=== PATIENT | male | born 1950 | race Caucasian/White ===

== ENCOUNTER 2025-02-17 15:24 | Emergency (ER) | payer OTHER, SELFPAY ==
--- NOTE | ~2025-02-17 | XR_ITS ---
EXAMINATION: XR chest 2V Exam Date/Time: 02/17/2025 16:00 CDT HISTORY: covid Comparison: None. RESULT: Lines, tubes, and devices: Cholecystectomy clips. Lungs and pleura: Streaky subsegmental bibasilar opacities. Ill-defined groundglass opacities in the right lower lung. Right lower lung granuloma Cardiomediastinal silhouette: Stable. Chronic left hemidiaphragm elevation. Other: No acute osseous or upper abdominal finding. IMPRESSION: Ill-defined right lower lung groundglass opacities may represent atelectasis, edema or infection. Min imal bibasilar subsegmental atelectasis/consolidation. Chronic left hemidiaphragm elevation, recommend nonemergent fluoroscopic sniff test for further evalu ation if not performed elsewhere. Reviewed, dictated and finalized at [facility]. IMPRESSION: Ill-defined right lower lung groundglass opacities may represent atelectasis, e sumaya or infection. Minimal bibasilar subsegmental atelectasis/consolidation. Chronic left hemidiaphragm elevation, recommend nonemergent fluoroscopic sniff test for further evaluation if not performed elsewhere.
[2025-02-17 15:27] VITALS: BP 168/84; PULSE 97; RESP 16; TEMP 36.6; O2SAT 97
--- OUTSIDE RECORDS SUMMARY | 2025-02-17 15:27 | XMS_ITS ---
Author Name [facility] [place] Address [address] [place] [address] Care Team Providers Care Funeral Attendant Name Role Phone MORELIA ALLEN Primary Care Provider Abel schmidt Insurance Providers: All historical and current Section Date Range: From patient's date of to the date document was created. This section includes the names of all active insurance providers for the patient. Insurance Provider Type of Coverage Plan Name Start of Policy Coverage End of Policy Coverage Group Number Member ID Insurance Provider's Telephone Number Policy Norman's Name Patient's Relationship to Policy Norman MEDICARE (WNR) MEDICARE (M) PART A Mar 19, 2014 PART A [id number] [place] MEDICARE (WNR) MEDICARE (M) PART A Mar 19, 2014 PART A [id number] [place] Selected Encounter This section includes the information on record at [place] for the Encounter. Date/Time Encounter Type Encounter Description Reason Provider Source Sep 01, 2024 01:08 PM [facility] OL DIG ASSMT&MGMT 5-10 CLINICAL PHARMACY ICD-10-CM E11.8 Type 2 diabetes mellitus with unspecified complications AIDAN SANTIAGO Encounter Template Text not used by [place] Assessments - Encounter Diagnoses This section includes the primary and secondary diagnoses documented for the Encounter. Date/Time Primary/Secondary Diagnosis Diagnosis Name Provider Source Sep 01, 2024 01:19 PM PRIMARY Type 2 diabetes mellitus with unspecified complications AIDAN SANTIAGO [facility] Plan of Treatment: Future Appointments (+ 6 months) and Future Tests (+/- 45 days) The Plan of Treatment section includes future care activities for the patient from all [place] [facility]. This section includes future appointments and future orders which are active, pending or scheduled. Future Appointments This section includes appointments that were scheduled to occur 6 months from the date of the Encounter, up to a maximum of 20 appointments. The data comes from all [place] treatment facilities. Appointment Date/Time Appointment Type Appointme nt Facility Name Sep 12, 2024 01:00 PM AMBULATORY - MEDICINE [facility] Oct 11, 2024 10:30 AM AMBULATORY - NONE [facility] Nov 07, 2024 09:15 AM AMBULATORY - MEDICINE [facility] November 23, 2024 09:00 AM AMBULATORY - NONE [facility] November 23, 2024 11:00 AM AMBULATORY - SURGERY . [facility] December 15, 2024 03:30 PM AMBULATORY - MEDICINE [facility] Dec 18, 2024 08:00 AM AMBULATORY - SURGERY [facility] Dec 20, 2024 03:30 PM AMBULATORY - MEDICINE [facility] Dec 21, 2024 11:00 AM AMBULATORY - NONE [facility] Dec 29, 2024 08:00 AM AMBULATORY - REHAB MEDICIN E [facility] 2025 02:30 PM AMBULATORY - REHAB MEDICIN E [facility] Jan 12, 2025 11:30 AM AMBULATORY - NONE . [facility] Jan 12, 2025 04:00 PM AMBULATORY - SURGERY . [facility] Jan 18, 2025 11:00 AM AMBULATORY - SURGERY [facility] Feb 07, 2025 11:00 AM AMBULATORY - SURGERY [facility] Feb 14, 2025 06:30 AM AMBULATORY - NONE [facility] Feb 15, 2025 08:30 AM AMBULATORY - SURGERY [facility] Feb 22, 2025 08:00 AM AMBULATORY - SURGERY [facility] Feb 28, 2025 09:00 AM AMBULATORY - SURGERY [facility] Lab Results: +/- 30 days of the encounter This section includes the Chemistry and Hematology Lab Results [facility] with [facility] for the patient. Radiology Reports and Pathology Reports are provided separately, in subsequent sections. Lab Results This section contains the Chemistry/Hematology Results that were resulted 30 days before or 30 daysafter the date of the Encounter. Date/Time Source Result Type Result - Unit Interpretation Reference Range Specimen Type Comment Aug 31, 2024 08:25 AM [facility] HGA1C BLOOD Specimen Type: BLOOD No comment entered. Ordering Provider: TAPAN BLAS Report Released Date/Time: Jul 20, 2024 09:26 AM Reporting Lab: [facility] #1 [facility] [id number] Performing Lab: [facility] #1 [facility] [id number] HGA1C 6.9 H 4.0-6.0 Aug 31, 2024 08:25 AM [facility] BASIC METABOLIC PANEL PLASMA Specimen Type: PL ASMA Comment: No hemolysis noted. Ordering Provider: TAPAN BLAS Report Released Date/Time: Jul 20, 2024 09:26 AM Reporting Lab: [facility]1 [facility] [phone] Performing Lab: [facility]1 [facility] [phone] CREATININE 0.97 mg/dL 0.70-1.30 UREA NITROGEN 15.8 mg/dL 9.0-25.0 GLUCOSE 168 mg/dL H 72-99 SODIUM 140 meq/L 136-145 POTASSIUM 4.4 meq/L 3.5-5.0 CHLORIDE 104 meq/L 98-107 CARBON DIOXIDE 27 meq/L 22-31 CALCIUM 9.4 mg/dL 8.4-10.4 EGFR (CKD-EPI 2020) 81.41 >60 Social History: Smoking Status (Most current) and Tobacco Use (All prior to encounter date) This section includes the most current, and the historical, smoking and tobacco- related health factors from the [place] facility where the Encounter took place. Current Smoking Status This section includes the most current smoking, or tobacco-related health factor, from the [place] facility where the Encounter took place. Date/Time Current Smoking Status Comment Ronda ity Jun 19, 2023 02:53 AM ORYX ADMIT TOBACCO SCREEN NO [facility] Tobacco Use History This section includes a history of the smoking, or tobacco-related health factors, that were collected on or before the date of the Encounter. The data comes from the [place] facility where the Encounter took place. Date/Time Smoking Status/Tobacco Use Comment Kirstin acility Apr 02, 2016 12:55 PM QUIT TOBACCO >7 YEARS AGO [facility] May 21, 2015 01:30 PM LIFETIME NON-USER OF TOBACCO [facility] Jan 03, 2014 10:46 AM LIFETIME NON-USER OF TOBACCO [facility] Feb 21, 2013 11:08 AM QUIT TOBACCO >12 M O & <7 YRS AGO [facility] Aug 19, 2009 12:46 PM LIFETIME NON-USER OF TOBACCO [facility] Oct 05, 2008 10:28 AM QUIT TOBACCO >12 M O & <7 YRS AGO [facility] November 18, 2007 09:08 AM QUIT TOBACCO IN TH E LAST 12 MONTHS [facility] Aug 05, 2006 12:57 PM CURRENT TOBACCO USER [facility] Aug 05, 2006 12:57 PM TOB-DECLINES SMOKI NG CESSATION REFERRAL [facility] Jan 13, 2006 08:42 AM CURRENT TOBACCO USER [facility] Jan 13, 2006 08:42 AM SMOKER 1-2 PACKS [facility] Advance Directives: All historical and current Section Date Range: From patient's date of to the date document was created. This section includes ALL of a patient's completed or amended [place] Advance and Rescinded Directives. The entries below indicate that a directive exists for the patient, but an actual copy is not included with this document. The data comes from all [place] facilities. Date Advance Directives Provider Source Jan 22, 2016 ADVANCE DIRECTIVE DISCUSSION AMBERLY HOFFMAN [facility] Mar 31, 2007 ADVANCE DIRECTIVE JOSE C ALLEN [facility] Encounter Notes: All associated encounter notes This section contains the clinical notes associated to the Encounter. Date/Time Encounter Note(s) Provider Source Sep 01, 2024 01:08 PM PHARMACY CONSULT: LOCAL TITLE: PHARMACY PRIOR APPROVAL CONSULT ST STANDARD TITLE: PHARMACY CONSULT DATE OF NOTE: SEP 01, 2024@13:08 ENTRY DATE: SEP 01, 2024@13:08:59 AUTHOR: AIDAN SANTIAGO COSIGNER: URGENCY: STATUS: COMPLETED The medical record has been reviewed with regard to this prior authorization drug request. Medication requested: LIRAGLUTIDE (EQV-VICTOZA) 6MG/ML PEN 3ML Medication indication: Type 2 Diabetes Mellitus Medical history relevant to this request: ALLAN LOVETT is a 74 yo MALE with pertinent PMH significant for T2DM, HTN, obesity, and HLD. Provider requesting initiation of liraglutide. Current DM Regimen: - Metformin 1000mg PO BID - Dulaglutide 0.75mg subQ weekly (discontinued due to ADRs) A1c Target: <7.5% HGA1C 6.9 H % 08/31/2024 08:25 SODIUM 140 mEq/L 08/31/2024 08:25 POTASSIUM 4.4 mEq/L 08/31/2024 08:25 CHLORIDE 104 mEq/L 08/31/2024 08:25 UREA NITROGEN 15.8 mg/dL 08/31/2024 08:25 CREATININE 0.97 mg/dL 08/31/2024 08:25 CALCIUM 9.4 mg/dL 08/31/2024 08:25 CARBON DIOXIDE 27 mEq/L 08/31/2024 08:25 GLUCOSE 168 H mg/dL 08/31/2024 08:25 EGFR (CKD-EPI 2020) 81.41 08/31/2024 08:25 Exclusion Criteria: (-) Type 1 Diabetes (-) Personal/family history of medullary thyroid carcinoma or with Multiple Endocrine Neoplasia syndrome type 2 (-) Severe GI disease (-) History of pancreatitis History of diabetic retinopathy: 03/09/24 Type 2 Diabetes without retinopathy - No DME/CSME OU- confirmed w/ OCT Mac - Last HGA1C: 6.7% - Pt ed on the importance of maintaining tight BG control to reduce the risk for diabetic ocular complications - Monitor annually w/ DFE Inclusion Criteria: Pts with ASCVD and/or CKD: (+) T2DM + receiving metformin unless unable to use metformin (+) Not a good candidate for empagliflozin (volume depletion, UTI, ketoacidosis) (+) uACR >300mcg/mg - A1c reflects metformin + dualglutide. Experiencing nausea/diarrhea w/ dulaglutide; hx of diarrhea w/ semaglutide. Would like to try alternative glp1 d/t BMI 40 kg/m2, uACR > 300 mcg/mg. Avoiding SGLT2i d/t UTI and kidney stone hx (kidney stones contribute to vet's UTIs) Will approve request for liraglutide initiation as above. No contrainidications to use. The request is approved - A documented adverse reaction occurred with the preferred formulary alternative(s) TIME REVIEWING CHART:10. (minutes) /shadi/ Aidan Santiago PharmD, BCPS, BCIDP Clinical Pharmacy Practitioner Signed: 09/01/2024 13:33 AIDAN SANTIAGO [facility]
--- OUTSIDE RECORDS SUMMARY | 2025-02-17 15:28 | XMS_ITS | Encounter Summary ---
Author Name [facility] [place] [facility] [place] Address [address] [place] [address] Care Team Providers Care Machine Grainer Name Role Phone MORELIA ALLEN Primary Care Provider Unavailab le Insurance Providers: All historical and current Section [...] PART A Mar 19, 2014 PART A [id number] [phone] [place] PATIENT MEDICARE (WNR) MEDICARE (M) PART A Mar 19, 2014 PART A [id number] [place] PATIENT Selected Encounter This section includes the information on record at [place] for the Encounter. Date/Time Encounter Type Encounter Description Reason Pro vider Source Feb 17, 2025 03:04 PM Outpatient Encounter TELEPHONE TRIAGE IHE Encounter Template Text not used by [facility] Plan of Treatment: Future Appointments (+ 6 months) and Future Tests (+/- 45 days) The Plan of Treatment section includes future care activities for the patient [facility] [place] [facility] This section includes future appointments and future orders which are active, pending or scheduled. Future Appointments This section includes appointments that were scheduled to occur 6 months from the date of the Encounter, up to a maximum of 20 appointments. The data comes from all [place] treatment facilities. Appointment Date/Time Appointment Type Appointme nt Facility Name Feb 22, 2025 08:00 AM AMBULATORY - SURGERY [facility] Feb 28, 2025 09:00 AM AMBULATORY - SURGERY [facility] Mar 06, 2025 08:30 AM AMBULATORY - NONE [facility] Mar 12, 2025 01:30 PM AMBULATORY - SURGERY [facility] Mar 16, 2025 08:30 AM AMBULATORY - SURGERY [facility] May 31, 2025 11:00 AM AMBULATORY - MEDICINE [facility] Lab Results: +/- 30 days of the encounter This section includes the Chemistry and Hematology Lab Results on record with [place] for the patient. Radiology Reports and Pathology Reports are provided separately, in subsequent sections. Lab Results This section contains the Chemistry/Hematology Results that were resulted 30 days before or 30 daysafter the date of the Encounter. Date/Time Source Result Type Result - Unit Interpretation Reference Range Specimen Type Comment Feb 14, 2025 06:47 AM [facility] GLUCOSE,BLOOD-poct (STL) BLOOD Specimen Type: BLOOD Comment: Test Performed by: [id number] Meter #: [id number] Ordering Provider: ENEDELIA EMERSON Report Released Date/Time: Feb 14, 2025 08:34 AM Reporting Lab: [facility] [address] [facility] [id number] Performing Lab: [address] [id number] GLUCOSE,BLOOD-poct (STL) 146 mg/dL H 72-99 Social History: Smoking Status (Most current) and Tobacco Use (All prior to encounter date) This section includes the most current, and the historical, smoking and tobacco- related health factors from the [place] facility where the Encounter took place. Current Smoking Status This section includes the most current smoking, or tobacco-related health factor, from the [place] facility where the Encounter took place. Date/Time Current Smoking Status Comment Ronda ity Jun 19, 2023 02:53 AM ORYX ADMIT TOBACCO SCREEN NO [facility] Tobacco Use History This section includes a history of the smoking, or tobacco-related health factors, that were collected on or before the date of the Encounter. The data comes from the [place] facility where the Encounter took place. Date/Time Smoking Status/Tobacco Use Comment F acility Apr 02, 2016 12:55 PM QUIT TOBACCO >7 YEARS AGO [facility] May 21, 2015 01:30 PM LIFETIME NON-USER OF TOBACCO [facility] Jan 03, 2014 10:46 AM LIFETIME NON-USER OF TOBACCO [facility] Feb 21, 2013 11:08 AM QUIT TOBACCO >12 M O & <7 YRS AGO [facility] Aug 19, 2009 12:46 PM LIFETIME NON-USER OF TOBACCO [facility] Oct 05, 2008 10:28 AM QUIT TOBACCO >12 M O & <7 YRS AGO [facility] November 18, 2007 09:08 AM QUIT TOBACCO IN TH E LAST 12 MONTHS [facility] Aug 05, 2006 12:57 PM CURRENT TOBACCO USER [facility] Aug 05, 2006 12:57 PM TOB-DECLINES SMOKI NG CESSATION REFERRAL [facility] Jan 13, 2006 08:42 AM CURRENT TOBACCO USER [facility] Jan 13, 2006 08:42 AM SMOKER 1-2 PACKS [facility] Advance Directives: All historical and current Section Date Range: From patient's date of to the date document was created. This section includes ALL of a patient's completed or amended [place] Advance and Rescinded Directives. The entries below indicate that a directive exists for the patient, but an actual copy is not included with this document. The data comes from all [facility]. Date Advance Directives Provider Source Jan 22, 2016 ADVANCE DIRECTIVE DISCUSSION AMBERLY HOFFMAN [facility] Mar 31, 2007 ADVANCE DIRECTIVE JOSE C ALLEN [facility] Encounter Notes: All associated encounter notes This section contains the clinical notes associated to the Encounter. Date/Time Encounter Note(s) Provider Source Feb 17, 2025 03:04 PM RN PROGRESS NOTE: LOCAL TITLE: CCC: CLINICAL TRIAGE STANDARD TITLE: RN PROGRESS NOTE DATE OF NOTE: FEB 17, 2025@15:04:57 ENTRY DATE: FEB 17, 2025@15:04:58 AUTHOR: DEMETRIA DICKINSON COSIGNER: URGENCY: STATUS: COMPLETED Caller Verification Caller/Recipient Relation to Patient: Self Caller Name: ALLAN LOVETT Emergency Contact: MARCOS LOVETT Triage Summary Conducted triage/discussed symptoms Utilized the Triage Tool: Yes Chief Complaint: COVID-19 - Diagnosed or Suspected Nurse's Recommendation / WHEN: Now Nurse's Recommendation / WHERE: ED [facility] Patient confirms the following symptoms Cough Headache Runny Nose Confirms exposure in the last 14 days: Yes Someone with known or suspected COVID Results of Screening: Covid Vaccine x 8 POSITIVE symptom/s or exposure COVID Test to Treat Patient has a COVID home test kit Has patient had a test?: Yes Home Test COVID test result was positive Test was performed in the last 5 days: Yes Checked for FDA Authorized Test Kit: FDA authorized test kit used Date of Test was: 2025-02-17 00:00:00 Test Kit expiration date: 2025-04-13 00:00:00 Name of Test: Flow Flex Results self-reported via phone Test done with freight handler instructions: Yes Test to Treat Summary of Actions Test to Treat Outcome: No Appointment Required at This Time Patient Disposition Patient/Caregiver agrees to plan of care: No Patient WHERE: ED Other Patient WHEN: Now Nursing Plan and Disposition Referred patient to higher level of care Instructed to go to Emergency Room (ER) Advised of Financial Disclaimer: Patient advised that recommendation for care provided during the call does not constitute an approval or authorization for payment by the [place] or its staff. Patient advised to report a community ED visit to the national Office of Community Care at within 72 hours. Other course(s) of action Generated msg to PACT/Provider Provided guidance for worsening symptoms: *Caller/Patient* advised to call facilities [place] Clinical Contact Center or seek immediate medical attention for new or worsening symptoms Nurse Summary Nurse Summary: W[place] calls stating he thought he may have Covid so he took a home Covid test which was positive. Reports onset of runny nose, dry cough and headache which started on . Denies fever or chest pain. Reports slight SOA with exertion. Reports started with symptoms first. Advised he should be evaluated in the ER due to he is still in time frame for antivirals at Provider's discretion. Reports [facility] is [place] [address] away. would prefer to go to local ER and was provided with Non [place] Hospital notification number to report ER visit. Clinical Contact Center Codes Clinic/Location: 5 [facility] PHONE [facility] RN Decision Support System Output: Triage Complete Triage Date: 02/17/2025, 02:59 PM Triage Note: Decision Support Tool Used: ClearTriage Protocol Used: COVID-19 - Diagnosed or Suspected Protocol-Based Disposition: See Provider within 4 Hours Positive Triage Question: * MILD difficulty breathing (e.g., minimal/no SOB at rest, SOB with walking, pulse < 100) Care Advice Discussed: * Reasons To Call Back - You become worse Negative Triage Questions: * SEVERE difficulty breathing (e.g., struggling for each breath, speaks in single words) * Difficult to awaken or acting confused (e.g., disoriented, slurred speech) * Bluish (or nunez) lips or face now * Shock suspected (e.g., cold/pale/clammy skin, too weak to stand, low BP, rapid pulse) * Sounds like a life-threatening emergency to the triager * SEVERE or constant chest pain or pressure (Exception: Mild central chest pain, present only when coughing.) * MODERATE difficulty breathing (e.g., speaks in phrases, SOB even at rest, pulse 100-120) * [1] Headache AND [2] stiff neck (can't touch chin to chest) * Oxygen level (e.g., pulse oximetry) 90% or lower * Chest pain or pressure (Exception: MILD central chest pain, present only when coughing.) * [1] Drinking very little AND [2] dehydration suspected (e.g., no urine > 12 hours, very dry mouth, very lightheaded) * Patient sounds very sick or weak to the triager IMPORTANT: This note was created by [facility] Clinical Contact Center staff. Please do not alert the staff member by adding them as a signer for future communications. Alerts are not monitored by this user. /shadi/ Demetria Dickinson RN [facility] 15 Clinical Contact Center Signed: 02/17/2025 15:04 Receipt Acknowledged By: * AWAITING SIGNATURE * ELISSA ELLINGTON * AWAITING SIGNATURE * MORELIA ALLEN [facility]
--- OUTSIDE RECORDS SUMMARY | 2025-02-17 15:28 | XMS_ITS | Encounter Summary ---
Author Name [facility] Address [address] [place] [address] Care Team Providers Care Copy Lathe Tender Name Role Phone MORELIA ALLEN Primary Care [...] PART A Mar 19, 2014 PART A [id number] [place] PATIENT MEDICARE (WNR) MEDICARE (M) PART A Mar 19, 2014 PART A [id number] [phone] [place] PATIENT Selected Encounter This section includes the information on record at [place] for the Encounter. Date/Time Encounter Type Encounter Description Reason Provider Source Apr 13, 2024 11:05 AM Outpatient Encounter COMMUNITY CARE CONSULT KAMALJIT KOEHLER Encounter Template Text not used by [facility] Plan of Treatment: Future Appointments (+ 6 months) and Future Tests (+/- 45 days) The Plan of Treatment section includes future care activities for the patient [facility] This section includes future appointments and future orders which are active, pending or scheduled. Future Appointments This section includes appointments that were scheduled to occur 6 months from the date of the Encounter, up to a maximum of 20 appointments. The data comes from all [place] treatment facilities. Appointment Date/Time Appointment Type Appointme nt Facility Name May 11, 2024 11:00 AM AMBULATORY - NONE [facility] May 12, 2024 09:00 AM AMBULATORY - REHAB MEDICIN E [facility] Jun 01, 2024 11:30 AM AMBULATORY - MEDICINE [facility] Jun 08, 2024 11:00 AM AMBULATORY - NONE [facility] Jul 03, 2024 10:00 AM AMBULATORY - SURGERY [facility] Jul 20, 2024 09:00 AM AMBULATORY - NONE [facility] Aug 31, 2024 09:00 AM AMBULATORY - NONE [facility] Sep 12, 2024 01:00 PM AMBULATORY - MEDICINE [facility] Oct 11, 2024 10:30 AM AMBULATORY - NONE [facility] Lab Results: +/- 30 days of the encounter This section includes the Chemistry and Hematology Lab Results on record with [place] for the patient. Radiology Reports and Pathology Reports are provided separately, in subsequent sections. Lab Results This section contains the Chemistry/Hematology Results that were resulted 30 days before or 30 daysafter the date of the Encounter. Date/Time Source Result Type Result - Unit Interpretation Reference Range Specimen Type Comment May 11, 2024 11:44 AM [facility] MICRAL/CREAT PROFILE (STL) URINE Specimen Typ e: URINE No comment entered. Ordering Provider: TAPAN BLAS Report Released Date/Time: May 11, 2024 11:35 AM Reporting Lab: [facility] [address] [facility] [id number] Performing Lab: [facility] [address] [facility] [id number] URINE ALBUMIN (PB-STL) 405 mg/L No range refer to micral/creat ratio uACR (STL) 473 mg/g H 0-29 CREATININE URINE/OTHERS 85.6 mg/dL 63.0- 166.0 Apr 13, 2024 11:44 AM [facility] HGA1C BLOOD Specimen Type: BLOOD No comment entered. Ordering Provider: TAPAN BLAS Report Released Date/Time: Apr 13, 2024 11:22 AM Reporting Lab: [facility] [address] [facility] [id number] Performing Lab: [facility] [address] [facility] [address] HGA1C 6.5 H 4.0-6.0 Apr 13, 2024 11:44 AM [facility] BASIC METABOLIC PANEL PLASMA Specimen Type: PL ASMA Comment: No hemolysis noted. Ordering Provider: TAPAN BLAS Report Released Date/Time: Apr 13, 2024 11:22 AM Reporting Lab: [facility] [facility] [phone] Performing Lab: [facility] [address] [facility] [phone] CREATININE 0.83 mg/dL 0.70-1.30 UREA NITROGEN 20.3 mg/dL 9.0-25.0 GLUCOSE 82 mg/dL 72-99 SODIUM 139 meq/L 136-145 POTASSIUM 4.5 meq/L 3.5-5.0 CHLORIDE 105 meq/L 98-107 CARBON DIOXIDE 26 meq/L 22-31 CALCIUM 9.7 mg/dL 8.4-10.4 EGFR (CKD-EPI 2020) 91.27 >60 Social History: Smoking Status (Most current) and Tobacco Use (All prior to encounter date) This section includes the most current, and the historical, smoking and tobacco- related health factors from the [place] facility where the Encounter took place. Current Smoking Status This section includes the most current smoking, or tobacco-related health factor, from the [place] facility where the Encounter took place. Date/Time Current Smoking Status Comment Ronda vallejo Jun 19, 2023 02:53 AM ORYX ADMIT TOBACCO SCREEN NO [facility] Tobacco Use History This section includes a history of the smoking, or tobacco-related health factors, that were collected on or before the date of the Encounter. The data comes from the [place] facility where the Encounter took place. Date/Time Smoking Status/Tobacco Use Comment Kirstin prado Apr 02, 2016 12:55 PM QUIT TOBACCO >7 YEARS AGO [facility] May 21, 2015 01:30 PM LIFETIME NON-USER OF TOBACCO [facility] Jan 03, 2014 10:46 AM LIFETIME NON-USER OF TOBACCO [facility] Feb 21, 2013 11:08 AM QUIT TOBACCO >12 M O & <7 YRS AGO [facility] Aug 19, 2009 12:46 PM LIFETIME NON-USER OF TOBACCO [facility] Oct 05, 2008 10:28 AM QUIT TOBACCO >12 M O & <7 YRS AGO [facility] November 18, 2007 09:08 AM QUIT TOBACCO IN TH E LAST 12 MONTHS [facility] Aug 05, 2006 12:57 PM CURRENT TOBACCO USER [facility] Aug 05, 2006 12:57 PM TOB-DECLINES SMOKI NG CESSATION REFERRAL [facility] Jan 13, 2006 08:42 AM CURRENT TOBACCO USER [facility] Jan 13, 2006 08:42 AM SMOKER 1-[address] [facility] Advance Directives: All historical and current Section Date Range: From patient's date of to the date document was created. This section includes ALL of a patient's completed or amended [place] Advance and Rescinded Directives. The entries below indicate that a directive exists for the patient, but an actual copy is not included with this document. The data comes from all [place] facilities. Date Advance Directives Provider Source Jan 22, 2016 ADVANCE DIRECTIVE AMBERLY CORRIGAN [facility] Mar 31, 2007 ADVANCE DIRECTIVE JOSE C ALLEN [facility] Radiology Reports: +/- 30 days of the encounter Radiology Reports For cases when an order for radiology services may have been completed prior to the date of the Encounter, the report list includes the Radiology Reports that were completed up to 30 days before dateof the Encounter. For cases when an order for radiology services may have been completed after the date of the Encounter, the report list also includes the Radiology Reports that were completed up to30 days after date of the Encounter. The data comes from all [place] treatment facilities. Date/Time Radiology Report Provider Source Mar 15, 2024 11:[address] ABDOMEN PELVIS W/O CONTRAST-P: ALLAN LOVETT [id number] -[id number] M Exm Date: MAR 15, 2024@11:41 Req Phys: MERRITT CURRY Loc: R[facility]ANN-UROLOGY 1 (Req'g Loc) Img Loc: RYANN-CT IMAGING R[facility]ANN Service: Unknown [facility] [address] [place] [address] (Case [id number] COMPLETE) CT ABDOMEN AND PELVIS W/O CONTRAS(CT Detailed) CPT:86982 Reason for Study: Bialteral Renal Stones Clinical History: Responsible Attending: Cony Curry Attending Contact Number: [phone] Resident Contact Number: BP 73 y/o WM w/h/o bilateral nephrolithiasis s/p Left PCNL in June, needs repeat NON-CON CT prior to his 03/15/24 followup appt. Can we do first thing in the AM on the ? thanks Allergies listed in CPRS chart: IODINATED CONTRAST MEDIA, LISINOPRIL Creatinine:CREATININE 1.08 mg/dL 08/10/2023 08:29 /eGFR: STL EGFR (within one year). CREATININE 1.08 mg/dL (08/10/23 08:29) Wt: 274.5 lb [124.51 kg] (07/06/2023 19:20) History of: Renal failure, chronic or acute renal disease: NO Report Status: Verified Date Reported: MAR 15, 2024 Date Verified: MAR 15, 2024 Ultrasound Technologist E-Sig:/ES/MOODY FRAZIER MD Report: Spiral axial imaging through the abdomen and pelvis was performed without contrast Comparison: 07/07/2023 Liver: normal The spleen: normal Pancreas: normal Adrenal glands: No significant abnormality Kidneys: Left renal cyst with thin wall calcification similar to prior examination again noted. Left ureteral stent has been removed. No evidence of hydronephrosis, obstructive uropathy, or ureteral stones. Multiple small left calyceal stones, none more than 4 mm in diameter. Stable anterior left bladder wall diverticulum Aorta and retroperitoneum: Calcified plaque, caliber does not exceed 3 cm. No retroperitoneal adenopathy. Peritoneal cavity: No ascites. . Fluid collection in the anterior abdominal wall with incomplete wall calcification, likely old hematoma, similar to prior exam Skeleton: Unremarkable. The term unremarkable may include mild to moderate arthritic changes that would not be considered unusual for the patient's age Pelvis: The pelvic organs are unremarkable. Impression: Small left calyceal stones Primary Interpreting Staff: MOODY FRAZIER MD, Radiologist (Ultrasound Technologist) /CPG MOODY FRAZIER [facility] Encounter Notes: All associated encounter notes This section contains the clinical notes associated to the Encounter. Date/Time Encounter Note(s) Provider Source Apr 13, 2024 11:05 AM LETTERS: LOCAL TITLE: [facility] CARE-REQUEST FOR SERVICES (RFS) LETTER ST STANDARD TITLE: LETTERS DATE OF NOTE: APR 13, 2024@11:05 ENTRY DATE: APR 13, 2024@11:05:57 AUTHOR: KAMALJIT KOEHLER EXP COSIGNER: URGENCY: STATUS: COMPLETED [facility] [address] [place] [address] Ezekiel Fadi [address] [facility] [address] [facility] [address] Dear Provider, Information: Patient Name: ALLAN LOVETT Date of : Dec The [facility] has received the request requesting new referral from you for services that were not originally authorized in the [facility] Administration for this [place]. Upon review, the following determination has been made: Service has been denied: Care has been deemed clinically inappropriate. Reason: The device is not approved by medicare. Please place PT consult. We have access at to get this in for post op care. the ERMI Flexionator and other patient-actuated serial stretch (PASS)devices because they are considered experimental and investigational. In-house PT consult to be placed. Should you have questions, please contact us at [phone] to speak with a patient vp customer service. As a reminder, if applicable, return medical records within 30 days for routine services. Sincerely, Sincerely, KAMALJIT KOEHLER,RN MSN REGISTERED NURSE KAMALJIT KOEHLER [facility]
--- OUTSIDE RECORDS SUMMARY | 2025-02-17 15:28 | XMS_ITS | Encounter Summary ---
Author Name [facility] Address [address] [place] [address] Care Team Providers Care Seam Sewer Name Role Phone MORELIA ALLEN Primary Care [...] PART A Mar 19, 2014 PART A [id number] [phone] [place] PATIENT MEDICARE (WNR) MEDICARE (M) PART A Mar 19, 2014 PART A [id number] [place] PATIENT Selected Encounter This section includes the information on record at [place] for the Encounter. Date/Time Encounter Type Encounter Description Reason Pro vider Source Apr 12, 2024 07:52 PM Outpatient Encounter COMMUNITY CARE CONSULT IHE Encounter Template Text not used by [facility] Plan of Treatment: Future Appointments (+ 6 months) and Future Tests (+/- 45 days) The Plan of Treatment section includes future care activities for the patient [facility] This section includes future appointments and future orders which are active, pending or scheduled. Future Appointments This section includes appointments that were scheduled to occur 6 months from the date of the Encounter, up to a maximum of 20 appointments. The data comes from all [place] treatment facilities. Appointment Date/Time Appointment Type Appointme nt Facility Name Apr 13, 2024 11:00 AM AMBULATORY - NONE [facility] May 11, 2024 11:00 AM AMBULATORY - NONE [facility] May 12, 2024 09:00 AM AMBULATORY - REHAB MEDICIN E [facility] Jun 01, 2024 11:30 AM AMBULATORY - MEDICINE [facility] Jun 08, 2024 11:00 AM AMBULATORY - NONE [facility] Jul 03, 2024 10:00 AM AMBULATORY - SURGERY [facility] Jul 20, 2024 09:00 AM AMBULATORY - NONE [facility] Aug 31, 2024 09:00 AM AMBULATORY - NONE [facility] Sep 12, 2024 01:00 PM AMBULATORY - MEDICINE [facility] Lab Results: +/- 30 days of the [...] Type Comment May 11, 2024 11:44 AM [facility] MICRAL/CREAT PROFILE (STL) URINE Specimen Typ e: URINE No comment entered. Ordering Provider: TAPAN BLAS Report Released Date/Time: May 11, 2024 11:35 AM Reporting Lab: [facility] [id number] Performing Lab: [facility] [id number] URINE ALBUMIN (PB-STL) 405 mg/L No range refer to micral/creat ratio uACR (STL) 473 mg/g H 0-29 CREATININE URINE/OTHERS 85.6 mg/dL 63.0- 166.0 Apr 13, 2024 11:44 AM [facility] HGA1C BLOOD Specimen Type: BLOOD No comment entered. Ordering Provider: TAPAN BLAS Report Released Date/Time: Apr 13, 2024 11:22 AM Reporting Lab: [facility] [id number] Performing Lab: [facility] [id number] HGA1C 6.5 H 4.0-6.0 Apr 13, 2024 11:44 AM [facility] BASIC METABOLIC PANEL PLASMA Specimen Type: PL ASMA Comment: No hemolysis noted. Ordering Provider: TAPAN BLAS Report Released Date/Time: Apr 13, 2024 11:22 AM Reporting Lab: [facility] [id number] Performing Lab: [facility] [id number] CREATININE 0.83 mg/dL 0.70-1.30 UREA NITROGEN 20.3 [...] and tobacco- related health factors from the [place] facility where the Encounter took place. Current Smoking Status This section includes the most current smoking, or tobacco-related health factor, from the [place] facility where the Encounter took place. Date/Time Current Smoking Status Comment Ronda vallejo Jun 19, 2023 02:53 AM ORYX ADMIT TOBACCO SCREEN NO [facility] Tobacco Use History This section includes a history of the smoking, or tobacco-related health factors, that were collected on or before the date of the Encounter. The data comes from the AR facility where the Encounter took place. Date/Time Smoking Status/Tobacco Use Comment F acility Apr 02, 2016 12:55 PM QUIT TOBACCO >7 YEARS AGO [facility] May 21, 2015 01:30 PM LIFETIME NON-USER OF TOBACCO [facility] Jan 03, 2014 10:46 AM LIFETIME NON-USER OF TOBACCO [facility] Feb 21, 2013 11:08 AM QUIT TOBACCO >12 M O & <7 YRS AGO [facility] Aug 19, 2009 12:46 PM LIFETIME NON-USER OF TOBACCO [facility] Oct 05, 2008 10:28 AM QUIT TOBACCO >12 M O & <7 YRS AGO [facility] November 18, 2007 09:08 AM QUIT TOBACCO IN TH E LAST 12 MONTHS [facility] Aug 05, 2006 12:57 PM CURRENT TOBACCO USER [facility] Aug 05, 2006 12:57 PM TOB-DECLINES SMOKI NG CESSATION REFERRAL [facility] Jan 13, 2006 08:42 AM CURRENT TOBACCO USER [facility] Jan 13, 2006 08:42 AM SMOKER 1-2 PACKS [facility] Advance Directives: All historical and current Section Date Range: From patient's date of to the date document was created. This section includes ALL of a patient's completed or amended [place] Advance and Rescinded Directives. The entries below indicate that a directive exists for the patient, but an actual copy is not included with this document. The data comes from all [place] facilities. Date Advance Directives Provider Source Jan 22, 2016 ADVANCE DIRECTIVE DISCUSSION AMBERLY HOFFMAN [facility] Mar 31, 2007 ADVANCE DIRECTIVE JOSE C ALLEN [facility] Radiology Reports: +/- 30 days of the [...] the Encounter. The data comes from all [place] treatment facilities. Date/Time Radiology Report Provider Source Mar 15, 2024 11:[address] ABDOMEN PELVIS W/O CONTRAST-P: ALLAN LOVETT [id number] -[id number] M Exm Date: MAR 15, 2024@11:41 Req Phys: MERRITT CURRY Loc: [facility]-UROLOGY 1 (Req'g Loc) Img Loc: [facility]-CT IMAGING [facility] Service: Unknown [facility], [address] [place] [address] (Case [id number] COMPLETE) CT ABDOMEN AND PELVIS W/O CONTRAS(CT Detailed) CPT:59837 Reason for Study: Bialteral Renal Stones Clinical [...] 15, 2024 Date Verified: MAR 15, 2024 Preparer E-Sig:/ES/MOODY FRAZIER MD Report: Spiral axial imaging [...] Primary Interpreting Staff: MOODY FRAZIER MD, Radiologist (Preparer) /CPG MOODY FRAZIER [facility] Encounter Notes: All associated encounter notes This section contains the clinical notes associated to the Encounter. Date/Time Encounter Note(s) Provider Source Apr 27, 2024 09:53 AM ADDENDUM: LOCAL TITLE: Addendum STANDARD TITLE: ADDENDUM DATE OF NOTE: APR 27, 2024@09:53:34 ENTRY DATE: APR 27, 2024@09:53:35 AUTHOR: NATASHA HERNANDEZ EXP COSIGNER: URGENCY: STATUS: COMPLETED This senior writer received a call from natali at [facility], wishing to find out whats going on with device request. Informed her service had been denied as not deemed clinically appropriate, and inhouse pt consult being placed at [place]. There is currently an active PT Consult for community care. Natali requeste note be added to request for service note for clarification. /shadi/ NATASHA HERNANDEZ [employer] INTERN Signed: 04/27/2024 09:56 Receipt Acknowledged By: 05/01/2024 11:34 /shadi/ JOSE OTTO NURSE PRACTITIONER 05/20/2024 06:51 /shadi/ KAMALJIT KOEHLER,RN MSN REGISTERED NURSE --- Original Document --- 04/12/24 COMMUNITY CARE-REQUEST FOR SERVICE NOTE STL: Request for Services (RFS) documentation has been sent for scanning to [facility] Consult: [facility]-Ortho surgery/PT Consult No: [id number] Date sent to scanning: Mar A Request for Service (RFS) form [id number] has been received which includes the following: Care Requested:Received RFS/Notes from CC PT provider requesting patient receive DME (ERMI ? range of motion device) for s/p LTKA and also requesting continued PT visits.? Please review and advise. ICD-10 Dx code: M25.663 Date VA received request: Mar Date service required: Mar Requesting Community Provider Information: Name of Ordering Provider: Ezekiel Aponte Office:[facility] Address, [facility], State: [address] [place] [address] [place] [address] Phone Number: [phone] Fax: [phone] Requesting DME (ERMI Range of Motion Device) from [facility] - [phone] fax - [phone] /es/ KAMALJIT KOEHLER RN MSN REGISTERED NURSE Signed: 04/12/2024 19:55 Receipt Acknowledged By: 04/13/2024 08:03 /shadi/ REMINGTON LAWSON PT, DPT 04/13/2024 22:25 /es/ JOSE OTTO NURSE PRACTITIONER 04/13/2024 09:35 /es/ Amada Rosa DPT Physical Therapist 04/13/2024 07:48 /shadi/ [facility] Nurse, Orthopedics 04/13/2024 ADDENDUM STATUS: COMPLETED Defer to primary care that placed community care consult for follow up and orders. Courtney Lawson Mudd /shadi/ FANNY WORKMANMARLENA Advanced Practice Nurse, Orthopedics Signed: 04/13/2024 07:50 Receipt Acknowledged By: 04/13/2024 09:05 /ulises LAWSON PT, DPT 05/01/2024 11:33 /shadi/ JOSE OTTO NURSE PRACTITIONER * AWAITING SIGNATURE * AMADA ROSA 04/13/2024 ADDENDUM STATUS: COMPLETED per DOA review S Key - RFS DENIED. The device is not approved by medicare . Please place PT consult. We have access at [facility] to get this in for post op care. the ERMI Flexionator and other patient-actuated serial stretch (PASS) devices because they are considered experimental and investigational. Inhouse PT consult to be placed. /shadi/ KAMALJIT KOEHLERRN MSN REGISTERED NURSE Signed: 04/13/2024 11:05 05/02/2024 ADDENDUM STATUS: COMPLETED The [place] called [facility] to inquire why this device was not approved. Drywall Foreman informed him that it was noted that the device is not approved due to it being experimental and not approved by medicare. [place] stated he wants to speak to whomever made the decision.Drywall Foreman transfered him to inhouse PT. /shadi/ MILTON GERARDO [employer] DEVELOP[employer] INTERN Signed: 05/02/2024 09:39 NATASHA HERNANDEZ [facility] Apr 13, 2024 07:48 AM ADDENDUM: LOCAL TITLE: Addendum STANDARD TITLE: ADDENDUM DATE OF NOTE: APR 13, 2024@07:48:32 ENTRY DATE: APR 13, 2024@07:48:33 AUTHOR: FANNY GARCIA EXP COSIGNER: URGENCY: STATUS: COMPLETED Defer to primary care that placed community care consult for follow up and orders. CC Courtney Lawson Mudd /shadi/ FANNY GARCIA [facility]- Advanced Practice Nurse, Orthopedics Signed: 04/13/2024 07:50 Receipt Acknowledged By: 04/13/2024 09:05 /shadi/ REMINGTON LAWSON PT, DPT 05/01/2024 11:33 /shadi/ JOSE OTTO NURSE PRACTITIONER * AWAITING SIGNATURE * AMADA ROSA --- Original Document --- 04/12/24 COMMUNITY CARE-REQUEST FOR SERVICE NOTE STL: Request for Services (RFS) documentation has been sent for scanning to [facility] Consult: [facility]-Ortho surgery/PT Consult No: [id number] Date sent to scanning: Mar A Request for Service (RFS) form [id number] has been received which includes the following: Care Requested:Received RFS/Notes from PT provider requesting patient receive DME (ERMI ? range of motion device) for s/p LTKA and also requesting continued PT visits.? Please review and advise. ICD-10 Dx code: M25.663 Date VA received request: Mar Date service required: Mar Requesting [facility] Provider Information: Name of Ordering Provider: Ezekiel Aponte Office:[facility] Address, City, State: [address] [place] [address] [address] Phone Number: [phone] Fax: [phone] Requesting DME (ERMI Range of Motion Device) from [facility] - Natali [facility] - [phone] fax - [phone] /es/ KAMALJIT KOEHLER RN MSN REGISTERED NURSE Signed: 04/12/2024 19:55 Receipt Acknowledged By: 04/13/2024 08:03 /es/ REMINGTON LAWSON PT, DPT 04/13/2024 22:25 /es/ JOSE OTTO NURSE PRACTITIONER 04/13/2024 09:35 /es/ Amada Rosa,DPT Physical Therapist 04/13/2024 07:48 /es/ FANNY GARCIA ANP- Advanced Practice Nurse, Orthopedics 04/13/2024 ADDENDUM STATUS: COMPLETED per DOA review S Key - RFS DENIED. The device is not approved by medicare . Please place PT consult. We have access at to get this in for post op care. the ERMI Flexionator and other patient-actuated serial stretch (PASS) devices because they are considered experimental and investigational. Inhouse PT consult to be placed. /shadi/ KAMALJIT KOEHLER RN MSN REGISTERED NURSE Signed: 04/13/2024 11:05 04/27/2024 ADDENDUM STATUS: COMPLETED This senior writer received a call from natali at [facility], wishing to find out whats going on with device request. Informed her service had been denied as not deemed clinically appropriate, and inhouse pt consult being placed at [facility]. There is currently an active PT Consult for community care. Natali requeste note be added to request for service note for clarification. /shadi/ NATASHA HERNANDEZ [employer] TECHN[employer] DEVELOPMENT INTERN Signed: 04/27/2024 09:56 Receipt Acknowledged By: * AWAITING SIGNATURE * JOSE OTTO * AWAITING SIGNATURE * KAMALJIT KOEHLER PEGGY W [facility] Apr 12, 2024 07:52 PM NONVA NOTE: LOCAL TITLE: COMMUNITY CARE-REQUEST FOR SERVICE NOTE STL STANDARD TITLE: NONVA NOTE DATE OF NOTE: APR 12, 2024@19:52 ENTRY DATE: APR 12, 2024@19:52:18 AUTHOR: KAMALJIT KOEHLER EXP COSIGNER: URGENCY: STATUS: COMPLETED COMMUNITY CARE-REQUEST FOR SERVICE NOTE STL Has ADDENDA Request for Services (RFS) documentation has been sent for scanning to [facility] Consult: [facility]-Ortho surgery/PT Consult No: [id number] Date sent to scanning: Mar A Request for Service (RFS) form [id number] has been received which includes the following: Care Requested:Received RFS/Notes from CC PT provider requesting patient receive DME (ERMI ? range of motion device) for s/p LTKA and also requesting continued PT visits.? Please review and advise. ICD-10 Dx code: M25.663 Date VA received request: Mar Date service required: Mar Requesting Community Provider Information: Name of Ordering Provider: Ezekiel Fadi Office:[facility] Address, [facility]: [address] [place] [address] [address] Phone Number: [phone] Fax: [phone] Requesting DME (ERMI Range of Motion Device) from [facility] - [facility] - [phone] fax - [phone] /shadi/ KAMALJIT KOEHLERRN MSN REGISTERED NURSE Signed: 04/12/2024 19:55 Receipt Acknowledged By: 04/13/2024 08:03 /es/ REMINGTON LAWSON PT, DPT 04/13/2024 22:25 /es/ JOSE OTTO NURSE PRACTITIONER 04/13/2024 09:35 /es/ Amada Rosa DPT Physical Therapist 04/13/2024 07:48 /shadi/ [facility] Advanced Practice Nurse, Orthopedics 04/13/2024 ADDENDUM STATUS: COMPLETED Defer to primary care that placed community care consult for follow up and orders. Courtney John Mudd /shadi/ FANNY CARBALLO Advanced Practice Nurse, Orthopedics Signed: 04/13/2024 07:50 Receipt Acknowledged By: 04/13/2024 09:05 /shadi/ REMINGTON LAWSON PT, DPT 05/01/2024 11:33 /shadi/ JOSE OTTO NURSE PRACTITIONER * AWAITING SIGNATURE * AMADA ROSA 04/13/2024 ADDENDUM STATUS: COMPLETED per [place] varela S Yesi - RFS DENIED. The device is not approved by medicare . Please place PT consult. We have access at to get this in for post op care. the ERMI Flexionator and other patient-actuated serial stretch (PASS) devices because they are considered experimental and investigational. Inhouse PT consult to be placed. /shadi/ KAMALJIT KOEHLERRN MSN REGISTERED NURSE Signed: 04/13/2024 11:05 04/27/2024 ADDENDUM STATUS: COMPLETED This senior writer received a call from natali at [facility], wishing to find out whats going on with device request. Informed her service had been denied as not deemed clinically appropriate, and inhouse pt consult being placed at [facility]. There is currently an active PT Consult for community care. Natali requeste note be added to request for service note for clarification. /shadi/ NATASHA HERNANDEZ ADVANCED TECHNOLOGY DEVELOPMENT INTERN Signed: 04/27/2024 09:56 Receipt Acknowledged By: 05/01/2024 11:34 /es/ JOSE OTTO NURSE PRACTITIONER * AWAITING SIGNATURE * KAMALJIT KOEHLER 05/02/2024 ADDENDUM STATUS: COMPLETED The [place] called [facility] to inquire why this device was not approved. Drywall Foreman informed him that it was noted that the device is not approved due to it being experimental and not approved by medicare. stated he wants to speak to whomever made the decision.Drywall Foreman transfered him to inhouse PT. /shadi/ MILTON GERARDO ADVANCED TECHNOLOGY DEVELOPMENT INTERN Signed: 05/02/2024 09:39 KAMALJIT KOEHLER [facility]
--- OUTSIDE RECORDS SUMMARY | 2025-02-17 15:28 | XMS_ITS | Encounter Summary ---
Author Name [facility] [facility] [place] Address [address] [place] [address] Care Team Providers Care Team Coordinator Name Role Phone MORELIA ALLEN Primary Care [...] PART A Mar 19, 2014 PART A [id number] [place] PATIENT MEDICARE (WNR) MEDICARE (M) PART A Mar 19, 2014 PART A [id number] [place] PATIENT Selected Encounter This section includes the information on record at CT for the Encounter. Date/Time Encounter Type Encounter Description Reason Provider Source Jan 12, 2025 04:00 PM POSTOP FOLLOW-UP VISIT OPHTHALMOLOGY ICD-10-CM Z98.42 Cataract extraction status, left eye JEFFERSON DEE Encounter Template Text not used by [facility] Assessments - Encounter Diagnoses This section includes the primary and secondary diagnoses documented for the Encounter. Date/Time Primary/Secondary Diagnosis Diagnosis Name Provider Source Jan 12, 2025 04:14 PM PRIMARY Cataract extraction status, left eye DELORIS WILKINSON [facility] Plan of Treatment: Future Appointments (+ 6 months) and Future Tests (+/- 45 days) The Plan of Treatment section includes future care activities for the patient from all CT treatmentfacilities. This section includes future appointments and future orders which are active, pending or scheduled. Future Appointments This section includes appointments that were scheduled to occur 6 months from the date of the Encounter, up to a maximum of 20 appointments. The data comes from all CT treatment [facility]. Appointment Date/Time Appointment Type Appointme nt Facility Name Jan 18, 2025 11:00 AM AMBULATORY - SURGERY [facility] Feb 07, 2025 11:00 AM AMBULATORY - SURGERY [facility] Feb 14, 2025 06:30 AM AMBULATORY - NONE [facility] Feb 15, 2025 08:30 AM AMBULATORY - SURGERY [facility] Feb 22, 2025 08:00 AM AMBULATORY - SURGERY [facility] Feb 28, 2025 09:00 AM AMBULATORY - SURGERY [facility] Mar 06, 2025 08:30 AM AMBULATORY - NONE [facility] Mar 12, 2025 01:30 PM AMBULATORY - SURGERY [facility] Mar 16, 2025 08:30 AM AMBULATORY - SURGERY [facility] May 31, 2025 11:00 AM AMBULATORY - MEDICINE [facility] Active, Pending, and Scheduled Orders This section includes a listing of several types of active, pending, and scheduled orders, including clinic medications orders, diagnostic test orders, procedure orders and consult orders; where the start date of the order is 45 days before the date of the Encounter or 45 days after the date of theEncounter. The data comes from all CT treatment [facility]. Test Date/Time Test Type Test Details Facility Name Dec 29, 2024 12:00 AM Laboratory - Chemi stry Order BASIC METABOLIC PANEL GREEN LI/HEP BLD/PLAS PLASMA SP [facility] Lab Results: +/- 30 days of the [...] Unit Interpretation Reference Range Specimen Type Comment Jan 12, 2025 01:10 PM [facility] GLUCOSE,BLOOD-poct (STL) BLOOD Specimen Type: BLOOD Comment: Test Performed by: [id number] Meter #: [id number] Ordering Provider: MORELIA ALLEN Report Released Date/Time: Jan 12, 2025 01:12 PM Reporting Lab: [address] [id number] Performing Lab: [address] [address] GLUCOSE,BLOOD-poct (STL) 150 mg/dL H 72-99 Jan 12, 2025 11:38 AM [facility] GLUCOSE,BLOOD-poct (STL) BLOOD Specimen Type: BLOOD Comment: Test Performed by: [id number] Meter #: [id number] Ordering Provider: MORELIA ALLEN Report Released Date/Time: Jan 12, 2025 11:48 AM Reporting Lab: [address] [id number] Performing Lab: [address] [address] GLUCOSE,BLOOD-poct (STL) 147 mg/dL H 72-99 Vital Signs: All taken on the encounter date This section contains inpatient and outpatient Vital Signs collected on the date of the Encounter. Date/Time Temperature Pulse Blood Pressure Respiratory Rate SP02 Pain Height Weight Body Mass Index Source Jan 12, 2025 02:00 PM 97.3 F 77 /min 141/72 mm[Hg] 13 /min 93 % 0 [facility] Jan 12, 2025 01:05 PM 97.1 F 89 /min 145/93 mm[Hg] 14 /min 95 % 0 [facility] Jan 12, 2025 11:31 AM 98.4 F 77 /min 151/80 mm[Hg] 20 /min 93 % 1 71.5 in 280 lb 39 [facility] N Social History: Smoking Status (Most current) and Tobacco Use (All prior to encounter date) This section includes the most current, and the historical, smoking and tobacco- related health factors from the CT facility where the Encounter took place. Current Smoking Status This section includes the most current smoking, or tobacco-related health factor, from the [place] facility where the Encounter took place. Date/Time Current Smoking Status Comment Facil ity Jun 19, 2023 02:53 AM ORYX ADMIT TOBACCO SCREEN NO [facility] Tobacco Use History This section includes a history of the smoking, or tobacco-related health factors, that were collected on or before the date of the Encounter. The data comes from the CT facility where the Encounter took place. Date/Time Smoking Status/Tobacco Use Comment F acility Apr 02, 2016 12:55 PM QUIT TOBACCO >7 YEARS AGO [facility] May 21, 2015 01:30 PM LIFETIME NON-USER OF TOBACCO [facility] Jan 03, 2014 10:46 AM LIFETIME NON-USER OF TOBACCO [facility] Feb 21, 2013 11:08 AM QUIT TOBACCO >12 M O & <7 YRS AGO [facility] Aug 19, 2009 12:46 PM LIFETIME NON-USER OF TOBACCO [facility] Oct 05, 2008 10:28 AM QUIT TOBACCO >12 M O & <7 YRS AGO [facility] November 18, 2007 09:08 AM QUIT TOBACCO IN TH E LAST 12 MONTHS [facility] Aug 05, 2006 12:57 PM CURRENT TOBACCO USER [facility] Aug 05, 2006 12:57 PM TOB-DECLINES SMOKI NG CESSATION REFERRAL [facility] Jan 13, 2006 08:42 AM CURRENT TOBACCO USER [facility] Jan 13, 2006 08:42 AM SMOKER 1-2 PACKS [facility] Advance Directives: All historical and current Section Date Range: From patient's date of to the date document was created. This section includes ALL of a patient's completed or amended CT Advance and Rescinded Directives. The entries below indicate that a directive exists for the patient, but an actual copy is not included with this document. The data comes from all CT facilities. Date Advance Directives Provider Source Jan 22, 2016 ADVANCE DIRECTIVE DISCUSSION DALTONMARIOCarlo MOOKIE Kasey [facility] Mar 31, 2007 ADVANCE DIRECTIVE JOSE C ALLEN [facility] Radiology Reports: +/- 30 days of the [...] the Encounter. The data comes from all CT treatment facilities. Date/Time Radiology Report Provider Source Dec 18, 2024 11:32 AM SPINE LUMBOSACRAL 2 OR 3 VIEWS: BONYALLAN Philippe [id number] M Exm Date: DEC 18, 2024@11:32 Req Phys: JOSE FRANCISCO RAY Loc: [facility]-PACT PHONE NURSE E4 (Req'g Img Loc: [facility]IOLOGY Service: [facility], [address] [address] (Case [id number] COMPLETE) SPINE LUMBOSACRAL 2 OR 3 VIEWS (RAD Detailed) CPT:83901 Reason for Study: low back pain Clinical History: Report Status: Verified Date Reported: DEC 18, 2024 Date Verified: DEC 18, 2024 Box Car Washer E-Sig:/ES/CHRIS HAMMOND MD Report: Case #[id number]. Lumbar spine examination. Finding: AP and lateral views of the lumbar spine followed by cone-down lateral view of the lumbosacral junction shows straightening of lumbar lordosis. Marked disc space narrowing and sclerotic margin at L4-5 and L5-S1. No previous study is available for comparison. Findings are suggestive of congenital fusion. Disc space narrowing and marginal spur seen at other levels of lumbar spine. Meniscal calcification at L1-2. No evidence of lytic or blastic bony lesion. No evidence of loss of vertebral height. 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 Degenerative disc changes at other levels of lumbar spine. Primary Interpreting Staff: CHRIS HAMMOND MD, Staff Physician - Radiologist (Box Car Washer) /CHRIS BRIONES [facility] Encounter Notes: All associated encounter notes This section contains the clinical notes associated to the Encounter. Date/Time Encounter Note(s) Provider Source Jan 12, 2025 04:00 PM OPHTHALMOLOGY NOTE : LOCAL TITLE: OPHTHALMOLOGY NOTE STL STANDARD TITLE: OPHTHALMOLOGY NOTE DATE OF NOTE: JAN 12, 2025@16:00 ENTRY DATE: JAN 12, 2025@16:00:06 AUTHOR: GORDY WILKINSON EXP COSIGNER: UMA DEE URGENCY: STATUS: COMPLETED OPHTHALMOLOGY NOTE STL Has ADDENDA POD#0 s/p phaco/PCIOL OS. Mild FBD, otherwise doing fine. [facility] OS sc = 20/200phni Pupils: dilated OS, no APD by reverse Ta OS: 24 SLEx: OS c/s 1+ inj K tr to 1+ central DM Folds. All wounds Dilip neg. AC deep, 2-3+ cell I round L PCIOL centered Fundus (OS): CDR perfused, macula flat A/P: POD#0 s/p phaco/pciol OS, doing well. First eye. To use: Prednisolone acetate 1% eyedrops OS QID Vigamox eyedrops OS QID Discussed post-op instructions and given medication schedule sheet with post-op instructions and emergency phone numbers today. No bending/straining/lifting. Quiroz shield qhs, glasses during day. Reviewed s/s RD/endophthalmitis. RTC 1 week, immed for problems /shadi/ Godry Wilkinson M.D. Resident Physician, Ophthalmology Signed: 01/12/2025 16:14 /shadi/ UMA DEE MD Staff Physician, Ophthalmology Cosigned: 01/19/2025 06:18 01/12/2025 ADDENDUM STATUS: COMPLETED Would consider STB for fellow eye if early in the year /shadi/ Gordy Wilkinson M.D. Resident Physician, Ophthalmology Signed: 01/12/2025 17:32 /shadi/ UMA DEE MD Staff Physician, Ophthalmology Cosigned: 01/19/2025 06:[address] [facility] Jan 12, 2025 01:08 PM PHYSICIAN EDUCATIO N DISCHARGE NOTE: LOCAL TITLE: DISCHARGE INSTRUCTIONS ST STANDARD TITLE: PHYSICIAN EDUCATION DISCHARGE NOTE DATE OF NOTE: JAN 12, 2025@13:08 ENTRY DATE: JAN 12, 2025@13:08:36 AUTHOR: GORDY WILKINSON EXP COSIGNER: UMA DEE URGENCY: STATUS: COMPLETED 1. DIAGNOSES: Post Op Cataract Surgery, left eye 2. FUTURE APPOINTMENT(S): date/time clinic phone number 01/12/25 at 4:00 PM Eye 3. DISCHARGE MEDICATIONS: To start today at dinner time. Wait 3-5 minutes in between eye drops and replace the clear shield over your eye afterwards. 1) Vigamox (moxifloxacin), 1 drop left eye 4x/day. 2) Prednisolone, 1 drop left eye 4x/day. SHAKE this drop. Active Outpatient Medications (including Supplies): Active Outpatient Medications Status = 1) ACCU-CHEK GUIDE (GLUCOSE) TEST STRIP USE 1 STRIP FOR BLOOD ACTIVE TEST TWICE A DAY 2) ALCOHOL PREP PAD USE/APPLY PAD TO AFFECTED AREA(S) ONCE A ACTIVE DAY NEEDED Indication: FOR SKIN CLEANSING 3) AMLODIPINE BESYLATE 5MG TAB TAKE ONE TABLET BY MOUTH ONCE A ACTIVE DAY Indication: FOR HIGH BLOOD PRESSURE 4) ATORVASTATIN CALCIUM 20MG TAB TAKE ONE-HALF TABLET BY MOUTH ACTIVE EVERY EVENING TO LOWER CHOLESTEROL 5) CHOLECALCIF 10MCG (D3-400UNIT) TAB TAKE TWO TABLETS BY MOUTH ACTIVE ONCE A DAY Indication: FOR VITAMIN D DEFICIENCY 6) CYANOCOBALAMIN 500MCG TAB TAKE ONE TABLET BY MOUTH ONCE A ACTIVE DAY Indication: FOR VITAMIN B12 SUPPLEMENTATION 7) CYCLOBENZAPRINE HCL 5MG TAB TAKE ONE TABLET BY MOUTH THREE ACTIVE TIMES A DAY NEEDED MAY CAUSE DROWSINESS. DO NOT DRINK ALCOHOL WHILE TAKING THIS MEDICATION. Indication: FOR MUSCLE SPASM 8) CYCLOSPORINE 0.05% (PF) OPH EMUL 0.4ML INSTILL 1 DROP IN ACTIVE BOTH EYES TWICE A DAY (USE EVERY 12 HRS) Indication: FOR DRY EYES 9) FLUTICASONE PROP 50MCG 120D NASAL INHL INSTILL 2 SPRAYS IN ACTIVE NOSTRIL(S) ONCE A DAY (MUST BE USED DIRECTED FOR MINIMUM OF 21 DAYS TO PROVIDE ADEQUATE BENEFITS) Indication: FOR CHRONIC RHINOSINUSITIS 10) HCTZ 25MG/LOSARTAN 100MG TAB TAKE 1 TABLET BY MOUTH EVERY ACTIVE MORNING Indication: FOR HIGH BLOOD PRESSURE 11) LANCET,SOFTCLIX USE LANCET FOR BLOOD TEST TWICE A DAY USE ACTIVE DIRECTED. Indication: FOR BLOOD SUGAR MONITORING 12) LIDOCAINE 5% PATCH APPLY 1 PATCH TO SKIN SITE ONCE A DAY ACTIVE APPLY PATCH AND PRESS FIRMLY FOR 10-15 SECONDS. KEEP ON FOR 12 HOURS THEN REMOVE PATCH FOR 12 HOURS. Indication: FOR LOCAL ANESTHESIA 13) LIRAGLUTIDE (EQV-VICTOZA) 6MG/ML PEN 3ML INJECT 1.2MG UNDER ACTIVE THE SKIN ONCE A DAY Indication: FOR DIABETES 14) METFORMIN HCL 1000MG TAB TAKE ONE TABLET BY MOUTH TWICE A ACTIVE DAY WITH MEALS TO LOWER BLOOD SUGAR 15) METOPROLOL TARTRATE 25MG TAB TAKE ONE-HALF TABLET BY MOUTH ACTIVE (S) TWICE A DAY FOR HEART/BLOOD PRESSURE. TAKE WITH OR IMMEDIATELY FOLLOWING FOOD. 16) MOXIFLOXACIN (EQV-VIGAMOX) 0.5% OPH SOLN INSTILL 1 DROP IN ACTIVE LEFT EYE FOUR TIMES A DAY Indication: FOR BACTERIAL EYE INFECTION 17) NEEDLE,PEN 31G,5MM USE 1 NEEDLE UNDER THE SKIN ONCE A DAY ACTIVE Indication: FOR USE WITH VICTOZA 18) PREDNISOLONE ACETATE 1% OPH SUSP INSTILL 1 DROP IN LEFT EYE ACTIVE FOUR TIMES A DAY Indication: FOR EYE INFLAMMATION 4. DISCHARGE INTRUCTIONAL MATERIALS *To be printed by Nurse and provided to patient Post Op Eye Surgery: * Resume all usual medications. * Tylenol or a prescription painkiller may be taken every 4-6 hours as needed for pain. 5. WOUND MANAGEMENT: Post Eye Surgery: * No eye rubbing. * Leave eye patch overnight until you see the doctor. * Wear shield at bedtime for the first week after surgery. 6. DISCHARGE DIETARY INSTRUCTIONS: No Dietary Instructions If you have questions, contact the dietitians at or . 7. DISCHARGE PHYSICAL ACTIVITY INSTRUCTIONS: Post Eye Surgery: * Avoid strenuous activity, bending over, or heavy lifting for the first two weeks. * Avoid swimming for two weeks. * You may start showering the day after surgery (after your follow-up visit), but do not run water directly on the incisions. Wash with soap and water gently. 8. WORSENING and/or DANGEROUS SYMPTOMS TO REPORT (Phys. entry required): Post Eye Surgery/proc.: * worsening vision * worsening pain/redness * floaters, flashes, or dark/wavy shade advancing across the vision If you experience any of these symptoms, please call: daytime: eye clinic: after hours: call [facility] rolling machine operator , and ask for eye doctor supervisor bakery sanitation Copy Provided to Patient, Discussed with family/spouse /shadi/ Gordy Wilkinson M.D. Resident Physician, Ophthalmology Signed: 01/12/2025 13:10 /shadi/ UMA DEE MD Staff Physician, Ophthalmology Cosigned: 01/19/2025 06:[address] [facility]
--- OUTSIDE RECORDS SUMMARY | 2025-02-17 15:28 | XMS_ITS | Encounter Summary ---
Author Name [facility] [place] Organization [facility] [place] Address [address] [place] [address] Care Team Providers Care Store Promoter Name Role Phone MORELIA ALLEN Primary Care [...] PART A Mar 19, 2014 PART A [id number] [place] PATIENT MEDICARE (WNR) MEDICARE (M) PART A Mar 19, 2014 PART A [id number] [phone] [place] PATIENT Selected Encounter This section includes the information on record at [place] for the Encounter. Date/Time Encounter Type Encounter Description Reason Provider Source 2025 02:30 PM THERAPEUTIC EXERCISES PHYSICAL THERAPY ICD-10-CM M54.50 Low back pain, unspecified CLARK MONAE Kezia Encounter Template Text not used by [place] Assessments - Encounter Diagnoses This section includes the primary and secondary diagnoses documented for the Encounter. Date/Time Primary/Secondary Diagnosis Diagnosis Name Provider Source 2025 03:55 PM PRIMARY Low back pain, unspecified CARMELO MONAE [facility] Plan of Treatment: Future Appointments (+ 6 months) and Future Tests (+/- 45 days) The Plan of Treatment section includes future care activities for the patient from all [place] [facility] This section includes future appointments and future orders which are active, pending or scheduled. Future Appointments This section includes appointments that were scheduled to occur 6 months from the date of the Encounter, up to a maximum of 20 appointments. The data comes from all [place] treatment facilities. Appointment Date/Time Appointment Type Appointme nt Facility Name Jan 12, 2025 11:30 AM AMBULATORY - NONE [facility] Jan 12, 2025 04:00 PM AMBULATORY - SURGERY [facility] Jan 18, 2025 11:00 AM AMBULATORY - SUR[facility]ERY [facility] Feb 07, 2025 11:00 AM AMBULATORY - SUR[facility]ERY [facility] Feb 14, 2025 06:30 AM AMBULATORY - NONE [facility] Feb 15, 2025 08:30 AM AMBULATORY - SURGERY [facility] Feb 22, 2025 08:00 AM AMBULATORY - SUR[facility]ERY [facility] Feb 28, 2025 09:00 AM AMBULATORY - [facility]ERY [facility] Mar 06, 2025 08:30 AM AMBULATORY - NONE [facility] Mar 12, 2025 01:30 PM AMBULATORY - [facility]ERY [facility] Mar 16, 2025 08:30 AM AMBULATORY - SURGERY [facility] May 31, 2025 11:00 AM AMBULATORY - MEDICINE [facility] Active, Pending, and Scheduled Orders This section includes a listing of several types of active, pending, and scheduled orders, including clinic medications orders, diagnostic test orders, procedure orders and consult orders; where the start date of the order is 45 days before the date of the Encounter or 45 days after the date of theEncounter. The data comes from all [place] treatment facilities. Test Date/Time Test Type Test Details Facility Name Dec 29, 2024 12:00 AM Laboratory - Chemi stry Order BASIC METABOLIC PANEL GREEN LI/HEP BLD/PLAS PLASMA SP [facility] Lab Results: +/- 30 days of the encounter This section includes the Chemistry and Hematology Lab Results on record with [place] for the patient. Radiology Reports and Pathology Reports are provided separately, in subsequent sections. Lab Results This section contains the Chemistry/Hematology Results that were resulted 30 days before or 30 daysafter the date of the Encounter. Date/Time Source Result Type Result - Unit Interpretation Reference Range Specimen Type Comment Jan 12, 2025 01:10 PM [facility] GLUCOSE,BLOOD-poct (STL) BLOOD Specimen Type: BLOOD Comment: Test Performed by: [id number] Meter #: [id number] Ordering Provider: MORELIA ALLEN Report Released Date/Time: Jan 12, 2025 01:12 PM Reporting Lab: [place] [address] [facility] [address] Performing Lab: [place] [address] [facility] [address] GLUCOSE,BLOOD-poct (STL) 150 mg/dL H 72-99 Jan 12, 2025 11:38 AM [facility] GLUCOSE,BLOOD-poct (STL) BLOOD Specimen Type: BLOOD Comment: Test Performed by: [id number] Meter #: [id number] Ordering Provider: MORELIA ALLEN Report Released Date/Time: Jan 12, 2025 11:48 AM Reporting Lab: [place] [address] [facility] [address] Performing Lab: [place] [address] [facility] [address] GLUCOSE,BLOOD-poct (STL) 147 mg/dL H 72-99 Social History: Smoking Status (Most current) and Tobacco Use (All prior to encounter date) This section includes the most current, and the historical, smoking and tobacco- related health factors from the [place] facility where the Encounter took place. Current Smoking Status This section includes the most current smoking, or tobacco-related health factor, from the [place] facility where the Encounter took place. Date/Time Current Smoking Status Comment Facil ity November 30, 2023 03:00 PM VA-TOBACCO FORMER USER [facility] Tobacco Use History This section includes a history of the smoking, or tobacco-related health factors, that were collected on or before the date of the Encounter. The data comes from the [place] facility where the Encounter took place. Date/Time Smoking Status/Tobacco Use Comment F acility November 30, 2023 03:00 PM VA-TOBACCO QUIT 15 YRS OR MORE [facility] Jun 02, 2023 10:00 AM VA-TOBACCO FORMER USER [facility] Jun 02, 2023 10:00 AM [place]-TOBACCO QUIT 15 YRS OR MORE [facility] Advance Directives: All historical and current Section Date Range: From patient's date of to the date document was created. This section includes ALL of a patient's completed or amended [place] Advance and Rescinded Directives. The entries below indicate that a directive exists for the patient, but an actual copy is not included with this document. The data comes from all [facility]. Date Advance Directives Provider Source Jan 22, 2016 ADVANCE DIRECTIVE DISCUSSION AMBERLY HOFFMAN [facility] Mar 31, 2007 ADVANCE DIRECTIVE JOSE C ALLEN [facility] Radiology Reports: +/- 30 days [...] the Encounter. The data comes from all [place] treatment facilities. Date/Time Radiology Report Provider Source Dec 18, 2024 11:32 AM SPINE LUMBOSACRAL 2 OR 3 VIEWS: ALLAN LOVETT [id number] -[id number] M Exm Date: DEC 18, 2024@11:32 Req Phys: JOSE FRANCISCO RAY Loc: [facility]-PACT PHONE NURSE E4 (Req'g Img Loc: [facility] Service: Unknown [facility], [address] [place] [address] (Case [id number] COMPLETE) SPINE LUMBOSACRAL 2 OR 3 VIEWS (RAD Detailed) CPT:13519 Reason for Study: low back pain Clinical History: Report Status: Verified Date Reported: DEC 18, 2024 Date Verified: DEC 18, 2024 Fitness And Wellness Director E-Sig:/ES/CHRIS HAMMOND MD Report: Case #[id number]. Lumbar [...] CHRIS HAMMOND MD, Staff Physician - Radiologist (Fitness And Wellness Director) /CHRIS BRIONES [facility] Encounter Notes: All associated encounter notes This section contains the clinical notes associated to the Encounter. Date/Time Encounter Note(s) Provider Source 2025 02:40 PM PHYSICAL THERAPY DISCHARGE NOTE: LOCAL TITLE: PT DISCHARGE STL STANDARD TITLE: PHYSICAL THERAPY DISCHARGE NOTE DATE OF NOTE: 2025@14:40 ENTRY DATE: 2025@12:26:34 AUTHOR: CHAYO MONAE COSIGNER: URGENCY: STATUS: COMPLETED PHYSICAL THERAPY DISCHARGE --- Order Information To Service: PT OUTPT STL From Service: [facility]-PACT PHONE NURSE E4 Requesting Provider: JOSE FRANCISCO RAY Service is to be rendered on an OUTPATIENT basis Place: Art Manager's choice Urgency: Routine Clinically Ind. Date: Dec 20, 2024 DST ID: Orderable Item: PT OUTPT STL Consult: Consult Request Provisional Diagnosis: Low back pain, unspecified(ICD-10-CM M54.50) Reason For Request: Physical Therapy Outpatient Consult (Please include post-op protocol as appropriate) low back pain Responsible attending:GERTRUDIS Angel Lecture (REQUIRED) Enter any precautions: None Start of Care: 12/29/24 Reevaluation due: POC through: Visits to date: 2 No shows/cancellations: 0 Treatment time: [id number] Total 27 mins. Therapeutic exercise: 27 mins. SUBJECTIVE: Patient reports his pain is overall a lot better. States he no longer taking flexeril. --Pain Rating (0-10): Current: 1/10 Best: 1/10 Worst: 3/10 (in past week) -Location: low back --Pt. goal(s): To decrease pain OBJECTIVE: Assistive Device: uses no assistive device today Cognition: Pt. is alert and oriented. Pt. is appropriate in conversation and answers questions directly. Posture: PSIS and iliac crest symmetrical in standing no leg length discrepency noted in supine>long sitting BLE Palpation: moderate tenderness to palpation R PSIS Active Trunk Motions: -rotation right 50% with some pain -rotation left 50% with some pain -forward bend WFL -trunk extension -lateral bend right -lateral bend left Strength: grossly WNL BLE Treatment provided: Therapeutic exercises: -Reviewed current HEP -Supine bridges x10 reps, reports no pain or difficulty performing all consecutive reps -Supine lower trunk rotation stretches bilateral, x10 sec hold x5 reps -Supine lisa hip clamshell with green theraband 2x10 reps, performed with TA ab bracing, and posterior pelvic tilt -Lunging hip flexor stretch on stairs, bilateral LE, 2x0 sec hold -Seated lumbar flexion stretches using large wallisian ball, 5x10 sec hold in each direction, including 45 deg forward/lateral lean bilateral Current HEP: 1. Supine posterior pelvic tilts - work up tolerance to performing bridges 2. Supine modified piriformis stretch with towel/belt 3. Supine or seated R LE hamstring stretch 4. Sidelying clamshells with green theraband around knees 5. Seated lumbar flexion stretch forward and 45 deg angle using rolling desk chair x10 reps each direction ASSESSMENT: Patient reports significant improvement in overall pain levels and activity tolerance since start of PT. Patient demos improved trunk AROM that was initially limited by pain and tolerates therapeutic exercise progression for improved trunk mobility and core stabilization activities. Patient has met all goals for PT. Patient requests to discharge at this time due to improvement in symptoms and will continue to perform HEP activities for self management as needed. Patient independent with HEP at this time, no further skilled PT needs indicated. Goals: Short term: 4 weeks 1) Pt. will demonstrate independence with current HEP x 1 - GOAL MET 2) Pt. will report pain at worst 5/10 - GOAL MET 3) Pt. to demonstrate independence with proper sitting and sleeping postures - GOAL MET detention: 1) Pt to demonstrate independence with final HEP x 1 - GOAL MET 2) Pt. to report pain at worst 3/10 - GOAL MET 3) Patient to report 50% decreased overall pain with trunk ROM all planes - GOAL MET Equipment: TBD Plan: D/C PT. Continue with HEP for self management. /shadi/ CHAYO MONAE PHYSICAL THERAPIST Signed: 2025 15:57 CHAYO MONAE [facility]
--- OUTSIDE RECORDS SUMMARY | 2025-02-17 15:28 | XMS_ITS ---
Author Name [facility] [place] [facility] [place] Organization [facility] [place] Address [address] [place] [address] Care Team Providers Care Ladies Attendant Name Role Phone MORELIA ALLEN Primary [...] PART A Mar 19, 2014 PART A [id number] [place] PATIENT MEDICARE (WNR) MEDICARE (M) PART A Mar 19, 2014 PART A [id number] [place] PATIENT Selected Encounter This section includes the information on record at [place] for the Encounter. Date/Time Encounter Type Encounter Description Reason Provider Source Jan 18, 2025 11:00 AM POSTOP FOLLOW-UP VISIT OPHTHALMOLOGY ICD-10-CM Z98.42 Cataract extraction status, left eye JOSE FRANCISCO DAVIS Encounter Template Text not used by [place] Assessments - Encounter Diagnoses This section includes the primary and secondary diagnoses documented for the Encounter. Date/Time Primary/Secondary Diagnosis Diagnosis Name Provider Source Jan 18, 2025 12:16 PM PRIMARY Cataract extraction status, left eye DIANN MEEKS [facility] Plan of Treatment: Future Appointments (+ 6 months) and Future Tests (+/- 45 days) The Plan of Treatment section includes future care activities for the patient from all [place] [facility]. This section includes future appointments and future orders which are active, pending or scheduled. Future Appointments This section includes appointments that were scheduled to occur 6 months from the date of the Encounter, up to a maximum of 20 appointments. The data comes from all [place] treatment [facility]. Appointment Date/Time Appointment Type Appointme nt Facility Name Feb 07, 2025 11:00 AM AMBULATORY - SURGERY [facility] Feb 14, 2025 06:30 AM AMBULATORY - NONE [facility] Feb 15, 2025 08:30 AM AMBULATORY - SURGERY [facility] Feb 22, 2025 08:00 AM AMBULATORY - SURGERY [facility] Feb 28, 2025 09:00 AM AMBULATORY - SURGERY [facility] Mar 06, 2025 08:30 AM AMBULATORY - NONE . [facility] Mar 12, 2025 01:30 PM AMBULATORY - SURGERY [facility] Mar 16, 2025 08:30 AM AMBULATORY - SURGERY [facility] May 31, 2025 11:00 AM AMBULATORY - MEDICINE [facility] Active, Pending, and Scheduled Orders This section includes a listing of several types of active, pending, and scheduled orders, including clinic medications orders, diagnostic test orders, procedure orders and consult orders; where the start date of the order is 45 days before the date of the Encounter or 45 days after the date of theEncounter. The data comes from all [facility]. Test Date/Time Test Type Test Details Facility Name Dec 29, 2024 12:00 AM Laboratory - Chemi stry Order BASIC METABOLIC PANEL GREEN LI/HEP BLD/PLAS PLASMA SP [facility] Lab Results: +/- 30 days [...] Type Comment Feb 14, 2025 06:47 AM [facility] GLUCOSE,BLOOD-poct (STL) BLOOD Specimen Type: BLOOD Comment: Test Performed by: [id number] Meter #: [id number] Ordering Provider: ENEDELIA EMERSON Report Released Date/Time: Feb 14, 2025 08:34 AM Reporting Lab: [address] [address] Performing Lab: [address] [address] GLUCOSE,BLOOD-poct (STL) 146 mg/dL H 72-99 Jan 12, 2025 01:10 PM [facility] GLUCOSE,BLOOD-poct (STL) BLOOD Specimen Type: BLOOD Comment: Test Performed by: [id number] Meter #: [id number] Ordering Provider: MORELIA ALLEN Report Released Date/Time: Jan 12, 2025 01:12 PM Reporting Lab: [address] [address] Performing Lab: [address] [address] GLUCOSE,BLOOD-poct (STL) 150 mg/dL H 72-99 Jan 12, 2025 11:38 AM [facility] GLUCOSE,BLOOD-poct (STL) BLOOD Specimen Type: BLOOD Comment: Test Performed by: [id number] Meter #: [id number] Ordering Provider: MORELIA ALLEN Report Released Date/Time: Jan 12, 2025 11:48 AM Reporting Lab: [address] [address] Performing Lab: [address] [address] GLUCOSE,BLOOD-poct (STL) 147 mg/dL H 72-99 Social History: Smoking Status (Most current) and Tobacco Use (All prior to encounter date) This section includes the most current, and the historical, smoking and tobacco- related health factors from the [place] facility where the Encounter took place. Current Smoking Status This section includes the most current smoking, or tobacco-related health factor, from the [place] facility where the Encounter took place. Date/Time Current Smoking Status Comment Ronda vallejo Jun 19, 2023 02:53 AM ORYX ADMIT TOBACCO SCREEN NO [facility] Tobacco Use History This section includes a history of the smoking, or tobacco-related health factors, that were collected on or before the date of the Encounter. The data comes from the [place] facility where the Encounter took place. Date/Time Smoking Status/Tobacco Use Comment Kirstin prado Apr 02, 2016 12:55 PM QUIT TOBACCO >7 YEARS AGO [facility] May 21, 2015 01:30 PM LIFETIME NON-USER OF TOBACCO [facility] Jan 03, 2014 10:46 AM LIFETIME NON-USER OF TOBACCO [facility] Feb 21, 2013 11:08 AM QUIT TOBACCO >12 M O & <7 YRS AGO [facility] Aug 19, 2009 12:46 PM LIFETIME NON-USER OF TOBACCO [facility] Oct 05, 2008 10:28 AM QUIT TOBACCO >12 M O & <7 YRS AGO [facility] November 18, 2007 09:08 AM QUIT TOBACCO IN TH E LAST 12 MONTHS [facility] Aug 05, 2006 12:57 PM CURRENT TOBACCO USER [facility] Aug 05, 2006 12:57 PM TOB-DECLINES SMOKI NG CESSATION REFERRAL [facility] Jan 13, 2006 08:42 AM CURRENT TOBACCO USER [facility] Jan 13, 2006 08:42 AM SMOKER 1-2 PACKS [facility] Advance Directives: All historical and current Section Date Range: From patient's date of to the date document was created. This section includes ALL of a patient's completed or amended [place] Advance and Rescinded Directives. The entries below indicate that a directive exists for the patient, but an actual copy is not included with this document. The data comes from all [place] facilities. Date Advance Directives Provider Source Jan 22, 2016 ADVANCE DIRECTIVE DISCUSSION HOFFMAN,MARIOCarlo ALLEN [facility] Mar 31, 2007 ADVANCE DIRECTIVE JOSE C ALLEN [facility] Encounter Notes: All associated encounter notes This section contains the clinical notes associated to the Encounter. Date/Time Encounter Note(s) Provider Source Jan 18, 2025 11:27 AM OPHTHALMOLOGY NOTE : LOCAL TITLE: OPHTHALMOLOGY NOTE STL STANDARD TITLE: OPHTHALMOLOGY NOTE DATE OF NOTE: JAN 18, 2025@11:27 ENTRY DATE: JAN 18, 2025@11:28:03 AUTHOR: DIANN MEEKS EXP COSIGNER: URGENCY: STATUS: COMPLETED OPHTHALMOLOGY NOTE STL Has ADDENDA POW#1 s/p CEIOL OS (Wong/Hooks, 01/12/25, topical, ZCB00 +19.0D) Pleased with vision. No F/F/C or pain. 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 /shadi/ DIANN MEEKS MD, BIANK[place] RESIDENT PHYSICIAN Signed: 02/02/2025 11:06 DIANN MEEKS [facility]
--- OUTSIDE RECORDS SUMMARY | 2025-02-17 15:28 | XMS_ITS | Encounter Summary ---
Author Name [facility] [place] [facility] [place] Address [address] [place] [address] Care Team Providers Care Bank Messenger Name Role Phone MORELIA ALLEN Primary Care [...] PART A Mar 19, 2014 PART A [id number] [place] PATIENT MEDICARE (WNR) MEDICARE (M) PART A Mar 19, 2014 PART A [id number] [place] PATIENT Selected Encounter This section includes the information on record at CT for the Encounter. Date/Time Encounter Type Encounter Description Reason Provider Source November 23, 2024 09:00 AM MTMS BY PHARM EST 15 MIN CLINICAL PHARMACY ICD-10-CM E11.8 Type 2 diabetes mellitus with unspecified complications JULIANNA MCKINNEY Encounter Template Text not used by CT Assessments - Encounter Diagnoses This section includes the primary and secondary diagnoses documented for the Encounter. Date/Time Primary/Secondary Diagnosis Diagnosis Name Provider Source November 23, 2024 09:26 AM PRIMARY Type 2 diabetes mellitus with unspecified complications JULIANNA MCKINNEY [facility] November 23, 2024 09:26 AM SECONDARY Essential (primary) hypertension JULIANNA MCKINNEY [facility] November 23, 2024 09:26 AM SECONDARY Hyperlipidemia, unspecified JULIANNA MCKINNEY [facility] Plan of Treatment: Future Appointments (+ 6 months) and Future Tests (+/- 45 days) The Plan of Treatment section includes future care activities for the [facility] This section includes future appointments and future orders which are active, pending or scheduled. Future Appointments This section includes appointments that were scheduled to occur 6 months from the date of the Encounter, up to a maximum of 20 appointments. The data comes from all CT treatment facilities. Appointment Date/Time Appointment Type Appointme nt Facility Name December 15, 2024 03:30 PM AMBULATORY - MEDICINE [facility] Dec 18, 2024 08:00 AM AMBULATORY - SURGERY [facility] Dec 20, 2024 03:30 PM AMBULATORY - MEDICINE [facility] Dec 21, 2024 11:00 AM AMBULATORY - NONE [facility] Dec 29, 2024 08:00 AM AMBULATORY - REHAB MEDICIN E [facility] 2025 02:30 PM AMBULATORY - REHAB MEDICIN E [facility] Jan 12, 2025 11:30 AM AMBULATORY - NONE [facility] Jan 12, 2025 04:00 PM AMBULATORY - SUR[facility]ERY [facility] Jan 18, 2025 11:00 AM AMBULATORY - SUR[facility]ERY [facility] Feb 07, 2025 11:00 AM AMBULATORY - SUR[facility]ERY [facility] Feb 14, 2025 06:30 AM AMBULATORY - NONE [facility] Feb 15, 2025 08:30 AM AMBULATORY - SUR[facility]ERY [facility] Feb 22, 2025 08:00 AM AMBULATORY - SURGERY [facility] Feb 28, 2025 09:00 AM AMBULATORY - SURGERY [facility] Mar 06, 2025 08:30 AM AMBULATORY - NONE [facility] Mar 12, 2025 01:30 PM AMBULATORY - SURGERY [facility] Mar 16, 2025 08:30 AM AMBULATORY - SURGERY [facility] Active, Pending, and Scheduled Orders This section includes a listing of several types of active, pending, and scheduled orders, including clinic medications orders, diagnostic test orders, procedure orders and consult orders; where the start date of the order is 45 days before the date of the Encounter or 45 days after the date of theEncounter. The data comes from all CT treatment facilities. Test Date/Time Test Type Test Details Facility Name Dec 29, 2024 12:00 AM Laboratory - Chemi stry Order BASIC METABOLIC PANEL GREEN LI/HEP BLD/PLAS PLASMA SP [facility] Lab Results: +/- 30 days of the encounter This section includes the Chemistry and Hematology Lab Results on record with CT for the patient. Radiology Reports and Pathology Reports are provided separately, in subsequent sections. Lab Results This section contains the Chemistry/Hematology Results that were resulted 30 days before or 30 daysafter the date of the Encounter. Date/Time Source Result Type Result - Unit Interpretation Reference Range Specimen Type Comment November 23, 2024 09:41 AM [facility] HGA1C BLOOD Specimen Type: BLOOD No comment entered. Ordering Provider: JULIANNA MCKINNEY Report Released Date/Time: November 23, 2024 09:18 AM Reporting Lab: [facility] [phone] Performing Lab: [facility] [phone] HGA1C 6.8 H 4.0-6.0 November 23, 2024 09:41 AM [facility] BASIC METABOLIC PANEL PLASMA Specimen Type: PL ASMA Comment: No hemolysis noted. Ordering Provider: JULIANNA MCKINNEY Report Released Date/Time: November 23, 2024 09:18 AM Reporting Lab: [facility] [phone] Performing Lab: [facility] [phone] CREATININE 0.96 mg/dL 0.70-1.30 UREA NITROGEN 24.0 mg/dL 9.0-25.0 GLUCOSE 153 mg/dL H 72-99 SODIUM 141 meq/L 136-145 POTASSIUM 4.4 meq/L 3.5-5.0 CHLORIDE 106 meq/L 98-107 CARBON DIOXIDE 28 meq/L 22-31 CALCIUM 9.4 mg/dL 8.4-10.4 EGFR (CKD-EPI 2020) 82.43 >60 Vital Signs: All taken on the encounter date This section contains inpatient and outpatient Vital Signs collected on the date of the Encounter. Date/Time Temperature Pulse Blood Pressure Respiratory Rate SP02 Pain Height Weight Body Mass Index Source November 23, 2024 09:10 AM 87 144/75 [facility] Social History: Smoking Status (Most current) [...] Facil ity November 30, 2023 03:[address]-TOBACCO FORMER USER [facility] Tobacco Use History This section includes a history of the smoking, or tobacco-related health factors, that were collected on or before the date of the Encounter. The data comes from the CT facility where the Encounter took place. Date/Time Smoking Status/Tobacco Use Comment F acility November 30, 2023 03:00 PM VA-TOBACCO QUIT 15 YRS OR MORE [facility] Jun 02, 2023 10:[address]-TOBACCO FORMER USER [facility] Jun 02, 2023 10:[address]-TOBACCO QUIT 15 YRS OR MORE [facility] Advance Directives: All historical and current [...] 22, 2016 ADVANCE DIRECTIVE DISCUSSION AMBERLY HOFFMAN [facility] Mar 31, 2007 ADVANCE DIRECTIVE JOSE C ALLEN [facility] Radiology Reports: +/- 30 days of [...] LUMBOSACRAL 2 OR 3 VIEWS: ALLAN LOVETT [id number] -[id number] M Exm Date: DEC 18, 2024@11:32 Req Phys: JOSE FRANCISCO RAY Loc: [facility]-PACT PHONE NURSE E4 (Req'g Img Loc: [facility] Service: [facility], [facility] [address] [place] [address] (Case [id number] COMPLETE) SPINE LUMBOSACRAL 2 OR 3 VIEWS (RAD Detailed) CPT:65491 Reason for Study: low back pain Clinical History: Report Status: Verified Date Reported: DEC 18, 2024 Date Verified: DEC 18, 2024 [facility] E-Sig:/ES/CHRIS HAMMOND MD Report: Case #[id number]. Lumbar [...] CHRIS HAMMOND MD, Staff Physician - Radiologist ([facility] [employer]) /CHRIS BRIONES [facility] Encounter Notes: All associated encounter notes This section contains the clinical notes associated to the Encounter. Date/Time Encounter Note(s) Provider Source November 23, 2024 08:55 AM INTERNAL MEDICINE CLINICAL PHARMACIST MEDICATION MGT NOTE: LOCAL TITLE: CLINICAL PHARMACIST NOTE ST STANDARD TITLE: INTERNAL MEDICINE CLINICAL PHARMACIST MEDICATION DATE OF NOTE: NOVEMBER 23, 2024@08:55 ENTRY DATE: NOVEMBER 23, 2024@08:55:55 AUTHOR: JULIANNA MCKINNEY COSIGNER: URGENCY: STATUS: COMPLETED CLINICAL PHARMACY FOLLOW-UP ALLAN LOVETT is a 74 yo, WHITE, MALE seen F2F by clinical pharmacy for DM management. [place] was identified by name and . During the last contact with vet, the following changes were made: - continue liraglutide 1.2 mg daily - continue metformin 1000 mg PO BID - Continue HCTZ/losartan 12.5/100 mg PO daily - Continue metoprolol tartrate 12.5 mg PO BID - Continue amlodipine 5 mg PO daily Allergies/ADR's: IODINATED CONTRAST MEDIA, LISINOPRIL, SEMAGLUTIDE, DULAGLUTIDE Subjective: - Tolerating liraglutide much better than previous glp1 trials. - Notes home BPs have remains slightly above target. Did not have coffee this morning before coming to compare readings. [-] hypoglycemia symptoms or values <80 mg/dL [-] hyperglycemia symptoms [-] hypotension symptoms or values <90/60 mmHg [-] hypertension symptoms [+] Dietary modifications made - feeling fair faster some days. [-] Changes in lifestyle or social history [-] Adverse effects to antilipemic agents (muscle pain/weakness, GI upset, flushing) Objective: Medications: Active and Recently Outpatient Medications (excluding Supplies): Active Outpatient Medications Status 1) ACCU-CHEK GUIDE (GLUCOSE) TEST STRIP USE 1 STRIP FOR BLOOD ACTIVE TEST TWICE A DAY 2) AMLODIPINE BESYLATE 5MG TAB TAKE ONE TABLET BY MOUTH ONCE A ACTIVE DAY Indication: FOR HIGH BLOOD PRESSURE 3) ATORVASTATIN CALCIUM 20MG TAB TAKE ONE-HALF TABLET BY MOUTH ACTIVE EVERY EVENING TO LOWER CHOLESTEROL 4) CHOLECALCIF 10MCG (D3-400UNIT) TAB TAKE TWO TABLETS BY MOUTH ACTIVE ONCE A DAY Indication: FOR VITAMIN D DEFICIENCY 5) CYANOCOBALAMIN 500MCG TAB TAKE ONE TABLET BY MOUTH ONCE A ACTIVE DAY Indication: FOR VITAMIN B12 SUPPLEMENTATION 6) CYCLOBENZAPRINE HCL 5MG TAB TAKE ONE TABLET BY MOUTH THREE ACTIVE TIMES A DAY NEEDED MAY CAUSE DROWSINESS. DO NOT DRINK ALCOHOL WHILE TAKING THIS MEDICATION. Indication: FOR MUSCLE SPASM 7) CYCLOSPORINE 0.05% (PF) OPH EMUL 0.4ML INSTILL 1 DROP IN ACTIVE BOTH EYES TWICE A DAY (USE EVERY 12 HRS) Indication: FOR DRY EYES 8) DICLOFENAC NA 1% TOP GEL APPLY 4 GM TO AFFECTED AREA(S) FOUR ACTIVE TIMES A DAY NEEDED DO NOT EXCEED MORE THAN 16 GRAMS DAILY TO ANY LOWER EXTREMITY JOINT. NOT MORE THAN 8 GRAMS DAILY TO ANY UPPER EXTREMITY JOINT. MAX 32GM/DAY OVER ALL JOINTS. (MEASURE DOSE WITH RULER ATTACHED INSIDE BOX) Indication: FOR PAIN 9) FLUTICASONE PROP 50MCG 120D NASAL INHL INSTILL 2 SPRAYS IN ACTIVE NOSTRIL(S) ONCE A DAY (MUST BE USED DIRECTED FOR MINIMUM OF 21 DAYS TO PROVIDE ADEQUATE BENEFITS) Indication: FOR CHRONIC RHINOSINUSITIS 10) HCTZ 12.5MG/LOSARTAN 100MG TAB TAKE 1 TABLET BY MOUTH EVERY ACTIVE MORNING Indication: FOR HIGH BLOOD PRESSURE 11) LIDOCAINE 5% PATCH APPLY 1 PATCH TO SKIN SITE ONCE A DAY ACTIVE APPLY PATCH AND PRESS FIRMLY FOR 10-15 SECONDS. KEEP ON FOR 12 HOURS THEN REMOVE PATCH FOR 12 HOURS. Indication: FOR LOCAL ANESTHESIA 12) LIRAGLUTIDE (EQV-VICTOZA) 6MG/ML PEN 3ML INJECT 1.2MG UNDER ACTIVE THE SKIN ONCE A DAY Indication: FOR DIABETES 13) METFORMIN HCL 1000MG TAB TAKE ONE TABLET BY MOUTH TWICE A ACTIVE DAY WITH MEALS TO LOWER BLOOD SUGAR 14) METOPROLOL TARTRATE 25MG TAB TAKE ONE-HALF TABLET BY MOUTH ACTIVE TWICE A DAY FOR HEART/BLOOD PRESSURE. TAKE WITH OR IMMEDIATELY FOLLOWING FOOD. 15) TAMSULOSIN HCL 0.4MG CAP TAKE ONE CAPSULE BY MOUTH ONCE A ACTIVE DAY APPROXIMATELY 30 MINUTES AFTER THE SAME MEAL EACH DAY (FOR PROSTATE) meds: n/a OTC/Non-VA meds: denies Medication reconciliation completed: Yes - targeted review, denies discrepancies Adherence to above medications: denies missing doses Refills/renewals needed: none HGA1C 6.9 H % 08/31/2024 08:25 SODIUM 140 mEq/L 08/31/2024 08:25 POTASSIUM 4.4 mEq/L 08/31/2024 08:25 CHLORIDE 104 mEq/L 08/31/2024 08:25 UREA NITROGEN 15.8 mg/dL 08/31/2024 08:25 CREATININE 0.97 mg/dL 08/31/2024 08:25 CALCIUM 9.4 mg/dL 08/31/2024 08:25 CARBON DIOXIDE 27 mEq/L 08/31/2024 08:25 GLUCOSE 168 H mg/dL 08/31/2024 08:25 EGFR (CKD-EPI 2020) 81.41 08/31/2024 08:25 CREATuF: 85.6 (05/11/24 11:44) M/CREAT: 473 (05/11/24 11:44) MICRAL: 405 (05/11/24 11:44) TRIGLYCERIDE 187 H mg/dL 06/01/2024 11:11 CHOLESTEROL 113 mg/dL 06/01/2024 11:11 HDL(New) 36 L mg/dL 06/01/2024 11:11 CALCULATED LDL 40 mg/dL 06/01/2024 11:11 SGOT 13 U/L (06/01/24 11:11) SGPT 15 U/L (06/01/24 11:11) SMBG's: Date Morning Lunch Evening Before 2hr Before 2hr Before 2hr 11/23/24 172 11/22/24 127 11/21/24 128 127 11/20/24 131 117 11/19/24 134 11/18/24 139 11/17/24 138 114 11/16/24 134 11/15/24 147 11/14/24 146 139 11/13/24 128 11/12/24 155 100 11/11/24 161 138 11/10/24 131 128 11/09/24 144 137 11/08/24 141 11/07/24 143 108 11/06/24 120 122 11/05/24 131 116 Average Range # of Readings Before Breakfast 139.5 120 172 19 Before Dinner 122.4 100 139 11 Overall 133.2 100 172 30 BP last visit:136/74 (10/11/2024 10:56) Pulse last visit: 95 (10/11/2024 10:56) Home BP Readings: BP HR 139/80 64 142/65 144/56 Clinic BP: 144/75 mmHg, HR 87 bpm Repeat clinic BP: 147/78, HR 86 bpm Assessment/Plan: 1) DM - Goal A1c <7.5%, FPG 80-145, PPG <195 d/t age, CKD per VA/DoD and ADA guidelines A1c within target following visit (6.8%); most SMBGs within target. Tolerating liraglutide at 1.2 mg daily and pt expresses satisfaction with BG management on current regimen. Denies sx of hypoglycemia or hyperglycemia. Denies hx of pancreatitis, thyroid cancers, retinopathy. eGFR >45 mL/min/1.73m2. Avoiding SGLT2i d/t hx of UTI, kidney stones resulting in UTIs, and frequent urination at baseline. Prefers to continue w/ current management given established tolerance and meeting A1c goal. - continue liraglutide 1.2 mg daily - continue metformin 1000 mg PO BID - SMBG: BID per pt preference - educated vet on hypoglycemia symptoms and appropriate treatment and when to call clinic or go to emergency room - Labs: A1c, BMP today, uACR 04/2025 - SOC: (+) ACEi/ARB (+) statin (+) flu vaccine (04/13/2024) (+) pneumo vaccine (PCV13 2014, PPSV23 2015) (+) eye exam - 02/2024 (next appt 02/28/25) Type 2 Diabetes without retinopathy - No DME/CSME OU- confirmed w/ OCT Mac 2) Lipids - VADoD/ACC/AHA lipid treatment guidelines goal- at least moderate- intensity statin for primary prevention (DM) Meeting statin recommendations. Patient denies ADRs with current statin regimen. LFTs WNL. LDL at goal <100 mg/dL. TG mildly elevated, likely d/t non-fasting lab. - continue atorvastatin 10 mg PO daily - monitor for myalgias and report to CP or PCP if occurs - Labs: LFTs, lipid panel annually (~05/2025)/prn adherence 3) HTN - Goal <140/90 mmHg per [facility] guidelines. AHA/ACC goal<130/80 mmHg Clinic BP above target; home BPs also slightly elevated. Declines changing coffee/tea habits currently. Micral/creat >300 mcg/mg. Denies sx of hypotension or hypertension. Denies pedal edema w/ amlodipine at this dose (previously experienced w/ 10mg daily dose). SCr, K, Na WNL. Encouraged continued BP monitoring. Reviewed optimal timing for BP checks w/ concurrent caffeine. Agrees to trial HCTZ dose increase - will monitor urinary frequency closely; advised to contact CPP if intolerable increase urinary frequency. - increase HCTZ/losartan to 25/100 mg PO daily - continue metoprolol tartrate 12.5 mg PO BID - continue amlodipine 5 mg PO daily - Instructed vet to call CP if SBP >160 sustained or DBP >100 sustained; Instructed vet to present to ER if SBP >180 sustained or DBP >120 sustained and/or if symptoms present (chest pain, headache, vision changes, numbness, etc.) - Labs: BMP annually - Education provided on nonpharmacologic ways to improve DM/HLD/HTN (including lifestyle management/dietary/physical activity) specific for the vet's needs. - Vet advised of recent A1c/BMP - [place] verbalized understanding to all plans discussed today. Questions were answered to vet's satisfaction. Time with vet: 12 min RTC: 12/21/24 1100 f2f PBM PharmD Pharmacotherapy Rem V12: PHARMACIST INTERVENTIONS: HYPERTENSION Medication Intervention(s) Adjust dose or frequency of current medication LIPID MANAGEMENT Medication monitoring, no dosage change required, continue to monitor and assess TYPE 2 DIABETES MELLITUS Medication monitoring, no dosage change required, continue to monitor and assess /shadi/ Julianna Mckinney Pharm.D., [facility] Clinical Donor Support Technician Signed: 11/23/2024 12:42 JULIANNA MCKINNEY [facility]
--- OUTSIDE RECORDS SUMMARY | 2025-02-17 15:28 | XMS_ITS ---
Author Name [facility] Organization [facility] [place] Address [address] [place] [address] Care Team Providers Care V Belt Mold Assembler And Curer Name Role Phone MORELIA ALLEN Primary Care [...] PART A Mar 19, 2014 PART A [id number] [place] PATIENT MEDICARE (WNR) MEDICARE (M) PART A Mar 19, 2014 PART A [id number] [phone] [place] PATIENT Selected Encounter This section includes the information on record at ID for the Encounter. Date/Time Encounter Type Encounter Description Reason Provider Source Jan 12, 2025 01:06 PM Outpatient Encounter ADMIN PAT ACTIVTIES (MASNONCT) KAMRYN GOOD Kezia Encounter Template Text not used by ID Plan of Treatment: Future Appointments (+ 6 months) and Future Tests (+/- 45 days) The Plan of Treatment section includes future care activities for the patient from all [facility]. This section includes future appointments and future orders which are active, pending or scheduled. Future Appointments This section includes appointments that were scheduled to occur 6 months from the date of the Encounter, up to a maximum of 20 appointments. The data comes from all [facility]. Appointment Date/Time Appointment Type Appointme nt Facility Name Jan 18, 2025 11:00 AM AMBULATORY - SURGERY [facility] Feb 07, 2025 11:00 AM [facility]ORY [facility] Feb 14, 2025 06:30 AM AMBULATORY - NONE [facility] Feb 15, 2025 08:30 AM AMBULATORY - SURGERY [facility] Feb 22, 2025 08:00 AM AMBULATORY - SURGERY [facility] Feb 28, 2025 09:00 AM AMBULATORY - SURGERY [facility] Mar 06, 2025 08:30 AM AMBULATORY - NONE [facility] Mar 12, 2025 01:30 PM AMBULATORY - SURGERY [facility] Mar 16, 2025 08:30 AM AMBULATORY - SURGERY [facility] May 31, 2025 11:00 AM AMBULATORY - MEDICINE [facility] Active, Pending, and Scheduled Orders This section includes a listing of several types of active, pending, and scheduled orders, including clinic medications orders, diagnostic test orders, procedure orders and consult orders; where the start date of the order is 45 days before the date of the Encounter or 45 days after the date of theEncounter. The data comes from all [facility]. Test Date/Time Test Type Test Details Facility Name Dec 29, 2024 12:00 AM Laboratory - Chemi stry Order BASIC METABOLIC PANEL GREEN LI/HEP BLD/PLAS PLASMA SP [facility] Lab Results: +/- 30 days of the encounter This section includes the Chemistry and Hematology Lab Results on record with ID for the patient. Radiology Reports and Pathology Reports are provided separately, in subsequent sections. Lab Results This section contains the Chemistry/Hematology Results that were resulted 30 days before or 30 daysafter the date of the Encounter. Date/Time Source Result Type Result - Unit Interpretation Reference Range Specimen Type Comment Jan 12, 2025 01:10 PM [facility] GLUCOSE,BLOOD-poct (STL) BLOOD Specimen Type: BLOOD Comment: Test Performed by: [id number] Meter #: [id number] Ordering Provider: MORELIA ALLEN Report Released Date/Time: Jan 12, 2025 01:12 PM Reporting Lab: [place] [address] [facility] [address] Performing Lab: [address] [address] GLUCOSE,BLOOD-poct (STL) 150 mg/dL H 72-99 Jan 12, 2025 11:38 AM [facility] GLUCOSE,BLOOD-poct (STL) BLOOD Specimen Type: BLOOD Comment: Test Performed by: [id number] Meter #: [id number] Ordering Provider: MORELIA ALLEN Report Released Date/Time: Jan 12, 2025 11:48 AM Reporting Lab: [place] [address] [facility] [address] Performing Lab: [address] [address] GLUCOSE,BLOOD-poct (STL) 147 mg/dL H 72-99 Vital Signs: All taken on the encounter date This section contains inpatient and outpatient Vital Signs collected on the date of the Encounter. Date/Time Temperature Pulse Blood Pressure Respiratory Rate SP02 Pain Height Weight Body Mass Index Source Jan 12, 2025 02:00 PM 97.3 F 77 /min 141/72 mm[Hg] 13 /min 93 % 0 [facility] Jan 12, 2025 01:05 PM 97.1 F 89 /min 145/93 mm[Hg] 14 /min 95 % 0 [facility] Jan 12, 2025 11:31 AM 98.4 F 77 /min 151/80 mm[Hg] 20 /min 93 % 1 71.5 in 280 lb 39 [facility] Social History: Smoking Status (Most [...] 02:53 AM ORYX ADMIT TOBACCO SCREEN NO [facility] Tobacco Use History This section includes a history of the smoking, or tobacco-related health factors, that were collected on or before the date of the Encounter. The data comes from the ID facility where the Encounter took place. Date/Time Smoking Status/Tobacco Use Comment Kirstin eve Apr 02, 2016 12:55 PM QUIT TOBACCO >7 YEARS AGO [facility] May 21, 2015 01:30 PM LIFETIME NON-USER OF TOBACCO [facility] Jan 03, 2014 10:46 AM LIFETIME NON-USER OF TOBACCO [facility] Feb 21, 2013 11:08 AM QUIT TOBACCO >12 M O & <7 YRS AGO [facility] Aug 19, 2009 12:46 PM LIFETIME NON-USER OF TOBACCO [facility] Oct 05, 2008 10:28 AM QUIT TOBACCO >12 M O & <7 YRS AGO [facility] November 18, 2007 09:08 AM QUIT TOBACCO IN TH E LAST 12 MONTHS [facility] Aug 05, 2006 12:57 PM CURRENT TOBACCO USER [facility] Aug 05, 2006 12:57 PM TOB-DECLINES SMOKI NG CESSATION REFERRAL [facility] Jan 13, 2006 08:42 AM CURRENT TOBACCO USER [facility] Jan 13, 2006 08:42 AM SMOKER 1-2 PACKS [facility] Advance Directives: All historical and current Section Date Range: From patient's date of to the date document was created. This section includes ALL of a patient's completed or amended [place] Advance and Rescinded Directives. The entries below indicate that a directive exists for the patient, but an actual copy is not included with this document. The data comes from all [facility] facilities. Date Advance Directives Provider Source Jan 22, 2016 ADVANCE DIRECTIVE DISCUSSION AMBERLY HOFFMAN [facility] Mar 31, 2007 ADVANCE DIRECTIVE JOSE C ALLEN [facility] Radiology Reports: +/- 30 days of [...] the Encounter. The data comes from all ID treatment facilities. Date/Time Radiology Report Provider Source Dec 18, 2024 11:32 AM SPINE LUMBOSACRAL 2 OR 3 VIEWS: ALLAN LOVETT [id number] -[id number] M Exm Date: DEC 18, 2024@11:32 Req Phys: JOSE FRANCISCO RAY Loc: G[facility]INI-PACT PHONE NURSE E4 (Req'g Img Loc: [facility] RADIOLOGY Service: [facility], [facility] [address] [place] [address] (Case [id number] COMPLETE) SPINE LUMBOSACRAL 2 OR 3 VIEWS (RAD Detailed) CPT:18570 Reason for Study: low back pain Clinical History: Report Status: Verified Date Reported: DEC 18, 2024 Date Verified: DEC 18, 2024 [employer] E-Sig:/ES/CHRIS HAMMOND MD Report: Case #[id number]. Lumbar [...] CHRIS HAMMOND MD, Staff Physician - Radiologist ([employer]) /CHRIS BRIONES [facility] Encounter Notes: All associated encounter notes This section contains the clinical notes associated to the Encounter. Date/Time Encounter Note(s) Provider Source Jan 12, 2025 01:06 PM ANESTHESIOLOGY ANNELIESE WSHEET: LOCAL TITLE: ANES INTRA-OP FLOWSHEET ST STANDARD TITLE: ANESTHESIOLOGY FLOWSHEET DATE OF NOTE: JAN 12, 2025@13:06 ENTRY DATE: JAN 12, 2025@13:06:31 AUTHOR: KAMRYN GOOD EXP COSIGNER: URGENCY: STATUS: COMPLETED Patient: ALLAN LOVETT SSN: [id number] Date of Operation: 01/12/2025 Surgery Start Time: 01/12/2025 12:37 Surgery End Time: 01/12/2025 13:00 Anesthesia Care Start: 01/12/2025 12:28 Anesthesia Care End: 01/12/2025 13:06 Anesthesia Method: Monitored 01/12/2025 12:30 (Primary), Level Of Consciousness: Sedated, Monitors Applied, Oxygen Therapy: Nasal Cannula, EtCO2 Verified: Waveform Positioning: Head Neutral, Head And Neck In Alignment With Spine, Pressure Points Padded & Checked, Eyes, Ears And Nose Free Of Pressure ASA Number: 3 Procedure: phaco cataract with lens implant, left eye Diagnosis: cataract, left eye Holding, Anesthesia, PACU Drugs: ------- FentaNYL: 100 mcg DexmedeTOMidine: 16 mcg Ondansetron: 4 mg Holding, Anesthesia, PACU Fluids: -------- Normal Saline: 250 ml Resources: Arms Wrapped at Side - Bilateral Staff: --------- GORDY WILKINSON, SURGEON UMA DEE, ATT. SURGEON KAMRYN GOOD PRIN. ANES. LORENZA HERRERA ANES. SUPER. KAMRYN GOOD PRIN. ANES. Procedure Date: 01/12/2025 Procedure Start Time: Procedure End Time: /es/ KAMRYN GOOD CERTIFIED REGISTERED NURSE SOCIAL STAFF WORKER Signed: 01/12/2025 13:06 KAMRYN GOOD [facility]
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
--- OUTSIDE RECORDS SUMMARY | 2025-02-17 15:28 | XMS_ITS | Encounter Summary ---
Author Name [facility] [place] Address [address] [place] [address] Care Team Providers Care Crib Pad Maker Name Role Phone MORELIA ALLEN Primary Care [...] PART A Mar 19, 2014 PART A [id number] [place] PATIENT MEDICARE (WNR) MEDICARE (M) PART A Mar 19, 2014 PART A [id number] [place] PATIENT Selected Encounter This section includes the information on record at [place] for the Encounter. Date/Time Encounter Type Encounter Description Reason Provider Source Jun 01, 2024 11:30 AM OFFICE O/P EST MOD 30 MIN PRIMARY CARE/MEDICINE ICD-10-CM Z00.00 Encntr for general adult medical exam w/o abnormal findings JOSE OTTO [facility] Encounter Template Text not used by [place] Assessments - Encounter Diagnoses This section includes the primary and secondary diagnoses documented for the Encounter. Date/Time Primary/Secondary Diagnosis Diagnosis Name Provider Source Jun 01, 2024 10:53 AM PRIMARY Encntr for general adult medical exam w/o abnormal findings JOSE OTTO [facility] Jun 01, 2024 10:53 AM SECONDARY Bilateral primary oste[facility] Jun 01, 2024 10:53 AM SECONDARY Essential (primary) hypertension [facility] Jun 01, 2024 10:53 AM SECONDARY Hyperlipidemia, unspecified [facility] Jun 01, 2024 10:53 AM SECONDARY Lumbago with sciatica, unspecified side [facility] Jun 01, 2024 10:53 AM SECONDARY Nicotine dependence, cigarettes, in remission [facility] Jun 01, 2024 10:53 AM SECONDARY Other obesity due to excess calories [facility] Jun 01, 2024 10:53 AM SECONDARY Personal history of other malignant neoplasm of kidney [facility] Jun 01, 2024 10:53 AM SECONDARY Type 2 diabetes mellitus with diabetic polyneuropathy [facility] Jun 01, 2024 10:53 AM SECONDARY Unspecified hearing loss, bilateral [facility] Jun 01, 2024 10:53 AM SECONDARY Vitamin B12 deficiency anemia, unspecified [facility] Plan of Treatment: Future Appointments (+ 6 months) and Future Tests (+/- 45 days) The Plan of Treatment section includes future care activities for the patient from all [place] [facility] This section includes future appointments and future orders which are active, pending or scheduled. Future Appointments This section includes appointments that were scheduled to occur 6 months from the date of the Encounter, up to a maximum of 20 appointments. The data comes from all [facility] facilities. Appointment Date/Time Appointment Type Appointme nt Facility Name Jun 08, 2024 11:00 AM AMBULATORY - NONE [facility] Jul 03, 2024 10:00 AM AMBULATORY - SURGERY [facility] Jul 20, 2024 09:00 AM AMBULATORY - NONE [facility] Aug 31, 2024 09:00 AM AMBULATORY - NONE [facility] Sep 12, 2024 01:00 PM AMBULATORY - MEDICINE [facility] Oct 11, 2024 10:30 AM AMBULATORY - NONE [facility] Nov 07, 2024 09:15 AM AMBULATORY - MEDICINE [facility] November 23, 2024 09:00 AM AMBULATORY - NONE [facility] November 23, 2024 11:00 AM AMBULATORY - SURGERY [facility] Lab Results: +/- 30 days of the encounter This section includes the Chemistry and Hematology Lab Results on record with [place] for the patient. Radiology Reports and Pathology Reports are provided separately, in subsequent sections. Lab Results This section contains the Chemistry/Hematology Results that were resulted 30 days before or 30 daysafter the date of the Encounter. Date/Time Source Result Type Result - Unit Interpretation Reference Range Specimen Type Comment Jun 01, 2024 11:11 AM [facility] LIPID PANEL (STL) PLASMA Specimen Type: PLASMA Comment: No hemolysis noted. Ordering Provider: JSOE OTTO Report Released Date/Time: Jun 01, 2024 10:24 AM Reporting Lab: [facility] [id number] Performing Lab: [facility] [id number] CHOLESTEROL 113 mg/dL 0-200 TRIGLYCERIDE 187 mg/dL H 0-150 CALCULATED LDL 40 mg/dL See Interp HDL(New) 36 mg/dL L > 40 Jun 01, 2024 11:11 AM [facility] PROST. SPECIFIC AG.(PB-STL) SERUM Specimen Ty pe: SERUM Comment: The listed sex of this patient may not be a typical indication for this test. Therefore, reference ranges or interpretive criteria listed may not be valid. Clinical correlation suggested. Ordering Provider: JOSE OTTO Report Released Date/Time: Jun 01, 2024 10:24 AM Reporting Lab: [facility] [place] [address] Performing Lab: [facility] [place] [address] PROST. SPECIFIC AG.(PB-STL) 0.653 ng/mL 0.000-4.000 Jun 01, 2024 11:11 AM [facility] COMPREHENSIVE METABOLIC PANEL PLASMA Specimen Type: PLASMA Comment: No hemolysis noted. Ordering Provider: JOSE OTTO Report Released Date/Time: Jun 01, 2024 10:24 AM Reporting Lab: [facility] [place] [address] Performing Lab: [facility] [place] [address] CREATININE 0.87 mg/dL 0.70-1.30 UREA NITROGEN 17.4 mg/dL 9.0-25.0 GLUCOSE 142 mg/dL H 72-99 SODIUM 138 meq/L 136-145 POTASSIUM 3.7 meq/L 3.5-5.0 CHLORIDE 104 meq/L 98-107 CARBON DIOXIDE 25 meq/L 22-31 CALCIUM 9.6 mg/dL 8.4-10.4 PROTEIN 6.7 g/dL 6.0-8.6 ALBUMIN 3.8 g/dL 3.4-5.0 TOTAL BILIRUBIN 0.3 mg/dL 0.2-1.2 ALKALINE PHOSPHATASE 110 U/L 40-150 AST/SGOT 13 U/L 5-34 ALT/SGPT 15 U/L 8-40 EGFR (CKD-EPI 2020) 89.98 >60 Jun 01, 2024 11:[address] [facility] TSH W/ REFLEX FT4 (STL) PLASMA Specimen Type: PLASMA No comment entered. Ordering Provider: JOSE OTTO Report Released Date/Time: Jun 01, 2024 10:24 AM Reporting Lab: [facility] [place] [address] Performing Lab: [facility] [place] [phone] TSH 1.049 u[IU]/mL 0.470-5.000 Jun 01, 2024 11:11 AM [facility] VITAMIN D, 25-HYDROXY SERUM Specimen Type: SE RUM Comment: The listed sex of this patient may not be a typical indication for this test. Therefore, reference ranges or interpretive criteria listed may not be valid. Clinical correlation suggested. Ordering Provider: JOSE OTTO Report Released Date/Time: Jun 01, 2024 10:24 AM Reporting Lab: [facility] [place] [address] Performing Lab: [facility] [place] [address] VITAMIN D, 25-HYDROXY 31.3 ng/mL 30-96 Jun 01, 2024 11:11 AM [facility] THYROXINE SERUM Specimen Type: SERUM Comment: The listed sex of this patient may not be a typical indication for this test. Therefore, reference ranges or interpretive criteria listed may not be valid. Clinical correlation suggested. Ordering Provider: JOSE OTTO Report Released Date/Time: Jun 01, 2024 10:24 AM Reporting Lab: [facility] [place] [address] Performing Lab: [facility] [place] [address] THYROXINE 6.36 ug/dL 4.50-12.00 Jun 01, 2024 11:11 AM [facility] CBC BLOOD Specimen Type: BLOOD No comment entered. Ordering Provider: JOSE OTTO Report Released Date/Time: Jun 01, 2024 10:24 AM Reporting Lab: [facility] [place] [address] Performing Lab: [facility] [place] [address] WBC 7.1 10*3/uL 3.6-11.2 RBC 4.74 10*6/uL 4.10-5.70 HGB 13.9 g/dL 13.1-16.8 HCT 41.9 38.2-48.4 MCV 88.4 fL 80.0-100.0 MCH 29.3 pg 27.0-34.0 MCHC 33.2 g/dL 33.0-36.0 PLT 227 10*3/uL 150-400 MPV 9.2 fL 7.5-11.2 RDW 12.8 11.8-15.1 LYMPHOCYTES, AUTO % 24 MONOCYTES, AUTO % 4 NEUTROPHILS, AUTO % 70 EOSINOPHILS, AUTO % 1 BASOPHILS, AUTO % 0 LYMPHOCYTES, ABSOLUTE 1.74 10*3/uL 0.77- 4.50 MONOCYTES, ABSOLUTE 0.31 10*3/uL 0.19-0. 80 NEUTROPHILS, ABSOLUTE 4.96 10*3/uL 2.10- 8.00 EOSINOPHILS, ABSOLUTE 0.05 10*3/uL 0.00- 0.60 BASOPHILS, ABSOLUTE 0.03 10*3/uL 0.00-0. 20 Jun 01, 2024 11:10 AM [facility] BASIC METABOLIC PANEL PLASMA Specimen Type: PL ASMA Comment: No hemolysis noted. Ordering Provider: TAPAN BLAS Report Released Date/Time: Mar 01, 2024 04:29 PM Reporting Lab: [facility] [phone] Performing Lab: [facility] [place] [phone] CREATININE 0.87 mg/dL 0.70-1.30 UREA NITROGEN 17.3 mg/dL 9.0-25.0 GLUCOSE 142 mg/dL H 72-99 SODIUM 138 meq/L 136-145 POTASSIUM 3.8 meq/L 3.5-5.0 CHLORIDE 103 meq/L 98-107 CARBON DIOXIDE 25 meq/L 22-31 CALCIUM 9.6 mg/dL 8.4-10.4 EGFR (CKD-EPI 2020) 89.98 >60 May 11, 2024 11:44 AM [facility] MICRAL/CREAT PROFILE (STL) URINE Specimen Typ e: URINE No comment entered. Ordering Provider: TAPAN BLAS Report Released Date/Time: May 11, 2024 11:35 AM Reporting Lab: [facility] [phone] Performing Lab: [facility] [phone] URINE ALBUMIN (PB-STL) 405 mg/L No range refer to micral/creat ratio uACR (STL) 473 mg/g H 0-29 CREATININE URINE/OTHERS 85.6 mg/dL 63.0- 166.0 Vital Signs: All taken on the encounter date This section contains inpatient and outpatient Vital Signs collected on the date of the Encounter. Date/Time Temperature Pulse Blood Pressure Respiratory Rate SP02 Pain Height Weight Body Mass Index Source Jun 01, 2024 10:43 AM 128/68 [facility] Jun 01, 2024 10:16 AM 150/68 [facility] Jun 01, 2024 10:16 AM 97.7 88 157/76 [address] [facility] Social History: Smoking Status (Most current) and Tobacco Use (All prior to encounter date) This section includes the most current, and the historical, smoking and tobacco- related health factors from the [place] facility where the Encounter took place. Current Smoking Status This section includes the most current smoking, or tobacco-related health factor, from the [place] facility where the Encounter took place. Date/Time Current Smoking Status Comment Ronda ity November 30, 2023 03:00 PM [place]-TOBAC[place] QUIT 15 YRS OR MORE [facility] Tobacco Use History This section includes a history of the smoking, or tobacco-related health factors, that were collected on or before the date of the Encounter. The data comes from the [place] facility where the Encounter took place. Date/Time Smoking Status/Tobacco Use Comment F acility November 30, 2023 03:00 PM [place]-TOBAC[place] QUIT 15 YRS OR MORE [facility] Jun 02, 2023 10:00 AM [place]-TOBACCO FORMER USER [facility] Jun 02, 2023 10:00 AM [place] QU[place] 15 YRS OR MORE [facility] Advance Directives: All historical and current Section Date Range: From patient's date of to the date document was created. This section includes ALL of a patient's completed or amended [place] Advance and Rescinded Directives. The entries below indicate that a directive exists for the patient, but an actual copy is not included with this document. The data comes from all [place] facilities. Date Advance Directives Provider Source Jan 22, 2016 ADVANCE DIRECTIVE DISCUSSION AMBERLY HOFFMAN [facility] Mar 31, 2007 ADVANCE DIRECTIVE JOSE C ALLEN [facility] Encounter Notes: All associated encounter notes This section contains the clinical notes associated to the Encounter. Date/Time Encounter Note(s) Provider Source Jun 26, 2024 01:43 PM PHYSICIAN LETTERS: LOCAL TITLE: TEST RESULT GENERAL LETTER STL STANDARD TITLE: PHYSICIAN LETTERS DATE OF NOTE: JUN 26, 2024@13:43 ENTRY DATE: JUN 26, 2024@13:43:31 AUTHOR: JOSE OTTO COSIGNER: URGENCY: STATUS: COMPLETED [facility] [address] [place] [address] JUN 26, 2024 ALLAN GUSTAFSON [address] [place], [place] [address] Dear Allan Gustafson, I would like to update you on your recent test results. LIPID PROFILE - High cholesterol and triglycerides (lipids) are risk factors for heart disease. Your cholesterol should fall between 140 and 200, and your triglycerides levels should be less than or equal to 150. HDL is the good cholesterol and should ideally be greater than 40. LDL is the bad cholesterol and optimal levels should be less than 100 (near optimal is between 100 and 129). TRIGLYCERIDE 187 H mg/dL 06/01/2024 11:11 CHOLESTEROL 113 mg/dL 06/01/2024 11:11 HDL(New) 36 L mg/dL 06/01/2024 11:11 CALCULATED LDL 40 mg/dL 06/01/2024 11:11 No DIRECT LDL EO data found These results are abnormal. Elevated triglycerides This can also happen if you ate before your labs CBC - A complete blood count (CBC) gives important information about the kinds and numbers of cells in the blood, especially red blood cells, white blood cells, and platelets. HGB 13.9 g/dL 06/01/2024 11:11 HEMATOCRIT 41.9 % (06/01/24 11:11) PLT 227 10*3/uL 06/01/2024 11:11 WHITE BLOOD COUNT 7.1 10*3/uL (06/01/24 11:11) These readings are within normal limits. CHEM 7 - This is important information about the current status of your kidneys, liver, and electrolyte and acid/base balance as well as of your blood sugar and blood proteins. SODIUM 138 mEq/L 06/01/2024 11:11 POTASSIUM 3.7 mEq/L 06/01/2024 11:11 CHLORIDE 104 mEq/L 06/01/2024 11:11 UREA NITROGEN 17.4 mg/dL 06/01/2024 11:11 CREATININE 0.87 mg/dL 06/01/2024 11:11 CALCIUM 9.6 mg/dL 06/01/2024 11:11 CARBON DIOXIDE 25 mEq/L 06/01/2024 11:11 GLUCOSE 142 H mg/dL 06/01/2024 11:11 EGFR (CKD-EPI 2020) 89.98 06/01/2024 11:11 These readings are within normal limits. LIVER FUNCTION PANEL - These are tests for liver function: PROTEIN 6.7 g/dL 06/01/2024 11:11 ALBUMIN 3.8 g/dL 06/01/2024 11:11 TOTAL BILIRUBIN 0.3 mg/dL 06/01/2024 11:11 ALKALINE PHOSPHATASE 110 U/L 06/01/2024 11:11 AST/SGOT 13 U/L 06/01/2024 11:11 ALT/SGPT 15 U/L 06/01/2024 11:11 These readings are within normal limits. PSA - Prostate-specific antigen is a protein produced by cells of the prostate gland. The PSA test measures the level of PSA in the blood. PSA PROST. SPECIFIC AG.(PB-STL) 0.653 ng/mL 06/01/2024 11:11 These readings are within normal limits. TSH - Thyroid-stimulating hormone (also known as TSH or thyrotropin) is a peptide hormone synthesized and secreted by thyrotrope cells in the anterior pituitary gland, which regulates the endocrine function of the thyroid gland. TSH TSH 1.049 uIU/mL 06/01/2024 11:11 These readings are within normal limits. VITAMIN D - Helps promote the proper utilization of calcium and phosphorus, thereby producing proper bone maintenance. VITAMIN D, 25-HYDROXY 31.3 ng/mL 06/01/2024 11:11 These readings are within normal limits. It was a pleasure seeing you in the office. If you have a question, please do not hesitate to reach out via [employer] or telephone. We look forward to seeing you at your next office visit. FUTURE APPOINTMENTS: 07/03/2024 10:00 RYANN-UROLOGY 1 07/20/2024 09:00 GEMINI-PACT TM E PHARM IND 02 11/07/2024 09:15 [facility]ANN-[facility]M CLIN[facility] 02/28/2025 09:00 RYANN-OPTOMETRY 4 03/12/2025 13:30 MARCYUROLOGY 1 05/31/2025 11:00 GEMINI-PACT E4 PCP Sincerely, JOSE OTTO NURSE PRACTITIONER ALLAN GUSTAFSON MELISSA S [facility] Jun 01, 2024 10:19 AM PRIMARY CARE NOTE: LOCAL TITLE: PRIMARY CARE PROVIDER ESTABLISHED VISIT [facility] STANDARD TITLE: PRIMARY CARE NOTE DATE OF NOTE: JUN 01, 2024@10:19 ENTRY DATE: JUN 01, 2024@10:19:09 AUTHOR: JOSE OTTO EXP COSIGNER: URGENCY: STATUS: COMPLETED ESTABLISHED PATIENT [id number]-AEBR: REASON FOR VISIT/CHIEF COMPLAINT: routine HPI: Leighton is a 73 year old WHITE MALE who presents today for routine visit. PMHx: HTN; hearing loss; T2DM;Renal Cell CA; H/O drug use last 1979/alcoholism last use age 34 goes to AA meetings;ART; ED;angioedema s/p Lisinopril use; B12 def; HLD;DM Neuropathy; BPH;Morbid obesity;SCCA upper chest and top of head nonva providers: Denies DM2 with neuropathy denies open sores neuropathy L>R, c/o disability was lowered eye exam scheduled 02/2024 metformin 1000mg PO BID dulaglutide 0.75mg weekly changed from ozempic to trulicity due to side effects was having diarrhea 3-4 x daily so far doing better on this HTN on amlodipine, losartan, hctz bp at home 130-140/70-80 HLD - taking statin - denies myalgia atorvastatin allergic rhinitis using flonase seldom not bothering him much - better after sinus polyp removal almost not at all obesity has gained a couple pounds, he is unsure why not exercising much due to left knee lumbar pain happened when cutting toenails 4 days ago He feels it is a muscle strain using BenGay and using tylenol if he twists, he can feel it left knee OA - controlled TKR done by [facility] Mar 2024 PT 3 times per week tylenol prn H/O SCC - seeing derm annually, last month H/O Renal cell carcinoma - s/p right partial nephrectomy 2006 he avoids NSAIDs - stopped taking IBU drinks lot of water ex-tobacco use quit 03/29/2011 AAA neg hard of hearing was told hearing aids would not help him has difficulty with soft voices B12 deficiency - started taking B12 supplement nephrolithiasis s/p percutaneous nephrostomy tube, stent removed f/b SOURCE(S) OF HISTORY: Patient PAST MEDICAL HISTORY: 1) Essential hypertension (SNOMED CT 84566833) 2) Obesity (SNOMED CT 695210758) 3) Osteoarthritis of knee (SNOMED CT 955072490) 4) Carcinoma in situ of kidney (SNOMED CT 34427238) 5) Squamous cell carcinoma of skin (SNOMED CT 139812983) 6) Sclerosis 7) History of drug abuse 8) H/O: alcoholism 9) Rosacea 10) Kidney stone 11) Allergic rhinitis 12) Erectile Dysfunction (SCT 461910749) 13) Polyp Colon (SCT 49044321) 14) Hyperlipidemia 15) Hearing loss 16) Squamous cell carcinoma of scalp 17) Recurrent ventral incisional hernia 18) Nicotine dependence in remission 19) Vitamin B12 deficiency (non anemic) 20) Exposure to potentially hazardous substance 21) Peripheral Neuropathy with Type 2 Diabetes (SCT 1198019657121) ALLERGIES: Life Sustaining Treatment Orders ALLERGY REVIEW: Allergy list reviewed and remains current. RXAE - Active/Exp Opt Meds 1) AMLODIPINE BESYLATE 5MG TAB ACTIVE TAKE ONE TABLET BY MOUTH ONCE A DAY 2) ATORVASTATIN CALCIUM 20MG TAB ACTIVE TAKE ONE-HALF TABLET BY MOUTH EVERY EVENING TO LOWER CHOLESTEROL 3) CHOLECALCIF 10MCG (D3-400UNIT) TAB ACTIVE TAKE TWO TABLETS BY MOUTH ONCE A DAY FOR VITAMIN D DEFICIENCY 4) CYANOCOBALAMIN 500MCG TAB ACTIVE TAKE ONE TABLET BY MOUTH ONCE A DAY FOR VITAMIN B12 SUPPLEMENTATION 5) CYCLOSPORINE 0.05% (PF) OPH EMUL 0.4ML ACTIVE INSTILL 1 DROP IN BOTH EYES TWICE A DAY FOR DRY EYES (USE EVERY 12 HRS) 6) DICLOFENAC NA 1% TOP GEL ACTIVE APPLY 4 GM TO AFFECTED AREA(S) FOUR TIMES A DAY NEEDED FOR PAIN DO NOT EXCEED MORE THAN 16 GRAMS DAILY TO ANY LOWER EXTREMITY JOINT. NOT MORE THAN 8 GRAMS DAILY TO ANY UPPER EXTREMITY JOINT. MAX 32GM/DAY OVER ALL JOINTS. (MEASURE DOSE WITH RULER ATTACHED INSIDE BOX) 7) DULAGLUTIDE 1.5MG/0.5ML INJ PEN ACTIVE INJECT 1.5MG UNDER THE SKIN EVERY WEEK FOR DIABETES (ADMINISTER DOSE AT ANY TIME OF DAY, WITH OR WITHOUT MEALS) 8) HCTZ 12.5MG/LOSARTAN 100MG TAB ACTIVE TAKE 1 TABLET BY MOUTH EVERY MORNING FOR HIGH BLOOD PRESSURE 9) METFORMIN HCL 1000MG TAB ACTIVE TAKE ONE TABLET BY MOUTH TWICE A DAY WITH MEALS TO LOWER BLOOD SUGAR 10) METOPROLOL TARTRATE 25MG TAB ACTIVE TAKE ONE-HALF TABLET BY MOUTH TWICE A DAY FOR HEART/BLOOD PRESSURE. TAKE WITH OR IMMEDIATELY FOLLOWING FOOD. 11) TAMSULOSIN HCL 0.4MG CAP ACTIVE TAKE ONE CAPSULE BY MOUTH ONCE A DAY APPROXIMATELY 30 MINUTES AFTER THE SAME MEAL EACH DAY (FOR PROSTATE) 12) ACCU-CHEK GUIDE (GLUCOSE) TEST STRIP ACTIVE USE 1 STRIP FOR BLOOD TEST TWICE A DAY FOR BLOOD SUGAR MONITORING 13) ALCOHOL PREP PAD ACTIVE USE/APPLY PAD TO AFFECTED AREA(S) ONCE A DAY NEEDED FOR SKIN CLEANSING 14) LANCET,SOFTCLIX ACTIVE USE LANCET FOR BLOOD TEST TWICE A DAY USE DIRECTED. MEDICATION RECONCILIATION: I have reviewed the patient's medication list with the patient and/or his/her care-violent crimes detective. Handwritten corrections, additions and/or deletions were made to the list. Corrected Outpatient Medication List was provided to the patient/caregiver. DATA REVIEW: SODIUM 139 mEq/L 04/13/2024 11:44 POTASSIUM 4.5 mEq/L 04/13/2024 11:44 CHLORIDE 105 mEq/L 04/13/2024 11:44 UREA NITROGEN 20.3 mg/dL 04/13/2024 11:44 CREATININE 0.83 mg/dL 04/13/2024 11:44 CALCIUM 9.7 mg/dL 04/13/2024 11:44 PROTEIN 6.8 g/dL 06/18/2023 12:15 ALBUMIN 3.4 g/dL 06/22/2023 06:00 ALKALINE PHOSPHATASE 109 U/L 06/18/2023 12:15 ALT/SGPT 15 U/L 06/18/2023 12:15 AST/SGOT 13 U/L 06/18/2023 12:15 TOTAL BILIRUBIN 0.5 mg/dL 06/18/2023 12:15 CARBON DIOXIDE 26 mEq/L 04/13/2024 11:44 GLUCOSE 82 mg/dL 04/13/2024 11:44 EGFR (CKD-EPI 2020) 91.27 04/13/2024 11:44 WBC 11.7 H 10*3/uL 07/06/2023 20:00 RBC 4.58 10*6/uL 07/06/2023 20:00 HGB 12.7 L g/dL 07/06/2023 20:00 HCT 40.3 % 07/06/2023 20:00 MCV 88.0 fL 07/06/2023 20:00 MCH 27.7 pg 07/06/2023 20:00 MCHC 31.5 L g/dL 07/06/2023 20:00 RDW 13.7 % 07/06/2023 20:00 PLT 307 10*3/uL 07/06/2023 20:00 MPV 10.2 fL 07/06/2023 20:00 NEUTROPHILS, AUTO % 94 % 07/06/2023 20:00 LYMPHOCYTES, AUTO % 4 % 07/06/2023 20:00 MONOCYTES, AUTO % 1 % 07/06/2023 20:00 EOSINOPHILS, AUTO % 0 % 07/06/2023 20:00 BASOPHILS, AUTO % 0 % 07/06/2023 20:00 NEUTROPHILS, ABSOLUTE 11.03 H 10*3/uL 07/06/2023 20:00 LYMPHOCYTES, ABSOLUTE 0.47 L 10*3/uL 07/06/2023 20:00 MONOCYTES, ABSOLUTE 0.10 L 10*3/uL 07/06/2023 20:00 EOSINOPHILS, ABSOLUTE 0.00 10*3/uL 07/06/2023 20:00 BASOPHILS, ABSOLUTE 0.02 10*3/uL 07/06/2023 20:00 TRIGLYCERIDE 92 mg/dL 06/02/2023 10:41 CHOLESTEROL 108 mg/dL 06/02/2023 10:41 HDL(New) 42 mg/dL 06/02/2023 10:41 CALCULATED LDL 48 mg/dL 06/02/2023 10:41 No TSH (1YR) EO data found VITAMIN D, 25-HYDROXY 29.8 L ng/mL 06/02/2023 10:41 SLT - Lab Tests Selected Collection DT Specimen Test Name Result Units Ref Range 04/13/2024 11:44 BLOOD HGA1C 6.5 H % 4.0 - 6.0 12/28/2023 09:42 BLOOD HGA1C 6.7 H % 4.0 - 6.0 09/22/2023 08:56 BLOOD HGA1C 6.5 H % 4.0 - 6.0 PROST. SPECIFIC AG.(PB-STL) 0.802 ng/mL 06/02/2023 10:41 HbA1c No data available for: HGA1C Result: Acceptable Follow-up Action: Data results reviewed with patient and/or caregiver. Review of Systems: General: Denies fever, chills, weight loss, weight gain ENT: Denies sore throat, nasal discharge, tinnitus, loss of hearing Eye: Denies changes in vision, double vision Cardiovascular: Denies chest pain, palpitations, dizziness Respiratory: Denies SOB, cough, hemoptysis Abd/GI: Denies nausea, vomiting, diarrhea, constipation, pain MSK/Ext: + joint pain, + R back pain x 3 days, -trauma, stiffness, edema /PLANT SPRAYER: Denies frequency, urgency, burning, odor, discharge Hemo/lymph: Denies easy bruising, fatigue, swollen nodes Endo: Denies excess thirst, hunger, urination Psych: Denies depression, anxiety, nightmares, insomnia Neuro: Denies headaches, tremors, seizures, head injury, neuropathy Skin: Denies laceration/abrasion, rash, itching, insect bites VSD - Detailed Vitals Date Vital Measurement Qualifiers 06/01/2024 10:16 BP 150/68 L Arm, Sitting, Cuff- Manual, Lg Adult Cuff 06/01/2024 10:16 Temp F (C) 97.7 (36.5) Pulse 88 Respir 16 Wt lbs (kg)[BMI] 288.6 (130.91)[40*] Pain 5 POx (L/Min)(%) 94 03/15/2024 12:41 Ht in (cm) 71 (180.34) Physical Exam: ENT: Pharynx clear, TM's clear EYE: PERRLA Cardiovascular: RRR, no murmurs, no carotid bruits, no edema Respiratory: Lungs CTAB Abd/GI: Abdomen soft, non-tender, non-distended, no masses or guarding Extremities: adequate ROM, no edema /PLANT SPRAYER: No CVA or S/P tenderness Hemo/lymph: no adenopathy, excessive bruising Endo: Thyroid without palpable nodules, no excess hair growth Psych: mood and affect appropriate Neuro: Alert and oriented, CN2-12 grossly intact Skin: Clear and intact ASSESSMENT/PLAN: # Annual (Male)-The patient was counseled regarding guidelines for colon and prostate screenings, labs, a mediterranean diet, regular sustained exercise for at least 30 minutes 5 times per week or equivalent, and minimal ETOH intake. Recommend annual optometry and/or ophthalmology and dental appointments. # lumbar pain - happened when cutting toenails 4 days ago - He feels it is a muscle strain - using BenGay and using tylenol - if he twists, he can feel it - pain is improving - Rx for lidocaine patches and flexeril - f/u if no improvement in symptoms # DM2 with neuropathy - controlled - A1C 6.5 H % - RX: metformin 1000mg PO BID dulaglutide 1.5mg weekly - ADR to acei - on statin - encouraged daily foot care and supportive well-fitting shoes - encouraged annual eye exam - f/b pharmD # HTN - controlled - RX: losartan 75mg PO daily metoprolol tartrate 12.5mg PO BID HCTZ 12.5mg QAM - angioedema to lisinopril - encouraged low sodium diet and regular exercise regimen - check BP at home weekly, 1-2 hours after taking RX - report if consistently > 130/>80 - f/b pharmD # HLD - controlled - RX: atorvastatin - encouraged low saturated fat diet/DASH diet - encouraged regular exercise regimen - f/b pharmD # Allergic rhinitis - controlled - RX: flonase # obesity - uncontrolled - encouraged clinical printer floor covering assistant and/or weight loss MOVE program - Encouraged implementing exercise regimen - on GLP-1 # left knee OA - controlled - TKR done by MILAGRO lucero Mar 2024 - doing PT three days per week - tylenol prn # vitamin B12 deficiency - controlled - cont. B12 supplement - check B12 level HEALTH MAINTENANCE: CRC screen - 08/2022 with HP repeat 5 yrs PROST. SPECIFIC AG.(PB-STL) 0.802 ng/mL 06/02/2023 10:41 PROST. SPECIFIC AG.(PB-STL) 0.836 ng/mL 05/27/2022 07:36 PROST. SPECIFIC AG.(PB-STL) 1.001 ng/mL 09/04/2021 11:45 PROST. SPECIFIC AG.(PB-STL) 0.585 ng/mL 07/30/2020 15:36 COVID-19 (PFIZER), MRNA, LNP-S, * 6 11/25/2022 [facility]* COVID-19 (Key Cybersecurity), MRNA, LNP-S, * 1 No Site COVID-19 (PFIZER), MRNA, LNP-S, * 4 10/24/2021 [facility]* COVID-19 (PFIZER), MRNA, LNP-S, * 04/17/2021 No Site COVID-19 ([employer]), MRNA, LNP-S, * 2 09/03/2020 [facility]* COVID-19 (PFIZER), MRNA, LNP-S, * 1 08/13/2020 [facility]* COVID-19 (PFIZER), MRNA, LNP-S, * 1 04/23/2023 [facility], UNSPECIFIED FORMULATI* 04/23/2023 [facility] PNEUMOVAX (HISTORICAL) PVT PNEUMOCOCCAL CONJUGATE PCV 13 09/28/2014 [facility]* PNEUMOCOCCAL POLYSACCHARIDE PPV23 11/26/2015 [facility]* TDAP 11/26/2015 [facility]* ZOSTER LIVE 03/11/2011 [facility]* ZOSTER RECOMBINANT 2 09/04/2021 [facility]* ZOSTER RECOMBINANT 1 12/17/2020 [facility]* Return to clinic 12 mo SUMMARY STATEMENT: Plan of care has been discussed with including expected therapeutic benefits and potential side effects of prescribed medication and treatments. Leighton verbalizes understanding and is in agreement with the plan of care. Patient was instructed to keep all scheduled appointments and contact diaper folder for any additional problems. PAVE Foot Check - L,N,P,PH,PO,PT,U: A complete foot check was completed at this encounter. VISUAL INSPECTION: Includes inspection for skin breaks, deformity, erythema, trauma, pallor on elevation, dependent rubor, nail deformities, extensive callus and pitting edema. Visual exam results: Abnormal Observations: Thickened toenails PEDAL PULSES: Includes palpation of dorsalis and posterior tibial pulses and signs/symptoms of vascular compromise like pain, pallor, parasthesia or paralysis. Present (even if diminished) SENSORY CHECK: Includes 10 gram Monofilament (Mills-Duc) test of sensation. Intact (Greater than or equal to 80% of sites checked) Abnormal (Less than 80% of sites checked): Abnormal (decreased or absent sensation to monofilament): Comment: decreased sensation HIGH-RISK: HIGH RISK INFORMATION PROVIDED: 1. Advised patient that extra depth footwear with soft molded inserts and braces may be required. 2. Advised patient not to walk barefoot. 3. Explained the importance of daily foot checks. 4. Stressed the importance of daily foot hygiene, including bathing, complete drying and thorough inspection for changes. Patient referred to Podiatry. /shadi/ JOSE OTTO NURSE PRACTITIONER Signed: 06/01/2024 10:53 JOSE OTTO [facility] Jun 01, 2024 10:18 AM NURSING NOTE: LOCAL TITLE: V15 PACT FACE TO FACE NOTE ST STANDARD TITLE: NURSING NOTE DATE OF NOTE: JUN 01, 2024@10:18 ENTRY DATE: JUN 01, 2024@10:18:18 AUTHOR: YODIT LOPEZIGNJESSENIA: URGENCY: STATUS: COMPLETED Provider Visit: Patient Identifiers : Full Name Date of Reason for visit: Established Follow-Up , bent down -now complaining of lower right side back pain, knee pain Mode of Arrival: Assistive Device: cane Allergy Review: IODINATED CONTRAST MEDIA, LISINOPRIL, SEMAGLUTIDE Allergy list reviewed and remains current. Recent Vital Signs: Temperature: 97.7 F [36.5 C] (06/01/2024 10:16) Pulse: 88 (06/01/2024 10:16) Respiration: 16 (06/01/2024 10:16) B/P: 150/68 (06/01/2024 10:16) Pain: 5 (06/01/2024 10:16) Wt: 288.6 lb [130.91 kg] (06/01/2024 10:16) Ht: 71 in [180.3 cm] (03/15/2024 12:41) BMI: 40.3 POX: 94% (06/01/2024 10:16) Would you like to discuss any personal problem, family problem, alcohol use, drug use, or a mental or emotional illness? No Contact provided Primary Care phone number and encouraged to call if any questions or concerns. Review that after hours nurse line [phone] and emergency room are available 08/02 for patient use. Contact verbalized good understanding. Sexual Orientation - CP,L,N,P,PH,PS,S,U: The patient thinks of their sexual orientation as: Straight or Heterosexual Frail/Elderly Screen: ADL Screen - Mitchell Index of Traverse in Activities of Daily Living Bathing: (3 Points) Receives no assistance (gets in and out of tub by self, if tub is usual means of bathing) Dressing: (3 Points) Gets clothes and gets completely dressed without assistance. Toileting: (3 Points) Goes to toilet room, cleans self, and arranges clothes without assistance (may use object for support such as cane, walker, or wheelchair, and may manage own night bedpan or commode, emptying same next morning) Transferring: (3 Points) Moves in and out of bed and in and out of chair without assistance (may be using object for support, such as cane or walker) Continence: (3 Points) Controls urination and bowel movement completely by self Feeding: (3 Points) Feeds self without assistance Total Score: 18 Points 18 = High (patient independent) 6 = Low (patient very dependent) IADL Screen - Weir Instrumental Activities of Daily Living Scale Ability to use telephone: (1 point) Operates Telephone on own initiative; looks up and dials numbers. Shopping: (1 point) Takes care of all shopping needs independently. Food preparation: (1 point) Plans, prepares, and serves adequate meals independently. Housekeeping: (1 point) Performs light daily tasks such as dishwashing, bed making. Laundry: (1 point) Does personal laundry completely. Mode of transportation: (1 point) Travels independently on public transportation or drives own car. Responsibility for own medications: (1 point) Is responsible for taking medications in correct dosages at correct times. Ability to handle finances: (1 point) Manages financial matters independently (budgets, writes checks, pays rent and bills, goes to bank); collects and keeps track of income. Total score: 8 points 8 = High function, independent 0 = Low function, dependent Falls Screen: No falls within the past 12 months. Incontinence Screen: No incontinence. [facility] - PHP MAP: PERSONAL HEALTH PLAN INVENTORY & MAP 's Response: shooting SHARED GOALS Resolve knee and back issues so he can get back out and do things /shadi/ YODIT LOPEZ LPN LICENSED PRACTICAL NURSE Signed: 06/01/2024 10:22 YODIT LOPEZ [facility]
--- OUTSIDE RECORDS SUMMARY | 2025-02-17 15:29 | XMS_ITS | Encounter Summary ---
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 Date/Time Encounter Type Encounter Description Reason Provider Source Mar 01, 2024 09:00 AM MTMS BY PHARM EST 15 MIN CLINICAL PHARMACY ICD-10-CM E11.8 Type 2 diabetes mellitus with unspecified complications JULIANNA BLAS Encounter Template Text not used by [place] Assessments - Encounter Diagnoses This section includes the primary and secondary diagnoses documented for the Encounter. Date/Time Primary/Secondary Diagnosis Diagnosis Name Provider Source Mar 01, 2024 09:22 AM PRIMARY Type 2 diabetes mellitus with unspecified complications JULIANNA BLAS [facility] Mar 01, 2024 09:22 AM SECONDARY Essential (primary) hypertension WANJULIANNABRE CARRILLO [facility] Plan of Treatment: Future Appointments (+ 6 months) and Future Tests (+/- 45 days) The Plan of Treatment section includes future care activities for the patient from all [place] [facility]. This section includes future appointments and future orders which are active, pending or scheduled. Future Appointments This section includes appointments that were scheduled to occur 6 months from the date of the Encounter, up to a maximum of 20 appointments. The data comes from all [place] treatment facilities. Appointment Date/Time Appointment Type Appointme nt Facility Name Mar 09, 2024 08:00 AM AMBULATORY - SURGERY [facility] Mar 15, 2024 12:00 PM [facility] Mar 15, 2024 01:00 PM AMBULATORY - SURGERY [facility] Apr 13, 2024 11:00 AM AMBULATORY - NONE [facility] May 11, 2024 11:00 AM AMBULATORY - NONE [facility] May 12, 2024 09:00 AM AMBULATORY - REHAB MEDICIN [facility] Jun 01, 2024 11:30 AM AMBULATORY - MEDICINE [facility] Jun 08, 2024 11:00 AM AMBULATORY - NONE [facility] Jul 03, 2024 10:00 AM AMBULATORY - SURGERY [facility] Jul 20, 2024 09:00 AM AMBULATORY - NONE [facility] Aug 31, 2024 09:00 AM AMBULATORY - NONE [facility] Vital Signs: All taken on the encounter date This section contains inpatient and outpatient Vital Signs collected on the date of the Encounter. Date/Time Temperature Pulse Blood Pressure Respiratory Rate SP02 Pain Height Weight Body Mass Index Source Mar 01, 2024 09:19 AM 70 125/76 [facility] Social History: Smoking Status (Most [...] ity November 30, 2023 03:00 PM VA-TOBACCO QUIT 15 YRS OR MORE [facility] Tobacco Use History This section includes a history of the smoking, or tobacco-related health factors, that were collected on or before the date of the Encounter. The data comes from the [place] facility where the Encounter took place. Date/Time Smoking Status/Tobacco Use Comment F acility November 30, 2023 03:00 PM AR-TOBACCO QUIT 15 YRS OR MORE [facility] Jun 02, 2023 10:00 AM VA-TOBACCO FORMER USER [facility] Jun 02, 2023 10:00 AM AR-TOBACCO QUIT 15 YRS OR MORE [facility] Advance Directives: All historical and current Section Date Range: From patient's date of to the date document was created. This section includes ALL of a patient's completed or amended [place] Advance and Rescinded Directives. The entries below indicate that a directive exists for the patient, but an actual copy is not included with this document. The data comes from all [facility]. Date Advance Directives Provider Source Jan 22, 2016 ADVANCE DIRECTIVE DISCUSSION AMBERLY HOFFMAN [facility] Mar 31, 2007 ADVANCE DIRECTIVE JOSE C ALLEN [facility] Radiology Reports: +/- 30 [...] CT ABDOMEN PELVIS W/O CONTRAST-P: ALLAN LOVETT [id number] -[id number] M Exm Date: MAR 15, 2024@11:41 Req Phys: MERRITT CURRY Loc: [facility]-UROLOGY 1 (Req'g Loc) Img Loc: [facility]-CT IMAGING [facility] Service: Unknown [facility] [address] [place] [address] (Case [id number] COMPLETE) CT ABDOMEN AND PELVIS W/O CONTRAS(CT Detailed) CPT:92129 Reason for Study: Bialteral Renal Stones Clinical History: Responsible Attending: Cony Curry Attending Contact Number: [phone] Resident Contact Number: BP 73 y/o WM [...] 15, 2024 Date Verified: MAR 15, 2024 Plan Checker E-Sig:/ES/MOODY FRAZIER MD Report: Spiral axial imaging [...] Primary Interpreting Staff: MOODY FRAZIER MD, Radiologist (Plan Checker) /CPG MOODY FRAZIER [facility] Encounter Notes: All associated encounter notes This section contains the clinical notes associated to the Encounter. Date/Time Encounter Note(s) Provider Source Mar 01, 2024 09:00 AM INTERNAL MEDICINE CLINICAL PHARMACIST MEDICATION MGT NOTE: LOCAL TITLE: CLINICAL PHARMACIST NOTE STL STANDARD TITLE: INTERNAL MEDICINE CLINICAL PHARMACIST MEDICATION DATE OF NOTE: MAR 01, 2024@09:00 ENTRY DATE: MAR 01, 2024@09:00:53 AUTHOR: JULIANNA BLAS EXP COSIGNER: URGENCY: STATUS: COMPLETED CLINICAL PHARMACY FOLLOW-UP ALLAN LOVETT is a 74 yo, WHITE, MALE seen F2F by clinical pharmacy for HTN/DM/HLD management. was identified by name and . During the last contact with vet, the following changes were made: - continue metformin 1000mg PO BID - continue dulaglutide 0.75mg weekly - increase HCTZ/losartan to 12.5/100mg PO daily - continue metoprolol tartrate 12.5mg PO BID Doing well overall; has knee surgery scheduled at [facility] on 03/22/24. Provides BG/BP as below. Notes BPs have been elevated but he feels this is related to his technique - has been busy/stressed with preparing for surgery. Previous diarrhea has resolved completely per vet. Allergies/ADR's: IODINATED CONTRAST MEDIA, LISINOPRIL, SEMAGLUTIDE Subjective: [-] hypoglycemia symptoms or values <80 mg/dL [-] hyperglycemia symptoms [-] hypotension symptoms or values <90/60 mmHg [-] hypertension symptoms [+] Dietary modifications made eating less w/ dulaglutide use [-] Changes in lifestyle or social history [-] Adverse effects to antilipemic agents (muscle pain/weakness, GI upset, flushing) Objective: Medications: Active and Recently Outpatient Medications (excluding Supplies): Active Outpatient Medications Status 1) ACCU-CHEK GUIDE (GLUCOSE) TEST STRIP USE 1 STRIP FOR ACTIVE BLOOD TEST TWICE A DAY FOR BLOOD SUGAR MONITORING 2) ATORVASTATIN CALCIUM 20MG TAB TAKE ONE-HALF TABLET BY ACTIVE MOUTH EVERY EVENING TO LOWER CHOLESTEROL 3) CHOLECALCIF 10MCG (D3-400UNIT) TAB TAKE TWO TABLETS ACTIVE BY MOUTH ONCE A DAY FOR VITAMIN D DEFICIENCY 4) CYANOCOBALAMIN 500MCG TAB TAKE ONE TABLET BY MOUTH ACTIVE ONCE A DAY FOR VITAMIN B12 SUPPLEMENTATION 5) DICLOFENAC NA 1% TOP GEL APPLY 4 GM TO AFFECTED ACTIVE AREA(S) FOUR TIMES A DAY NEEDED FOR PAIN DO NOT EXCEED MORE THAN 16 GRAMS DAILY TO ANY LOWER EXTREMITY JOINT. NOT MORE THAN 8 GRAMS DAILY TO ANY UPPER EXTREMITY JOINT. MAX 32GM/DAY OVER ALL JOINTS. (MEASURE DOSE WITH RULER ATTACHED INSIDE BOX) 6) DULAGLUTIDE 0.75MG/0.5ML INJ PEN INJECT 0.75MG UNDER ACTIVE THE SKIN EVERY WEEK FOR DIABETES (ADMINISTER DOSE AT ANY TIME OF DAY, WITH OR WITHOUT MEALS) 7) HCTZ 12.5MG/LOSARTAN 100MG TAB TAKE 1 TABLET BY MOUTH ACTIVE EVERY MORNING FOR HIGH BLOOD PRESSURE 8) METFORMIN HCL 1000MG TAB TAKE ONE TABLET BY MOUTH ACTIVE TWICE A DAY WITH MEALS TO LOWER BLOOD SUGAR 9) METOPROLOL TARTRATE 25MG TAB TAKE ONE-HALF TABLET BY ACTIVE MOUTH TWICE A DAY FOR HEART/BLOOD PRESSURE. TAKE WITH OR IMMEDIATELY FOLLOWING FOOD. 10) TAMSULOSIN HCL 0.4MG CAP TAKE ONE CAPSULE BY MOUTH ACTIVE (S) ONCE A DAY APPROXIMATELY 30 MINUTES AFTER THE SAME MEAL EACH DAY (FOR PROSTATE) meds: n/a OTC/Non-VA meds: denies Medication reconciliation completed: Yes - targeted review, denies discrepancies Adherence to above medications: denies missed doses Refills/renewals needed: none today HGA1C 6.7 H % 12/28/2023 09:42 SODIUM 139 mEq/L 12/28/2023 09:42 POTASSIUM 4.2 mEq/L 12/28/2023 09:42 CHLORIDE 103 mEq/L 12/28/2023 09:42 UREA NITROGEN 22.2 mg/dL 12/28/2023 09:42 CREATININE 0.91 mg/dL 12/28/2023 09:42 CALCIUM 9.6 mg/dL 12/28/2023 09:42 CARBON DIOXIDE 26 mEq/L 12/28/2023 09:42 GLUCOSE 99 mg/dL 12/28/2023 09:42 EGFR (CKD-EPI 2020) 88.44 12/28/2023 09:42 CREATuF: 91.8 (06/02/23 10:49) M/CREAT: 1196 (06/02/23 10:49) MICRAL: 1098 (06/02/23 10:49) TRIGLYCERIDE 92 mg/dL 06/02/2023 10:41 CHOLESTEROL 108 mg/dL 06/02/2023 10:41 HDL(New) 42 mg/dL 06/02/2023 10:41 CALCULATED LDL 48 mg/dL 06/02/2023 10:41 SGOT 13 U/L (06/18/23 12:15) SGPT 15 U/L (06/18/23 12:15) SMBG's: Date Morning Lunch Evening Before 2hr Before 2hr Before 2hr 03/01/24 127 02/29/24 126 116 02/28/24 128 111 02/27/24 119 02/26/24 132 02/25/24 134 02/24/24 133 118 02/23/24 142 02/22/24 125 116 02/21/24 141 02/20/24 123 02/19/24 139 02/18/24 139 162 *ate cookie 02/17/24 134 02/16/24 129 02/15/24 145 132 02/14/24 129 Average Range # of [place] Before Breakfast 132.1 119 145 17 Before Dinner 125.8 111 162 6 Overall 130.4 111 162 23 BP last visit:127/73 (01/25/2024 09:20) Pulse last visit: 62 (01/25/2024 09:20) Home BP Readings: 02/27 141/72 8 140/66 02/17 136/73 02/16 149/70 02/13 152/80 Clinic BP: 125/76 mmHg, HR 70 bpm Assessment/Plan: 1) DM - Goal A1c <7.5%, FPG 80-145, PPG <195 d/t age, CKD per VA/DoD and ADA guidelines A1c within target range; BG averages within target range. Taking metformin + dulaglutide 0.75mg. Denies s/sx of hypoglycemia or hyperglycemia. Denies hx of pancreatitis, thyroid cancers, retinopathy. eGFR > 45 ml/min/1.73m2. Discussed further titration of dulaglutide to optimize CV/renal/weight loss benefits. Vet expresses interest because his diarrhea is resolved now. However, he would like to wait until next f/u as he has surgery scheduled on 03/22/24 that will limit mobility should he experience GI adrs with titration. - continue metformin 1000mg PO BID - continue dulaglutide 0.75mg weekly - SMBG: ~BID per pt preference - reviewed management of hypoglycemia (rule of 15) and when to contact clinic or go to emergency room - Labs: A1c, BMP -06/2024, micral/creat 05/2024 - SOC: (+) ACEi/ARB (+) statin (+) flu vaccine (04/2023) (+) pneumo vaccine (PCV13 2014, PPSV23 2015) (+) eye exam - 02/2023 Type 2 Diabetes without retinopathy; appt 03/09/2024 2) Lipids - VADoD/ACC/AHA lipid treatment guidelines goal - at least moderate-intensity statin for primary prevention (DM) Taking atorvastatin 10mg PO daily; denies ADRs. LFTs wnl. Lipid panel supports adherence with LDL <100 mg/dL. - continue atorvastatin 10mg PO daily - Monitor for myalgias and report to CP or PCP if occurs - Labs: LFTs, lipid panel annually/prn adherence 3) Hypertension - VADoD goal < 140/90 mmHg, ACC/AHA goal < 130/80 mmHg Clinic BP within target ranges today; home BPs elevated - likely related to technique per . Confirms increase in losartan dose since last visit. micral/creat > 300mcg/mg. Denies s/sx of hypotension or hypertension. SCr, K WNL. Will continue with current management for now and vet will maintain more detailed BP log and ensure appropriate bp monitoring technique prior to further adjustments in HTN regimen as clinic BP controlled. - continue HCTZ/losartan 12.5/100mg PO daily - continue metoprolol tartrate 12.5mg PO BID - Instructed vet to call CP if SBP >160 sustained or DBP >100 sustained; Instructed vet to present to ER if SBP >180 sustained or DBP >120 sustained and/or if symptoms present (chest pain, headache, vision changes, numbness, etc.) - Labs: [facility] 03/09/24 - Education provided on nonpharmacologic ways to improve DM/HLD/HTN (including lifestyle management/dietary/physical activity) specific for the vet's needs. - [place] verbalized understanding to all plans discussed today. Questions were answered to vet's satisfaction. Time spent on phone with vet: 21 min RTC: 04/12/24 0900 f2f PBM PharmD Pharmacotherapy Rem V12: PHARMACIST INTERVENTIONS: HYPERTENSION Medication monitoring, no dosage change required, continue to monitor and assess LIPID MANAGEMENT Medication monitoring, no dosage change required, continue to monitor and assess TYPE 2 DIABETES MELLITUS Medication monitoring, no dosage change required, continue to monitor and assess /shadi/ Julianna Blas, Pharm.DThanh, [facility] Clinical Carbon Lamp Cleaner Signed: 03/01/2024 16:[address] [facility]
--- OUTSIDE RECORDS SUMMARY | 2025-02-17 15:29 | XMS_ITS ---
Author Name [facility] [place] Organization [facility] [place] Address [address] [place] [address] Care Team Providers Care Women Designer Name Role Phone MORELIA ALLEN Primary Care [...] PART A Mar 19, 2014 PART A [id number] [place] PATIENT MEDICARE (WNR) MEDICARE (M) PART A Mar 19, 2014 PART A [id number] [phone] [place] PATIENT Selected Encounter This section includes the information on record at [place] for the Encounter. Date/Time Encounter Type Encounter Description Reason Provider Source Jan 12, 2025 01:10 PM Outpatient Encounter ADMIN PAT ACTIVTIES (MASNONCT) KAMRYN GOOD Kezia Encounter Template Text not used by [place] Plan of Treatment: Future Appointments (+ 6 months) and Future Tests (+/- 45 days) The Plan of Treatment section includes future care activities for the patient from [facility] [place] [facility] This section includes future appointments and future orders which are active, pending or scheduled. Future Appointments This section includes appointments that were scheduled to occur 6 months from the date of the Encounter, up to a maximum of 20 appointments. The data comes from all [place] treatment [facility]. Appointment Date/Time Appointment Type Appointme nt Facility Name Jan 18, 2025 11:00 AM AMBULATORY - SURGERY [facility] Feb 07, 2025 11:00 AM [facility]ULATORY - SURGERY [facility] Feb 14, 2025 06:30 AM AMBULATORY - NONE [facility] Feb 15, 2025 08:30 AM AMBULATORY - SURGERY [facility] Feb 22, 2025 08:00 AM AMBULATORY - SURGERY [facility] Feb 28, 2025 09:00 AM AMBULATORY - SURGERY [facility] Mar 06, 2025 08:30 AM AM[facility]ULATORY - NONE [facility] Mar 12, 2025 01:30 PM AMBULATORY - SURGERY [facility] Mar 16, 2025 08:30 AM AMBULATORY - SURGERY [facility] May 31, 2025 11:00 AM AMBULATORY - MEDICINE [facility] Active, Pending, and Scheduled Orders This section includes a listing of several types of active, pending, and scheduled orders, including clinic medications orders, diagnostic test orders, procedure orders and consult orders; where the start date of the order is 45 days before the date of the Encounter or 45 days after the date of theEncounter. The data comes from all [facility]. Test Date/Time Test Type Test Details Facility Name Dec 29, 2024 12:00 AM Laboratory - Chemi stry Order BASIC METABOLIC PANEL GREEN LI/HEP BLD/PLAS PLASMA SP [facility] Lab Results: +/- 30 days of the encounter This section includes the Chemistry and Hematology Lab Results on record with [place] for the patient. Radiology Reports and Pathology Reports are provided separately, in subsequent sections. Lab Results This section contains the Chemistry/Hematology Results that were resulted 30 days before or 30 daysafter the date of the Encounter. Date/Time Source Result Type Result - Unit Interpretation Reference Range Specimen Type Comment Jan 12, 2025 01:10 PM [facility] GLUCOSE,BLOOD-poct (STL) BLOOD Specimen Type: BLOOD Comment: Test Performed by: [id number] Meter #: [id number] Ordering Provider: MORELIA ALLEN Report Released Date/Time: Jan 12, 2025 01:12 PM Reporting Lab: [place] [address] [facility] [address] Performing Lab: [address] [address] GLUCOSE,BLOOD-poct (STL) 150 mg/dL H 72-99 Jan 12, 2025 11:38 AM [facility] GLUCOSE,BLOOD-poct (STL) BLOOD Specimen Type: BLOOD Comment: Test Performed by: [id number] Meter #: [id number] Ordering Provider: MORELIA ALLEN Report Released Date/Time: Jan 12, 2025 11:48 AM Reporting Lab: [place] [address] [facility] [address] Performing Lab: [address] [address] GLUCOSE,BLOOD-poct (STL) 147 mg/dL H 72-99 Vital Signs: All taken on the encounter date This section contains inpatient and outpatient Vital Signs collected on the date of the Encounter. Date/Time Temperature Pulse Blood Pressure Respiratory Rate SP02 Pain Height Weight Body Mass Index Source Jan 12, 2025 02:00 PM 97.3 F 77 /min 141/72 mm[Hg] 13 /min 93 % 0 [facility] Jan 12, 2025 01:05 PM 97.1 F 89 /min 145/93 mm[Hg] 14 /min 95 % 0 [facility] Jan 12, 2025 11:31 AM 98.4 F 77 /min 151/80 mm[Hg] 20 /min 93 % 1 71.5 in 280 lb 39 [facility] Social History: Smoking Status (Most current) and Tobacco Use (All prior to encounter date) This section includes the most current, and the historical, smoking and tobacco- related health factors from the [place] facility where the Encounter took place. Current Smoking Status This section includes the most current smoking, or tobacco-related health factor, from the [place] facility where the Encounter took place. Date/Time Current Smoking Status Comment Ronda vallejo Jun 19, 2023 02:53 AM ORYX ADMIT TOBACCO SCREEN NO [facility] Tobacco Use History This section includes a history of the smoking, or tobacco-related health factors, that were collected on or before the date of the Encounter. The data comes from the [place] facility where the Encounter took place. Date/Time Smoking Status/Tobacco Use Comment Kirstin eve Apr 02, 2016 12:55 PM QUIT TOBACCO >7 YEARS AGO [facility] May 21, 2015 01:30 PM LIFETIME NON-USER OF TOBACCO [facility] Jan 03, 2014 10:46 AM LIFETIME NON-USER OF TOBACCO [facility] Feb 21, 2013 11:08 AM QUIT TOBACCO >12 M O & <7 YRS AGO [facility] Aug 19, 2009 12:46 PM LIFETIME NON-USER OF TOBACCO [facility] Oct 05, 2008 10:28 AM QUIT TOBACCO >12 M O & <7 YRS AGO [facility] November 18, 2007 09:08 AM QUIT TOBACCO IN TH E LAST 12 MONTHS [facility] Aug 05, 2006 12:57 PM CURRENT TOBACCO USER [facility] Aug 05, 2006 12:57 PM TOB-DECLINES SMOKI NG CESSATION REFERRAL [facility] Jan 13, 2006 08:42 AM CURRENT TOBACCO USER [facility] Jan 13, 2006 08:42 AM SMOKER 1-2 PACKS [facility] Advance Directives: All historical and current Section Date Range: From patient's date of to the date document was created. This section includes ALL of a patient's completed or amended [place] Advance and Rescinded Directives. The entries below indicate that a directive exists for the patient, but an actual copy is not included with this document. The data comes from all [facility] facilities. Date Advance Directives Provider Source Jan 22, 2016 ADVANCE DIRECTIVE DISCUSSION AMBERLY HOFFMAN [facility] Mar 31, 2007 ADVANCE DIRECTIVE JOSE C ALLEN [facility] Radiology Reports: +/- 30 days [...] the Encounter. The data comes from all [place] treatment facilities. Date/Time Radiology Report Provider Source Dec 18, 2024 11:32 AM SPINE LUMBOSACRAL 2 OR 3 VIEWS: ALLNA LOVETT [id number] -1950 M Exm Date: DEC 18, 2024@11:32 Req Phys: JOSE FRANCISCO RAY Loc: G[facility]INI-PACT PHONE NURSE E4 (Req'g Img Loc: [facility] RADIOLOGY Service: [facility], [facility] [address] [place] [address] (Case [id number] COMPLETE) SPINE LUMBOSACRAL 2 OR 3 VIEWS (RAD Detailed) CPT:82030 Reason for Study: low back pain Clinical History: Report Status: Verified Date Reported: DEC 18, 2024 Date Verified: DEC 18, 2024 Yarder Operator E-Sig:/ES/CHRIS HAMMOND MD Report: Case #[id number]. Lumbar [...] CHRIS HAMMOND MD, Staff Physician - Radiologist (Yarder Operator) /CHRIS BRIONES [facility] Encounter Notes: All associated encounter notes This section contains the clinical notes associated to the Encounter. Date/Time Encounter Note(s) Provider Source Jan 12, 2025 01:10 PM ANESTHESIOLOGY ANNELIESE WSHEET: LOCAL TITLE: ANES INTRA-OP FLOWSHEET ST STANDARD TITLE: ANESTHESIOLOGY FLOWSHEET DATE OF NOTE: JAN 12, 2025@13:10 ENTRY DATE: JAN 12, 2025@13:10:24 AUTHOR: KAMRYN GOOD COSIGNER: URGENCY: STATUS: COMPLETED Patient: ALLAN LOVETT SSN: [id number] Date of Operation: 01/12/2025 Surgery Start Time: [...] UMA DEE, ATT. SURGEON KAMRYN GOOD PRIN. ÁNGELA. LORENZA HERRERA ANES. SUPER. KAMRYN GOOD PRIN. ANEStanley. LORENZA HERRERA ANES. SUPER. Procedure Date: 01/12/2025 Procedure Start Time: Procedure End Time: /shadi/ KAMRYN GOOD CERTIFIED REGISTERED NURSE COMMERCIAL LOAN PROCESSOR Signed: 01/12/2025 13:10 KAMRYN GOOD [facility]
--- OUTSIDE RECORDS SUMMARY | 2025-02-17 15:29 | XMS_ITS | Encounter Summary ---
Author Name [facility] [place] Organization [facility] [place] Address [address] [place] [address] Care Team Providers Care Setter Automatic Spinning Lathe Name Role Phone MORELIA ALLEN Primary Care [...] PART A Mar 19, 2014 PART A [id number] [place] PATIENT MEDICARE (WNR) MEDICARE (M) PART A Mar 19, 2014 PART A [id number] [phone] [place] PATIENT Selected Encounter This section includes the information on record at [place] for the Encounter. Date/Time Encounter Type Encounter Description Reason Provider Source Mar 09, 2024 08:00 AM COMPRE OPH EXAM EST PT 1/> OPTOMETRY ICD-10-CM E11.9 Type 2 diabetes mellitus without complications MARCOS CAT Encounter Template Text not used by [facility] Assessments - Encounter Diagnoses This section includes the primary and secondary diagnoses documented for the Encounter. Date/Time Primary/Secondary Diagnosis Diagnosis Name Provider Source Mar 09, 2024 08:38 AM PRIMARY Type 2 diabetes mellitus without complications MEGAN HAGAN [facility] Mar 09, 2024 08:38 AM SECONDARY Age-related nuclear cataract, bilateral BENTLEY,MEGAN [facility] Mar 09, 2024 08:38 AM SECONDARY Dermatochalasis of left upper eyelid BENTLEY,MEGAN [facility] Mar 09, 2024 08:38 AM SECONDARY Dermatochalasis of right upper eyelid BENTLEY,MEGAN [facility] Mar 09, 2024 08:38 AM SECONDARY Dry eye syndrome of bilateral lacrimal glands BENTLEY,MEGAN [facility] Mar 09, 2024 08:38 AM SECONDARY Glare sensitivity MEGAN HAGAN [facility] Mar 09, 2024 08:38 AM SECONDARY Presbyopia BENTLEY,MEGAN [facility] Plan of Treatment: Future Appointments (+ 6 months) and Future Tests (+/- 45 days) The Plan of Treatment section includes future care activities for the patient from all [place] [facility] This section includes future appointments and future orders which are active, pending or scheduled. Future Appointments This section includes appointments that were scheduled to occur 6 months from the date of the Encounter, up to a maximum of 20 appointments. The data comes from all [place] treatment [facility]. Appointment Date/Time Appointment Type Appointme nt Facility Name Mar 15, 2024 12:00 PM AMBULATORY - NONE . [facility] Mar 15, 2024 01:00 PM AMBULATORY - SURGERY . [facility] Apr 13, 2024 11:00 AM AMBULATORY - NONE [facility] May 11, 2024 11:00 AM AMBULATORY - NONE [facility] May 12, 2024 09:00 AM AMBULATORY - REHAB MEDICIN E [facility] Jun 01, 2024 11:30 AM AMBULATORY [facility] Jun 08, 2024 11:00 AM AMBULATORY - NONE [facility] TAMMY Angel [facility] Jul 03, 2024 10:00 AM AMBULATORY - SURGERY . Carlo BUCIO [facility] Jul 20, 2024 09:00 AM AMBULATORY - NONE [facility] TAMMY Stanley [facility] Aug 31, 2024 09:00 AM AMBULATORY - NONE [facility] TAMMY [facility] Social History: Smoking Status (Most current) and Tobacco Use (All prior to encounter date) This section includes the most current, and the historical, smoking and tobacco- related health factors from the [place] facility where the Encounter took place. Current Smoking Status This section includes the most current smoking, or tobacco-related health factor, from the [place] facility where the Encounter took place. Date/Time Current Smoking Status Comment Ronda vallejo Jun 19, 2023 02:53 AM ORYX ADMIT TOBACCO SCREEN NO [facility] Tobacco Use History This section includes a history of the smoking, or tobacco-related health factors, that were collected on or before the date of the Encounter. The data comes from the [place] facility where the Encounter took place. Date/Time Smoking Status/Tobacco Use Comment F acility Apr 02, 2016 12:55 PM QUIT TOBACCO >7 YEARS AGO [facility] May 21, 2015 01:30 PM LIFETIME NON-USER OF TOBACCO [facility] Jan 03, 2014 10:46 AM LIFETIME NON-USER OF TOBACCO [facility] Feb 21, 2013 11:08 AM QUIT TOBACCO >12 M O & <7 YRS AGO [facility] Aug 19, 2009 12:46 PM LIFETIME NON-USER OF TOBACCO [facility] Oct 05, 2008 10:28 AM QUIT TOBACCO >12 M O & <7 YRS AGO [facility] November 18, 2007 09:08 AM QUIT TOBACCO IN TH E LAST 12 MONTHS [facility] Aug 05, 2006 12:57 PM CURRENT TOBACCO USER [facility] Aug 05, 2006 12:57 PM TOB-DECLINES SMOKI NG CESSATION REFERRAL [facility] Jan 13, 2006 08:42 AM CURRENT TOBACCO USER [facility] Jan 13, 2006 08:42 AM SMOKER 1-2 PACKS [facility] Advance Directives: All historical and current Section Date Range: From patient's date of to the date document was created. This section includes ALL of a patient's completed or amended [place] Advance and Rescinded Directives. The entries below indicate that a directive exists for the patient, but an actual copy is not included with this document. The data comes from all [place] facilities. Date Advance Directives Provider Source Jan 22, 2016 ADVANCE DIRECTIVE DISCUSSION AMBERLY HOFFMAN [facility] Mar 31, 2007 ADVANCE DIRECTIVE STEFFENKeziaJOSE C [facility] Radiology Reports: +/- 30 [...] the Encounter. The data comes from all [place] treatment facilities. Date/Time Radiology Report Provider Source Mar 15, 2024 11:[address] ABDOMEN PELVIS W/O CONTRAST-P: ALLAN LOVETT [id number] -[id number] M Ex Date: MAR 15, 2024@11:41 Req Phys: MERRITT CURRY Pat Loc: RYANN-UROLOGY 1 (Req'g Loc) Img Loc: [facility]-CT IMAGING Service: [facility], [facility] [address] [place] [address] (Case [id number] COMPLETE) CT ABDOMEN AND PELVIS W/O CONTRAS(CT Detailed) CPT:15134 Reason for Study: Bialteral Renal Stones Clinical History: Responsible Attending: Cony Curry Attending Contact Number: [phone] Resident Contact Number: BP 73 y/o WM [...] 15, 2024 Date Verified: MAR 15, 2024 Mechanical Systems Control Engineer E-Sig:/ES/MOODY FRAZIER MD Report: Spiral axial imaging [...] Primary Interpreting Staff: MOODY FRAZIER MD, Radiologist (Mechanical Systems Control Engineer) /MOODY [facility] Encounter Notes: All associated encounter notes This section contains the clinical notes associated to the Encounter. Date/Time Encounter Note(s) Provider Source Mar 09, 2024 10:25 AM OPTOMETRY CONSULT: LOCAL TITLE: OPTOMETRY CONSULT [facility] STANDARD TITLE: OPTOMETRY CONSULT DATE OF NOTE: MAR 09, 2024@10:25 ENTRY DATE: MAR 09, 2024@10:26:04 AUTHOR: TAPAN HAGAN COSIGNER: CARLOS CAT URGENCY: STATUS: COMPLETED == Optical Coherence Tomography Report == Macula Fair Reliability d/t media opacities OU OD: normal foveal pit contour, RPE disruption with pigment migration subfoveal, (+) PVD, (-) SRF/IRF, (-) CNVM OS: mildly disrupted foveal contour possibly 2/2 previous VMA, (+) PVD, (+) few small drusen inf to fovea, (-) SRF/IRF, (-) CNVM == /shadi/ TAPAN HAGAN Optometry Resident Signed: 03/09/2024 10:26 /shadi/ CARLOS CAT OD ADDICTION SPECIALIST Cosigned: 03/10/2024 13:31 TAPAN HAGAN [facility] Mar 09, 2024 07:46 AM OPTOMETRY NOTE: LOCAL TITLE: OPTOMETRY NOTE STANDARD TITLE: OPTOMETRY NOTE DATE OF NOTE: MAR 09, 2024@07:46 ENTRY DATE: MAR 09, 2024@07:46:29 AUTHOR: TAPAN HAGAN COSIGNER: CARLOS CAT URGENCY: STATUS: COMPLETED OPTOMETRY NOTE Has ADDENDA Last seen 03/18/2023 - CEE Reason for visit: CEE CC: 1. Diabetic Eye Exam - Last HGA1C: 6.7% - not insulin dependent; compliant w/ meds - no fluctuations to vision 2. Vision - distance vision blurred w/ current glasses - reports glare/light sensitivity, especially driving at night - No visual complaints at near - Update glasses Rx; defer C/E d/t upcoming knee surgery 3. Dry Eye - hasn't used Restasis in 1 mo - asymptomatic to dryness - (+) ocular rosacea Ocular meds: Restasis BID OU Ocular ROS: (-) surgery/lasers (-) injuries (+) DMT2 w/o retinopathy (+) Dry Eye c Ocular Rosacea (+) Cataracts (+) Dermatochalasis Family OcHX: (-) blindness (-) glaucoma (-) AMD (-) RD Cardiovascular ROS: no change from problem & medication lists CPRS Problem list, medications and allergies reviewed: CPRS Serology for Diabetes GLUCOSE 99 mg/dL 12/28/2023 09:42 HGA1C 6.7 H % 12/28/2023 09:42 Cardiovascular BP: 125/76 (03/01/2024 09:19) Pulse: 70 (03/01/2024 09:19) Neuro: Orientation: Normal Psych: Mood/Affect: Normal Depression/suicide ideation: NO VISUAL ACUITY With correction Distance Visual Acuity OD: 20/30+2 OS: 20/40+2 Pupils PERRL OU (-)APD Confrontation: FTFC OU Extra-Ocular Muscles Full OU Externals/adnexa: Unremarkable OU Refraction: 03/09/2024 OD: -1.25 -1.25 x095 20/25-2 OS: -0.25 -1.25 x095 20/30 Add: + 2.75 BAT (w/ MRx and highest light setting): OD: 20/50 OS: 20/40 SLIT LAMP EXAMINATION Lids/Lashes/Lacrimal No blepharitis OU, (+) MGD OU Conjunctiva/Sclera White/quiet OU Cornea tr SPK OU, instant TBUT OU Ant Chamber Deep and quiet OU Iris Normal, flat nevus at 11:30 OS, (-)NVI OU Lens 2+ brunescent NS cataract OU Intraocular Pressures (Goldmann) 1 gtt fluress Date OD OS Time Meds 03/09/24 13 13 0812 None RETINAL EVALUATION 1 phenyleph 2.5%, 1 trop 1% OU *Discussed post-dilation side effects DFE Dilated retinal exam Optic Nerve OD: 0.35 CDR Flat, pink, distinct (-)NVD OS: 0.25 CDR Flat, pink, distinct (-)NVD Vessels: 2/3 OU, (-) NVE OU Macula: OD: Flat, pigment mottling, (-)CSME OS: Flat, small druse inf to fovea, (-)CSME Posterior Pole: OD: (-) hemes/exudates/CWS OS: (-) hemes/exudates/CWS Periphery: OD: Flat and attached, reticular degeneration 360, (-) H/B/T OS: Flat and attached, reticular degeneration 360, (-) H/B/T Vitreous: (+) PVD OU == Optical Coherence Tomography Report == Macula Fair Reliability d/t media opacities OU OD: normal foveal pit contour, RPE disruption with pigment migration subfoveal, (+) PVD, (-) SRF/IRF, (-) CNVM OS: mildly disrupted foveal contour possibly 2/2 previous VMA, (+) PVD, (+) few small drusen inf to fovea, (-) SRF/IRF, (-) CNVM == Assessment/Plan: 03/09/2024 1.Type 2 Diabetes without retinopathy - No DME/CSME OU- confirmed w/ OCT Mac - Last HGA1C: 6.7% - Pt ed on the importance of maintaining tight BG control to reduce the risk for diabetic ocular complications - Monitor annually w/ DFE 2. CLAUDIA/Ocular Rosacea OU - asymptomatic - (+) instant TBUT, MGD, tr SPK OU - Renewed Restasis gtts bid OU today 3. Cataracts, OU - visually significant - Defer CE-PCIOL referral at this time d/t upcoming knee surgery - Consider referral at next visit 4. Glare Sensitivity OU - symptomatic - Prescribed Night Alex to reduce nighttime glare - Discussed proper use in office - Prescribed ARC to reduce nighttime glare 5. Dermatochalasis OU - OS>OD - stable - not bothersome/impacting vision per pt - No superior field constriction OU w/ CVF - Monitor; consider referral in future for blepharoplasty if pt becomes symptomatic 6. RPE Changes OU - new finding - confirmed w/ OCT Mac - RPE disruption w/ pigment migration OD, few small drusen inf to fovea OS - mild visual significance OD (vs cataract) - Monitor annually for changes 7. Refractive error/Presbyopia - stable - Order new glasses; bifocal, photochromics, ARC Ed. pt on all findings & monitor for changes as directed. Pt given the opportunity to have all questions answered. Patient verbailized understanding of information given. RTC 1 year for CEE or sooner if problems arise. /shadi/ TAPAN HAGAN Optometry Resident Signed: 03/09/2024 10:25 /es/ CARLOS CAT OD ADDICTION SPECIALIST Cosigned: 03/10/2024 13:28 03/10/2024 ADDENDUM STATUS: COMPLETED I have reviewed the history, findings and agree with the assessment and plan as charted in CPRS on this established patient. *OCT review shows RPE disruption OD /shadi/ CARLOS CAT OD ADDICTION SPECIALIST Signed: 03/10/2024 13:31 TAPAN HAGAN [facility]
--- OUTSIDE RECORDS SUMMARY | 2025-02-17 15:29 | XMS_ITS | Encounter Summary ---
Author Name [facility] [facility] [place] [facility] [place] Address [address] [place] [address] Care Team Providers Care Substance Abuse Nurse Name Role Phone MORELIA ALLEN Primary Care [...] PART A Mar 19, 2014 PART A [id number] [phone] [place] PATIENT MEDICARE (WNR) MEDICARE (M) PART A Mar 19, 2014 PART A [id number] [phone] [place] PATIENT Selected Encounter This section includes the information on record at [place] for the Encounter. Date/Time Encounter Type Encounter Description Reason Provider Source Jan 12, 2025 12:16 PM Outpatient Encounter GENERAL SURGERY MARY DOBBS Encounter Template Text not used by [facility] Plan of Treatment: Future Appointments (+ 6 months) and Future Tests (+/- 45 days) The Plan of Treatment section includes future care activities for the patient from all [place] [facility] This section includes future appointments and future orders which are active, pending or scheduled. Future Appointments This section includes appointments that were scheduled to occur 6 months from the date of the Encounter, up to a maximum of 20 appointments. The data comes from all [facility]. Appointment Date/Time Appointment Type Appointme nt Facility Name Jan 18, 2025 11:00 AM AMBULATORY - SURGERY [facility] Feb 07, 2025 11:00 AM AMBULATORY - SUR[facility]ERY [facility] Feb 14, 2025 06:30 AM AMBULATORY - NONE [facility] Feb 15, 2025 08:30 AM AMBULATORY - SURGERY [facility] Feb 22, 2025 08:00 AM AMBULATORY - [facility]ERY [facility] Feb 28, 2025 09:00 AM AMBULATORY - [facility]ERY [facility] Mar 06, 2025 08:30 AM AMBULATORY - NONE [facility] Mar 12, 2025 01:30 PM AMBULATORY - SUR[facility]ERY [facility] Mar 16, 2025 08:30 AM AMBULATORY - SUR[facility]ERY [facility] May 31, 2025 11:00 AM AMBULATORY - MEDICINE [facility] Active, Pending, and Scheduled Orders This section includes a listing of several types of active, pending, and scheduled orders, including clinic medications orders, diagnostic test orders, procedure orders and consult orders; where the start date of the order is 45 days before the date of the Encounter or 45 days after the date of theEncounter. The data comes from all [facility]. Test Date/Time Test Type Test Details Facility Name Dec 29, 2024 12:00 AM Laboratory - Chemi stry Order BASIC METABOLIC PANEL GREEN LI/HEP BLD/PLAS PLASMA SP [facility] Lab Results: +/- 30 days of the encounter This section includes the Chemistry and Hematology Lab Results on record with [place] for the patient. Radiology Reports and Pathology Reports are provided separately, in subsequent sections. Lab Results This section contains the Chemistry/Hematology Results that were resulted 30 days before or 30 daysafter the date of the Encounter. Date/Time Source Result Type Result - Unit Interpretation Reference Range Specimen Type Comment Jan 12, 2025 01:10 PM [facility] GLUCOSE,BLOOD-poct (STL) BLOOD Specimen Type: BLOOD Comment: Test Performed by: [id number] Meter #: [id number] Ordering Provider: MORELIA ALLEN Report Released Date/Time: Jan 12, 2025 01:12 PM Reporting Lab: [address] [id number] Performing Lab: [address] [id number] GLUCOSE,BLOOD-poct (STL) 150 mg/dL H 72-99 Jan 12, 2025 11:38 AM [facility] GLUCOSE,BLOOD-poct (STL) BLOOD Specimen Type: BLOOD Comment: Test Performed by: [id number] Meter #: [id number] Ordering Provider: MORELIA ALLEN Report Released Date/Time: Jan 12, 2025 11:48 AM Reporting Lab: [address] [id number] Performing Lab: [address] [address] GLUCOSE,BLOOD-poct (STL) 147 mg/dL H 72-99 Vital Signs: All taken on the encounter date This section contains inpatient and outpatient Vital Signs collected on the date of the Encounter. Date/Time Temperature Pulse Blood Pressure Respiratory Rate SP02 Pain Height Weight Body Mass Index Source Jan 12, 2025 02:00 PM 97.3 F 77 /min 141/72 mm[Hg] 13 /min 93 % 0 [facility] Jan 12, 2025 01:05 PM 97.1 F 89 /min 145/93 mm[Hg] 14 /min 95 % 0 [facility] Jan 12, 2025 11:31 AM 98.4 F 77 /min 151/80 mm[Hg] 20 /min 93 % 1 71.5 in 280 lb 39 [facility] N Social History: Smoking Status (Most current) and Tobacco Use (All prior to encounter date) This section includes the most current, and the historical, smoking and tobacco- related health factors from the [place] facility where the Encounter took place. Current Smoking Status This section includes the most current smoking, or tobacco-related health factor, from the [place] facility where the Encounter took place. Date/Time Current Smoking Status Comment Ronda anuy Jun 19, 2023 02:53 AM ORYX ADMIT TOBACCO SCREEN NO [facility] Tobacco Use History This section includes a history of the smoking, or tobacco-related health factors, that were collected on or before the date of the Encounter. The data comes from the [place] facility where the Encounter took place. Date/Time Smoking Status/Tobacco Use Comment F acility Apr 02, 2016 12:55 PM QUIT TOBACCO >7 YEARS AGO [facility] May 21, 2015 01:30 PM LIFETIME NON-USER OF TOBACCO [facility] Jan 03, 2014 10:46 AM LIFETIME NON-USER OF TOBACCO [facility] Feb 21, 2013 11:08 AM QUIT TOBACCO >12 M O & <7 YRS AGO [facility] Aug 19, 2009 12:46 PM LIFETIME NON-USER OF TOBACCO [facility] Oct 05, 2008 10:28 AM QUIT TOBACCO >12 M O & <7 YRS AGO [facility] November 18, 2007 09:08 AM QUIT TOBACCO IN TH E LAST 12 MONTHS [facility] Aug 05, 2006 12:57 PM CURRENT TOBACCO USER [facility] Aug 05, 2006 12:57 PM TOB-DECLINES SMOKI NG CESSATION REFERRAL [facility] Jan 13, 2006 08:42 AM CURRENT TOBACCO USER [facility] Jan 13, 2006 08:42 AM SMOKER 1-2 PACKS [facility] Advance Directives: All historical and current Section Date Range: From patient's date of to the date document was created. This section includes ALL of a patient's completed or amended [place] Advance and Rescinded Directives. The entries below indicate that a directive exists for the patient, but an actual copy is not included with this document. The data comes from all [place] facilities. Date Advance Directives Provider Source Jan 22, 2016 ADVANCE DIRECTIVE DISCUSSION AMBERLY HOFFMAN [facility] Mar 31, 2007 ADVANCE DIRECTIVE JOSE C ALLEN [facility] Radiology Reports: +/- 30 days of [...] the Encounter. The data comes from all [place] treatment facilities. Date/Time Radiology Report Provider Source Dec 18, 2024 11:32 AM SPINE LUMBOSACRAL 2 OR 3 VIEWS: ALLAN LOVETT Philippe [id number] -[id number] M Exm Date: DEC 18, 2024@11:32 Req Phys: JOSE FRANCISCO RAY Loc: [facility]I-PACT PHONE NURSE E4 (Req'g Img Loc: [facility] RADIOLOGY Service: [facility], [facility] [address] [place] [address] (Case [id number] COMPLETE) SPINE LUMBOSACRAL 2 OR 3 VIEWS (RAD Detailed) CPT:00121 Reason for Study: low back pain Clinical History: Report Status: Verified Date Reported: DEC 18, 2024 Date Verified: DEC 18, 2024 Decorating Supervisor E-Sig:/ES/CHRIS HAMMOND MD Report: Case #[id number]. Lumbar [...] CHRIS HAMMOND MD, Staff Physician - Radiologist (Decorating Supervisor) /CHRIS BRIONES [facility] Encounter Notes: All associated encounter notes This section contains the clinical notes associated to the Encounter. Date/Time Encounter Note(s) Provider Source Jan 12, 2025 12:16 PM NURSING PROCEDURE NOTE: LOCAL TITLE: [facility] OPERATING ROOM/PROCEDURE FIRE RISK ASSESSMEN STANDARD TITLE: NURSING PROCEDURE NOTE DATE OF NOTE: JAN 12, 2025@12:16 ENTRY DATE: JAN 12, 2025@12:16:59 AUTHOR: MARY DOBBS COSIGNER: URGENCY: STATUS: COMPLETED [...] saws, burrs) No Additional comments: /shadi/ MARY DOBBS BSN RN REGISTERED NURSE Signed: 01/12/2025 12:17 MARY DOBBS [facility]
--- OUTSIDE RECORDS SUMMARY | 2025-02-17 15:29 | XMS_ITS | Encounter Summary ---
Author Name [facility] [place] [facility] [place] [facility] [place] Address [address] [place] [address] Care Team Providers Care Hot Stick Man Name Role Phone MORELIA ALLEN Primary Care [...] PART A Mar 19, 2014 PART A [id number] [phone] [place] PATIENT MEDICARE (WNR) MEDICARE (M) PART A Mar 19, 2014 PART A [id number] [place] PATIENT Selected Encounter This section includes the information on record at [place] for the Encounter. Date/Time Encounter Type Encounter Description Reason Provider Source Sep 12, 2024 01:00 PM DESTRUCT B9 LESION 1-14 DERMATOLOGY ICD-10-CM B07.9 Viral wart, unspecified LAURO KATZ IHKezia Encounter Template Text not used by [place] Assessments - Encounter Diagnoses This section includes the primary and secondary diagnoses documented for the Encounter. Date/Time Primary/Secondary Diagnosis Diagnosis Name Provider Source Sep 12, 2024 01:20 PM PRIMARY Viral wart, unspecified NEIL SIEGEL [facility] Sep 12, 2024 01:20 PM SECONDARY Inflamed seborrheic keratosis NEIL SIEGEL [facility] Plan of Treatment: Future Appointments (+ 6 months) and Future Tests (+/- 45 days) The Plan of Treatment section includes future care activities for the patient from all [place] [facility] This section includes future appointments and future orders which are active, pending or scheduled. Future Appointments This section includes appointments that were scheduled to occur 6 months from the date of the Encounter, up to a maximum of 20 appointments. The data comes from all [place] treatment facilities. Appointment Date/Time Appointment Type Appointme nt Facility Name Oct 11, 2024 10:30 AM AMBULATORY - NONE [facility] Nov 07, 2024 09:15 AM AMBULATORY - MEDICINE [facility] November 23, 2024 09:00 AM AMBULATORY - NONE [facility] November 23, 2024 11:00 AM AMBULATORY - SURGERY [facility] December 15, 2024 03:30 PM [facility] Dec 18, 2024 08:00 AM AMBULATORY - SURGERY [facility] Dec 20, 2024 03:30 PM [facility] Dec 21, 2024 11:00 AM AMBULATORY - NONE [facility] Dec 29, 2024 08:00 AM AMBULATORY - REHAB [facility] 2025 02:30 PM AMBULATORY - REHAB MEDICIN E [facility] Jan 12, 2025 11:30 AM AMBULATORY - NONE [facility] Jan 12, 2025 04:00 PM AMBULATORY - SURGERY [facility] Jan 18, 2025 11:00 AM AMBULATORY - SURGERY [facility] Feb 07, 2025 11:00 AM AMBULATORY - [facility] Feb 14, 2025 06:30 AM AMBULATORY - NONE [facility] Feb 15, 2025 08:30 AM AMBULATORY - SURGERY [facility] Feb 22, 2025 08:00 AM AMBULATORY - SURGERY [facility] Feb 28, 2025 09:00 AM AMBULATORY - SURGERY [facility] Mar 06, 2025 08:30 AM AMBULATORY - NONE [facility] Mar 12, 2025 01:30 PM AMBULATORY - SURGERY [facility] Lab Results: +/- 30 days of [...] Type Comment Aug 31, 2024 08:25 AM [facility] HGA1C BLOOD Specimen Type: BLOOD No comment entered. Ordering Provider: TAPAN BLAS Report Released Date/Time: Jul 20, 2024 09:26 AM Reporting Lab: [facility] [id number] Performing Lab: [facility] [id number] HGA1C 6.9 H 4.0-6.0 Aug 31, 2024 08:25 AM [facility] BASIC METABOLIC PANEL PLASMA Specimen Type: PL ASMA Comment: No hemolysis noted. Ordering Provider: TAPAN BLAS Report Released Date/Time: Jul 20, 2024 09:26 AM Reporting Lab: [facility] [id number] Performing Lab: [facility] [phone] CREATININE 0.97 mg/dL 0.70-1.30 UREA NITROGEN 15.8 mg/dL 9.0-25.0 GLUCOSE 168 mg/dL H 72-99 SODIUM 140 meq/L 136-145 POTASSIUM 4.4 meq/L 3.5-5.0 CHLORIDE 104 meq/L 98-107 CARBON DIOXIDE 27 meq/L 22-31 CALCIUM 9.4 mg/dL 8.4-10.4 EGFR (CKD-EPI 2020) 81.41 >60 Advance Directives: All historical and current Section Date Range: From patient's date of to the date document was created. This section includes ALL of a patient's completed or amended [place] Advance and Rescinded Directives. The entries below indicate that a directive exists for the patient, but an actual copy is not included with this document. The data comes from all [place] facilities. Date Advance Directives Provider Source Jan 22, 2016 ADVANCE DIRECTIVE DISCUSSION AMBERLY HOFFMAN [facility] Mar 31, 2007 ADVANCE DIRECTIVE JOSE C ALLEN [facility] Encounter Notes: All associated encounter notes This section contains the clinical notes associated to the Encounter. Date/Time Encounter Note(s) Provider Source Sep 12, 2024 01:13 PM DERMATOLOGY NOTE: LOCAL TITLE: DERMATOLOGY NOTE STANDARD TITLE: DERMATOLOGY NOTE DATE OF NOTE: SEP 12, 2024@13:13 ENTRY DATE: SEP 12, 2024@13:14:01 AUTHOR: NEIL SIEGEL COSIGNER: LAURO KATZ URGENCY: STATUS: COMPLETED DERMATOLOGY NOTE Has ADDENDA Dermatology Clinic Note CC: spot check HPI: ALLAN LOVETT is a 74-year old M with a history of NMSC who presents for spot check. Concerns today: - Patient reports spots that his noticed on the L neck and R cheek. Often itchy and flaky. Otherwise, no new, changing, bleeding, non healing lesions of concerns. 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 Skin: Negative for pruritus, rash, non-healing sores, and new/changing moles unless noted in HPI. Other ROS per HPI. PHYSICAL EXAM: GENERAL: Well-developed and well-nourished. No acute distress. NEURO: Alert and oriented x3. PSYCH: Appropriate affect. The patient's face, ears, scalp/hair, eyes/eyelids, lips, neck were examined and normal, unless specified below: Filiform verrucous papule on L neck Erythematous stuck on papules on L postauricular and R cheek ASSESSMENT AND PLAN: Verruca vulgaris - LN2 to 1 lesion x8-10s - Blister care reviewed ISK - LN2 to 2 lesions x5-7s - Blister care reviewed NOT ADDRESSED TODAY: Rosacea - Discussed etiology - Recommend sunprotection with hats, SPF 30+ - Discussed triggers such as alcohol, heat, spicy foods Seborrheic keratoses Cameron angioma - benign reassured Multiple melanocytic nevi Lentigines - Benign, reassurance provided - Reviewed sun protection strategies and skin cancer warning signs - Sun protection education: Educated on the use of solar protection, including sunscreen use, the importance of periodic self-evaluation, the ABCDEs of melanoma, and the warning signs of squamous cell carcinoma and basal cell carcinoma. Suggested the use of SPF 30 or greater broad spectrum sunscreen, applied 15 minutes prior to going out in the sun, and reapplied every 2 hours. History of non-melanoma skin cancer - as per HPI - No evidence of recurrence or new primaries today - Reviewed sun protection strategies and skin cancer warning signs - Continue regular self-skin exams and dermatology follow-up RTC as scheduled 10/2024 for FBSE /shadi/ Neil Siegel MD Dermatology Resident Signed: 09/12/2024 13:20 /shadi/ Lauro Katz M.D., Ph.D. [employer]anger - Dermatology Cosigned: 09/12/2024 14:07 09/12/2024 ADDENDUM STATUS: COMPLETED Discussed case with resident. Agree with history, physical examination, assessment, and plan. /ulises Katz M.D., Ph.D. [employer] - Dermatology Signed: 09/12/2024 14:07 NEIL SIEGEL [facility]
--- OUTSIDE RECORDS SUMMARY | 2025-02-17 15:29 | XMS_ITS | Encounter Summary ---
Author Name [facility] Organization [facility] [place] Address [address] [place] [address] Care Team Providers Care Staff Psychologist Name Role Phone MORELIA ALLEN Primary Care [...] PART A Mar 19, 2014 PART A [id number] [place] PATIENT MEDICARE (WNR) MEDICARE (M) PART A Mar 19, 2014 PART A [id number] [phone] [place] PATIENT Selected Encounter This section includes the information on record at [place] for the Encounter. Date/Time Encounter Type Encounter Description Reason Provider Source Aug 31, 2024 09:00 AM MTMS BY PHARM EST 15 MIN CLINICAL PHARMACY ICD-10-CM E11.8 Type 2 diabetes mellitus with unspecified complications SHOR,JULIANNA LORENA IHE Encounter Template Text not used by [facility] Assessments - Encounter Diagnoses This section includes the primary and secondary diagnoses documented for the Encounter. Date/Time Primary/Secondary Diagnosis Diagnosis Name Provider Source Aug 31, 2024 10:32 AM PRIMARY Type 2 diabetes mellitus with unspecified complications JULIANNA BLAS [facility] Aug 31, 2024 10:32 AM SECONDARY Essential (primary) hypertension JULIANNA BLAS [facility] Aug 31, 2024 10:32 AM SECONDARY Hyperlipidemia, unspecified JULIANNA BLAS [place] [facility] Plan of Treatment: Future Appointments (+ 6 months) and Future Tests (+/- 45 days) The Plan of Treatment section includes future care activities for the patient [facility] This section includes future appointments and future orders which are active, pending or scheduled. Future Appointments This section includes appointments that were scheduled to occur 6 months from the date of the Encounter, up to a maximum of 20 appointments. The data comes from all [place] treatment facilities. Appointment Date/Time Appointment Type Appointme nt Facility Name Sep 12, 2024 01:00 PM AMBULATORY - MEDICINE [facility] Oct 11, 2024 10:30 AM AMBULATORY - NONE [facility] Nov 07, 2024 09:15 AM AMBULATORY - MEDICINE [facility] November 23, 2024 09:00 AM AMBULATORY - NONE [facility] November 23, 2024 11:00 AM AMBULATORY - SURGERY . [facility] December 15, 2024 03:30 PM AMBULATORY - MEDICINE [facility] Dec 18, 2024 08:00 AM AMBULATORY - SURGERY [facility] Dec 20, 2024 03:30 PM AMBULATORY - MEDICINE [facility] Dec 21, 2024 11:00 AM AMBULATORY - NONE [facility] Dec 29, 2024 08:00 AM AMBULATORY - REHAB MEDICIN E [facility] 2025 02:30 PM AMBULATORY - REHAB MEDICIN E [facility] Jan 12, 2025 11:30 AM AMBULATORY - NONE [facility] Jan 12, 2025 04:00 PM AMBULATORY - SURGERY [facility] Jan 18, 2025 11:00 AM AMBULATORY - SURGERY [facility] Feb 07, 2025 11:00 AM AMBULATORY - SURGERY [facility] Feb 14, 2025 06:30 AM AMBULATORY - NONE [facility] Feb 15, 2025 08:30 AM AMBULATORY - SURGERY [facility] Feb 22, 2025 08:00 AM AMBULATORY - SURGERY [facility] Feb 28, 2025 09:00 AM AMBULATORY - SURGERY [facility] Lab Results: +/- 30 days [...] Type Comment Aug 31, 2024 08:25 AM [facility] HGA1C BLOOD Specimen Type: BLOOD No comment entered. Ordering Provider: JULIANNA BLAS Report Released Date/Time: Jul 20, 2024 09:26 AM Reporting Lab: [facility] [id number] Performing Lab: [facility] [id number] HGA1C 6.9 H 4.0-6.0 Aug 31, 2024 08:25 AM [facility] BASIC METABOLIC PANEL PLASMA Specimen Type: PL ASMA Comment: No hemolysis noted. Ordering Provider: JULIANNA BLAS Report Released Date/Time: Jul 20, 2024 09:26 AM Reporting Lab: [facility] [id number] Performing Lab: [facility] [phone] CREATININE 0.97 mg/dL 0.70-1.30 UREA NITROGEN 15.8 mg/dL 9.0-25.0 GLUCOSE 168 mg/dL H 72-99 SODIUM 140 meq/L 136-145 POTASSIUM 4.4 meq/L 3.5-5.0 CHLORIDE 104 meq/L 98-107 CARBON DIOXIDE 27 meq/L 22-31 CALCIUM 9.4 mg/dL 8.4-10.4 EGFR (CKD-EPI 2020) 81.41 >60 Vital Signs: All taken on the encounter date This section contains inpatient and outpatient Vital Signs collected on the date of the Encounter. Date/Time Temperature Pulse Blood Pressure Respiratory Rate SP02 Pain Height Weight Body Mass Index Source Aug 31, 2024 09:18 AM 64 136/80 [facility] Social History: Smoking Status (Most current) and Tobacco Use (All prior to encounter date) This section includes the most current, and the historical, smoking and tobacco- related health factors from the [place] facility where the Encounter took place. Current Smoking Status This section includes the most current smoking, or tobacco-related health factor, from the [place] facility where the Encounter took place. Date/Time Current Smoking Status Comment Facil ity November 30, 2023 03:00 PM [place]-TOBACCO QUIT 15 YRS OR MORE [facility] Tobacco Use History This section includes a history of the smoking, or tobacco-related health factors, that were collected on or before the date of the Encounter. The data comes from the [place] facility where the Encounter took place. Date/Time Smoking Status/Tobacco Use Comment F acility November 30, 2023 03:00 PM MS-TOBACCO QUIT 15 YRS OR MORE [facility] Jun 02, 2023 10:00 AM MS-TOBACCO FORMER USER [facility] Jun 02, 2023 10:00 AM MS-TOBACCO QUIT 15 YRS OR MORE [facility] Advance Directives: All historical and current Section Date Range: From patient's date of to the date document was created. This section includes ALL of a patient's completed or amended [place] Advance and Rescinded Directives. The entries below indicate that a directive exists for the patient, but an actual copy is not included with this document. The data comes from all [place] facilities. Date Advance Directives Provider Source Jan 22, 2016 ADVANCE DIRECTIVE DISCUSSION AMBERLY HOFFMAN [facility] Mar 31, 2007 ADVANCE DIRECTIVE JOSE C ALLEN [facility] Encounter Notes: All associated encounter notes This section contains the clinical notes associated to the Encounter. Date/Time Encounter Note(s) Provider Source Sep 05, 2024 09:21 AM PHYSICIAN LETTERS: LOCAL TITLE: TEST RESULT GENERAL LETTER STL STANDARD TITLE: PHYSICIAN LETTERS DATE OF NOTE: SEP 05, 2024@09:21 ENTRY DATE: SEP 05, 2024@09:21:06 AUTHOR: JULIANNA BLAS EXP COSIGNER: URGENCY: STATUS: COMPLETED [facility] [address] [place] [address] SEP 05, 2024 [place] GUST[place] [address] [place] [id number] Dear Newton Gustafson, I would like to update you on your recent test results. HEMOGLOBIN A1C - Gives us information about your diabetes (sugar or glucose) control over the past 3 months. Your target is to keep your A1C below 7.5 %. HGA1C 6.9 H % 08/31/2024 08:25 Your A1c is within the goal range but is reflecting Trulicity + metformin. Victoza has been approved and should be delivered soon. Please call the clinic if side effects develop before our next appointment. CHEM 7 - This is important information about the current status of your kidneys, liver, and electrolyte and acid/base balance as well as of your blood sugar and blood proteins. SODIUM 140 mEq/L 08/31/2024 08:25 POTASSIUM 4.4 mEq/L 08/31/2024 08:25 CHLORIDE 104 mEq/L 08/31/2024 08:25 UREA NITROGEN 15.8 mg/dL 08/31/2024 08:25 CREATININE 0.97 mg/dL 08/31/2024 08:25 CALCIUM 9.4 mg/dL 08/31/2024 08:25 CARBON DIOXIDE 27 mEq/L 08/31/2024 08:25 GLUCOSE 168 H mg/dL 08/31/2024 08:25 EGFR (CKD-EPI 2020) 81.41 08/31/2024 08:25 These readings are within normal limits. PLAN Please continue your treatment as we discussed during your visit. If you have any questions please call your rn case management. I look forward to seeing you at your next clinic appointment. Thank you for choosing the [facility] for your healthcare. FUTURE APPOINTMENTS: 10/11/2024 10:30 GEMINI-PACT TM E PHARM IND 02 11/07/2024 09:15 [facility]IN[facility] 02/28/2025 09:00 RYANN-OPTOMETRY 4 03/12/2025 13:30 RYANN-UROLOGY MD 1 05/31/2025 11:00 GEMINI-PACT E4 PCP Sincerely, Julianna Blas, Pharm.D., [facility] Clinical Cyber Legal Advisor [place] GUSTAFSON JULIANNA BLAS [facility] Aug 31, 2024 08:56 AM INTERNAL MEDICINE CLINICAL PHARMACIST MEDICATION MGT NOTE: LOCAL TITLE: CLINICAL PHARMACIST NOTE ST STANDARD TITLE: INTERNAL MEDICINE CLINICAL PHARMACIST MEDICATION DATE OF NOTE: AUG 31, 2024@08:56 ENTRY DATE: AUG 31, 2024@08:56:27 AUTHOR: JULIANNA BLAS EXP COSIGNER: URGENCY: STATUS: COMPLETED CLINICAL PHARMACIST NOTE ST Has ADDENDA CLINICAL PHARMACY FOLLOW-UP ELISENEWTON KAM is a 74 yo, WHITE, MALE seen F2F by clinical pharmacy for DM management. [place] was identified by name and . During the last contact with vet, the following changes were made: - continue dulaglutide 0.75 mg weekly - continue metformin 1000 mg PO BID - SMBG: BID per pt preference - Continue HCTZ/losartan 12.5/100 mg PO daily - Continue metoprolol tartrate 12.5 mg PO BID - Continue amlodipine 5 mg PO daily Allergies/ADR's: IODINATED CONTRAST MEDIA, LISINOPRIL, SEMAGLUTIDE Subjective: - Diarrhea worsened w/ continued Trulicity use recently. Experienced nausea/diarrhea for ~5 days after last dose. Skipped this week's dose. Would like to trial different GLP1RA. - Forgot to bring in BG log. [-] hypoglycemia symptoms or values <80 mg/dL [-] hyperglycemia symptoms [-] hypotension symptoms or values <90/60 mmHg [-] hypertension symptoms [-] Dietary modifications made [-] Changes in lifestyle or social history [-] Adverse effects to antilipemic agents (muscle pain/weakness, GI upset, flushing) Objective: Medications: Active and Recently Outpatient Medications (excluding Supplies): Active Outpatient Medications Status 1) ACCU-CHEK GUIDE (GLUCOSE) TEST STRIP USE 1 STRIP FOR BLOOD ACTIVE TEST TWICE A DAY Indication: FOR BLOOD SUGAR MONITORING 2) AMLODIPINE BESYLATE 5MG TAB TAKE ONE [...] DAY Indication: FOR VITAMIN B12 SUPPLEMENTATION 6) CYCLOSPORINE 0.05% (PF) OPH EMUL 0.4ML INSTILL 1 DROP IN ACTIVE BOTH EYES TWICE A DAY (USE EVERY 12 HRS) Indication: FOR DRY EYES 7) DICLOFENAC NA 1% TOP GEL APPLY 4 GM TO AFFECTED AREA(S) FOUR ACTIVE TIMES A DAY NEEDED DO NOT EXCEED MORE THAN 16 GRAMS DAILY TO ANY LOWER EXTREMITY JOINT. NOT MORE THAN 8 GRAMS DAILY TO ANY UPPER EXTREMITY JOINT. MAX 32GM/DAY OVER ALL JOINTS. (MEASURE DOSE WITH RULER ATTACHED INSIDE BOX) Indication: FOR PAIN 8) DULAGLUTIDE 0.75MG/0.5ML INJ PEN INJECT 0.75MG UNDER THE ACTIVE SKIN EVERY WEEK (ADMINISTER DOSE AT ANY TIME OF DAY, WITH OR WITHOUT MEALS) Indication: FOR DIABETES - skipped this week's dose 9) HCTZ 12.5MG/LOSARTAN 100MG TAB TAKE 1 TABLET BY MOUTH EVERY ACTIVE MORNING Indication: FOR HIGH BLOOD PRESSURE 10) LIDOCAINE 5% PATCH APPLY 1 PATCH TO SKIN SITE ONCE A DAY ACTIVE APPLY PATCH AND PRESS FIRMLY FOR 10-15 SECONDS. KEEP ON FOR 12 HOURS THEN REMOVE PATCH FOR 12 HOURS. Indication: FOR LOCAL ANESTHESIA 11) METFORMIN HCL 1000MG TAB TAKE ONE TABLET BY MOUTH TWICE A ACTIVE DAY WITH MEALS TO LOWER BLOOD SUGAR 12) METOPROLOL TARTRATE 25MG TAB TAKE ONE-HALF TABLET BY MOUTH ACTIVE (S) TWICE A DAY FOR HEART/BLOOD PRESSURE. TAKE WITH OR IMMEDIATELY FOLLOWING FOOD. Inactive Outpatient Medications Status 1) TAMSULOSIN HCL 0.4MG CAP TAKE ONE CAPSULE BY MOUTH ONCE A DAY APPROXIMATELY 30 MINUTES AFTER THE SAME MEAL EACH DAY (FOR PROSTATE) meds: tamsulosin OTC/Non-VA meds: Medication reconciliation completed: Yes- targeted review, discrepancies as noted Adherence to above medications: denies missing doses besides this week's dulaglutide dose d/t adr Refills/renewals needed: tamsulosin HGA1C 6.5 H % 04/13/2024 11:44 SODIUM 138 mEq/L 06/01/2024 11:11 POTASSIUM 3.7 mEq/L 06/01/2024 11:11 CHLORIDE 104 mEq/L 06/01/2024 11:11 UREA NITROGEN 17.4 mg/dL 06/01/2024 11:11 CREATININE 0.87 mg/dL 06/01/2024 11:11 CALCIUM 9.6 mg/dL 06/01/2024 11:11 CARBON DIOXIDE 25 mEq/L 06/01/2024 11:11 GLUCOSE 142 H mg/dL 06/01/2024 11:11 EGFR (CKD-EPI 2020) 89.98 06/01/2024 11:11 CREATuF: 85.6 (05/11/24 11:44) M/CREAT: 473 (05/11/24 11:44) MICRAL: 405 (05/11/24 11:44) TRIGLYCERIDE 187 H mg/dL 06/01/2024 11:11 CHOLESTEROL 113 mg/dL 06/01/2024 11:11 HDL(New) 36 L mg/dL 06/01/2024 11:11 CALCULATED LDL 40 mg/dL 06/01/2024 11:11 SGOT 13 U/L (06/01/24 11:11) SGPT 15 U/L (06/01/24 11:11) SMBG's: from recall FPGs 120-130 in evening nothing over 130 BP last visit:138/80 (07/20/2024 09:15) Pulse last visit: 91 (07/20/2024 09:15) Home BP Readings: 08/24 136/78 08/13 127/74 08/08 148/71 08/07 145/73 08/05 147/82 07/29 133/78 07/25 124/70 Assessment/Plan: 1) DM - Goal A1c <7.5%, FPG 80-145, PPG <195 d/t age, CKD per VA/DoD and ADA guidelines A1c within target; recalled SMBGs within target. Low dose dulaglutide now causing worsening diarrhea, nausea - would like to stop this agent and consider different GLP1RA. Denies sx of hypoglycemia or hyperglycemia. Denies hx of pancreatitis, thyroid cancers, retinopathy. eGFR >45 mL/min/1.73m2. Avoiding SGLT2i d/t hx of UTI, kidney stones resulting in UTIs, and frequent urination at baseline. Vet voices interest in trialing different glp1ra to aid with DM management + weight loss. Would also like to ultimately stop taking metformin. Last A1c reflected metformin + dulaglutide. Updated A1c pending. - continue dulaglutide 0.75 mg weekly - continue metformin 1000 mg PO BID - SMBG: BID per pt preference - educated vet on hypoglycemia symptoms and appropriate treatment and when to call clinic or go to emergency room - Labs: A1c 12-09/2024, BMP w/A1c, uACR 04/2025 - SOC: (+) ACEi/ARB (+) statin (+) flu vaccine (04/13/2024) (+) pneumo vaccine (PCV13 2014, PPSV23 2015) (+) eye exam - 02/2024 Type 2 Diabetes without retinopathy - No DME/CSME OU- confirmed w/ APR Mac 2) Lipids - VADoD/ACC/AHA lipid treatment [...] Labs: LFTs, lipid panel annually/prn adherence 3) HTN - Goal <140/90 mmHg per VA DoD guidelines. AHA/ACC goal<130/80 mmHg Clinic BP within looser target today. Home BP elevations correlate w/ consuming coffee or tea (caffeinated) prior to BP check. Vet did not consume coffee prior to today's appt. Micral/creat >300 mcg/mg. Denies sx of hypotension or hypertension. Denies pedal edema w/ amlodipine reinitiation (previously experienced w/ 10mg daily dose). SCr, K, Na WNL. Avoiding uptitration of HCTZ and initiation of spironolactone for now d/t patient's concern for frequent urination. Will defer increasing amlodipine dose d/t concern for pedal edema w/ previous higher dose use. Encouraged continued BP monitoring. Reviewed optimal timing for BP checks w/ concurrent caffeine. - Continue HCTZ/losartan 12.5/100 mg PO daily - Continue metoprolol tartrate 12.5 mg PO BID - Continue amlodipine 5 mg PO daily - Instructed [...] activity) specific for the vet's needs. - verbalized understanding to all plans discussed today. Questions were answered to vet's satisfaction. Time spent with vet: 20 min RTC: 10/11/24 1030 f2f PBM PharmD Pharmacotherapy Rem V12: PHARMACIST INTERVENTIONS: HYPERTENSION Medication monitoring, no dosage change required, continue to monitor and assess LIPID MANAGEMENT Medication monitoring, no dosage change required, continue to monitor and assess TYPE 2 DIABETES MELLITUS Medication Intervention(s) Discontinue and/or change to different medication Discontinue and/or change to different medication due to other reason Prevent or manage an adverse drug reaction or event /shadi/ Julianna Blas Pharm.D., [facility] Clinical Cyber Legal Advisor Signed: 08/31/2024 10:33 08/31/2024 ADDENDUM STATUS: COMPLETED Note signed prior to updating plan for DM: Per shared decision making, will trial liraglutide. Reviewed liraglutide MOA, administration, potential ADRs. Due to hx of adrs w/ glp1ra, will start liraglutide 0.6mg daily x1 week; if tolerating, can increase to 1.2 mg daily thereafter. If adrs develop, can continue on liraglutide 0.6mg daily dose or discontinue medication depending on severity of ADRs. - discontinue dulaglutide 0.75 mg weekly - initiate liraglutide 0.6mg daily x1 weeks, then increase to 1.2 mg daily - continue metformin 1000 mg PO BID /shadi/ Julianna Blas, Pharm.D., [facility] Clinical Cyber Legal Advisor Signed: 08/31/2024 10:47 JULIANNA BLAS [facility]
--- OUTSIDE RECORDS SUMMARY | 2025-02-17 15:29 | XMS_ITS | Encounter Summary ---
Author Name [facility] [place] Organization [facility] [place] Address [address] [place] [address] Care Team Providers Care Architect In Training Name Role Phone MORELIA ALLEN Primary Care [...] PART A Mar 19, 2014 PART A [id number] [phone] [place] PATIENT MEDICARE (WNR) MEDICARE (M) PART A Mar 19, 2014 PART A [id number] [place] PATIENT Selected Encounter This section includes the information on record at [place] for the Encounter. Date/Time Encounter Type Encounter Description Reason Provider Source Jul 03, 2024 10:00 AM OFFICE O/P EST LOW 20 [facility] ICD-10-CM N20.0 Calculus of kidney LOCKE,AND REW IHE Encounter Template Text not used by [place] Assessments - Encounter Diagnoses This section includes the primary and secondary diagnoses documented for the Encounter. Date/Time Primary/Secondary Diagnosis Diagnosis Name Provider Source Jul 03, 2024 10:32 AM PRIMARY Calculus of kidney CLAUDETTE LOCKE [facility] Jul 03, 2024 10:32 AM SECONDARY Nocturia CLAUDETTE LOCKE [facility] Plan of Treatment: Future Appointments (+ 6 months) and Future Tests (+/- 45 days) The Plan of Treatment section includes [facility] care activities for the [facility] [place] [facility] This section includes future appointments and future orders which are active, pending or scheduled. Future Appointments This section includes appointments that were scheduled to occur 6 months from the date of the Encounter, up to a maximum of 20 appointments. The data comes from all [place] treatment facilities. Appointment Date/Time Appointment Type Appointme nt Facility Name Jul 20, 2024 09:00 AM AMBULATORY - NONE [facility] Aug 31, 2024 09:00 AM AMBULATORY - NONE [facility] Sep 12, 2024 01:00 PM AMBULATORY - MEDICINE [facility] Oct 11, 2024 10:30 AM AMBULATORY - NONE [facility] Nov 07, 2024 09:15 AM AMBULATORY - MEDICINE [facility] November 23, 2024 09:00 AM AMBULATORY - NONE [facility] November 23, 2024 11:00 AM AMBULATORY - SURGERY . [facility] December 15, 2024 03:30 PM AMBULATORY - MEDICINE [facility] Dec 18, 2024 08:00 AM AMBULATORY - SURGERY . [facility] Dec 20, 2024 03:30 PM AMBULATORY - MEDICINE [facility] Dec 21, 2024 11:00 AM AMBULATORY - NONE [facility] Dec 29, 2024 08:00 AM AMBULATORY - [facility] Vital Signs: All taken on the encounter date This section contains inpatient and outpatient Vital Signs collected on the date of the Encounter. Date/Time Temperature Pulse Blood Pressure Respiratory Rate SP02 Pain Height Weight Body Mass Index Source Jul 03, 2024 10:39 AM 98.2 77 136/69 24 93 0 71 288.3 40 [facility] Social History: Smoking Status (Most current) and Tobacco Use (All prior to encounter date) This section includes the most current, and the historical, smoking and tobacco- related health factors from the [place] facility where the Encounter took place. Current Smoking Status This section includes the most current smoking, or tobacco-related health factor, from the [place] facility where the Encounter took place. Date/Time Current Smoking Status Comment Ronda ity Jun 19, 2023 02:53 AM ORYX ADMIT TOBACCO SCREEN NO [facility] Tobacco Use History This section includes a history of the smoking, or tobacco-related health factors, that were collected on or before the date of the Encounter. The data comes from the [place] facility where the Encounter took place. Date/Time Smoking Status/Tobacco Use Comment F acility Apr 02, 2016 12:55 PM QUIT TOBACCO >7 YEARS AGO [facility] May 21, 2015 01:30 PM LIFETIME NON-USER OF TOBACCO [facility] Jan 03, 2014 10:46 AM LIFETIME NON-USER OF TOBACCO [facility] Feb 21, 2013 11:08 AM QUIT TOBACCO >12 M O & <7 YRS AGO [facility] Aug 19, 2009 12:46 PM LIFETIME NON-USER OF TOBACCO [facility] Oct 05, 2008 10:28 AM QUIT TOBACCO >12 M O & <7 YRS AGO [facility] November 18, 2007 09:08 AM QUIT TOBACCO IN TH E LAST 12 MONTHS [facility] Aug 05, 2006 12:57 PM CURRENT TOBACCO USER [facility] Aug 05, 2006 12:57 PM TOB-DECLINES SMOKI NG CESSATION REFERRAL [facility] Jan 13, 2006 08:42 AM CURRENT TOBACCO USER [facility] Jan 13, 2006 08:42 AM SMOKER 1-2 PACKS [facility] Advance Directives: All historical and current Section Date Range: From patient's date of to the date document was created. This section includes ALL of a patient's completed or amended [place] Advance and Rescinded Directives. The entries below indicate that a directive exists for the patient, but an actual copy is not included with this document. The data comes from all [place] facilities. Date Advance Directives Provider Source Jan 22, 2016 ADVANCE DIRECTIVE DISCUSSION AMBERLY HOFFMAN [facility] Mar 31, 2007 ADVANCE DIRECTIVE JOSE C ALLEN [facility] Encounter Notes: All associated encounter notes This section contains the clinical notes associated to the Encounter. Date/Time Encounter Note(s) Provider Source Jul 03, 2024 10:11 AM UROLOGY NOTE: LOCAL TITLE: UROLOGY NOTE STANDARD TITLE: UROLOGY NOTE DATE OF NOTE: JUL 03, 2024@10:11 ENTRY DATE: JUL 03, 2024@10:11:22 AUTHOR: SHYLA LOCKE COSIGNER: URGENCY: STATUS: COMPLETED CHIEF COMPLAINT, HPI, EXAM & DATA CC: nephrolithiasis f/u HPI: 74 yo M with hx of nephrolithiasis presenting for f/u - 06/2023: presented to ED for flank pain, found to have L obstructing stone and 1.8cm stone L kidney s/p L PCNL 06/2023 - has been doing well post-op - 02/2024 CT KUB with small <4mm non-obstructing L renal stone - patient denies any episodes of flank pain, gross hematuria, or UTIs - notes chronic LUTS with frequency Q2H, nocturia x3-4 and weak stream despite tamsulosin - has discussed additional interventions for BPH in the past, overall bother is low and not interested in additional medication or surgery - also hx RCCa s/p 03/2007 R Partial Nephrectomy, MANAS on recent CTs ROS/PMH Denies F/C/N/V/CP/SOB Remainder of PMH listed below and reviewed? Yes TARGETED PHYSICAL EXAM: Gen: NAD HEENT: NC/AT Resp: NLB Abd: s/nt/nd, no rebound or guarding Back: No CVAT bilaterally Ext: WWP MSK: MAEW Neuro: non-focal Skin: warm and dry : deferred PVR: 150mL CREATININE:CREATININE 0.87 mg/dL 06/01/2024 11:11 PSA: PROST. SPECIFIC AG.(PB-STL) 0.653 ng/mL 06/01/2024 11:11 ASSESSM ENT AND PLAN --- 74 yo M with hx of nephrolithiasis, RCC s/p R partial in 2006 and BPH presents for evaluation. Of note, patient also mentioned concerns related to proteinuria and was reportedly told that this would be addressed during this visit. Patient currently without urologic etiology for his proteinuria, would recommend evaluation by nephrology if this is a concern for the patient. FOLLOW-UP: - RTC as scheduled in February for routine follow up (MORE INFORMATION) -- * LABS------ PSA Trend: PROST. SPECIFIC AG.(PB-STL) 0.653 ng/mL 06/01/2024 11:11 PROST. SPECIFIC AG.(PB-STL) 0.802 ng/mL 06/02/2023 10:41 PROST. SPECIFIC AG.(PB-STL) 0.836 ng/mL 05/27/2022 07:36 PROST. SPECIFIC AG.(PB-STL) 1.001 ng/mL 09/04/2021 11:45 PROST. SPECIFIC AG.(PB-STL) 0.585 ng/mL 07/30/2020 15:36 BMP: SODIUM 138 mEq/L 06/01/2024 11:11 POTASSIUM 3.7 mEq/L 06/01/2024 11:11 CHLORIDE 104 mEq/L 06/01/2024 11:11 UREA NITROGEN 17.4 mg/dL 06/01/2024 11:11 CREATININE 0.87 mg/dL 06/01/2024 11:11 CALCIUM 9.6 mg/dL 06/01/2024 11:11 CARBON DIOXIDE 25 mEq/L 06/01/2024 11:11 GLUCOSE 142 H mg/dL 06/01/2024 11:11 EGFR (CKD-EPI 2020) 89.98 06/01/2024 11:11 CBC: WBC 7.1 10*3/uL 06/01/2024 11:11 RBC 4.74 10*6/uL 06/01/2024 11:11 HGB 13.9 g/dL 06/01/2024 11:11 HCT 41.9 % 06/01/2024 11:11 MCV 88.4 fL 06/01/2024 11:11 MCH 29.3 pg 06/01/2024 11:11 MCHC 33.2 g/dL 06/01/2024 11:11 RDW 12.8 % 06/01/2024 11:11 PLT 227 10*3/uL 06/01/2024 11:11 MPV 9.2 fL 06/01/2024 11:11 NEUTROPHILS, AUTO % 70 % 06/01/2024 11:11 LYMPHOCYTES, AUTO % 24 % 06/01/2024 11:11 MONOCYTES, AUTO % 4 % 06/01/2024 11:11 EOSINOPHILS, AUTO % 1 % 06/01/2024 11:11 BASOPHILS, AUTO % 0 % 06/01/2024 11:11 NEUTROPHILS, ABSOLUTE 4.96 10*3/uL 06/01/2024 11:11 LYMPHOCYTES, ABSOLUTE 1.74 10*3/uL 06/01/2024 11:11 MONOCYTES, ABSOLUTE 0.31 10*3/uL 06/01/2024 11:11 EOSINOPHILS, ABSOLUTE 0.05 10*3/uL 06/01/2024 11:11 BASOPHILS, ABSOLUTE 0.03 10*3/uL 06/01/2024 11:11 UA: URINE COLOR Light-Yellow 09/22/2023 08:10 APPEARANCE Clear 09/22/2023 08:10 U.PH 6.0 09/22/2023 08:10 U.BILIRUBIN Negative mg/dL 09/22/2023 08:10 U.NITRITE Negative mg/dL 09/22/2023 08:10 URINE RBC/HPF <1 /HPF 09/22/2023 08:10 URINE WBC/HPF 52 H /HPF 09/22/2023 08:10 WBC Clumps RARE /HPF 09/22/2023 08:10 SQUAMOUS EPITH. <1 /HPF 09/22/2023 08:10 MUCUS RARE /LPF 08/10/2023 08:29 PAST MEDICAL, SOCIAL, FAMILY HX AND ROS 1) Essential hypertension (SNOMED CT 48986238) 2) Obesity (SNOMED CT 253758551) 3) Osteoarthritis of knee (SNOMED CT 823302864) 4) Carcinoma in situ of kidney (SNOMED CT 39191546) 5) Squamous cell carcinoma of skin (SNOMED CT 188908738) 6) Sclerosis 7) History of drug abuse 8) H/O: alcoholism 9) Rosacea 10) Kidney stone 11) Allergic rhinitis 12) Erectile Dysfunction (SCT 874876805) 13) Polyp Colon (SCT 29531287) 14) Hyperlipidemia 15) Hearing loss 16) Squamous cell carcinoma of scalp 17) Recurrent ventral incisional hernia 18) Nicotine dependence in remission 19) Vitamin B12 deficiency (non anemic) 20) Exposure to potentially hazardous substance 21) Peripheral Neuropathy with Type 2 Diabetes ([facility] 5392692008813) MEDICATIONS: Active Outpatient Medications (including Supplies): Active Outpatient Medications Status 1) ACCU-CHEK GUIDE (GLUCOSE) TEST STRIP USE 1 STRIP FOR ACTIVE BLOOD TEST TWICE A DAY FOR BLOOD SUGAR MONITORING 2) ALCOHOL PREP PAD USE/APPLY PAD TO AFFECTED AREA(S) ACTIVE ONCE A DAY NEEDED FOR SKIN CLEANSING 3) AMLODIPINE BESYLATE 5MG TAB TAKE ONE TABLET BY MOUTH ACTIVE ONCE A DAY 4) ATORVASTATIN CALCIUM 20MG TAB TAKE ONE-HALF TABLET BY ACTIVE (S) MOUTH EVERY EVENING TO LOWER CHOLESTEROL 5) CHOLECALCIF 10MCG (D3-400UNIT) TAB TAKE TWO TABLETS ACTIVE BY MOUTH ONCE A DAY FOR VITAMIN D DEFICIENCY 6) CYANOCOBALAMIN 500MCG TAB TAKE ONE TABLET BY MOUTH ACTIVE ONCE A DAY FOR VITAMIN B12 SUPPLEMENTATION 7) CYCLOSPORINE 0.05% (PF) OPH EMUL 0.4ML INSTILL 1 DROP ACTIVE IN BOTH EYES TWICE A DAY FOR DRY EYES (USE EVERY 12 HRS) 8) DICLOFENAC NA 1% TOP GEL APPLY 4 GM TO AFFECTED ACTIVE AREA(S) FOUR TIMES A DAY NEEDED FOR PAIN DO NOT EXCEED MORE THAN 16 GRAMS DAILY TO ANY LOWER EXTREMITY JOINT. NOT MORE THAN 8 GRAMS DAILY TO ANY UPPER EXTREMITY JOINT. MAX 32GM/DAY OVER ALL JOINTS. (MEASURE DOSE WITH RULER ATTACHED INSIDE BOX) 9) DULAGLUTIDE 0.75MG/0.5ML INJ PEN INJECT 0.75MG UNDER ACTIVE THE SKIN EVERY WEEK FOR DIABETES (ADMINISTER DOSE AT ANY TIME OF DAY, WITH OR WITHOUT MEALS) 10) HCTZ 12.5MG/LOSARTAN 100MG TAB TAKE 1 TABLET BY MOUTH ACTIVE EVERY MORNING FOR HIGH BLOOD PRESSURE 11) LANCET,SOFTCLIX USE LANCET FOR BLOOD TEST TWICE A DAY ACTIVE USE DIRECTED. 12) LIDOCAINE 5% PATCH APPLY 1 PATCH TO SKIN SITE ONCE A ACTIVE DAY FOR LOCAL ANESTHESIA APPLY PATCH AND PRESS FIRMLY FOR 10-15 SECONDS. KEEP ON FOR 12 HOURS THEN REMOVE PATCH FOR 12 HOURS. 13) METFORMIN HCL 1000MG TAB TAKE ONE [...] THE SAME MEAL EACH DAY (FOR PROSTATE) Allergies: IODINATED CONTRAST MEDIA, LISINOPRIL, SEMAGLUTIDE /es/ SHYLA LOCKE MD Staff Physician, Urology Signed: 07/03/2024 10:32 SHYLA LOCKE [facility]
--- OUTSIDE RECORDS SUMMARY | 2025-02-17 15:29 | XMS_ITS | Encounter Summary ---
Author Name [facility] [place] Address [address] [place] [address] Care Team Providers Care Director Of Vital Statistics Name Role Phone MORELIA ALLEN Primary Care [...] PART A Mar 19, 2014 PART A [id number] [phone] [place] PATIENT MEDICARE (WNR) MEDICARE (M) PART A Mar 19, 2014 PART A [id number] [phone] [place] PATIENT Selected Encounter This section includes the information on record at [place] for the Encounter. Date/Time Encounter Type Encounter Description Reason Provider Source Feb 14, 2025 06:30 AM REAGENT STRIP/BLOOD GLUCOSE PRE-SURG EVAL ICD-10-CM H25.12 Age-related nuclear cataract, left eye WILFREDO JUSTIN [facility] Encounter Template Text not used by [facility] Assessments - Encounter Diagnoses This section includes the primary and secondary diagnoses documented for the Encounter. Date/Time Primary/Secondary Diagnosis Diagnosis Name Provider Source Feb 14, 2025 06:44 AM PRIMARY Age-related nuclear cataract, left eye WILFREDO JUSTIN [facility] Plan of Treatment: Future Appointments (+ 6 months) and Future Tests (+/- 45 days) The Plan of Treatment section includes future care activities for the patient from all [place] treatmentfacilities. This section includes future appointments and future orders which are active, pending or scheduled. Future Appointments This section includes appointments that were scheduled to occur 6 months from the date of the Encounter, up to a maximum of 20 appointments. The data comes from all [place] treatment facilities. Appointment Date/Time Appointment Type Appointme nt Facility Name Feb 15, 2025 08:30 AM AMBULATORY - SURGERY [facility] Feb 22, 2025 08:00 AM AMBULATORY - SUR[facility]ERY [facility] Feb 28, 2025 09:00 AM AM[facility]ULAT[facility] Mar 06, 2025 08:30 AM AM[facility] - NONE [facility] Mar 12, 2025 01:30 PM AMBULATORY - SURGERY [facility] Mar 16, 2025 08:30 AM AMBULATORY - SURGERY [facility] May 31, 2025 11:00 AM AMBULATORY - MEDICINE [facility] Lab Results: +/- 30 days of the encounter This section includes the Chemistry and Hematology Lab Results on record with [place] for the patient. Radiology Reports and Pathology Reports are provided separately, in subsequent sections. Lab Results This section contains the Chemistry/Hematology Results that were resulted 30 days before or 30 daysafter the date of the Encounter. Date/Time Source Result Type Result - Unit Interpretation Reference Range Specimen Type Comment Feb 14, 2025 06:47 AM [facility] GLUCOSE,BLOOD-poct (STL) BLOOD Specimen Type: BLOOD Comment: Test Performed by: [id number] Meter #: [id number] Ordering Provider: ENEDELIA EMERSON Report Released Date/Time: Feb 14, 2025 08:34 AM Reporting Lab: [facility] [address] [address] Performing Lab: [facility] [address] [address] GLUCOSE,BLOOD-poct (STL) 146 mg/dL H 72-99 Vital Signs: All taken on the encounter date This section contains inpatient and outpatient Vital Signs collected on the date of the Encounter. Date/Time Temperature Pulse Blood Pressure Respiratory Rate SP02 Pain Height Weight Body Mass Index Source Feb 14, 2025 08:51 AM 98.3 F 66 /min 130/73 mm[Hg] 16 /min 97 % 0 [facility] Feb 14, 2025 06:50 AM 97.2 F 80 /min 152/86 mm[Hg] 18 /min 94 % 1 71 in 280 lb 39 [facility] N Social History: Smoking Status (Most current) [...] 02:53 AM ORYX ADMIT TOBACCO SCREEN NO [facility] Tobacco Use History This section includes a history of the smoking, or tobacco-related health factors, that were collected on or before the date of the Encounter. The data comes from the [place] facility where the Encounter took place. Date/Time Smoking Status/Tobacco Use Comment F acyordan Apr 02, 2016 12:55 PM QUIT TOBACCO >7 YEARS AGO [facility] May 21, 2015 01:30 PM LIFETIME NON-USER OF TOBACCO [facility] Jan 03, 2014 10:46 AM LIFETIME NON-USER OF TOBACCO [facility] Feb 21, 2013 11:08 AM QUIT TOBACCO >12 M O & <7 YRS AGO [facility] Aug 19, 2009 12:46 PM LIFETIME NON-USER OF TOBACCO [facility] Oct 05, 2008 10:28 AM QUIT TOBACCO >12 M O & <7 YRS AGO [facility] November 18, 2007 09:08 AM QUIT TOBACCO IN TH E LAST 12 MONTHS [facility] Aug 05, 2006 12:57 PM CURRENT TOBACCO USER [facility] Aug 05, 2006 12:57 PM TOB-DECLINES SMOKI NG CESSATION REFERRAL [facility] Jan 13, 2006 08:42 AM CURRENT TOBACCO USER [facility] Jan 13, 2006 08:42 AM SMOKER 1-2 PACKS [facility] Advance Directives: All historical and current [...] 22, 2016 ADVANCE DIRECTIVE DISCUSSION AMBERLY HOFFMAN [facility] Mar 31, 2007 ADVANCE DIRECTIVE JOSE C ALLEN [facility] Encounter Notes: All associated encounter notes This section contains the clinical notes associated to the Encounter. Date/Time Encounter Note(s) Provider Source Feb 14, 2025 09:07 AM ANESTHESIOLOGY NOT E: LOCAL TITLE: VAAES POST ANESTHESIA/SEDATION SCORE STANDARD TITLE: ANESTHESIOLOGY NOTE DATE OF NOTE: FEB 14, 2025@09:07 ENTRY DATE: FEB 14, 2025@09:07:14 AUTHOR: MAXIMO FREEMAN EXP COSIGNER: URGENCY: STATUS: COMPLETED Post Anesthesia Sedation Score - Phase 2 Phase 2 Discharge Criteria TOTAL SCORE=10 Pain 2 Points - Minimal or none - Pain Score 0-4 or at tolerable level or at baseline Nausea/Vomiting 2 Points - Minimal or none Circulatory Status 2 Points - BP/HR less than 20% or 20 mmHg of baseline Activity and Mental Status 2 Points - Oriented x3 AND has steady gait (at baseline for non-ambulating patients) Surgical Site/Dressing 2 Points - Dry and Clean or Not Applicable (for example, Endoscopy) [facility] Phase 2 time documented Time: 904shadi/ MAXIMO LANDRY RN REGISTERED NURSE Signed: 02/14/2025 09:20 MAXIMO FREEMAN [facility] Feb 14, 2025 06:57 AM OPERATIVE NOTE: LOCAL TITLE: BRIEF OP NOTE STL STANDARD TITLE: OPERATIVE NOTE DATE OF NOTE: FEB 14, 2025@06:57 ENTRY DATE: FEB 14, 2025@06:57:29 AUTHOR: AURA CHAVEZ EXP COSIGNER: URGENCY: STATUS: COMPLETED Date of Surgery: FEB 14, 2025 Surgery Case #:[id number] Pre-Operative Diagnosis: 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 No Fluid Replacement:NA Status En-Route to PACU? Stable /es/ AURA CHAVEZ MD, BIANKA RESIDENT PHYSICIAN Signed: 02/14/2025 08:45 AURA CHAVEZ [facility] Feb 14, 2025 06:56 AM PHYSICIAN EDUCATIO N DISCHARGE NOTE: LOCAL TITLE: DISCHARGE INSTRUCTIONS STL STANDARD TITLE: PHYSICIAN EDUCATION DISCHARGE NOTE DATE OF NOTE: FEB 14, 2025@06:56 ENTRY DATE: FEB 14, 2025@06:56:33 AUTHOR: AURA CHAVEZ EXP COSIGNER: URGENCY: STATUS: COMPLETED 1. DIAGNOSES: Post Op Eye Surgery, Right eye 2. YOUR NEXT APPOINTMENT IN THE [facility]: 02/15/25 8:30 am [facility]-OP [phone] 02/22/25 8:00 am [facility]-OP [phone] 02/28/25 9:00 am [facility]OPTOMETRY 03/06/25 8:30 am [facility]-PACT PHONE TM E PHARM [phone] 03/12/25 1:30 pm [facility]UROLOGY 03/16/25 8:30 am [facility] POST-OP [phone] 05/31/25 11:00 am [facility]PACT E4 PCP 11/07/25 9:00 am [facility] [phone] 3. DISCHARGE MEDICATIONS: Begin the following drops when you arrive home: Moxifloxacin (Strange cap): 1 drop right eye 4x/day. Prednisolone (White or Jenison cap): 1 drop right eye 4x/day. SHAKE this drop. If using other eye drops before surgery, continue these medications Always wait 2-3 minutes between medications. Active Outpatient Medications (including Supplies): Active Outpatient [...] 12 HRS) Indication: FOR DRY EYES 8) FLUTICASONE PROP 50MCG 120D NASAL INHL INSTILL 2 SPRAYS IN ACTIVE NOSTRIL(S) ONCE A DAY (MUST BE USED DIRECTED FOR MINIMUM OF 21 DAYS TO PROVIDE ADEQUATE BENEFITS) Indication: FOR CHRONIC RHINOSINUSITIS 9) HCTZ 25MG/LOSARTAN 100MG TAB TAKE 1 TABLET BY MOUTH EVERY ACTIVE MORNING Indication: FOR HIGH BLOOD PRESSURE 10) LANCET,SOFTCLIX USE LANCET FOR BLOOD TEST TWICE A DAY USE ACTIVE DIRECTED. Indication: FOR BLOOD SUGAR MONITORING 11) LIDOCAINE 5% PATCH APPLY 1 PATCH [...] TAKE WITH OR IMMEDIATELY FOLLOWING FOOD. 15) MOXIFLOXACIN (EQV-VIGAMOX) 0.5% OPH SOLN INSTILL 1 DROP IN HOLD RIGHT EYE FOUR TIMES A DAY Indication: FOR BACTERIAL EYE INFECTION 16) NEEDLE,PEN 31G,5MM USE 1 NEEDLE UNDER THE SKIN ONCE A DAY ACTIVE Indication: FOR USE WITH VICTOZA 17) PREDNISOLONE ACETATE 1% OPH SUSP INSTILL 1 DROP IN RIGHT EYE HOLD FOUR TIMES A DAY Indication: FOR EYE INFLAMMATION 4. DISCHARGE INTRUCTIONAL MATERIALS * To be printed by Nurse and provided to patient * Resume all usual medications. * Tylenol every 4-6 hours as needed for pain. 5. WOUND MANAGEMENT: * No eye rubbing * Leave the eye shield on until you see the doctor * Wear shield at bedtime for the first week after surgery. 6. DISCHARGE DIETARY INSTRUCTIONS: No Dietary Instructions If you have questions, contact the dietitians at [facility] or [facility]. 7. DISCHARGE PHYSICAL ACTIVITY INSTRUCTIONS: * Avoid strenuous activity, bending, or heavy lifting for two weeks. * Avoid swimming for two weeks. * You may start showering the day after surgery (after your follow-up visit), but do not run water directly on the eye. 8. WORSENING and/or DANGEROUS SYMPTOMS TO REPORT (Phys. entry required): * Worsening vision * Worsening pain/redness * Floaters, flashes, or dark/wavy shade advancing across the vision If you experience any of these symptoms, please call: [facility] HOURS: Eye Clinic AFTER HOURS: Call [facility] back strip machine operator , ask for eye doctor telephone triage nurse Copy Provided to Patient, Discussed with family/spouse /es/ AURA CHAVEZ MD, BIANKA RESIDENT PHYSICIAN Signed: 02/14/2025 08:[address] [facility] Feb 14, 2025 06:49 AM NURSING NOTE: LOCAL TITLE: VAAES NSG IV INSERTION AND MAINTENANCE STANDARD TITLE: NURSING NOTE DATE OF NOTE: FEB 14, 2025@06:49 ENTRY DATE: FEB 14, 2025@06:49:35 AUTHOR: WILFREDO JUSTIN EXP COSIGNER: URGENCY: STATUS: COMPLETED Version 2.2 Charting in accordance with [place] APPROVED [place] STANDARD (CAAES) ACUTE INPATIENT/REHABILITATION NURSING ADMISSION SCREENING, ASSESSMENT, AND STANDARDS OF CARE ======== IV Line Insertion and Maintenance ======== ======== Peripheral IV ======== Line #1: Insertion: Date/Time: Jan@06:35 Inserted by (name): Maximo Freeman RN Location: Left, Forearm Gauge: 22 /es/ WILFREDO JUSTIN RN REGISTERED NURSE Signed: 02/14/2025 06:50 [facility] Feb 14, 2025 06:38 AM SURGERY NURSING MS MAGGIE NOTE: LOCAL TITLE: S[facility] AETC PREOPERATIVE-PREPROCEDURAL STL STANDARD TITLE: SURGERY NURSING PROCEDURE NOTE DATE OF NOTE: FEB 14, 2025@06:38 ENTRY DATE: FEB 14, 2025@06:38:05 AUTHOR: WILFREDO JUSTIN EXP COSIGNER: URGENCY: STATUS: COMPLETED [facility] AETC PREOPERATIVE-PREPROCEDURAL STL Has ADDENDA AETC PRE-OPERATIVE/PRE-PROCEDURAL ASSESSMENT TEST Procedure:rt eye cataract Service:Ophth ARRIVAL TIME: Jan@06:32 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 No History of cancer diagnosis? Yes If yes, comment:skin/kidney History of radiation therapy to planned surgical field(s)?No History of sleep apnes?No Vision Aids Eyeglasses Dentures:Yes If yes: Upper partial Hearing Aides:No Ambulatory Aides:No Personal Belongings Belongings given to family member. 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 No Pain Yes If yes Acute Comment:07/28 left knee Do you have a history of tobacco use?Yes No tobacco use in the last 12 months Do you have an Advance Directive?No Nursing care plan STANDARD OF CARE / PRACTICE INITIAL NURSING DIAGNOSIS: AETC Alteration in Comfort and Knowledge Related to: Invasive procedure: rt eye cataract EXPECTED OUTCOMES: Patient Will: X Verbalize an understanding of procedure. Target Date:Jan X Verbalize effective use of pain medication. Target Date:Jan X Be free of complications post-procedure. Target Date:Jan X Verbalize knowledge of discharge instructions and follow-up care. Target Date:Jan NURSING INTERVENTIONS: PHYSIOLOGICAL 1. Assess and monitor vital signs and respiratory status pre and post-procedure. INITIATED 2. Assess need for PT/OT instruction prior to procedure (i.e.,crutch training). NOT APPLICABLE 3. Assess incision site/dressing for drainage, bleeding, hematoma, and site pain post-procedure. INITIATED 4. Initiate appropriate wound care post-procedure. INITIATED 5. Maintain IV access and parenteral infusions pre and post- procedure. INITIATED 6. Assess post-procedure for adequate oral intake, urinary elimination, and return of prior motor function. INITIATED COMFORT 7. Monitor for pain (location, intensity, frequency and precipitating factors). INITIATED 8. Administer, evaluate and document the effectiveness of pain medication. INITIATED SAFETY 9. Keep call light within reach and reinforce calling for assistance as needed. INITIATED 10. Explain and reinforce smoking policy. INITIATED 11. Other: NOT APPLICABLE INFECTION CONTROL 12. Maintain Standard Precautions and explain need to patient/significant others. INITIATED EQUIPMENT NEEDS 13. Assess and provide equipment/supplies required to provide safe patient care. INITIATED KNOWLEDGE (PATIENT EDUCATION) 14. Provide teaching specific to patient's needs: X NPO status X IV therapy X Pain management Early mobility Turning, coughing and deep breathing Incentive spirometer BASIA hose Other: INITIATED 15. Instruct patient/significant other on homecare requirements. INITIATED 16. Signs and symptoms to report to health care team. INITIATED PSYCHOSOCIAL / FUNCTIONAL 17. Encourage feedback related to patient's expectations/concerns related to procedure. INITIATED 18. Assess patient/significant other's ability to manage and comply with discharge instructions. INITIATED DISCHARGE PLANNING 19. Assure appropriate transportation available upon discharge. INITIATED 20. Encourage patient to keep all follow-up clinic appointments. INITIATED 21. Continue discharge planning/aftercare with patient/significant other using interdisciplinary approach: X Physician/Service: Opth PT OT Community Support Groups: Other: INITIATED 22. Other interventions specific to patient: NOT APPLICABLE THE ABOVE EXPECTED OUTCOMES (GOALS) HAVE BEEN MUTUALLY SET WITH: Patient Nursing Diagnosis: Anxiety Goals/Outcomes: Assess and monitor vital signs and respiratory status pre and post-procedure. INITIATED Interventions: Monitor vital signs Nursing Diagnosis: Pain, Acute/Chronic Goals/Expected Outcomes: Patient states and carries out out appropriate interventions for pain relief. Interventions Plan activites with patient to provide distraction. Physician/Service: Ophth PT OT Community Support Groups: Other: INITIATED Learning Assessment: - * This patient's learning ABILITIES, BARRIERS to learning, CULTURAL and [place] beliefs, and learning PREFERENCES were assessed. Following are findings of note: Patient reads well. LANGUAGE Patient reports that Polish is preferred language for healthcare. /shadi/ WILFREDO JUTSIN RN REGISTERED NURSE Signed: 02/14/2025 06:44 02/14/2025 ADDENDUM STATUS: COMPLETED 0643am Cyclopentolate 1%, phenylephrine 2.5% tropicamide 1% each gtt 1gtt given for 3times to right eye - 2mins apart after being scanned into the [facility]. /shadi/ WILFREDO JUSTIN RN REGISTERED NURSE Signed: 02/14/2025 06:52 02/14/2025 ADDENDUM STATUS: COMPLETED 0801am patient to OR per stretcher for rt eye cataract surgery. Belongings given to family. /shadi/ WILFREDO JUSTIN RN REGISTERED NURSE Signed: 02/14/2025 08:02 02/14/2025 ADDENDUM STATUS: COMPLETED Pt returns to room at 0845 via stretcher, Right eye shield taped in place, denies complaints of pain, pt given eye card and tape, vss, A&Ox4, verbalized understanding of discharge instructions, pal removed, bed locked in low position, will continue to monitor. /es/ MAXIMO LANDRY RN REGISTERED NURSE Signed: 02/14/2025 08:52 02/14/2025 ADDENDUM STATUS: COMPLETED 904 discharged by wheel chair with assistance of transport. AETC DISCHARGE NURSING DIAGNOSIS: AETC Alteration in Comfort and Knowledge Related to: Invasive procedure: right eye cataract/lens EXPECTED OUTCOMES MET BY PATIENT: Verbalizes an understanding of procedure. Verbalizes effective use of pain medication. Is free of complications post-procedure. Verbalizes knowledge of discharge instructions and follow-up care. Patient/significant other demonstrates procedures / skills for effective home care., Decreased level of anxiety related to discharge/home care achieved. Comment: ASSESSMENT: Patient is awake and oriented: Yes Vital signs stable: Yes Temperature < 101 F: Yes Wound site stable: Yes Tolerates fluids: Yes Minimal nausea: Yes Able to urinate: Yes Able to ambulate: Yes Patient is free of dyspnea: Yes Patient is free of pain: Yes Pain Score:0 Comment: DISCHARGE: Discharge Summary Date/Time:90402/14/25 Discharge instruction sheet given to patient: Yes Patient instructed on:For two weeks: no bending over, heavy lifting over 8 pounds, no rubbing eye, no laying on surgical side, no swimming, letting shower water hit the eye, prescription eye drops were explained to pt, appointment, call the eye Dr by phone numbers that were supplied if any floaters, flashes of light, wavy lines, redness, worsening sight, pain, Mode of discharge: wheelchair Accompanied by: Family member, Verbalized understanding of plan of care Follow-up appointment: Clinic: ophth Date/Time:02/15/2530 /shadi/ MAXIMO LANDRY RN REGISTERED NURSE Signed: 02/14/2025 09:07 WILFREDO JUSTIN [facility] Feb 06, 2025 09:17 AM H & P NOTE: LOCAL TITLE: HISTORY AND PHYSICAL EXAMINATION [facility] STANDARD TITLE: H & P NOTE DATE OF NOTE: FEB 06, 2025@09:17 ENTRY DATE: FEB 06, 2025@09:17:43 AUTHOR: AURA CHAVEZ EXP COSIGNER: URGENCY: STATUS: COMPLETED Chief Complaint: Visually significant cataract right eye Surgery Date: February 14, 2025 Outpatient medication list has been compared to the admission order medication list: [x] there are no discrepancies [ ] the following medication(s) were held for the following reason(s): History of Present Illness: Here for cataract surgery OD Significant past medical/social family history: n/a Pertinent Review of Systems: Blurry vision OD Pertinent Examination: Visually significant cataract right eye Diagnosis/Conclusion/Impress ion: Visually significant combined cataract right eye Plan: Cataract extraction and intraocular lens implantation, right eye /shadi/ AURA CHAVEZ MD, BIANKA RESIDENT PHYSICIAN Signed: 02/06/2025 09:18 AURA CHAVEZ [facility]
--- OUTSIDE RECORDS SUMMARY | 2025-02-17 15:30 | XMS_ITS ---
Author Name [facility] [place] [facility] [place] [facility] [facility] [place] Address [address] [place] [address] Care Team Providers Care Stock Associate Name Role Phone MORELIA ALLEN Primary Care [...] PART A Mar 19, 2014 PART A [id number] [place] PATIENT MEDICARE (WNR) MEDICARE (M) PART A Mar 19, 2014 PART A [id number] [phone] [place] PATIENT Selected Encounter This section includes the information on record at [place] for the Encounter. Date/Time Encounter Type Encounter Description Reason Provider Source Dec 27, 2024 01:01 PM [facility] OL DIG ASSMT&MGMT 5-10 CLINICAL PHARMACY ICD-10-CM E11.8 Type 2 diabetes mellitus with unspecified complications AIDAN SANTIAGO Encounter Template Text not used by [place] Assessments - Encounter Diagnoses This section includes the primary and secondary diagnoses documented for the Encounter. Date/Time Primary/Secondary Diagnosis Diagnosis Name Provider Source Dec 27, 2024 01:12 PM PRIMARY Type 2 diabetes mellitus with unspecified complications AIDAN SANTIAGO [facility] Plan of Treatment: Future Appointments (+ 6 months) and Future Tests (+/- 45 days) The Plan of Treatment section includes [facility] care activities [facility] the [facility] [place] [facility] This section includes future appointments and future orders which are active, pending or scheduled. Future Appointments This section includes appointments that were scheduled to occur 6 months from the date of the Encounter, up to a maximum of 20 appointments. The data comes from all [place] treatment facilities. Appointment Date/Time Appointment Type Appointme nt Facility Name Dec 29, 2024 08:00 AM AMBULATORY - REHAB MEDICIN E [facility] 2025 02:30 PM AMBULATORY - REHAB MEDICIN E [facility] Jan 12, 2025 11:30 AM AMBULATORY - NONE [facility] Jan 12, 2025 04:00 PM AMBULATORY - SURGERY [facility] Jan 18, 2025 11:00 AM AMBULATORY - [facility]ERY [facility] Feb 07, 2025 11:00 AM [facility]ULATORY [facility] Feb 14, 2025 06:30 AM AMBULATORY - NONE [facility] Feb 15, 2025 08:30 AM AMBULATORY - SURGERY [facility] Feb 22, 2025 08:00 AM AMBULATORY - SURGERY [facility] Feb 28, 2025 09:00 AM AMBULATORY - SURGERY [facility] Mar 06, 2025 08:30 AM AM[facility]ULATORY [facility] NONE [facility] Mar 12, 2025 01:30 PM AMBULATORY - SURGERY [facility] Mar 16, 2025 08:30 AM AMBULATORY - [facility]GERY [facility] May 31, 2025 11:00 AM AMBULATORY - MEDICINE [facility] Active, Pending, and Scheduled Orders This section includes a listing of several types of active, pending, and scheduled orders, including clinic medications orders, diagnostic test orders, procedure orders and consult orders; where the start date of the order is 45 days before the date of the Encounter or 45 days after the date of theEncounter. The data comes from all [place] treatment facilities. Test Date/Time Test Type Test Details Facility Name Dec 29, 2024 12:00 AM Laboratory - Chemi stry Order BASIC METABOLIC PANEL GREEN LI/HEP BLD/PLAS PLASMA SP [facility] Lab Results: +/- 30 days of the encounter This section includes the Chemistry and Hematology Lab Results on record with [place] for the patient. Radiology Reports and Pathology Reports are provided separately, in subsequent sections. Lab Results This section contains the Chemistry/Hematology Results that were resulted 30 days before or 30 daysafter the date of the Encounter. Date/Time Source Result Type Result - Unit Interpretation Reference Range Specimen Type Comment Jan 12, 2025 01:10 PM [facility] GLUCOSE,BLOOD-poct (STL) BLOOD Specimen Type: BLOOD Comment: Test Performed by: [id number] Meter #: [id number] Ordering Provider: MORELIA ALLEN Report Released Date/Time: Jan 12, 2025 01:12 PM Reporting Lab: [address] [address] Performing Lab: [address] [address] GLUCOSE,BLOOD-poct (STL) 150 mg/dL H 72-99 Jan 12, 2025 11:38 AM [facility] GLUCOSE,BLOOD-poct (STL) BLOOD Specimen Type: BLOOD Comment: Test Performed by: [id number] Meter #: [id number] Ordering Provider: MORELIA ALLEN Report Released Date/Time: Jan 12, 2025 11:48 AM Reporting Lab: [address] [address] Performing Lab: [address] [address] GLUCOSE,BLOOD-poct (STL) 147 mg/dL H 72-99 Social History: Smoking Status (Most current) and Tobacco Use (All prior to encounter date) This section includes the most current, and the historical, smoking and tobacco- related health factors from the [place] facility where the Encounter took place. Current Smoking Status This section includes the most current smoking, or tobacco-related health factor, from the [place] facility where the Encounter took place. Date/Time Current Smoking Status Comment Ronda vallejo Jun 19, 2023 02:53 AM ORYX ADMIT TOBACCO SCREEN NO [facility] Tobacco Use History This section includes a history of the smoking, or tobacco-related health factors, that were collected on or before the date of the Encounter. The data comes from the [place] facility where the Encounter took place. Date/Time Smoking Status/Tobacco Use Comment Kirstin eve Apr 02, 2016 12:55 PM QUIT TOBACCO >7 YEARS AGO [facility] May 21, 2015 01:30 PM LIFETIME NON-USER OF TOBACCO [facility] Jan 03, 2014 10:46 AM LIFETIME NON-USER OF TOBACCO [facility] Feb 21, 2013 11:08 AM QUIT TOBACCO >12 M O & <7 YRS AGO [facility] Aug 19, 2009 12:46 PM LIFETIME NON-USER OF TOBACCO [facility] Oct 05, 2008 10:28 AM QUIT TOBACCO >12 M O & <7 YRS AGO [facility] November 18, 2007 09:08 AM QUIT TOBACCO IN TH E LAST 12 MONTHS [facility] Aug 05, 2006 12:57 PM CURRENT TOBACCO USER [facility] Aug 05, 2006 12:57 PM TOB-DECLINES SMOKI NG CESSATION REFERRAL [facility] Jan 13, 2006 08:42 AM CURRENT TOBACCO USER [facility] Jan 13, 2006 08:42 AM SMOKER 1-2 PACKS [facility] Advance Directives: All historical and current Section Date Range: From patient's date of to the date document was created. This section includes ALL of a patient's completed or amended [place] Advance and Rescinded Directives. The entries below indicate that a directive exists for the patient, but an actual copy is not included with this document. The data comes from all [place] facilities. Date Advance Directives Provider Source Jan 22, 2016 ADVANCE DIRECTIVE DISCUSSION AMBERLY [facility] Mar 31, 2007 ADVANCE DIRECTIVE JOSE C ALLEN [facility] Radiology Reports: +/- 30 days of [...] the Encounter. The data comes from all [place] treatment facilities. Date/Time Radiology Report Provider Source Dec 18, 2024 11:32 AM SPINE LUMBOSACRAL 2 OR 3 VIEWS: ALLAN LOVETT [id number] -[id number] M Exm Date: DEC 18, 2024@11:32 Req Phys: JOSE FRANCISCO RAY Loc: [facility]-PACT PHONE NURSE E4 (Req'g Img Loc: [facility] Service: [address] [address] (Case [id number] COMPLETE) SPINE LUMBOSACRAL 2 OR 3 VIEWS (RAD Detailed) CPT:48975 Reason for Study: low back pain Clinical History: Report Status: Verified Date Reported: DEC 18, 2024 Date Verified: DEC 18, 2024 Video Control Engineer E-Sig:/ES/CHRIS HAMMOND MD Report: Case #[id number]. Lumbar [...] CHRIS HAMMOND MD, Staff Physician - Radiologist (Video Control Engineer) /CH[facility]IS [facility] Encounter Notes: All associated encounter notes This section contains the clinical notes associated to the Encounter. Date/Time Encounter Note(s) Provider Source Dec 27, 2024 01:01 PM PHARMACY CONSULT: LOCAL TITLE: PHARMACY PRIOR APPROVAL CONSULT STL STANDARD TITLE: PHARMACY CONSULT DATE OF NOTE: DEC 27, 2024@13:01 ENTRY DATE: DEC 27, 2024@13:02:04 AUTHOR: AIDAN SANTIAGO COSIGNER: URGENCY: STATUS: COMPLETED The medical record has been reviewed with regard to this prior authorization drug request. Medication requested: LIRAGLUTIDE (EQV-VICTOZA) 6MG/ML PEN 3ML Medication indication: Type 2 Diabetes Mellitus Medical history relevant to this request: ALLAN LOVETT is a 74 yo MALE with pertinent PMH significant for T2DM. Provider requesting renewal of liraglutide. Current DM Regimen: - Liraglutide 1.2 subQ daily - Metformin 1000mg PO BID A1c Target: <7.5% SODIUM 141 mEq/L 11/23/2024 09:41 POTASSIUM 4.4 mEq/L 11/23/2024 09:41 CHLORIDE 106 mEq/L 11/23/2024 09:41 UREA NITROGEN 24.0 mg/dL 11/23/2024 09:41 CREATININE 0.96 mg/dL 11/23/2024 09:41 CALCIUM 9.4 mg/dL 11/23/2024 09:41 CARBON DIOXIDE 28 mEq/L 11/23/2024 09:41 GLUCOSE 153 H mg/dL 11/23/2024 09:41 EGFR (CKD-EPI 2020) 82.43 11/23/2024 09:41 HGA1C 6.8 H % 11/23/2024 09:41 HGA1C 6.9 H % 08/31/2024 08:25 HGA1C 6.5 H % 04/13/2024 11:44 HGA1C 6.7 H % 12/28/2023 09:42 HGA1C 6.5 H % 09/22/2023 08:56 Last eye exam: 03/09/24 1.Type 2 Diabetes without retinopathy - No DME/CSME OU- confirmed w/ OCT Mac - Last HGA1C: 6.7% - Pt ed on the importance of maintaining tight BG control to reduce the risk for diabetic ocular complications - Monitor annually w/ DFE - A1c within goal range on liraglutide + metformin. Hx of ADRs to semaglutide and dulaglutide. Avoiding SGLT2i d/t UTI and kidney stone hx. uACR>30. - Will approve request as above. The request is approved - A documented adverse reaction occurred with the preferred formulary alternative(s) TIME REVIEWING CHART:7. (minutes) /shadi/ Aidan Santiago PharmD, BCPS, BCIDP Clinical Pharmacy Practitioner Signed: 12/27/2024 13:20 AIDAN SANTIAGO [facility]
--- OUTSIDE RECORDS SUMMARY | 2025-02-17 15:30 | XMS_ITS | Encounter Summary ---
Author Name [facility] [place] [facility] [place] Address [address] [place] [address] Care Team Providers Care Manager Of Environmental Services Name Role Phone MORELIA ALLEN Primary Care [...] PART A Mar 19, 2014 PART A [id number] [phone] [place] PATIENT MEDICARE (WNR) MEDICARE (M) PART A Mar 19, 2014 PART A [id number] [place] PATIENT Selected Encounter This section includes the information on record at [place] for the Encounter. Date/Time Encounter Type Encounter Description Reason Provider Source May 11, 2024 11:00 AM MTMS BY PHARM ADDL 15 MIN CLINICAL PHARMACY ICD-10-CM E11.8 Type 2 diabetes mellitus with unspecified complications JULIANNA BLAS Encounter Template Text not used by [facility] Assessments - Encounter Diagnoses This section includes the primary and secondary diagnoses documented for the Encounter. Date/Time Primary/Secondary Diagnosis Diagnosis Name Provider Source May 11, 2024 03:53 PM PRIMARY Type 2 diabetes mellitus with unspecified complications JULIANNA BLAS [facility] May 11, 2024 03:53 PM SECONDARY Essential (primary) hypertension JULIANNA BLAS [facility] May 11, 2024 03:53 PM SECONDARY Hyperlipidemia, unspecified JULIANNA BLAS [facility] Plan of Treatment: Future Appointments (+ 6 months) and Future Tests (+/- 45 days) The Plan of Treatment section includes future care activities for the patient [facility] This section includes future appointments and future orders which are active, pending or scheduled. Future Appointments This section includes appointments that were scheduled to occur 6 months from the date of the Encounter, up to a maximum of 20 appointments. The data comes from all [place] treatment facilities. Appointment Date/Time Appointment Type Appointme nt Facility Name May 12, 2024 09:00 AM AMBULATORY - REHAB MEDICIN E [facility] Jun 01, 2024 11:30 AM AMBULATORY - MEDICINE [facility] Jun 08, 2024 11:00 AM AMBULATORY - NONE [facility] Jul 03, 2024 10:00 AM AMBULATORY - SURGERY [facility] Jul 20, 2024 09:00 AM AMBULATORY - NONE [facility] Aug 31, 2024 09:00 AM AMBULATORY - NONE [facility] Sep 12, 2024 01:00 PM AMBULATORY - MEDICINE [facility] Oct 11, 2024 10:30 AM AMBULATORY - NONE [facility] Nov 07, 2024 09:15 AM AMBULATORY - MEDICINE [facility] Lab Results: +/- 30 days of [...] Type Comment Jun 01, 2024 11:11 AM [facility] LIPID PANEL (STL) PLASMA Specimen Type: PLASMA Comment: No hemolysis noted. Ordering Provider: JOSE OTTO Report Released Date/Time: Jun 01, 2024 10:24 AM Reporting Lab: [facility] [address] [place] [address] Performing Lab: [facility] [address] [place] [address] CHOLESTEROL 113 mg/dL 0-200 TRIGLYCERIDE 187 mg/dL H 0-150 CALCULATED LDL 40 mg/dL See Interp HDL(New) 36 mg/dL L > 40 Jun 01, 2024 11:11 AM [facility] PROST. SPECIFIC AG.(PB-STL) SERUM Specimen Ty pe: SERUM Comment: The listed sex of this patient may not be a typical indication for this test. Therefore, reference ranges or interpretive criteria listed may not be valid. Clinical correlation suggested. Ordering Provider: JOSE OTTO Report Released Date/Time: Jun 01, 2024 10:24 AM Reporting Lab: [facility] [place] [address] Performing Lab: [facility] [address] [place] [address] PROST. SPECIFIC AG.(PB-STL) 0.653 ng/mL 0.000-4.000 Jun 01, 2024 11:11 AM [facility] TSH W/ REFLEX FT4 (STL) PLASMA Specimen Type: PLASMA No comment entered. Ordering Provider: JOSE OTTO Report Released Date/Time: Jun 01, 2024 10:24 AM Reporting Lab: [facility] [address] [place] [address] Performing Lab: [facility] [address] [place] [address] TSH 1.049 u[IU]/mL 0.470-5.000 Jun 01, 2024 11:11 AM [facility] COMPREHENSIVE METABOLIC PANEL PLASMA Specimen Type: PLASMA Comment: No hemolysis noted. Ordering Provider: JOSE OTTO Report Released Date/Time: Jun 01, 2024 10:24 AM Reporting Lab: [facility] [place] [address] Performing Lab: [facility] [place] [address] CREATININE 0.87 mg/dL 0.70-1.30 UREA NITROGEN 17.4 [...] 89.98 >60 Jun 01, 2024 11:11 AM [facility] VITAMIN D, 25-HYDROXY SERUM Specimen Type: SE RUM Comment: The listed sex of this patient may not be a typical indication for this test. Therefore, reference ranges or interpretive criteria listed may not be valid. Clinical correlation suggested. Ordering Provider: JOSE OTTO Report Released Date/Time: Jun 01, 2024 10:24 AM Reporting Lab: [facility] [address] Performing Lab: [facility] [place] [address] VITAMIN D, 25-HYDROXY 31.3 ng/mL 30-96 Jun 01, 2024 11:11 AM [facility] THYROXINE SERUM Specimen Type: SERUM Comment: The listed sex of this patient may not be a typical indication for this test. Therefore, reference ranges or interpretive criteria listed may not be valid. Clinical correlation suggested. Ordering Provider: JOSE OTTO Report Released Date/Time: Jun 01, 2024 10:24 AM Reporting Lab: [facility] [address] Performing Lab: [facility] [address] THYROXINE 6.36 ug/dL 4.50-12.00 Jun 01, 2024 11:11 AM [facility] CBC BLOOD Specimen Type: BLOOD No comment entered. Ordering Provider: JOSE OTTO Report Released Date/Time: Jun 01, 2024 10:24 AM Reporting Lab: [facility] [address] Performing Lab: [facility] [address] WBC 7.1 10*3/uL 3.6-11.2 RBC 4.74 10*6/uL [...] 0.00-0. 20 Jun 01, 2024 11:10 AM [facility] BASIC METABOLIC PANEL PLASMA Specimen Type: PL ASMA Comment: No hemolysis noted. Ordering Provider: JULIANNA BLAS Report Released Date/Time: Mar 01, 2024 04:29 PM Reporting Lab: [facility] [place] [address] Performing Lab: [facility] [place] [address] CREATININE 0.87 mg/dL 0.70-1.30 UREA NITROGEN 17.3 mg/dL 9.0-25.0 GLUCOSE 142 mg/dL H 72-99 SODIUM 138 meq/L 136-145 POTASSIUM 3.8 meq/L 3.5-5.0 CHLORIDE 103 meq/L 98-107 CARBON DIOXIDE 25 meq/L 22-31 CALCIUM 9.6 mg/dL 8.4-10.4 EGFR (CKD-EPI 2020) 89.98 >60 May 11, 2024 11:44 AM [facility] MICRAL/CREAT PROFILE (STL) URINE Specimen Typ e: URINE No comment entered. Ordering Provider: JULIANNA BLAS Report Released Date/Time: May 11, 2024 11:35 AM Reporting Lab: [facility] [place] [address] Performing Lab: [facility] [place] [address] URINE ALBUMIN (PB-STL) 405 mg/L No range refer to micral/creat ratio uACR (STL) 473 mg/g H 0-29 CREATININE URINE/OTHERS 85.6 mg/dL 63.0- 166.0 Apr 13, 2024 11:44 AM [facility] HGA1C BLOOD Specimen Type: BLOOD No comment entered. Ordering Provider: JULIANNA BLAS Report Released Date/Time: Apr 13, 2024 11:22 AM Reporting Lab: [facility] [address] Performing Lab: [facility] [address] [place] [address] HGA1C 6.5 H 4.0-6.0 Apr 13, 2024 11:44 AM [facility] BASIC METABOLIC PANEL PLASMA Specimen Type: PL ASMA Comment: No hemolysis noted. Ordering Provider: SHOR,JULIANNA LORENA Report Released Date/Time: Apr 13, 2024 11:22 AM Reporting Lab: [facility] [place] [address] Performing Lab: [facility] [place] [address] CREATININE 0.83 mg/dL 0.70-1.30 UREA NITROGEN 20.3 mg/dL 9.0-25.0 GLUCOSE 82 mg/dL 72-99 SODIUM 139 meq/L 136-145 POTASSIUM 4.5 meq/L 3.5-5.0 CHLORIDE 105 meq/L 98-107 CARBON DIOXIDE 26 meq/L 22-31 CALCIUM 9.7 mg/dL 8.4-10.4 EGFR (CKD-EPI 2020) 91.27 >60 Vital Signs: All taken on the encounter date This section contains inpatient and outpatient Vital Signs collected on the date of the Encounter. Date/Time Temperature Pulse Blood Pressure Respiratory Rate SP02 Pain Height Weight Body Mass Index Source May 11, 2024 11:30 AM 66 159/75 [facility] May 11, 2024 11:25 AM 70 167/80 [facility] Social History: Smoking Status (Most current) and Tobacco Use (All prior to encounter date) This section includes the most current, and the historical, smoking and tobacco- related health factors from the [place] facility where the Encounter took place. Current Smoking Status This section includes the most current smoking, or tobacco-related health factor, from the [place] facility where the Encounter took place. Date/Time Current Smoking Status Comment Ronda vallejo November 30, 2023 03:00 PM VA-TOBACCO FORMER USER [facility] Tobacco Use History This section includes a history of the smoking, or tobacco-related health factors, that were collected on or before the date of the Encounter. The data comes from the [place] facility where the Encounter took place. Date/Time Smoking Status/Tobacco Use Comment F eve November 30, 2023 03:00 PM VA-TOBACCO QUIT 15 YRS OR MORE [facility] Jun 02, 2023 10:00 AM VA-TOBACCO FORMER USER [facility] Jun 02, 2023 10:00 AM VA-TOBACCO QUIT [address] [facility] Advance Directives: All historical and current Section Date Range: From patient's date of to the date document was created. This section includes ALL of a patient's completed or amended [place] Advance and Rescinded Directives. The entries below indicate that a directive exists for the patient, but an actual copy is not included with this document. The data comes from all [place] facilities. Date Advance Directives Provider Source Jan 22, 2016 ADVANCE DIRECTIVE DISCUSSION AMBERLY HOFFMAN [facility] Mar 31, 2007 ADVANCE DIRECTIVE JOSE C ALLEN [facility] Encounter Notes: All associated encounter notes This section contains the clinical notes associated to the Encounter. Date/Time Encounter Note(s) Provider Source Jun 04, 2024 07:07 AM PHYSICIAN LETTERS: LOCAL TITLE: TEST RESULT GENERAL LETTER STL STANDARD TITLE: PHYSICIAN LETTERS DATE OF NOTE: JUN 04, 2024@07:07 ENTRY DATE: JUN 04, 2024@07:07:24 AUTHOR: JULIANNA BLAS EXP COSIGNER: URGENCY: STATUS: COMPLETED [facility] [address] [place] [address] JUN 04, 2024 ALLAN GUSTAFSON [address] [place], [place] [address] Dear Allan Gustafson, I would like to update you on your recent test results. CHEM 7 - This is important information [...] 11:11 These readings are within normal limits. PLAN Please continue your treatment as we discussed during your visit. If you have any questions please call your transplant case manager. I look forward to seeing you at your next clinic appointment. Thank you for choosing the [facility] for your healthcare. FUTURE APPOINTMENTS: 06/08/2024 11:00 [facility]-PACT TM E PHARM IND 02 07/03/2024 10:00 [facility]-UROLOGY MD 1 11/07/2024 09:15 [facility] 02/28/2025 09:00 [facility]-OPTOMETRY 4 03/12/2025 13:30 [facility]-UROLOGY 1 05/31/2025 11:00 [facility]-PACT E4 PCP Sincerely, Julianna Blas, Pharm.D., [facility] Clinical Bookkeeper ALLAN GUSTAFSON EMILY MICHELLE [facility] May 12, 2024 07:56 AM ADDENDUM: LOCAL TITLE: Addendum STANDARD TITLE: ADDENDUM DATE OF NOTE: MAY 12, 2024@07:56:29 ENTRY DATE: MAY 12, 2024@07:56:31 AUTHOR: JULIANNA BLAS EXP COSIGNER: URGENCY: STATUS: COMPLETED Alerting PCP + urology: Vet endorsing that he has to urinate every 1.5-2 hours which he is finding bothersome. He requests f/u to determine whether he is a candidate for any additional work-up v. intervention. /shadi/ Julianna Blas, Pharm.DThanh, [facility] Clinical Bookkeeper Signed: 05/12/2024 07:58 Receipt Acknowledged By: 05/29/2024 11:43 /shadi/ JOSE OTTO NURSE PRACTITIONER 05/12/2024 13:45 /shadi/ RAYSA FINN RESIDENT PHYSICIAN, UROLOGY --- Original Document --- 05/11/24 CLINICAL PHARMACIST NOTE STL: CLINICAL PHARMACY FOLLOW-UP Subjective: ALLAN GUSTAFSON is a 74 MALE who presents to clinic for follow up on DM, HTN, HLD. PMH: 1) Essential hypertension (SNOMED CT 40859890) 2) Obesity (SNOMED CT 210643274) 3) Osteoarthritis of knee (SNOMED CT 662680803) 4) Carcinoma in situ of kidney (SNOMED CT 27280898) 5) Squamous cell carcinoma of skin (SNOMED CT 707431352) 6) Sclerosis 7) History of drug abuse 8) H/O: alcoholism 9) Rosacea 10) Kidney stone 11) Allergic rhinitis 12) Erectile Dysfunction (SCT 164625755) 13) Polyp Colon (SCT 06207611) 14) Hyperlipidemia 15) Hearing loss 16) Squamous cell carcinoma of scalp 17) Recurrent ventral incisional hernia 18) Nicotine dependence in remission 19) Vitamin B12 deficiency (non anemic) 20) Exposure to potentially hazardous substance 21) Peripheral Neuropathy with Type 2 Diabetes (SCT 5631397769832) During the last contact with vet, the following changes were made: - continue metformin 1000mg PO BID - increase dulaglutide to 1.5mg weekly - continue HCTZ/losartan 12.5/100mg PO daily - continue metoprolol tartrate 12.5mg PO BID - continue atorvastatin 10mg PO daily During current visit: - has taken one dose of dulaglutide 1.5mg weekly. No diarrhea thus far- first dose was yesterday. - Had intermittent but tolerable diarrhea with dulaglutide 0.75mg weekly. - overall eating less/smaller meals - has gained some weight since knee surgery (7w ago) d/t limited mobility, more sedentary - patient voices concern about frequent urination - will alert pcp/urology Dietary/Lifestyle/Social History modifications made: - less active d/t knee surgery - banana, yogurt every day for breakfast - eat breakfast out once/week: ham, cheese omelet - yesterday dinner : fried chicken, coleslaw, potato - drinks tea (truvia), water throughout the day - doesn't snack much: beef jerky, wheat crackers and cheese ROS: DM (+) hypoglycemia symptoms or values <80 mg/dL - every once in a while when he hasn't eaten in a while; carries candies with him (-) hyperglycemia symptoms (-) tingling/numbness HLD (-) muscle pain/cramps HTN (-) hypotension symptoms or value <90/60 mmHg (-) orthostasis (-) edema (-) cough (-) visual complaints (-) TIA symptoms (-) chest pain (-) [place] Objective: Allergies: IODINATED CONTRAST MEDIA, LISINOPRIL, SEMAGLUTIDE Medications: Active and Recently Outpatient Medications (excluding [...] 5) CYCLOSPORINE 0.05% (PF) OPH EMUL 0.4ML INSTILL 1 DROP ACTIVE IN BOTH EYES TWICE A DAY FOR DRY EYES (USE EVERY 12 HRS) 6) DICLOFENAC NA 1% TOP GEL APPLY 4 GM TO AFFECTED ACTIVE AREA(S) FOUR TIMES A DAY NEEDED FOR PAIN DO NOT EXCEED MORE THAN 16 GRAMS DAILY TO ANY LOWER EXTREMITY JOINT. NOT MORE THAN 8 GRAMS DAILY TO ANY UPPER EXTREMITY JOINT. MAX 32GM/DAY OVER ALL JOINTS. (MEASURE DOSE WITH RULER ATTACHED INSIDE BOX) 7) DULAGLUTIDE 1.5MG/0.5ML INJ PEN INJECT 1.5MG UNDER ACTIVE THE SKIN EVERY WEEK FOR DIABETES (ADMINISTER DOSE AT ANY TIME OF DAY, WITH OR WITHOUT MEALS) 8) HCTZ 12.5MG/LOSARTAN 100MG TAB TAKE 1 TABLET BY MOUTH ACTIVE EVERY MORNING FOR HIGH BLOOD PRESSURE 9) METFORMIN HCL 1000MG TAB TAKE ONE TABLET BY MOUTH ACTIVE TWICE A DAY WITH MEALS TO LOWER BLOOD SUGAR 10) METOPROLOL TARTRATE 25MG TAB TAKE ONE-HALF TABLET BY ACTIVE MOUTH TWICE A DAY FOR HEART/BLOOD PRESSURE. TAKE WITH OR IMMEDIATELY FOLLOWING FOOD. 11) TAMSULOSIN HCL 0.4MG CAP TAKE ONE CAPSULE BY MOUTH ACTIVE ONCE A DAY APPROXIMATELY 30 MINUTES AFTER THE SAME MEAL EACH DAY (FOR PROSTATE) meds: n/a OTC/Non-VA meds: denies Medication reconciliation completed: Yes - targeted review, denies discrepancies Adherence to above medications: adherent; not missing doses Refills/renewals needed: orders thru [facility]; none needed today Labs: CMP: SODIUM 139 mEq/L 04/13/2024 11:44 POTASSIUM 4.5 [...] 11:44 EGFR (CKD-EPI 2020) 91.27 04/13/2024 11:44 FLP: Lipid Panel: TRIGLYCERIDE 92 mg/dL 06/02/2023 10:41 CHOLESTEROL 108 mg/dL 06/02/2023 10:41 HDL(New) 42 mg/dL 06/02/2023 10:41 CALCULATED LDL 48 mg/dL 06/02/2023 10:41 MICRAL/CR PROFILE: CREATuF: 91.8 (06/02/23 10:49) M/CREAT: 1196 (06/02/23 10:49) MICRAL: 1098 (06/02/23 10:49) A1c: HGA1C 6.5 H % 04/13/2024 11:44 TSH: No TSH (1YR) EO data found Vitamin D: VITAMIN D, 25-HYDROXY 29.8 L ng/mL 06/02/2023 10:41 SMBGs: Date Breakfast Lunch Evening Bedtime 05/11 142 05/10 131 05/09 132 05/07 124 05/05 105 92 05/04 104 05/03 121 126 05/02 146 05/01 128 04/28 114 04/27 128 101 04/26 127 118 04/25 135 04/24 125 125 04/21 127 Home Readings: Date Blood Pressure 05/07 160/76 05/06 150/77 05/02 154/73 04/27 146/73, 149/74 04/26 170/80 04/20 149/75 BP last visit:147/84 (04/13/2024 11:25) Pulse last visit: 65 (04/13/2024 11:25) In clinic: Blood Pressure Pulse 167/80 70 159/75 66 Assessment/Plan: 1)DM - Goal A1c <7.5%, FPG 80-145, PPG <195 d/t age, CKD per VA/DoD and ADA guidelines A1C within target and home BG (fasting and post prandial) within target range. Limited data since initiating dulaglutide 1.5mg weekly. Denies s/sx of hypoglycemia or hyperglycemia since last visit. Denies hx of pancreatitis, thyroid cancers, retinopathy. eGFR > 45 ml/min/1.73m2. Still experiencing intermittent diarrhea with dulaglutide. Took 1.5mg inj yesterday for the first time- and will continue to monitor, no diarrhea noted thus far. Discussed adding empagliflozin for kidney protection. Will defer at this time due to baseline frequent urination. - continue metformin 1000mg PO BID - continue dulaglutide 1.5mg weekly - SMBG: ~BID per pt preference - reviewed management of hypoglycemia (rule of 15) and when to contact clinic or go to emergency room - Labs: A1c, BMP 06/2024, micral/creat today - SOC: (+) ACEi/ARB (+) statin (+) [...] ACC/AHA goal < 130/80 mmHg Clinic BP elevated x2 today; home BPs consistent with these readings. Micral/creat > 300mcg/mg. Denies s/sx of hypotension or hypertension. SCr, K WNL. Per shared decision making, will initiate amlodipine 5mg QPM. Pt previously experienced leg swelling with amlodipine 10mg and was not taking HCTZ at that time. Will start low dose and patient to monitor. Educated patient to stop taking medication and call if he notices swelling recurring. Avoiding HCTZ titration, adding spironolactone for now d/t frequent baseline urination. Patient agreeable with plan. - initiate amlodipine 5mg PO QPM - continue HCTZ/losartan 12.5/100mg PO daily - continue metoprolol tartrate 12.5mg PO BID - Instructed vet to call CP if SBP >160 sustained or DBP >100 sustained; Instructed vet to present to ER if SBP >180 sustained or DBP >120 sustained and/or if symptoms present (chest pain, headache, vision changes, numbness, etc.) - Labs: BMP 06/2024 - Educated vet on risks/benefits of new medication. - Education provided on nonpharmacologic ways to improve DM/HLD/HTN (including lifestyle management/dietary/physical activity) specific for the vet's needs. - Vet advised of recent A1c - verbalized understanding to all plans discussed today. Questions were answered to vet's satisfaction. Time spent with vet: 35 min RTC: 06/08/24 1100 f2f PBM PharmD Pharmacotherapy Rem V12: PHARMACIST INTERVENTIONS: HYPERTENSION Medication Intervention(s) Initiate new medication LIPID MANAGEMENT Medication monitoring, no dosage change required, continue to monitor and assess TYPE 2 DIABETES MELLITUS Medication monitoring, no dosage change required, continue to monitor and assess /shadi/ MIKHAIL CENTENO D CANDIDATE Signed: 05/11/2024 15:03 /shadi/ Julianna Blas Pharm.D., [facility] Clinical Bookkeeper Cosigned: 05/11/2024 15:53 05/11/2024 ADDENDUM STATUS: COMPLETED I have reviewed and agree with the above findings and plan as outlined. PACT CPP present throughout visit. /shadi/ Julianna Blas Pharm.D., [facility] Clinical Bookkeeper Signed: 05/11/2024 15:54 JULIANNA BLAS [facility] May 11, 2024 03:13 PM PHYSICIAN LETTERS: LOCAL TITLE: TEST RESULT GENERAL LETTER STL STANDARD TITLE: PHYSICIAN LETTERS DATE OF NOTE: MAY 11, 2024@15:13 ENTRY DATE: MAY 11, 2024@15:13:29 AUTHOR: JULIANNA BLAS EXP COSIGNER: URGENCY: STATUS: COMPLETED [facility] [address] [place] [id number] MAY 11, 2024 ALLAN GUSTAFSON [address] [place] [id number] Dear Allan Gustafson, I would like to update you on your recent test results. MICROALBUMIN - The microalbumin to creatinine ratio test is most commonly used to screen for kidney problems. uACR (STL) 473 H mg/g 0 - 29 CREATININE URINE/OTHERS 85.6 mg/dL 63.0 - 166.0 URINE ALBUMIN (PB-STL) 405 mg/L These results are abnormal. Protein remains present in your urine, as anticipated based on your history, but this value has improved! Keeping your blood sugars and blood pressures under control is helping protect your kidneys. PLAN Please continue your treatment as we discussed during your visit. If you have any questions please call your transplant case manager. I look forward to seeing you at your next clinic appointment. Thank you for choosing the [facility] for your healthcare. FUTURE APPOINTMENTS: 05/12/2024 09:00 [facility] 06/01/2024 11:30 [facility] E4 PCP 06/08/2024 11:00 [facility]-PACT TM E PHARM IND 02 11/07/2024 09:15 [facility] 02/28/2025 09:00 [facility]-OPTOMETRY 4 03/12/2025 13:30 [facility]-UROLOGY 1 Sincerely, Julianna Blas, Pharm.D., [facility] Clinical Bookkeeper ALLAN GUSTAFSON EMILY MICHELLE [facility] May 11, 2024 11:02 AM INTERNAL MEDICINE CLINICAL PHARMACIST MEDICATION MGT NOTE: LOCAL TITLE: CLINICAL PHARMACIST NOTE [facility] STANDARD TITLE: INTERNAL MEDICINE CLINICAL PHARMACIST MEDICATION DATE OF NOTE: MAY 11, 2024@11:02 ENTRY DATE: MAY 11, 2024@11:02:14 AUTHOR: MIKHAIL MILIAN EXP COSIGNER: JULIANNA BLAS URGENCY: STATUS: COMPLETED CLINICAL PHARMACIST NOTE ST Has ADDENDA CLINICAL PHARMACY FOLLOW-UP Subjective: ALLAN GUSTAFSON is a 74 MALE who presents to clinic for follow up on DM, HTN, HLD. PMH: 1) Essential hypertension (SNOMED CT 33401571) 2) Obesity (SNOMED CT 732285859) 3) Osteoarthritis of knee (SNOMED CT 001507205) 4) Carcinoma in situ of kidney (SNOMED CT 33524930) 5) Squamous cell carcinoma of skin (SNOMED CT 140614972) 6) Sclerosis 7) History of drug abuse 8) H/O: alcoholism 9) Rosacea 10) Kidney stone 11) Allergic rhinitis 12) Erectile Dysfunction ([facility] [id number]) 13) Polyp Colon ([facility] 24749364) 14) Hyperlipidemia 15) Hearing loss 16) Squamous cell carcinoma of scalp 17) Recurrent ventral incisional hernia 18) Nicotine dependence in remission 19) Vitamin B12 deficiency (non anemic) 20) Exposure to potentially hazardous substance 21) Peripheral Neuropathy with Type 2 Diabetes ([facility] [id number]) During the last contact with vet, the following changes were made: - continue metformin 1000mg PO BID - increase dulaglutide to 1.5mg weekly - continue HCTZ/losartan 12.5/100mg PO daily - continue metoprolol tartrate 12.5mg PO BID - continue atorvastatin 10mg PO daily During current visit: - has taken one dose of dulaglutide 1.5mg weekly. No diarrhea thus far- first dose was yesterday. - Had intermittent but tolerable diarrhea with dulaglutide 0.75mg weekly. - overall eating less/smaller meals - has gained some weight since knee surgery (7w ago) d/t limited mobility, more sedentary - patient voices concern about frequent urination - will alert pcp/urology Dietary/Lifestyle/Social History modifications made: - less active d/t knee surgery - banana, yogurt every day for breakfast - eat breakfast out once/week: ham, cheese omelet - yesterday dinner : fried chicken, coleslaw, potato - drinks tea (truvia), water throughout the day - doesn't snack much: beef jerky, wheat crackers and cheese ROS: DM (+) hypoglycemia symptoms or values <80 mg/dL - every once in a while when he hasn't eaten in a while; carries candies with him (-) hyperglycemia symptoms (-) tingling/numbness HLD (-) muscle pain/cramps HTN (-) hypotension symptoms or value <90/60 mmHg (-) orthostasis (-) edema (-) cough (-) visual complaints (-) TIA symptoms (-) chest pain (-) [place] Objective: Allergies: IODINATED CONTRAST MEDIA, LISINOPRIL, SEMAGLUTIDE Medications: Active and Recently Outpatient Medications (excluding [...] 5) CYCLOSPORINE 0.05% (PF) OPH EMUL 0.4ML INSTILL 1 DROP ACTIVE IN BOTH EYES TWICE A DAY FOR DRY EYES (USE EVERY 12 HRS) 6) DICLOFENAC NA 1% TOP GEL APPLY 4 GM TO AFFECTED ACTIVE AREA(S) FOUR TIMES A DAY NEEDED FOR PAIN DO NOT EXCEED MORE THAN 16 GRAMS DAILY TO ANY LOWER EXTREMITY JOINT. NOT MORE THAN 8 GRAMS DAILY TO ANY UPPER EXTREMITY JOINT. MAX 32GM/DAY OVER ALL JOINTS. (MEASURE DOSE WITH RULER ATTACHED INSIDE BOX) 7) DULAGLUTIDE 1.5MG/0.5ML INJ PEN INJECT 1.5MG UNDER ACTIVE THE SKIN EVERY WEEK FOR DIABETES (ADMINISTER DOSE AT ANY TIME OF DAY, WITH OR WITHOUT MEALS) 8) HCTZ 12.5MG/LOSARTAN 100MG TAB TAKE 1 TABLET BY MOUTH ACTIVE EVERY MORNING FOR HIGH BLOOD PRESSURE 9) METFORMIN HCL 1000MG TAB TAKE ONE TABLET BY MOUTH ACTIVE TWICE A DAY WITH MEALS TO LOWER BLOOD SUGAR 10) METOPROLOL TARTRATE 25MG TAB TAKE ONE-HALF TABLET BY ACTIVE MOUTH TWICE A DAY FOR HEART/BLOOD PRESSURE. TAKE WITH OR IMMEDIATELY FOLLOWING FOOD. 11) TAMSULOSIN HCL 0.4MG CAP TAKE ONE CAPSULE BY MOUTH ACTIVE ONCE A DAY APPROXIMATELY 30 MINUTES AFTER THE SAME MEAL EACH DAY (FOR PROSTATE) meds: n/a OTC/Non-VA meds: denies Medication reconciliation completed: Yes - targeted review, denies discrepancies Adherence to above medications: adherent; not missing doses Refills/renewals needed: orders thru [facility]; none needed today Labs: CMP: SODIUM 139 mEq/L 04/13/2024 11:44 POTASSIUM 4.5 [...] 11:44 EGFR (CKD-EPI 2020) 91.27 04/13/2024 11:44 FLP: Lipid Panel: TRIGLYCERIDE 92 mg/dL 06/02/2023 10:41 CHOLESTEROL 108 mg/dL 06/02/2023 10:41 HDL(New) 42 mg/dL 06/02/2023 10:41 CALCULATED LDL 48 mg/dL 06/02/2023 10:41 MICRAL/CR PROFILE: CREATuF: 91.8 (06/02/23 10:49) M/CREAT: 1196 (06/02/23 10:49) MICRAL: 1098 (06/02/23 10:49) A1c: HGA1C 6.5 H % 04/13/2024 11:44 TSH: No TSH (1YR) EO data found Vitamin D: VITAMIN D, 25-HYDROXY 29.8 L ng/mL 06/02/2023 10:41 SMBGs: Date Breakfast Lunch Evening Bedtime 05/11 142 05/10 131 05/09 132 05/07 124 05/05 105 92 05/04 104 05/03 121 126 05/02 146 05/01 128 10 114 10 128 101 109 127 118 108 135 107 125 125 10/ 127 Home Readings: Date Blood Pressure 05/07 160/76 05/06 150/77 05/02 154/73 04/27 146/73, 149/74 04/26 170/80 04/20 149/75 BP last visit:147/84 (04/13/2024 11:25) Pulse last visit: 65 (04/13/2024 11:25) In clinic: Blood Pressure Pulse 167/80 70 159/75 66 Assessment/Plan: 1)DM - Goal A1c <7.5%, FPG 80-145, PPG <195 d/t age, CKD per VA/DoD and ADA guidelines A1C within target and home BG (fasting and post prandial) within target range. Limited data since initiating dulaglutide 1.5mg weekly. Denies s/sx of hypoglycemia or hyperglycemia since last visit. Denies hx of pancreatitis, thyroid cancers, retinopathy. eGFR > 45 ml/min/1.73m2. Still experiencing intermittent diarrhea with dulaglutide. Took 1.5mg inj yesterday for the first time- and will continue to monitor, no diarrhea noted thus far. Discussed adding empagliflozin for kidney protection. Will defer at this time due to baseline frequent urination. - continue metformin 1000mg PO BID - continue dulaglutide 1.5mg weekly - SMBG: ~BID per pt preference - reviewed management of hypoglycemia (rule of 15) and when to contact clinic or go to emergency room - Labs: A1c, BMP 06/2024, micral/creat today - SOC: (+) ACEi/ARB (+) statin (+) [...] ACC/AHA goal < 130/80 mmHg Clinic BP elevated x2 today; home BPs consistent with these readings. Micral/creat > 300mcg/mg. Denies s/sx of hypotension or hypertension. SCr, K WNL. Per shared decision making, will initiate amlodipine 5mg QPM. Pt previously experienced leg swelling with amlodipine 10mg and was not taking HCTZ at that time. Will start low dose and patient to monitor. Educated patient to stop taking medication and call if he notices swelling recurring. Avoiding HCTZ titration, adding spironolactone for now d/t frequent baseline urination. Patient agreeable with plan. - initiate amlodipine 5mg PO QPM - continue HCTZ/losartan 12.5/100mg PO daily - continue metoprolol tartrate 12.5mg PO BID - Instructed vet to call CP if SBP >160 sustained or DBP >100 sustained; Instructed vet to present to ER if SBP >180 sustained or DBP >120 sustained and/or if symptoms present (chest pain, headache, vision changes, numbness, etc.) - Labs: [facility] 06/2024 - Educated vet on risks/benefits of new medication. - Education provided on nonpharmacologic ways to improve DM/HLD/HTN (including lifestyle management/dietary/physical activity) specific for the vet's needs. - Vet advised of recent A1c - [place] verbalized understanding to all plans discussed today. Questions were answered to vet's satisfaction. Time spent with vet: 35 min RTC: 06/08/24 1100 f2f PBM PharmD Pharmacotherapy Rem V12: PHARMACIST INTERVENTIONS: HYPERTENSION Medication Intervention(s) Initiate new medication LIPID MANAGEMENT Medication monitoring, no dosage change required, continue to monitor and assess TYPE 2 DIABETES MELLITUS Medication monitoring, no dosage change required, continue to monitor and assess /shadi/ MIKHAIL CENTENO D CANDIDATE Signed: 05/11/2024 15:03 /shadi/ Julianna Blas Pharm.D., [facility] Clinical Bookkeeper Cosigned: 05/11/2024 15:53 05/11/2024 ADDENDUM STATUS: COMPLETED I have reviewed and agree with the above findings and plan as outlined. PACT CPP present throughout visit. /shadi/ Julianna Blas, Pharm.Stefani., [facility] Clinical Bookkeeper Signed: 05/11/2024 15:54 05/12/2024 ADDENDUM STATUS: COMPLETED Alerting PCP + urology: Vet endorsing that he has to urinate every 1.5-2 hours which he is finding bothersome. He requests f/u to determine whether he is a candidate for any additional work-up v. intervention. /ulises Blas, Pharm.D., [facility] Clinical Bookkeeper Signed: 05/12/2024 07:58 Receipt Acknowledged By: 05/29/2024 11:43 /shadi/ JOSE OTTO NURSE PRACTITIONER 05/12/2024 13:45 /shadi/ RAYSA FINN RESIDENT PHYSICIAN, UROLOGY 05/31/2024 ADDENDUM STATUS: COMPLETED Spoke w/ vet today - having continued diarrhea w/ dulaglutide 1.5mg weekly. Prefers to decrease to 0.75mg weekly. New PADR placed. /ulises Blas, Pharm.D., [facility] Clinical Bookkeeper Signed: 05/31/2024 14:[address] [facility]
--- OUTSIDE RECORDS SUMMARY | 2025-02-17 15:30 | XMS_ITS | Clinical Summary ---
Author Organization [facility] Address [facility] [place] [address] Care Team Providers Care Data Processing Control Clerk Name Role Phone Non-Staff, Provider Primary Care Provider Ho geiger Allergies Active Allergy Reactions Criticality Noted Date Comments Iodine Unknown 11/28/2020 Social History Tobacco Use Types Packs/Day Years Used Date Smoking Tobacco: Never Assessed Sex and Gender Information Value Date Recorded Sex Assigned at Not on file Legal Sex Male 2:27 PM CDT Gender Identity Not on file Sexual Orientation Not on file Last Filed Vital Signs Vital Sign Reading Time Taken Comments Blood Pressure 165/64 11/28/2020 2:39 PM CDT Pulse 86 11/28/2020 2:39 PM CDT Temperature - - Respiratory Rate 16 11/28/2020 2:39 PM CDT Oxygen Saturation 94% 11/28/2020 2:39 PM CDT Inhaled Oxygen Concentration - - Weight - - Height - - Body Mass Index - - Plan of Treatment Health Maintenance Due Date Last Done Comments Hepatitis C 1968 DTaP, Tdap and Td Vaccines ( 1 - Tdap) 01[birth year]09/1969 Pneumococcal Vaccine: 50+ Ye ars (1 of 1 - PCV) 1999 Zoster Vaccines (1 of 2) 1999 RSV Immunization or 60+ Years (1 - 1-dose 75+ series) 01/09/2024 COVID-19 Vaccine ( - 2023-2 5 season) 2024 Meningococcal B Vaccine Aged Out No l onger eligible based on patient's age to complete this topic Meningococcal Vaccine Aged Out No alejo amaury eligible based on patient's age to complete this topic RSV Immunizations Under 20 Months Aged Out No longer eligible based on patient's age to complete this topic Insurance [facility] Care Teams Data Processing Control Clerk Relationship Specialty Start Date End Date Non-Staff, Provider PCP - General 11/28/20
--- OUTSIDE RECORDS SUMMARY | 2025-02-17 15:30 | XMS_ITS ---
Author Name [facility] [facility] [place] [facility] [place] Address [address] [place] [address] Care Team Providers Care Certified Meeting Professional Name Role Phone MORELIA ALLEN Primary Care [...] PART A Mar 19, 2014 PART A [id number] [place] PATIENT MEDICARE (WNR) MEDICARE ([place]) PART A Mar 19, 2014 PART A [id number] [phone] [place] PATIENT Selected Encounter This section includes the information on record at [place] for the Encounter. Date/Time Encounter Type Encounter Description Reason Provider Source Apr 13, 2024 11:00 AM IMMUNIZATION ADMIN CLINICAL PHARMACY ICD-10-CM I10 Essential (primary) hypertension JULIANNA BLAS Kezia Encounter Template Text not used by [place] Assessments - Encounter Diagnoses This section includes the primary and secondary diagnoses documented for the Encounter. Date/Time Primary/Secondary Diagnosis Diagnosis Name Provider Source Apr 13, 2024 11:31 AM PRIMARY Essential (primary) hypertension JULIANNA BLAS [facility] Apr 13, 2024 11:31 AM SECONDARY Encounter for immunization MIGUEL MORALES [facility] Apr 13, 2024 11:31 AM SECONDARY Type 2 diabetes mellitus with unspecified complications WANJULIANNA BELLEELLE [facility] Plan of Treatment: Future Appointments (+ 6 months) and Future Tests (+/- 45 days) The Plan of Treatment section includes future care activities for the patient from all [place] treatmentmulticare healthities. This section includes future appointments and future orders which are active, pending or scheduled. Future Appointments This section includes appointments that were scheduled to occur 6 months from the date of the Encounter, up to a maximum of 20 appointments. The data comes from all [place] treatment facilities. Appointment Date/Time Appointment Type Appointme nt Facility Name May 11, 2024 11:00 AM AMBULATORY - NONE [facility] May 12, 2024 09:00 AM AMBULATORY - REHAB [facility]ICIN [facility] Jun 01, 2024 11:30 AM AMBULATORY - MEDICINE [facility] Jun 08, 2024 11:00 AM AMBULATORY - NONE [facility] Jul 03, 2024 10:00 AM AMBULATORY - SURGERY [facility] Jul 20, 2024 09:00 AM AMBULATORY - NONE [facility] Aug 31, 2024 09:00 AM AMBULATORY - NONE [facility] Sep 12, 2024 01:00 PM AMBULATORY - MEDICINE [facility] Oct 11, 2024 10:30 AM AMBULATORY - NONE [facility] Lab Results: +/- 30 days of the encounter This section includes the Chemistry and Hematology Lab Results on record with [place] for the patient. Radiology Reports and Pathology Reports are provided separately, in subsequent sections. Lab Results This section contains the Chemistry/Hematology Results that were resulted 30 days before or 30 daysafter the date of the Encounter. Date/Time Source Result Type Result - Unit Interpretation Reference Range Specimen Type Comment May 11, 2024 11:44 AM [facility] MICRAL/CREAT PROFILE (STL) URINE Specimen Typ e: URINE No comment entered. Ordering Provider: JULIANNA BLAS Report Released Date/Time: May 11, 2024 11:35 AM Reporting Lab: [facility] [id number] Performing Lab: [facility] [address] [place] [address] URINE ALBUMIN (PB-STL) 405 mg/L No range refer to micral/creat ratio uACR (STL) 473 mg/g H 0-29 CREATININE URINE/OTHERS 85.6 mg/dL 63.0- 166.0 Apr 13, 2024 11:44 AM [facility] HGA1C BLOOD Specimen Type: BLOOD No comment entered. Ordering Provider: JULIANNA BLAS Report Released Date/Time: Apr 13, 2024 11:22 AM Reporting Lab: [facility] [place] [address] Performing Lab: [facility] [place] [address] HGA1C 6.5 H 4.0-6.0 Apr 13, 2024 11:44 AM [facility] BASIC METABOLIC PANEL PLASMA Specimen Type: PL ASMA Comment: No hemolysis noted. Ordering Provider: JULIANNA BLAS Report Released Date/Time: Apr 13, 2024 11:22 AM Reporting Lab: [facility] [address] Performing Lab: [facility] [id number] CREATININE 0.83 mg/dL 0.70-1.30 UREA NITROGEN 20.3 [...] Pain Height Weight Body Mass Index Source Apr 13, 2024 11:25 AM 65 147/84 [facility] Apr 13, 2024 11:24 AM 68 153/88 [facility] Immunizations: All administered on the encounter date This section contains immunizations associated to the Encounter. Immunization Series Date Issued Administered By Site Reaction Lot Number [id number] Drug Orchard Sprayer Comment(s) Source COVID-19 ([employer]), MRNA, LNP-S, PF, MAC-SUCROSE, 30 MCG/0.3 ML (AGES 12+ YEARS) 8 Apr 13, 2024 MIGUEL MORALES M LEFT DELTO ID [id number] [employer] ADMINISTERE D AT [facility] INFLUENZA, HIGH-DOSE, TRIVALENT, PF Apr 13, 2024 MIGUEL MORALES RIGHT DELTO ID [id number] 135 [employer] Completed Series, ADMINISTERE D AT [facility] Social History: Smoking Status (Most current) and Tobacco Use (All prior to encounter date) This section includes the most current, and the historical, smoking and tobacco- related health factors from the [place] facility where the Encounter took place. Current Smoking Status This section includes the most current smoking, or tobacco-related health factor, from the [place] facility where the Encounter took place. Date/Time Current Smoking Status Comment Ronda vallejo November 30, 2023 03:00 PM [place]-TOBAC[place] QUIT 15 YRS OR MORE [facility] Tobacco Use History This section includes a history of the smoking, or tobacco-related health factors, that were collected on or before the date of the Encounter. The data comes from the [place] facility where the Encounter took place. Date/Time Smoking Status/Tobacco Use Comment Kirstin prado November 30, 2023 03:00 PM [place]-TOBACCO QUIT 15 YRS OR MORE [facility] Jun 02, 2023 10:00 AM [place]-TOBAC[place] FORMER USER [facility] Jun 02, 2023 10:00 AM [place]-TO[place] QUIT 15 YRS OR MORE [facility] Advance Directives: All historical and current Section Date Range: From patient's date of to the date document was created. This section includes ALL of a patient's completed or amended [place] Advance and Rescinded Directives. The entries below indicate that a directive exists for the patient, but an actual copy is not included with this document. The data comes from all [place] facilities. Date Advance Directives Provider Source Jan 22, 2016 ADVANCE DIRECTIVE DISCUSSION AMBERLY HOFFMAN [facility] Mar 31, 2007 ADVANCE DIRECTIVE JOSE C ALLEN [facility] Radiology Reports: +/- 30 days [...] the Encounter. The data comes from all [place] treatment facilities. Date/Time Radiology Report Provider Source Mar 15, 2024 11:[address] ABDOMEN PELVIS W/O CONTRAST-P: ALLAN GUSTAFSON [id number] -[id number] M Ex Date: MAR 15, 2024@11:41 Req Phys: MERRITT CURRY Loc: [facility]-UROLOGY 1 (Req'g Loc) Img Loc: [facility]-CT IMAGING [facility] Service: Unknown [facility] [address] [place] [address] (Case [id number] COMPLETE) CT ABDOMEN AND PELVIS W/O CONTRAS(CT Detailed) CPT:00948 Reason for Study: Bialteral Renal Stones Clinical History: Responsible Attending: Cony Curry Attending Contact Number: [phone] Resident Contact Number: BP 73 y/o WM [...] 15, 2024 Date Verified: MAR 15, 2024 Platform Supervisor E-Sig:/ES/MOODY FRAZIER MD Report: Spiral axial imaging [...] Primary Interpreting Staff: MOODY FRAZIER MD, Radiologist (Platform Supervisor) /MOODY WILSON [facility] Encounter Notes: All associated encounter notes This section contains the clinical notes associated to the Encounter. Date/Time Encounter Note(s) Provider Source Apr 14, 2024 04:35 PM PHYSICIAN LETTERS: LOCAL TITLE: TEST RESULT GENERAL LETTER STL STANDARD TITLE: PHYSICIAN LETTERS DATE OF NOTE: APR 14, 2024@16:35 ENTRY DATE: APR 14, 2024@16:35:58 AUTHOR: JULIANNA BLASIGNER: URGENCY: STATUS: COMPLETED [facility] [address] [place] [address] APR 14, 2024 ALLAN GUSTAFSON [address] [place] [id number] Dear Allan Gustafson, I would like to update you on your recent test results. HEMOGLOBIN A1C - Gives us information about your diabetes (sugar or glucose) control over the past 3 months. Your target is to keep your A1C below 7.5 %. HGA1C 6.5 H % 04/13/2024 11:44 Your A1c remains within the goal range of less than 7.5%. Keep up the good work! If you begin feeling symptoms of low blood sugars, please let me know. CHEM 7 - This is important information about the current status of your kidneys, liver, and electrolyte and acid/base balance as well as of your blood sugar and blood proteins. SODIUM 139 mEq/L 04/13/2024 11:44 POTASSIUM 4.5 mEq/L 04/13/2024 11:44 CHLORIDE 105 mEq/L 04/13/2024 11:44 UREA NITROGEN 20.3 mg/dL 04/13/2024 11:44 CREATININE 0.83 mg/dL 04/13/2024 11:44 CALCIUM 9.7 mg/dL 04/13/2024 11:44 CARBON DIOXIDE 26 mEq/L 04/13/2024 11:44 GLUCOSE 82 mg/dL 04/13/2024 11:44 EGFR (CKD-EPI 2020) 91.27 04/13/2024 11:44 These readings are within normal limits. PLAN Please continue your treatment as we discussed during your visit. If you have any questions please call your case management specialist. I look forward to seeing you at your next clinic appointment. Thank you for choosing the [facility] for your healthcare. FUTURE APPOINTMENTS: 06/01/2024 11:30 [facility]-PACT E4 PCP 11/07/2024 09:15 [facility] 02/28/2025 09:00 [facility]-OPTOMETRY 4 03/12/2025 13:30 [facility]-UROLOGY 1 Sincerely, Julianna Blas, Pharm.D., [facility] Clinical Content Strategist ALLAN GUSTAFSON JULIANNA BLAS [facility] Apr 13, 2024 11:17 AM INTERNAL MEDICINE CLINICAL PHARMACIST MEDICATION MGT NOTE: LOCAL TITLE: CLINICAL PHARMACIST NOTE ST STANDARD TITLE: INTERNAL MEDICINE CLINICAL PHARMACIST MEDICATION DATE OF NOTE: APR 13, 2024@11:17 ENTRY DATE: APR 13, 2024@11:17:17 AUTHOR: JULIANNA BLAS EXP COSIGNER: URGENCY: STATUS: COMPLETED CLINICAL PHARMACIST NOTE STL Has ADDENDA CLINICAL PHARMACY FOLLOW-UP BONYALLAN Philippe is a 74 yo, WHITE, MALE seen F2F by clinical pharmacy for DM management. [place] was identified by name and . During the last contact with vet, the following changes were made: - continue metformin 1000mg PO BID - continue dulaglutide 0.75mg weekly - continue atorvastatin 10mg PO daily - continue HCTZ/losartan 12.5/100mg PO daily - continue metoprolol tartrate 12.5mg PO BID Recovering from knee surgery well. Engaging in PT. Allergies/ADR's: IODINATED CONTRAST MEDIA, LISINOPRIL, SEMAGLUTIDE Subjective: [...] WITH RULER ATTACHED INSIDE BOX) 7) DULAGLUTIDE 0.75MG/0.5ML INJ PEN INJECT 0.75MG UNDER [...] (FOR PROSTATE) meds: n/a OTC/Non-VA meds: denies changes Medication reconciliation completed: Yes - targeted review, denies discrepancies Adherence to above medications: denies missed doses Refills/renewals needed: none HGA1C 6.7 H % 12/28/2023 09:42 SODIUM [...] 12:15) SGPT 15 U/L (06/18/23 12:15) SMBG's: FPG PM 04/13 124 04/12 114 93 04/10 114 117 04/09 128 93 04/08 116 177* *candy 04/05 125 103 04/03 115 04/01 106 03/31 118 154 03/30 114 114 BP last visit:151/74 (03/15/2024 12:41) Pulse last visit: 72 (03/15/2024 12:41) Home BP Readings: not monitoring Clinic BP: 153/88 mmHg, HR 68 bpm Repeat clinic BP: 147/84 mmHg, HR 65 bpm Assessment/Plan: 1) DM - Goal A1c <7.5%, FPG 80-145, PPG <195 d/t age, CKD per VA/DoD and ADA guidelines A1c within target range; BG stable and within target. Denies s/sx of hypoglycemia or hyperglycemia. Denies hx of pancreatitis, thyroid cancers, retinopathy. eGFR > 45 ml/min/1.73m2. Previous GI sx have completely resolved. Per shared decision making, will proceed with titrating dulaglutide to optimize CV/renal/weight loss benefits. Can consider reducing/stopping metformin if hypoglycemia concern develops. Will update A1c following appt. - continue metformin 1000mg PO BID - increase dulaglutide to 1.5mg weekly - SMBG: ~BID per pt preference - reviewed management of hypoglycemia (rule of 15) and when to contact clinic or go to emergency room - Labs: A1c, BMP today, micral/creat 05/2024 - SOC: (+) ACEi/ARB (+) statin (+) flu vaccine (flu + COVID19 vaccines today) (+) pneumo vaccine (PCV13 2014, PPSV23 2015) [...] 130/80 mmHg Clinic BP elevated x2 today; not monitoring BPs at home since surgery. micral/creat > 300mcg/mg. Denies s/sx of hypotension or hypertension. SCr, K WNL. Per shared decision making, vet will resume BP monitoring at home + intends to be more active s/p knee surgery as tolerated. If BPs remain elevated f/u, will adjust meds accordingly. - continue HCTZ/losartan 12.5/100mg PO daily - continue metoprolol tartrate 12.5mg PO BID - Instructed vet to call CP if SBP >160 sustained or DBP >100 sustained; Instructed vet to present to ER if SBP >180 sustained or DBP >120 sustained and/or if symptoms present (chest pain, headache, vision changes, numbness, etc.) - Labs: BMP today - Education provided on nonpharmacologic ways to improve DM/HLD/HTN (including lifestyle management/dietary/physical activity) specific for the vet's needs. - verbalized understanding to all plans discussed today. Questions were answered to vet's satisfaction. Time spent with vet: 23 min RTC: ~05/11/24 (vet to schedule at front office agent) PBM PharmD Pharmacotherapy Rem V12: PHARMACIST INTERVENTIONS: HYPERTENSION Medication monitoring, no dosage change required, continue to monitor and assess TYPE 2 DIABETES MELLITUS Medication Intervention(s) Adjust dose or frequency of current medication due to other reason Order, recommend, and/or administer immunization(s) /shadi/ Julianna Blas Pharm.D., [facility] Clinical Content Strategist Signed: 04/13/2024 11:48 04/13/2024 ADDENDUM STATUS: COMPLETED COVID-19 Immunization: Pfizer Monovalent (Comirnaty) Administered: COVID-19 (PFIZER), MRNA, LNP-S, PF, MAC-SUCROSE, 30 MCG/0.3 ML (AGES 12+ YEARS) Date Administered: Apr 13, 2024 11:00 Series: Series 8 Orchard Sprayer: [employer] Lot: [id number] Exp Date: Oct 19, 2024 ND: [id number] Admin Route/Site: INTRAMUSCULAR/LEFT DELTOID Dosage: 0.3mL Vaccine Information Statement(s): COVID-19 MRNA VACCINE (12+ YRS) VACCINE VIS May 06, 2023 (SRI LANKAN) Order By: Policy Administered By: Cody Morales Vaccine administered without complications. Influenza Immunization: Influenza, High-Dose, Trivalent, Preservative Free (Fluzone-Syringe) Administered: INFLUENZA, HIGH-DOSE, TRIVALENT, PF Date Administered: Apr 13, 2024 11:00 Series: Complete Orchard Sprayer: [employer] PASTE[employer] Lot: [id number] Exp Date: Jan 15, 2025 [facility]: [id number] Admin Route/Site: INTRAMUSCULAR/RIGHT DELTOID Dosage: 0.5mL Vaccine Information Statement(s): INFLUENZA(FLU) VACC(INACTIVATED OR RECOMBINANT)VIS Feb 21, 2021 (SRI LANKAN) Order By: Policy Administered By: Cody Morales The Influenza Vaccine Information Statement (VIS) was reviewed with the patient/caregiver which lists the benefits and risks of the vaccine and the risks of not receiving the Influenza vaccine. The patient/caregiver denied any prior severe reaction to this vaccine or its components or a severe allergic reaction, such as anaphylaxis, to any vaccine or any injectable therapy. The patient/caregiver gave verbal consent to receive the vaccine. /es/ CODY MORALES REGISTERED NURSE Signed: 04/13/2024 11:54 JULIANNA BLAS [facility]
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
--- OUTSIDE RECORDS SUMMARY | 2025-02-17 15:30 | XMS_ITS | Encounter Summary ---
Author Name [facility] Organization [facility] Address [address] [place] [address] Care Team Providers Care Soldering Technician Name Role Phone MORELIA ALLEN Primary Care [...] PART A Mar 19, 2014 PART A [id number] [place] PATIENT MEDICARE (WNR) MEDICARE (M) PART A Mar 19, 2014 PART A [id number] [phone] [place] PATIENT Selected Encounter This section includes the information on record at MD for the Encounter. Date/Time Encounter Type Encounter Description Reason Provider Source Jul 20, 2024 09:00 AM MTMS BY PHARM EST 15 MIN CLINICAL PHARMACY ICD-10-CM E11.8 Type 2 diabetes mellitus with unspecified complications JULIANNA BLAS Encounter Template Text not used by MD Assessments - Encounter Diagnoses This section includes the primary and secondary diagnoses documented for the Encounter. Date/Time Primary/Secondary Diagnosis Diagnosis Name Provider Source Jul 20, 2024 09:32 AM PRIMARY Type 2 diabetes mellitus with unspecified complications JULIANNA BLAS [facility] Jul 20, 2024 09:32 AM SECONDARY Essential (primary) hypertension JULIANNA BLAS [facility] Jul 20, 2024 09:32 AM SECONDARY Hyperlipidemia, unspecified JULIANNA BLAS [facility] Plan of Treatment: Future Appointments (+ 6 months) and Future Tests (+/- 45 days) The Plan of Treatment section includes future care activities for the patient [facility] This section includes future appointments and future orders which are active, pending or scheduled. Future Appointments This section includes appointments that were scheduled to occur 6 months from the date of the Encounter, up to a maximum of 20 appointments. The data comes from all MD treatment facilities. Appointment Date/Time Appointment Type Appointme nt Facility Name Aug 31, 2024 09:00 AM AMBULATORY - NONE [facility] Sep 12, 2024 01:00 PM AMBULATORY - MEDICINE [facility] Oct 11, 2024 10:30 AM AMBULATORY - NONE [facility] Nov 07, 2024 09:15 AM AMBULATORY - MEDICINE [facility] November 23, 2024 09:00 AM AMBULATORY - NONE [facility] November 23, 2024 11:00 AM AMBULATORY - SURGERY . [facility] December 15, 2024 03:30 PM AMBULATORY - MEDICINE [facility] Dec 18, 2024 08:00 AM AMBULATORY - SURGERY [facility] Dec 20, 2024 03:30 PM AMBULATORY - MEDICINE [facility] Dec 21, 2024 11:00 AM AMBULATORY - NONE [facility] Dec 29, 2024 08:00 AM AMBULATORY - REHAB MEDICIN E [facility] 2025 02:30 PM AMBULATORY - REHAB MEDICIN [facility] Jan 12, 2025 11:30 AM AMBULATORY - NONE [facility] Jan 12, 2025 04:00 PM AMBULATORY - SURGERY [facility] Vital Signs: All taken on the encounter date This section contains inpatient and outpatient Vital Signs collected on the date of the Encounter. Date/Time Temperature Pulse Blood Pressure Respiratory Rate SP02 Pain Height Weight Body Mass Index Source Jul 20, 2024 09:15 AM 91 138/80 [facility] Social History: Smoking Status (Most current) and Tobacco Use (All prior to encounter date) This section includes the most current, and the historical, smoking and tobacco- related health factors from the MD facility where the Encounter took place. Current Smoking Status This section includes the most current smoking, or tobacco-related health factor, from the MD facility where the Encounter took place. Date/Time Current Smoking Status Comment Facil ity November 30, 2023 03:00 PM MD-TOBACCO QUIT 15 YRS OR MORE [facility] Tobacco Use History This section includes a history of the smoking, or tobacco-related health factors, that were collected on or before the date of the Encounter. The data comes from the MD facility where the Encounter took place. Date/Time Smoking Status/Tobacco Use Comment F acility November 30, 2023 03:00 PM VA-TOBACCO QUIT 15 YRS OR MORE [facility] Jun 02, 2023 10:00 AM VA-TOBACCO FORMER USER [facility] Jun 02, 2023 10:00 AM MD-TOBACCO QUIT 15 YRS OR MORE [facility] Advance Directives: All historical and current Section Date Range: From patient's date of to the date document was created. This section includes ALL of a patient's completed or amended MD Advance and Rescinded Directives. The entries below indicate that a directive exists for the patient, but an actual copy is not included with this document. The data comes from all MD facilities. Date Advance Directives Provider Source Jan 22, 2016 ADVANCE DIRECTIVE DISCUSSION AMBERLY HOFFMAN [facility] Mar 31, 2007 ADVANCE DIRECTIVE JOSE C ALLEN [facility] Encounter Notes: All associated encounter notes This section contains the clinical notes associated to the Encounter. Date/Time Encounter Note(s) Provider Source Jul 20, 2024 09:03 AM INTERNAL MEDICINE CLINICAL PHARMACIST MEDICATION MGT NOTE: LOCAL TITLE: CLINICAL PHARMACIST NOTE [facility] STANDARD TITLE: INTERNAL MEDICINE CLINICAL PHARMACIST MEDICATION DATE OF NOTE: JUL 20, 2024@09:03 ENTRY DATE: JUL 20, 2024@09:03:20 AUTHOR: JULIANNA BLAS EXP COSIGNER: URGENCY: STATUS: COMPLETED CLINICAL PHARMACY FOLLOW-UP ALLAN LOVETT is a 74 yo, WHITE, MALE seen F2F by clinical pharmacy for HTN/DM/ management. was identified by name and . During the last contact with vet, the following changes were made: - Continue dulaglutide 0.75 mg weekly - Continue metformin 1000 mg PO BID - Continue HCTZ/losartan 12.5/100 mg PO daily - Continue metoprolol tartrate 12.5 mg PO BID - Continue amlodipine 5 mg PO daily Seen by urology 07/03 - no changes in management recommended. Tolerating current meds well. Allergies/ADR's: IODINATED CONTRAST MEDIA, LISINOPRIL, SEMAGLUTIDE Subjective: [-] hypoglycemia symptoms or values <80 mg/dL [-] hyperglycemia symptoms [-] hypotension symptoms or values <90/60 mmHg [-] hypertension symptoms [-] Dietary modifications made - endorses greater dietary indiscretions d/t holidays; plans to resume usual diet this month. [+] Changes in lifestyle or social history trying to move around more but still experiencing knee soreness [-] Adverse effects to antilipemic agents (muscle [...] ACTIVE DAY Indication: FOR HIGH BLOOD PRESSURE - taking as prescribed 3) ATORVASTATIN CALCIUM 20MG TAB TAKE ONE-HALF TABLET BY MOUTH ACTIVE EVERY EVENING TO LOWER CHOLESTEROL - taking as prescribed 4) CHOLECALCIF 10MCG (D3-400UNIT) TAB TAKE TWO [...] OR WITHOUT MEALS) Indication: FOR DIABETES - taking as prescribed 9) HCTZ 12.5MG/LOSARTAN 100MG TAB TAKE 1 TABLET BY MOUTH EVERY ACTIVE MORNING Indication: FOR HIGH BLOOD PRESSURE - taking as prescribed 10) LIDOCAINE 5% PATCH APPLY 1 PATCH TO SKIN SITE ONCE A DAY ACTIVE APPLY PATCH AND PRESS FIRMLY FOR 10-15 SECONDS. KEEP ON FOR 12 HOURS THEN REMOVE PATCH FOR 12 HOURS. Indication: FOR LOCAL ANESTHESIA - using occasionally 11) METFORMIN HCL 1000MG TAB TAKE ONE TABLET BY MOUTH TWICE A ACTIVE DAY WITH MEALS TO LOWER BLOOD SUGAR - taking as prescribed 12) METOPROLOL TARTRATE 25MG TAB TAKE ONE-HALF TABLET BY MOUTH ACTIVE TWICE A DAY FOR HEART/BLOOD PRESSURE. TAKE WITH OR IMMEDIATELY FOLLOWING FOOD. - taking as prescribed 13) TAMSULOSIN HCL 0.4MG CAP TAKE ONE CAPSULE BY MOUTH ONCE A ACTIVE (S) DAY APPROXIMATELY 30 MINUTES AFTER THE SAME MEAL EACH DAY (FOR PROSTATE) Inactive Outpatient Medications Status 1) CYCLOBENZAPRINE HCL 5MG TAB TAKE ONE TABLET BY MOUTH THREE TIMES A DAY NEEDED MAY CAUSE DROWSINESS. DO NOT DRINK ALCOHOL WHILE TAKING THIS MEDICATION. Indication: FOR MUSCLE SPASM - no longer taking meds: n/a OTC/Non-VA meds: denies Medication reconciliation completed: Yes - targeted review, discrepancies as noted Adherence to above medications: denies missing doses Refills/renewals needed: dulaglutide HGA1C 6.5 H % 04/13/2024 11:44 SODIUM [...] Evening Before 2hr Before 2hr Before 2hr 07/20/24 07/19/24 148 160 07/18/24 141 201 cough drops 07/17/24 140 121 07/16/24 134 126 07/15/24 136 07/14/24 143 179 07/13/24 148 07/12/24 140 07/11/24 137 07/10/24 133 07/09/24 109 07/08/24 07/07/24 137 07/06/24 145 120 07/05/24 155 111 07/04/24 150 07/03/24 148 152 07/02/24 136 07/01/24 141 06/30/24 150 134 06/29/24 148 06/28/24 152 165 06/27/24 143 164 06/26/24 141 06/25/24 152 (oreos) Average Range # of Readings Before Breakfast 143.5 133 155 22 2 hrs after Breakfast 165.0 165 165 1 Before Dinner 136.3 109 201 9 2 hrs after Dinner 163.7 152 179 3 Overall 144.0 109 201 35 BP last visit:136/69 (07/03/2024 10:39) Pulse last visit: 77 (07/03/2024 10:39) Home BP Readings: 07/19 143/73 07/09 142/74 06/21 128/70 Assessment/Plan: 1) DM - Goal A1c <7.5%, FPG 80-145, PPG <195 d/t age, CKD per VA/DoD and ADA guidelines A1c within target range; SMBGs remain within target range though relatively higher since last visit - likely related to dietary indiscretions w/ holidays. Plans to resume usual diet. Currently taking low dose GLP1RA d/t diarrhea at higher doses. Denies sx of hypoglycemia or hyperglycemia since last visit. Denies hx of pancreatitis, thyroid cancers, retinopathy. eGFR >45 mL/min/1.73m2. Per shared decision making, will continue with current management. Will implement previous diet modifications. Will update A1c at f/u visit. - continue dulaglutide 0.75 mg weekly - continue metformin 1000 mg PO BID - SMBG: BID per pt preference - educated vet on hypoglycemia symptoms and appropriate treatment and when to call clinic or go to emergency room - Labs: A1c -09/2024, BMP w/A1c, uACR 04/2025 - SOC: (+) ACEi/ARB (+) statin (+) flu vaccine (04/13/2024) (+) pneumo vaccine (PCV13 2014, PPSV23 2015) (+) eye exam - 02/2024 Type 2 Diabetes without retinopathy - No DME/CSME OU- confirmed w/ OCT Mac 2) Lipids - VADoD/ACC/AHA lipid treatment guidelines goal- at least moderate- intensity statin for primary prevention (DM) Currently meeting statin recommendations. Patient denies ADRs with current statin regimen. LFTs WNL. LDL at goal <100 mg/dL. TG mildly elevated, likely d/t non-fasting lab. - continue atorvastatin 10 mg PO daily - monitor for myalgias and report to CP or PCP if occurs - Labs: LFTs, lipid panel annually/prn adherence 3) HTN - Goal <140/90 mmHg per [facility] guidelines. AHA/ACC goal<130/80 mmHg Clinic BP within looser target today; limited home BP readings. Vet did not consume coffee prior to [...] edema w/ previous higher dose use. Encouraged more routine BP monitoring for next visit. - Continue HCTZ/losartan 12.5/100 mg PO daily [...] to vet's satisfaction. Time spent with vet: 19 min RTC: 08/31/24 0900 f2f Alcohol Use Screen (AUDIT-C) - V: Alcohol Screen: SCREEN FOR ALCOHOL (AUDIT-C) An alcohol screening test (AUDIT-C) was negative (score=0). 1. How often did you have a drink containing alcohol in the past year? Consider a drink to be a 12 ounce can or bottle of regular beer, 8 ounces of malt liquor, a 5 ounce glass of table wine, or a 1.5 ounce shot of liquor (like scotch, gin, or vodka). Never 2. How many drinks containing alcohol did you have on a typical day when you were drinking in the past year? Response not required due to responses to other questions. 3. How often did you have six or more drinks on one occasion in the past year? Response not required due to responses to other questions. PBM PharmD Pharmacotherapy Rem V12: PHARMACIST INTERVENTIONS: HYPERTENSION Medication monitoring, no dosage change required, continue to monitor and assess LIPID MANAGEMENT Medication monitoring, no dosage change required, continue to monitor and assess TYPE 2 DIABETES MELLITUS Medication monitoring, no dosage change required, continue to monitor and assess ALCOHOL USE DISORDER Completed alcohol use screening (AUDIT-C) Medication reconciliation (changes to active VA and non-VA medication lists to reconcile differences) Changes to medication lists made Discontinue or remove medication /es/ Julianna Blas, Pharm.D., [facility] Clinical Corporate Traffic Manager Signed: 07/20/2024 09:33 JULIANNA BLAS [facility]
--- OUTSIDE RECORDS SUMMARY | 2025-02-17 15:30 | XMS_ITS | Continuity of Care Document ---
Author Name [facility] Organization [facility] Care Team Providers Care Bottle Filler Name Role Phone [facility] Unavailable Unavailable Problems Combined list of problems from Department of Defense and [facility] Affairs facilities. It does not include entries that were removed or entered in error. 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 Condition [facility] Erectile Dysfunction (SCT 152696465) Active Condition [facility] Essential hypertension (SNOMED CT 90841262) Active Condition [facility] Exposure to potentially hazardous substance Active Condition [facility] H/O: alcoholism Active Condition [facility] Hearing loss Active Condition [facility] History of drug abuse Active Condition [facility] Hyperlipidemia Active Condition [facility] Kidney stone [facility] 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 [facility] Obesity (SNOMED CT 641435624) Active Condition [facility] Osteoarthritis of knee (SNOMED CT 642046978) Active Condition [facility] Peripheral Neuropathy with Type 2 Diabetes (SCT 4738958663611) Active Condition [facility] Polyp Colon (SCT 25059282) Active Condition [facility] Recurrent ventral incisional hernia Active Condition [facility] Rosacea Active Condition [facility] Sclerosis Active Condition [facility] Squamous cell carcinoma of scalp Active Condition [facility] Squamous cell carcinoma of skin (SNOMED CT 067379885) Active Condition [facility] Vitamin B12 deficiency (non anemic) Active Condition [facility] Arthritis of knee Inactive Condition 11/10/2017 [facility] Health Examination of Defined Subpopulations Inactive Condition 11/10/2017 Jul 16, 2014 Entered By: JOSE RODRIGUEZ Comment: COMPLETED AGENT ORANGE REGISTRY EXAM [facility] Hearing Loss Inactive Condition 11/10/2017 [facility] BUCIO [facility] Personal History of other Malignant Neoplasm of Skin (ICD-9-CM V10.83) Inactive Condition 11/10/2017 [facility] Strain of knee Inactive Condition 11/10/2017 [facility] Upper Respiratory Infections (ICD-9-CM 465.9) Inactive Condition 11/10/2017 [facility] Stanley [facility] Diagnosis: ICD-10-CM Z98.41 Cataract extraction status, right eye Active Diagnosis [facility] Diagnosis: ICD-10-CM Z01.818 Encounter for other preprocedural examination Active Diagnosis [facility] Diagnosis: ICD-10-CM H25.12 Age-related nuclear cataract, left eye Active Diagnosis [facility] Diagnosis: ICD-10-CM Z98.42 Cataract extraction status, left eye Active Diagnosis [facility] Diagnosis: ICD-10-CM H25.13 Age-related nuclear cataract, bilateral Active Diagnosis [facility] Diagnosis: ICD-10-CM M54.50 Low back pain, unspecified Active Diagnosis [facility] Diagnosis: ICD-10-CM E11.8 Type 2 diabetes mellitus with unspecified complications Active Diagnosis [facility] Diagnosis: ICD-10-CM D18.01 Hemangioma of skin and subcutaneous tissue Active Diagnosis [facility] Diagnosis: ICD-10-CM B07.9 Viral wart, unspecified Active Diagnosis [facility] Diagnosis: ICD-10-CM Z55.9 Problems related to education and literacy, unspecified Active Diagnosis [facility] Diagnosis: ICD-10-CM N20.0 Calculus of kidney Active Diagnosis [facility] Diagnosis: ICD-10-CM I10 Essential (primary) hypertension Active Diagnosis [facility] Diagnosis: ICD-10-CM Z00.00 Encntr for general adult medical exam w/o abnormal findings Active Diagnosis [facility] Diagnosis: ICD-10-CM E66.09 Other obesity due to excess calories Active Diagnosis [facility] Diagnosis: ICD-10-CM E11.9 Type 2 diabetes mellitus without complications Active Diagnosis [facility] Diagnosis: ICD-10-CM L60.0 Ingrowing nail Active Diagnosis [facility] Diagnosis: ICD-10-CM E11.42 Type 2 diabetes mellitus with diabetic polyneuropathy Active Diagnosis [facility] Diagnosis: ICD-10-CM D22.9 Melanocytic nevi, unspecified Active Diagnosis [facility] Diagnosis: ICD-10-CM N39.0 Urinary tract infection, site not specified Active Diagnosis [facility] Medications Combined list of outpatient medications from Department of Defense and [facility] Affairs facilities.Medications provided include 1) outpatient medications from the last 15 months, and 2) patient-reported medications. Medication Details Route Status Patient Instructions Prescription Expires Prescription Number Last Dispense Date Ordering Provider Order Date Order Qty Source AMLODIPINE BESYLATE 10MG TAB TAKE ONE TABLET BY MOUTH ONCE A DAY FOR HEART/BL OOD PRESSURE ORAL DISCONT INUED BY PROVIDE R 08/26/2024 [id number] 4 [facility] 2023 90 [facility] AMLODIPINE BESYLATE 5MG TAB TAKE ONE TABLET BY MOUTH ONCE A DAY ORAL ACTIVE 12/20/2025 [id number] 5 SYL OTTOI SSA S 2024 90 [facility] AMLODIPINE BESYLATE 5MG TAB TAKE ONE TABLET BY MOUTH ONCE A DAY ORAL DISCONT INUED 07/04/2025 [id number] 5 SYL OTTOI SSA S 2024 90 [facility] AMLODIPINE BESYLATE 5MG TAB TAKE ONE TABLET BY MOUTH ONCE A DAY ORAL DISCONT INUED 06/02/2025 [id number] 4 COOPER OTTO S 2023 30 [facility] AMLODIPINE BESYLATE 5MG TAB TAKE ONE TABLET BY MOUTH ONCE A DAY ORAL DISCONT INUED 05/12/2025 [id number] ELIDA BLAS 2023 30 [facility] ATORVASTATI N CA 20MG TAB TAKE ONE-HALF TABLET BY MOUTH EVERY EVENING TO LOWER CHOLESTE ROL ORAL ACTIVE 12/22/2025 [id number] 5 ELIDA BLAS 2024 45 [facility] ATORVASTATI N CA 20MG TAB TAKE ONE-HALF TABLET BY MOUTH EVERY EVENING TO LOWER CHOLESTE ROL ORAL DISCONT INUED 11/30/2024 [id number] 5 NAT[facility]EE LENZ,[facility] I[facility] M 2023 45 [facility] CHOLECALCIF HA 10MCG (400UNIT) TAB TAKE TWO TABLETS BY MOUTH ONCE A DAY FOR VITAMIN D DEFICIEN CY ORAL ACTIVE 06/02/2025 [id number] 5 COOPER OTTO [facility] S 2023 200 [facility] CHOLECALCIF HA 10MCG (400UNIT) TAB TAKE TWO TABLETS BY MOUTH ONCE A DAY FOR VITAMIN D DEFICIEN CY ORAL DISCONT INUED 06/09/2024 [id number] 4 [facility] 2022 200 [facility] CYANOCOBALA MIN 500MCG TAB TAKE ONE TABLET BY MOUTH ONCE A DAY FOR VITAMIN B12 SUPPLEME NTATION ORAL ACTIVE 06/02/2025 [id number] 5 COOPER OTTO S 2023 100 [facility] CYANOCOBALA MIN 500MCG TAB TAKE ONE TABLET BY MOUTH ONCE A DAY FOR VITAMIN B12 SUPPLEME NTATION ORAL DISCONT INUED 06/09/2024 [id number] 4 NATALEE LENZ,ELOISA VERDIN M 2022 100 [facility] CYCLOBENZAP RINE HCL 5MG TAB TAKE ONE TABLET BY MOUTH THREE TIMES A DAY NEEDED FOR MUSCLE SPASM MAY CAUSE DROWSINE SS. DO NOT DRINK ALCOHOL WHILE TAKING THIS MEDICATI ON. ORAL ACTIVE 11/21/2025 [id number] 5 Kasey ALLEN 2024 90 [facility] CYCLOBENZAP RINE HCL 5MG TAB TAKE ONE TABLET BY MOUTH THREE TIMES A DAY NEEDED FOR MUSCLE SPASM MAY CAUSE DROWSINE SS. DO NOT DRINK ALCOHOL WHILE TAKING THIS MEDICATI ON. ORAL DISCONT INUED BY SANOT Donnelly 07/01/2024 [id number] COOPER OTTO 2023 48 [facility] CYCLOSPORIN E 0.05% (PF) EMULSION,OP H,0.4ML INSTILL 1 DROP IN BOTH EYES TWICE A DAY FOR DRY EYES (USE EVERY 12 HRS) OPHTHA LMIC ACTIVE 03/10/2025 [id number] 4 TAPAN BUTLER 2023 180 [facility] DICLOFENAC NA 1% GEL,TOP APPLY 4 GM TO AFFECTED AREA(S) FOUR TIMES A DAY NEEDED FOR PAIN DO NOT EXCEED MORE THAN 16 GRAMS DAILY TO ANY LOWER EXTREMIT Y JOINT. NOT MORE THAN 8 GRAMS DAILY TO ANY UPPER EXTREMIT Y JOINT. MAX 32GM/DAY OVER ALL JOINTS. (MEASURE DOSE WITH RULER ATTACHED INSIDE BOX) TOPICA L 11/30/2024 [id number] ELOISA CALLAWAY M 2023 300 [facility] DULAGLUTIDE 0.75MG/0.5M L INJ,SOLN,PE N INJECT 0.75MG UNDER THE SKIN EVERY WEEK FOR DIABETES (ADMINIS TER DOSE AT ANY TIME OF DAY, WITH OR WITHOUT MEALS) SUBCUT ANEOUS DISCONT INUED BY SANTO Donnelly 06/01/2025 [id number] 5 ELIDA BLAS 2023 4 [facility] DULAGLUTIDE 0.75MG/0.5M L INJ,SOLN,PE N INJECT 0.75MG UNDER THE SKIN EVERY WEEK FOR DIABETES (ADMINIS TER DOSE AT ANY TIME OF DAY, WITH OR WITHOUT MEALS) SUBCUT ANEOUS DISCONT INUED 01/27/2025 [id number] 4 ELIDA BLAS 2023 4 [facility] DULAGLUTIDE 0.75MG/0.5M L INJ,SOLN,PE N INJECT 0.75MG UNDER THE SKIN EVERY WEEK FOR DIABETES (ADMINIS TER DOSE AT ANY TIME OF DAY, WITH OR WITHOUT MEALS) SUBCUT ANEOUS DISCONT INUED 10/26/2024 [id number] 4 ELIDA BLAS 2023 4 [facility] DULAGLUTIDE 1.5MG/0.5ML INJ,SOLN,PE N INJECT 1.5MG UNDER THE SKIN EVERY WEEK FOR DIABETES (ADMINIS TER DOSE AT ANY TIME OF DAY, WITH OR WITHOUT MEALS) SUBCUT ANEOUS DISCONT INUED 04/14/2025 [id number] 4 ELIDA BLAS 2023 4 [facility] FLUTICASONE PROPIONATE 50MCG/SPRAY SOLN,NASAL, 16GM INSTILL 2 SPRAYS IN NOSTRIL( S) ONCE A DAY FOR CHRONIC RHINOSIN USITIS (MUST BE USED DIRECTED FOR MINIMUM OF 21 DAYS TO PROVIDE ADEQUATE BENEFITS ) NASAL ACTIVE 09/28/2025 [id number] 5 Kasey ALLEN 2024 4 [facility] HYDROCHLORO THIAZIDE 12.5MG/LOSA RTAN POTASSIUM 100MG TAB TAKE 1 TABLET BY MOUTH EVERY MORNING FOR HIGH BLOOD PRESSURE ORAL DISCONT INUED (EDIT) 06/02/2025 [id number] 5 COOPER OTTO 2023 90 [facility] HYDROCHLORO THIAZIDE 12.5MG/LOSA RTAN POTASSIUM 100MG TAB TAKE 1 TABLET BY MOUTH EVERY MORNING FOR HIGH BLOOD PRESSURE ORAL DISCONT INUED 04/18/2025 [id number] 4 WANELIDA Y LORENA 2023 90 [facility] HYDROCHLORO THIAZIDE 12.5MG/LOSA RTAN POTASSIUM 100MG TAB TAKE 1 TABLET BY MOUTH EVERY MORNING FOR HIGH BLOOD PRESSURE ORAL DISCONT INUED 01/25/2025 [id number] 4 WANELIDA Y LORENA 2023 30 [facility] HYDROCHLORO THIAZIDE 12.5MG/LOSA RTAN POTASSIUM 50MG TAB TAKE 1 TABLET BY MOUTH EVERY MORNING FOR HIGH BLOOD PRESSURE ORAL DISCONT INUED BY PROVIDE R 12/29/2024 [id number] 4 WANELIDA Y LORENA 2023 30 [facility] HYDROCHLORO THIAZIDE 25MG TAB TAKE ONE-HALF TABLET BY MOUTH ONCE A DAY FOR HIGH BLOOD PRESSURE ORAL DISCONT INUED BY PROVIDE R 11/24/2024 [id number] 4 WANELIDA Y LOREAN 2023 15 [facility] HYDROCHLORO THIAZIDE 25MG/LOSART AN POTASSIUM 100MG TAB TAKE 1 TABLET BY MOUTH EVERY MORNING FOR HIGH BLOOD PRESSURE ORAL ACTIVE 11/24/2025 [id number] 5 WANELIDA Y LORENA 2024 90 [facility] LIDOCAINE 5% PATCH APPLY 1 PATCH TO SKIN SITE ONCE A DAY FOR LOCAL ANESTHES IA APPLY PATCH AND PRESS FIRMLY FOR 10-15 SECONDS. KEEP ON FOR 12 HOURS THEN REMOVE PATCH FOR 12 HOURS. TRANSD ERMAL ACTIVE 12/16/2025 [id number] 5 IZA RAY 2024 30 [facility] LIDOCAINE 5% PATCH APPLY 1 PATCH TO SKIN SITE ONCE A DAY FOR LOCAL ANESTHES IA APPLY PATCH AND PRESS FIRMLY FOR 10-15 SECONDS. KEEP ON FOR 12 HOURS THEN REMOVE PATCH FOR 12 HOURS. TRANSD ERMAL DISCONT INUED 06/02/2025 [id number] 5 SYL OTTOI KOBY S 2023 30 [facility] LIRAGLUTIDE (EQV-VICTOZ A) 6MG/ML INJ,SOLN,PE N,3ML INJECT 1.2MG UNDER THE SKIN ONCE A DAY FOR DIABETES SUBCUT ANEOUS ACTIVE 12/28/2025 [id number] 5 ELIDA BLAS 2024 6 [facility] LIRAGLUTIDE (EQV-VICTOZ A) 6MG/ML INJ,SOLN,PE N,3ML INJECT 1.2MG UNDER THE SKIN ONCE A DAY FOR DIABETES SUBCUT ANEOUS DISCONT INUED 09/02/2025 [id number] 5 ELIDA BLAS 2024 3 [facility] LIRAGLUTIDE (EQV-VICTOZ A) 6MG/ML INJ,SOLN,PE N,3ML INJECT 0.6MG UNDER THE SKIN ONCE A DAY FOR 1 WEEK, THEN INJECT 1.2MG ONCE A DAY FOR DIABETES SUBCUT ANEOUS DISCONT INUED 09/02/2025 [id number] 5 ELIDA BLAS 2024 3 [facility] LOSARTAN 50MG TAB TAKE ONE AND ONE-HALF TABLETS BY MOUTH ONCE A DAY FOR HIGH BLOOD PRESSURE ORAL DISCONT INUED BY SANTO R 11/30/2024 [id number] 4 [facility] 2023 135 [facility] LOSARTAN 50MG TAB TAKE ONE AND ONE-HALF TABLETS BY MOUTH ONCE A DAY FOR HIGH BLOOD PRESSURE NOTE DOSE INCREASE D ORAL DISCONT INUED 08/26/2024 [id number] 4 [facility] 2023 45 [facility] METFORMIN HCL 1000MG TAB TAKE ONE TABLET BY MOUTH TWICE A DAY WITH MEALS TO LOWER BLOOD SUGAR ORAL ACTIVE 12/22/2025 [id number] 5 ELIDA BLAS 2024 180 [facility] METFORMIN HCL 1000MG TAB TAKE ONE TABLET BY MOUTH TWICE A DAY WITH MEALS TO LOWER BLOOD SUGAR ORAL DISCONT INUED 11/30/2024 [id number] 5 [facility] 2023 180 [facility] METOPROLOL TARTRATE 25MG TAB TAKE ONE-HALF TABLET BY MOUTH TWICE A DAY FOR HEART/BL OOD PRESSURE . TAKE WITH OR IMMEDIAT RADHA FOLLOWIN G FOOD. ORAL ACTIVE 12/22/2025 [id number] 5 ELIDA BLAS 2024 90 [facility] METOPROLOL TARTRATE 25MG TAB TAKE ONE-HALF TABLET BY MOUTH TWICE A DAY FOR HEART/BL OOD PRESSURE . TAKE WITH OR IMMEDIAT RADHA FOLLOWIN G FOOD. ORAL DISCONT INUED 11/30/2024 [id number] 5 [facility] [place] [facility]23 90 [facility] MOXIFLOXACI N HCL (EQV-VIGAMO X) 0.5% SOLN,OPH INSTILL 1 DROP IN RIGHT EYE FOUR TIMES A DAY FOR BACTERIA L EYE INFECTIO N OPHTHA LMIC ACTIVE 02/07/2026 [id number] 5 YENNAM,SO WMYA 2024 3 [facility] MOXIFLOXACI N HCL (EQV-VIGAMO X) 0.5% SOLN,OPH INSTILL 1 DROP IN LEFT EYE FOUR TIMES A DAY OPHTHA LMIC DISCONT INUED 02/09/2025 [id number] 5 WILKINSON,N ATALIA G 2024 3 [facility] PREDNISOLON E ACETATE 1% SUSP,OPH INSTILL 1 DROP IN RIGHT EYE FOUR TIMES A DAY FOR EYE INFLAMMA TION OPHTHA LMIC ACTIVE 02/07/2026 [id number] 5 YENNAM,SO WMYA 2024 5 [facility] PREDNISOLON E ACETATE 1% SUSP,OPH INSTILL 1 DROP IN LEFT EYE FOUR TIMES A DAY FOR EYE INFLAMMA TION OPHTHA LMIC DISCONT INUED 01/11/2026 [id number] 5 Nicole WILKINSON ATALIA G 2024 5 [facility] TAMSULOSIN HCL 0.4MG CAP TAKE ONE CAPSULE BY MOUTH ONCE A DAY APPROXIM ATELY 30 MINUTES AFTER THE SAME MEAL EACH DAY (FOR PROSTATE ) ORAL DISCONT INUED 08/30/2024 [id number] 5 COOPER OTTO S 2024 90 [facility] TAMSULOSIN HCL 0.4MG CAP TAKE ONE CAPSULE BY MOUTH ONCE A DAY APPROXIM ATELY 30 MINUTES AFTER THE SAME MEAL EACH DAY (FOR PROSTATE ) ORAL DISCONT INUED 08/27/2024 [id number] 4 COOPER OTTO SSA S 2023 90 [facility] TAMSULOSIN HCL 0.4MG CAP TAKE ONE CAPSULE BY MOUTH ONCE A DAY APPROXIM ATELY 30 MINUTES AFTER THE SAME MEAL EACH DAY (FOR PROSTATE ) ORAL DISCONT INUED 05/28/2024 [id number] 4 MIN DUENAS 2023 90 [facility] TAMSULOSIN HCL 0.4MG CAP TAKE ONE CAPSULE BY MOUTH ONCE A DAY APPROXIM ATELY 30 MINUTES AFTER THE SAME MEAL EACH DAY (FOR PROSTATE ) ORAL DISCONT INUED 03/02/2024 [id number] 4 ELOISA CALLAWAY M 2022 90 [facility] TAMSULOSIN HCL 0.4MG CAP TAKE ONE CAPSULE BY MOUTH ONCE A DAY APPROXIM ATELY 30 MINUTES AFTER THE SAME MEAL EACH DAY (FOR PROSTATE ) ORAL 11/29/2024 [id number] 5 Kasey ALLEN 2024 90 [facility] Allergies, Adverse Reactions, Alerts Combined list of allergies from Department of Defense and Veterans Affairs facilities. It does not include entries that were removed or entered in error. Substance Category Reaction Severity Reaction type Status Date Reported Comments Source DULAGLUTIDE Propensity to adverse reactions to drug (finding) Diarrhea, Nausea MILD active 5 [facility] IODINATED CONTRAST MEDIA Propensity to adverse reactions to drug (finding) Swelling active 6 [facility] LISINOPRIL Propensity to adverse reactions to drug (finding) Angioedema SEVERE active 2 [facility] SEMAGLUTIDE Propensity to adverse reactions to drug (finding) Diarrhea MILD active 4 [facility] Immunizations Combined list of available immunizations from the Department of Defense and Veterans Affairs facilities. Immunization Series Date Given Administered By Site Reaction Lot Number CVX Code Drug Parts And Service Manager Status Comments Source COVID-19 (Infor), MRNA, LNP-S, PF, MAC-SUCROSE, 30 MCG/0.3 ML (AGES 12+ YEARS) 8 2023 MIGUEL SALAZAR LEFT DELTO ID [id number] 309 complet ed [facility] INFLUENZA, HIGH-DOSE, TRIVALENT, PF 2023 MIGUEL SALAZAR RIGHT DELTO ID [id number] 135 complet ed Completed Series, [facility] COVID-19 ([facility]), MRNA, LNP-S, PF, MAC-SUCROSE, 30 MCG/0.3 ML (AGES 12+ YEARS) 1 2022 309 complet ed HISTORICA L INFORMATI ON - FROM PATIENT'S WRITTEN RECORD, [facility] INFLUENZA, UNSPECIFIED FORMULATION 2022 88 complet ed HISTORICA L INFORMATI ON - FROM PATIENT'S WRITTEN RECORD, [facility] COVID-19 (Infor), MRNA, LNP-S, BIVALENT BOOSTER, PF, 30 MCG/0.3 ML DOSE 6 2022 YODIT LOPEZ RIGHT DELTO ID [id number] 300 complet ed [facility] INFLUENZA, HIGH-DOSE, QUADRIVALENT 2021 197 complet ed HISTORICA L INFORMATI ON - FROM OTHER PROVIDER, Partner:Philippe WHITTINGTON2.Admin istered by:[facility] [id number].([id number]) .NDC:4928 [id number] ddress:12 [address] [facility] .[id number] 5 Dosage: ML 0.7 [facility] COVID-19 (PFIZER), MRNA, LNP-S, BIVALENT BOOSTER, PF, 30 MCG/0.3 ML DOSE 1 2021 300 complet ed HISTORICA L INFORMATI ON - FROM PATIENT'S WRITTEN RECORD, [facility] COVID-19 (PFIZER), MRNA, LNP-S, PF, 30 MCG/0.3 ML DOSE 4 2021 208 complet ed [facility] ZOSTER RECOMBINANT 2 2021 187 complet ed [facility] COVID-19 (PFIZER), MRNA, LNP-S, PF, 30 MCG/0.3 ML DOSE 2020 208 complet ed HISTORICA L INFORMATI ON - FROM OTHER PROVIDER, Partner:Philippe ALCALA.Admin istered by:[facility] [id number].([id number]) .NDC:5926 [id number] ddress:12 [address] [facility] .[id number] 5 Dosage: ML 0.3 [facility] INFLUENZA, HIGH-DOSE, QUADRIVALENT 2020 197 complet ed HISTORICA L INFORMATI ON - FROM OTHER PROVIDER, Partner:Philippe ALCALA.Admin istered by:[facility] [id number].([id number]) .NDC:4928 [id number] ddress:12 [address] [facility] .[id number] 5 Dosage: ML 0.7 [facility] ZOSTER RECOMBINANT 1 2020 187 complet ed [facility] COVID-19 (PFIZER), MRNA, LNP-S, PF, 30 MCG/0.3 ML DOSE 2 2020 208 complet ed PFR; [id number]; 1 [facility] COVID-19 (PFIZER), MRNA, LNP-S, PF, 30 MCG/0.3 ML DOSE 1 2020 208 complet ed PFR; [id number]; 1 [facility] INFLUENZA, HIGH-DOSE, QUADRIVALENT 2019 197 complet ed [facility] INFLUENZA, INJECTABLE, QUADRIVALENT 2018 158 complet ed 02, Partner: [facility]. Administe red by: [facility] Clinician (NPI=Not Provided) . Partner 0 Lot#: [id number] 5 [facility] INFLU[facility], INJECTABLE, QUADRIVALENT, PRESERVATIVE FREE 2017 150 complet ed [facility] INFLUENZA, INJECTABLE, QUADRIVALENT, PRESERVATIVE FREE 2016 150 complet ed [facility] PNEUMOCOCCAL POLYSACCHARID E [id number] 2015 33 complet ed [facility] N TDAP 2015 115 complet ed Left Deltoid [facility] N INFLUENZA, SEASONAL, INJECTABLE, PRESERVATIVE FREE [address] [facility] PNEUMOC[facility]JUGATE PCV 13 2014 133 complet ed [facility] INFLUENZA, UNSPECIFIED FORMULATION 2013 88 complet ed [facility] N INFLUENZA, UNSPECIFIED FORMULATION 2013 88 complet ed [facility] INFLUENZA, UNSPECIFIED FORMULATION [address] [facility] Z[facility] 2010 121 complet ed [facility] INFLUENZA, UNSPECIFIED FORMULATION 2009 88 complet ed [facility] N NOVEL INFLUENZA-H1N 1-09, ALL FORMULATIONS 2008 128 complet ed [employer] [facility] INFLUENZA, UNSPECIFIED FORMULATION 2008 88 complet ed [facility] TD(ADULT) UNSPECIFIED FORMULATION 2005 139 complet ed [facility] TDAP 2005 115 complet ed Left Deltoid [facility] OUTSIDE PNEUMOVAX (HISTORICAL) 2003 109 complet ed [facility] Results Combined list of recent chemistry, hematology and other laboratory results from Department of Defense and Veterans Affairs, ranging from 15 months to all on record, depending upon the facility. Order Name Results Value Reference Range Date Interpretation Specimen Comments Source GLUCOSE,B LOOD-poct (STL) GLUCOSE [MASS/VOLUM E] IN BLOOD BY AUTOMATED TEST STRIP 146 mg/dL 72 - 99 02/14 H Specimen Type: BLOOD Comment: Test Performed by: [id number] Meter #: [id number] Ordering Provider: ABHISHEK EMERSON Report Released Date/Time: Feb 14, 2025 08:34 AM Reporting Lab: [place] [id number] Performing Lab: [address] GLUCOSE,B LOOD-poct (STL) GLUCOSE [MASS/VOLUM E] IN BLOOD BY AUTOMATED TEST STRIP 150 mg/dL 72 - 99 01/12 H Specimen Type: BLOOD Comment: Test Performed by: [id number] Meter #: [id number] Ordering Provider: MARLY ALLEN Report Released Date/Time: Jan 12, 2025 01:12 PM Reporting Lab: [place] [id number] Performing Lab: [place] [id number] GLUCOSE,B LOOD-poct (STL) GLUCOSE [MASS/VOLUM E] IN BLOOD BY AUTOMATED TEST STRIP 147 mg/dL 72 - 99 01/12 H Specimen Type: BLOOD Comment: Test Performed by: [id number] Meter #: [id number] Ordering Provider: MARLY ALLEN Report Released Date/Time: Jan 12, 2025 11:48 AM Reporting Lab: [facility] [address] [place] [id number] Performing Lab: [facility] [address] [place] [id number] DIVISION HGA1C HEMOGLOBIN A1C/HEMOGLO BIN.TOTAL IN BLOOD 6.8 4.0 - 6.0 11/23 H Specimen Type: BLOOD No comment entered. Ordering Provider: TAPAN BLAS Report Released Date/Time: November 23, 2024 09:18 AM Reporting Lab: [facility] [place] [id number] Performing Lab: [facility] DIVISION BASIC METABOLIC PANEL CREATININE [MASS/VOLUM E] IN SERUM OR PLASMA 0.96 mg/dL 0.70 - 1.30 11/23 Specimen Type: PLASMA Comment: No hemolysis noted. Ordering Provider: TAPAN BLAS Report Released Date/Time: November 23, 2024 09:18 AM Reporting Lab: [facility] [place] [address] Performing Lab: [facility] DIVISION BASIC METABOLIC PANEL UREA NITROGEN [MASS/VOLUM E] IN SERUM OR PLASMA 24.0 mg/dL 9.0 - 25.0 11/23 Specimen Type: PLASMA Comment: No hemolysis noted. Ordering Provider: TAPAN BLAS Report Released Date/Time: November 23, 2024 09:18 AM Reporting Lab: [facility] [place] [id number] Performing Lab: [facility] BASIC METABOLIC PANEL GLUCOSE [MASS/VOLUM E] IN SERUM OR PLASMA 153 mg/dL 72 - 99 11/23 H Specimen Type: PLASMA Comment: No hemolysis noted. Ordering Provider: TAPAN BLAS Report Released Date/Time: November 23, 2024 09:18 AM Reporting Lab: [facility] DIVISION #1 [place] [address] Performing Lab: [facility] DIVISION BASIC METABOLIC PANEL SODIUM [MOLES/VOLU ME] IN SERUM OR PLASMA 141 meq/L 136 - 145 11/23 Specimen Type: PLASMA Comment: No hemolysis noted. Ordering Provider: TAPAN BLAS Report Released Date/Time: November 23, 2024 09:18 AM Reporting Lab: [facility] [place] [address] Performing Lab: [facility] BASIC METABOLIC PANEL POTASSIUM [MOLES/VOLU ME] IN SERUM OR PLASMA 4.4 meq/L 3.5 - 5.0 11/23 Specimen Type: PLASMA Comment: No hemolysis noted. Ordering Provider: TAPAN BLAS Report Released Date/Time: November 23, 2024 09:18 AM Reporting Lab: [facility] [place] [address] Performing Lab: [facility] DIVISION BASIC METABOLIC PANEL CHLORIDE [MOLES/VOLU ME] IN SERUM OR PLASMA 106 meq/L 98 - 107 11/23 Specimen Type: PLASMA Comment: No hemolysis noted. Ordering Provider: TAPAN BLAS Report Released Date/Time: November 23, 2024 09:18 AM Reporting Lab: [facility] [place] [address] Performing Lab: [facility] DIVISION BASIC METABOLIC PANEL CARBON DIOXIDE, TOTAL [MOLES/VOLU ME] IN SERUM OR PLASMA 28 meq/L 22 - 31 11/23 Specimen Type: PLASMA Comment: No hemolysis noted. Ordering Provider: TAPAN BLAS Report Released Date/Time: November 23, 2024 09:18 AM Reporting Lab: [facility] [place] [address] Performing Lab: [facility] BASIC METABOLIC PANEL CALCIUM [MASS/VOLUM E] IN SERUM OR PLASMA 9.4 mg/dL 8.4 - 10.4 11/23 Specimen Type: PLASMA Comment: No hemolysis noted. Ordering Provider: TAPAN BLAS Report Released Date/Time: November 23, 2024 09:18 AM Reporting Lab: [facility] [place] [address] Performing Lab: [facility] BASIC METABOLIC PANEL GLOMERULAR FILTRATION RATE/1.73 SQ M.PREDICTED [VOLUME RATE/AREA] IN SERUM, PLASMA OR BLOOD BY CREATININE- BASED FORMULA (CKD-EPI 2020) 82.43 60 11/23 Specimen Type: PLASMA Comment: No hemolysis noted. Ordering Provider: TAPAN BLAS Report Released Date/Time: November 23, 2024 09:18 AM Reporting Lab: [facility] [place] [address] Performing Lab: [facility] HGA1C HEMOGLOBIN A1C/HEMOGLO BIN.TOTAL IN BLOOD 6.9 4.0 - 6.0 08/31 H Specimen Type: BLOOD No comment entered. Ordering Provider: TAPAN BLAS Report Released Date/Time: Jul 20, 2024 09:26 AM Reporting Lab: [facility] [place] [address] Performing Lab: [facility] BASIC METABOLIC PANEL CREATININE [MASS/VOLUM E] IN SERUM OR PLASMA 0.97 mg/dL 0.70 - 1.30 08/31 Specimen Type: PLASMA Comment: No hemolysis noted. Ordering Provider: TAPAN BLAS Report Released Date/Time: Jul 20, 2024 09:26 AM Reporting Lab: [facility] [place] [address] Performing Lab: [facility] BASIC METABOLIC PANEL UREA NITROGEN [MASS/VOLUM E] IN SERUM OR PLASMA 15.8 mg/dL 9.0 - 25.0 08/31 Specimen Type: PLASMA Comment: No hemolysis noted. Ordering Provider: TAPAN BLAS Report Released Date/Time: Jul 20, 2024 09:26 AM Reporting Lab: [facility] [place] [address] Performing Lab: [facility] BASIC METABOLIC PANEL GLUCOSE [MASS/VOLUM E] IN SERUM OR PLASMA 168 mg/dL 72 - 99 08/31 H Specimen Type: PLASMA Comment: No hemolysis noted. Ordering Provider: TAPAN BLAS Report Released Date/Time: Jul 20, 2024 09:26 AM Reporting Lab: [facility] [place] [address] Performing Lab: [facility] BASIC METABOLIC PANEL SODIUM [MOLES/VOLU ME] IN SERUM OR PLASMA 140 meq/L 136 - 145 08/31 Specimen Type: PLASMA Comment: No hemolysis noted. Ordering Provider: TAPAN BLAS Report Released Date/Time: Jul 20, 2024 09:26 AM Reporting Lab: [facility] [place] [address] Performing Lab: [facility] [id number] DIVISION BASIC METABOLIC PANEL POTASSIUM [MOLES/VOLU ME] IN SERUM OR PLASMA 4.4 meq/L 3.5 - 5.0 08/31 Specimen Type: PLASMA Comment: No hemolysis noted. Ordering Provider: TAPAN BLAS Report Released Date/Time: Jul 20, 2024 09:26 AM Reporting Lab: [facility] [place] [address] Performing Lab: [facility] BASIC METABOLIC PANEL CHLORIDE [MOLES/VOLU ME] IN SERUM OR PLASMA 104 meq/L 98 - 107 08/31 Specimen Type: PLASMA Comment: No hemolysis noted. Ordering Provider: TAPAN BLAS Report Released Date/Time: Jul 20, 2024 09:26 AM Reporting Lab: [facility] [place] [address] Performing Lab: [facility] BASIC METABOLIC PANEL CARBON DIOXIDE, TOTAL [MOLES/VOLU ME] IN SERUM OR PLASMA 27 meq/L 22 - 31 08/31 Specimen Type: PLASMA Comment: No hemolysis noted. Ordering Provider: TAPAN BLAS Report Released Date/Time: Jul 20, 2024 09:26 AM Reporting Lab: [facility] [place] [address] Performing Lab: [facility] BASIC METABOLIC PANEL CALCIUM [MASS/VOLUM E] IN SERUM OR PLASMA 9.4 mg/dL 8.4 - 10.4 08/31 Specimen Type: PLASMA Comment: No hemolysis noted. Ordering Provider: TAPAN BLAS Report Released Date/Time: Jul 20, 2024 09:26 AM Reporting Lab: [facility] [id number] Performing Lab: [facility] BASIC METABOLIC PANEL GLOMERULAR FILTRATION RATE/1.73 SQ M.PREDICTED [VOLUME RATE/AREA] IN SERUM, PLASMA OR BLOOD BY CREATININE- BASED FORMULA (CKD-EPI 2020) 81.41 60 08/31 Specimen Type: PLASMA Comment: No hemolysis noted. Ordering Provider: TAPAN BLAS Report Released Date/Time: Jul 20, 2024 09:26 AM Reporting Lab: [facility] [place] [address] Performing Lab: [facility] LIPID PANEL (STL) CHOLESTEROL [MASS/VOLUM E] IN SERUM OR PLASMA 113 mg/dL 0 - 200 06/01 Specimen Type: PLASMA Comment: No hemolysis noted. Ordering Provider: KANDI OTTO Report Released Date/Time: Jun 01, 2024 10:24 AM Reporting Lab: [facility] [place] [address] Performing Lab: [facility] LIPID PANEL (STL) TRIGLYCERID E [MASS/VOLUM E] IN SERUM OR PLASMA 187 mg/dL 0 - 150 06/01 H Specimen Type: PLASMA Comment: No hemolysis noted. Ordering Provider: KANDI OTTO Report Released Date/Time: Jun 01, 2024 10:24 AM Reporting Lab: [facility] [place] [address] Performing Lab: [facility] LIPID PANEL (STL) CHOLESTEROL IN LDL [MASS/VOLUM E] IN SERUM OR PLASMA BY CALCULATION 40 mg/dL 06/01 Specimen Type: PLASMA Comment: No hemolysis noted. Ordering Provider: KANDI OTTO Report Released Date/Time: Jun 01, 2024 10:24 AM Reporting Lab: [facility] [place] [address] Performing Lab: [facility] DIVISION LIPID PANEL (STL) CHOLESTEROL IN HDL [MASS/VOLUM E] IN SERUM OR PLASMA 36 mg/dL 40 06/01 L Specimen Type: PLASMA Comment: No hemolysis noted. Ordering Provider: KANDI OTTO Report Released Date/Time: Jun 01, 2024 10:24 AM Reporting Lab: [facility] [place] [address] Performing Lab: [facility] DIVISION PROST. SPECIFIC AG.(PB-ST L) PROSTATE SPECIFIC AG [MASS/VOLUM E] IN SERUM OR PLASMA 0.653 ng/mL 0.000 - 4.000 06/01 Specimen Type: SERUM Comment: The listed sex of this patient may not be a typical indication for this test. Therefore, reference ranges or interpretiv e criteria listed may not be valid. Clinical correlation suggested. Ordering Provider: KANDI OTTO Report Released Date/Time: Jun 01, 2024 10:24 AM Reporting Lab: [facility] [place] [address] Performing Lab: [facility] DIVISION COMPREHEN SIVE METABOLIC PANEL CREATININE [MASS/VOLUM E] IN SERUM OR PLASMA 0.87 mg/dL 0.70 - 1.30 06/01 Specimen Type: PLASMA Comment: No hemolysis noted. Ordering Provider: KANDI OTTO Report Released Date/Time: Jun 01, 2024 10:24 AM Reporting Lab: [facility] [place] [address] Performing Lab: [facility] [id number] DIVISION COMPREHEN SIVE METABOLIC PANEL UREA NITROGEN [MASS/VOLUM E] IN SERUM OR PLASMA 17.4 mg/dL 9.0 - 25.0 06/01 Specimen Type: PLASMA Comment: No hemolysis noted. Ordering Provider: KANDI OTTO Report Released Date/Time: Jun 01, 2024 10:24 AM Reporting Lab: [facility] [place] [address] Performing Lab: [facility] COMPREHEN SIVE METABOLIC PANEL GLUCOSE [MASS/VOLUM E] IN SERUM OR PLASMA 142 mg/dL 72 - 99 06/01 H Specimen Type: PLASMA Comment: No hemolysis noted. Ordering Provider: KANDI OTTO Report Released Date/Time: Jun 01, 2024 10:24 AM Reporting Lab: [facility] [place] [address] Performing Lab: [facility] DIVISION COMPREHEN SIVE METABOLIC PANEL SODIUM [MOLES/VOLU ME] IN SERUM OR PLASMA 138 meq/L 136 - 145 06/01 Specimen Type: PLASMA Comment: No hemolysis noted. Ordering Provider: KANDI OTTO Report Released Date/Time: Jun 01, 2024 10:24 AM Reporting Lab: [facility] [place] [address] Performing Lab: [facility] DIVISION COMPREHEN SIVE METABOLIC PANEL POTASSIUM [MOLES/VOLU ME] IN SERUM OR PLASMA 3.7 meq/L 3.5 - 5.0 06/01 Specimen Type: PLASMA Comment: No hemolysis noted. Ordering Provider: KANDI OTTO Report Released Date/Time: Jun 01, 2024 10:24 AM Reporting Lab: [facility] [place] [address] Performing Lab: [facility] DIVISION COMPREHEN SIVE METABOLIC PANEL CHLORIDE [MOLES/VOLU ME] IN SERUM OR PLASMA 104 meq/L 98 - 107 06/01 Specimen Type: PLASMA Comment: No hemolysis noted. Ordering Provider: KANDI OTTO Report Released Date/Time: Jun 01, 2024 10:24 AM Reporting Lab: [facility] [place] [address] Performing Lab: [facility] DIVISION COMPREHEN SIVE METABOLIC PANEL CARBON DIOXIDE, TOTAL [MOLES/VOLU ME] IN SERUM OR PLASMA 25 meq/L 22 - 31 06/01 Specimen Type: PLASMA Comment: No hemolysis noted. Ordering Provider: KANDI OTTO Report Released Date/Time: Jun 01, 2024 10:24 AM Reporting Lab: [facility] [place] [address] Performing Lab: [facility] DIVISION COMPREHEN SIVE METABOLIC PANEL CALCIUM [MASS/VOLUM E] IN SERUM OR PLASMA 9.6 mg/dL 8.4 - 10.4 06/01 Specimen Type: PLASMA Comment: No hemolysis noted. Ordering Provider: KANDI OTTO Report Released Date/Time: Jun 01, 2024 10:24 AM Reporting Lab: [facility] [place] [address] Performing Lab: [facility] DIVISION COMPREHEN SIVE METABOLIC PANEL PROTEIN [MASS/VOLUM E] IN SERUM OR PLASMA 6.7 g/dL 6.0 - 8.6 06/01 Specimen Type: PLASMA Comment: No hemolysis noted. Ordering Provider: KANDI OTTO Report Released Date/Time: Jun 01, 2024 10:24 AM Reporting Lab: [facility] [place] [address] Performing Lab: [facility] DIVISION COMPREHEN SIVE METABOLIC PANEL ALBUMIN [MASS/VOLUM E] IN SERUM OR PLASMA 3.8 g/dL 3.4 - 5.0 06/01 Specimen Type: PLASMA Comment: No hemolysis noted. Ordering Provider: KANDI OTTO Report Released Date/Time: Jun 01, 2024 10:24 AM Reporting Lab: [facility] [place] [address] Performing Lab: [facility] DIVISION COMPREHEN SIVE METABOLIC PANEL BILIRUBIN.T OTAL [MASS/VOLUM E] IN SERUM OR PLASMA 0.3 mg/dL 0.2 - 1.2 06/01 Specimen Type: PLASMA Comment: No hemolysis noted. Ordering Provider: KANDI OTTO Report Released Date/Time: Jun 01, 2024 10:24 AM Reporting Lab: [facility] [place] [address] Performing Lab: [facility] DIVISION COMPREHEN SIVE METABOLIC PANEL ALKALINE PHOSPHATASE [ENZYMATIC ACTIVITY/VO LUME] IN SERUM OR PLASMA 110 U/L 40 - 150 06/01 Specimen Type: PLASMA Comment: No hemolysis noted. Ordering Provider: KANDI OTTO Report Released Date/Time: Jun 01, 2024 10:24 AM Reporting Lab: [facility] [place] [address] Performing Lab: [facility] [id number] [place] [address] DIVISION COMPREHEN SIVE METABOLIC PANEL ASPARTATE AMINOTRANSF ERASE [ENZYMATIC ACTIVITY/VO LUME] IN SERUM OR PLASMA 13 U/L 5 - 34 06/01 Specimen Type: PLASMA Comment: No hemolysis noted. Ordering Provider: KANDI OTTO Report Released Date/Time: Jun 01, 2024 10:24 AM Reporting Lab: [facility] [place] [address] Performing Lab: [facility] [id number] COMPREHEN SIVE METABOLIC PANEL ALANINE AMINOTRANSF ERASE [ENZYMATIC ACTIVITY/VO LUME] IN SERUM OR PLASMA 15 U/L 8 - 40 06/01 Specimen Type: PLASMA Comment: No hemolysis noted. Ordering Provider: KANDI OTTO Report Released Date/Time: Jun 01, 2024 10:24 AM Reporting Lab: [facility] [place] [address] Performing Lab: [facility] COMPREHEN SIVE METABOLIC PANEL GLOMERULAR FILTRATION RATE/1.73 SQ M.PREDICTED [VOLUME RATE/AREA] IN SERUM, PLASMA OR BLOOD BY CREATININE- BASED FORMULA (CKD-EPI 2020) 89.98 60 06/01 Specimen Type: PLASMA Comment: No hemolysis noted. Ordering Provider: KANDI OTTO Report Released Date/Time: Jun 01, 2024 10:24 AM Reporting Lab: [facility] [place] [address] Performing Lab: [facility] Vital Signs Combined list of inpatient and outpatient Vital Signs from Department of Defense and Veterans Affairs, ranging from 12 months to all on record, depending upon the facility. Vital Sign Value Date Comments Source SYSTOLIC BLOOD PRESSURE 152 02/14/2025 06:50:00 [facility] DIASTOLIC BLOOD PRESSURE 86 02/14/2025 06:50:00 [facility] PULSE OXIMETRY 94 % 02/14/2025 06:50:00 [facility] WEIGHT 280 02/14/2025 06:50:00 [facility] BMI 39 kg/m2 02/14/2025 06:50:00 [facility] PAIN 1 02/14/2025 06:50:00 [facility] HEIGHT 71 02/14/2025 06:50:00 [facility] TEMPERATURE 97.2 02/14/2025 06:50:00 [facility] PULSE 80 02/14/2025 06:50:00 [facility] RESPIRATION 18 02/14/2025 06:50:00 [facility] SYSTOLIC BLOOD PRESSURE 151 01/12/2025 11:31:15 [facility] DIASTOLIC BLOOD PRESSURE 80 01/12/2025 11:31:15 [facility] PULSE OXIMETRY 93 % 01/12/2025 11[facility]31:[facility] WEIGHT 280 01/12/2025 11:31:15 [facility] BMI 39 kg/m2 01/12/2025 11:31:15 [facility] PAIN 1 01/12/2025 11:31:15 [facility] HEIGHT 71.5 01/12/2025 11:31:15 [facility] TEMPERATURE 98.4 01/12/2025 11:31:15 [facility] PULSE 77 01/12/2025 11:31:15 [facility] RESPIRATION 20 01/12/2025 11:31:15 [facility] SYSTOLIC BLOOD PRESSURE 144 11/23/2024 09:10:42 [facility] DIASTOLIC BLOOD PRESSURE 75 11/23/2024 09:10:42 [facility] PULSE 87 11/23/2024 09:10:42 [facility] SYSTOLIC BLOOD PRESSURE 150 10/11/2024 10:56:57 [facility] DIASTOLIC BLOOD PRESSURE 78 10/11/2024 10:56:57 [facility] PULSE 95 10/11/2024 10:56:57 [facility] SYSTOLIC BLOOD PRESSURE 136 08/31/2024 09:18:04 [facility] DIASTOLIC BLOOD PRESSURE 80 08/31/2024 09:18:04 [facility] PULSE 64 08/31/2024 09:18:04 [facility] Encounters Combined list of: 1) Encounters from Department of [facility] Affairs facilities going backup to the last 18 months, not all [place] inpatient encounters are included; 2) Encounters from the Department of [facility] facilities going backup to 280 months. Location Location Details Encounter Type Encounter Number Reason For Visit Attending Provider ADM Date DC Date Status Disposition Source [facility] Outpatient Encounter [id number] [place] Y E 08/23 [facility] Outpatient Encounter [id number] [place] Y E 09/02 [facility] POSTOP FOLLOW-UP VISIT [id number] Diagnos is: ICD-10- CM N20.0 Calculu s of kidney ANTOINETTE,R ALPH J 09/13 [facility] MTMS BY PHARM EST 15 MIN [id number] Diagnos is: ICD-10- CM E11.9 Type 2 diabete s mellitu s without complic ations TAPAN BLAS 09/21 [facility] MTMS BY PHARM ADDL 15 MIN [id number] Diagnos is: ICD-10- CM E11.9 Type 2 diabete s mellitu s without complic ations WANTAPANELLE 10/19 [facility] Outpatient Encounter [id number] 10/20 [facility] QNHP OL DIG ASSMT&MGMT 5- [id number] Diagnos is: ICD-10- CM E11.9 Type 2 diabete s mellitu s without complic ations LB MIRANDA 10/25 [facility] OFFICE O/P EST MOD 30 MIN [id number] Diagnos is: ICD-10- CM N39.0 Urinary tract infecti on, site not specifi ed Cony CURRY 10/26 [facility] OFFICE O/P EST LOW 20 MIN [id number] Diagnos is: ICD-10- CM D22.9 Melanoc ytic nevi, unspeci fiTHERESE Hahn R 11/07 [facility] Outpatient Encounter [id number] 11/14 [facility] MTMS BY PHARM ADDL 15 MIN [id number] Diagnos is: ICD-10- CM E11.9 Type 2 diabete s mellitu s without complic ations WANTAPAN BELLEELLE 11/23 [facility] OFFICE O/P EST MOD 30 MIN [id number] Diagnos is: ICD-10- CM E11.42 Type 2 diabete s mellitu s with diabeti c polyneu ropathy SHIRA RACHELTERESA LETY Parks 11/29 [facility] Outpatient Encounter [id number] 12/13 [facility] Outpatient Encounter [id number] THIAGO LOPEZ 12/14 [facility] Outpatient Encounter [id number] THIAGO LOPEZ 12/16 [facility] OFFICE O/P EST LOW 20 MIN [id number] Diagnos is: ICD-10- CM L60.0 Ingrowi ng nail [place],ST UART L 12/19 [facility] MTMS BY PHARM EST 15 MIN [id number] Diagnos is: ICD-10- CM E11.8 Type 2 diabete s mellitu s with unspeci fied complic ations TAPAN BLAS 12/27 [facility] Outpatient Encounter [id number] IZA YOUNG 01/12 [facility] MTMS BY PHARM ADDL 15 MIN [id number] Diagnos is: ICD-10- CM E11.8 Type 2 diabete s mellitu s with unspeci fied complic ations TAPAN BLAS 01/24 [facility] QNHP OL DIG ASSMT&MGMT 5-10 [id number] Diagnos is: ICD-10- CM E11.8 Type 2 diabete s mellitu s with unspeci fied complic ations RUBENLB Rita Proctor 01/26 [facility] Outpatient Encounter [id number] GEMMELL,AM Y E 02/06 [facility] Outpatient Encounter [id number] GEMMELL,AM Y E 02/27 [facility] MTMS BY PHARM EST 15 MIN [id number] Diagnos is: ICD-10- CM E11.8 Type 2 diabete s mellitu s with unspeci fied complic ations TAPAN BLAS 03/01 [facility] COMPRE [place]PH EXAM [place] 1/ [id number] Diagnos is: ICD-10- CM E11.9 Type 2 diabete s mellitu s without complic ations STEPHANIAMARCOSYA 03/09 [facility] OFFICE O/P EST LOW 20 MIN [id number] Diagnos is: ICD-10- CM N20.0 Calculu s of kidney ANTOINETTE,R ALPH J 03/15 [facility] Outpatient Encounter [id number] Vikki SALAZAR 03/17 [facility] Outpatient Encounter [id number] 04/12 [facility] IMMUNIZATI ON ADMIN [id number] Diagnos is: ICD-10- CM I10 Essenti al (primar y) hyperte nsTAPAN Hinojosa 04/13 [facility] Outpatient Encounter [id number] NOA KOEHLER RLA F 04/13 [facility] QNHP OL DIG ASSMT&MGMT 5-10 [id number] Diagnos is: ICD-10- CM E66.09 Other obesity due to excess calorie s DONTRELL COY CORDELL 04/17 [facility] Outpatient Encounter [id number] 04/27 [facility] Outpatient Encounter [id number] 04/28 [facility] Outpatient Encounter [id number] 05/09 [facility] MTMS BY PHARM ADDL 15 MIN [id number] Diagnos is: ICD-10- CM E11.8 Type 2 diabete s mellitu s with unspeci fied complic atTAPAN Vasquez 05/11 [facility] Outpatient Encounter [id number] GEMVIOLETA,AM Y E 05/17 [facility] Outpatient Encounter [id number] 05/19 [facility] Outpatient Encounter [id number] TIEN LOPEZ RRY 05/24 [facility] Outpatient Encounter [id number] GEMMELL,AM Y E 05/24 [facility] Outpatient Encounter [id number] GEMMELL,AM Y E 05/31 [facility] Outpatient Encounter [id number] 05/31 [facility] OFFICE O/P EST MOD 30 MIN [id number] Diagnos is: ICD-10- CM Z00.00 Encntr for general adult medical exam w/o abnorma l finding s CLARITA,KARY SA S 06/01 [facility] Outpatient Encounter [id number] 06/05 [facility] QNHP OL DIG ASSMT&MGMT 5-10 [id number] Diagnos is: ICD-10- CM E11.8 Type 2 diabete s mellitu s with unspeci fied complic ations SCHJONAS,NA NCY CORDELL 06/05 [facility] Outpatient Encounter [id number] 06/06 [facility] MTMS BY PHARM ADDL 15 MIN [id number] Diagnos is: ICD-10- CM I10 Essenti al (primar y) hyperte nsion TAPAN BLAS 06/08 [facility] Outpatient Encounter [id number] ENID PIERSON FRANCISC OJJOHANA Kasey 06/28 [facility] OFFICE O/P EST LOW 20 MIN [id number] Diagnos is: ICD-10- CM N20.0 Calculu s of kidney SHYLA LOCKE 07/03 [facility] MTMS BY PHARM EST 15 MIN [id number] Diagnos is: ICD-10- CM E11.8 Type 2 diabete s mellitu s with unspeci fied complic TAPAN BlueELLE 07/20 [facility] Outpatient Encounter [id number] Diagnos is: ICD-10- CM Z55.9 Problem s related to educati on and literac y, unspeci fied VERONIKA CABALLERODY 07/20 [facility] Outpatient Encounter [id number] 07/21 [facility] MTMS BY PHARM EST 15 MIN [id number] Diagnos is: ICD-10- CM E11.8 Type 2 diabete s mellitu s with unspeci fied complic atTAPAN Vasquez 08/31 [facility] NQHP OL DIG ASSMT&MGMT 5-10 [id number] Diagnos is: ICD-10- CM E11.8 Type 2 diabete s mellitu s with unspeci fied complic ations JOSE ACRLOS [place] 09/01 [facility] Outpatient Encounter [id number] 09/11 [facility] DESTRUCT B9 LESION 1-14 [id number] [id number] Diagnos is: ICD-10- CM B07.9 Viral wart, unspeci fied GIANNARita JOHANA K 09/12 [facility] Outpatient Encounter [id number] 09/27 [facility] MTMS BY PHARM ADDL 15 MIN [id number] Diagnos is: ICD-10- CM E11.8 Type 2 diabete s mellitu s with unspeci fied complic ations TAPAN BLAS 10/11 [facility] Outpatient Encounter [id number] Kezia JACOBSON 10/19 [facility] OFFICE O/P EST LOW 20 MIN [id number] [id number] Diagnos is: ICD-10- CM D18.01 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 TAPAN CHAUDHRY 11/07 [facility] Outpatient Encounter [id number] 11/20 [facility] MTMS BY PHARM EST 15 MIN [id number] [id number] Diagnos is: ICD-10- CM E11.8 Type 2 diabete s mellitu s with unspeci fied complic ations TAPAN BLAS 11/23 [facility] INTRM OPH EXAM EST PATIENT [id number] [id number] Diagnos is: ICD-10- CM H25.13 Age-rel ated nuclear catarac t, bilemma ArriazaJOHN PAUL GRETTA Florez 11/23 [facility] Outpatient Encounter [id number] [id number] TAPAN BLAS 11/23 [facility] Outpatient Encounter [id number] 12/14 [facility] OFF/OP EST MAY X REQ PHY/QHP [id number] [id number] Diagnos is: ICD-10- CM M54.50 Low back pain, unspeci fied GEMMELL,AM Y E 12/15 [facility] Outpatient Encounter [id number] [id number] 12/18 [facility] INTRM OPH EXAM EST PATIENT [id number] [id number] Diagnos is: ICD-10- CM H25.13 Age-rel ated nuclear catarac t, bilJAQUELIN Villasenor 12/18 [facility] Outpatient Encounter [id number] [id number] 12/18 [facility] Outpatient Encounter [id number] [id number] 12/18 [facility] Outpatient Encounter [id number] [id number] 12/19 [facility] OFF/OP EST MAY X REQ PHY/QHP [id number] [id number] Diagnos is: ICD-10- CM M54.50 Low back pain, unspeci fied RAKELAM Y E 12/20 [facility] MTMS BY PHARM EST 15 MIN [id number] [id number] Diagnos is: ICD-10- CM E11.8 Type 2 diabete s mellitu s with unspeci fied complic ations TAPAN BLASELLE 12/21 [facility] Outpatient Encounter [id number] [id number] MEGAN BLASILY LORENA 12/26 [facility] NQHP OL DIG ASSMT&MGMT 5-10 [id number] [id number] Diagnos is: ICD-10- CM E11.8 Type 2 diabete s mellitu s with unspeci fied complic ations JOSE CARLOS SANTIAGO RI 12/27 [facility] THERAPEUTI C EXERCISES [id number] [id number] Diagnos is: ICD-10- CM M54.50 Low back pain, unspeci fied FLORIN MONAE A 12/29 [facility] THERAPEUTI C EXERCISES [id number] [id number] Diagnos is: ICD-10- CM M54.50 Low back pain, unspeci fied FLORIN MONAE A 01/08 [facility] MEASURE BLOOD OXYGEN LEVEL [id number] [id number] Diagnos is: ICD-10- CM H25.13 Age-rel ated nuclear catarac t, bilater SYL Benavides M 01/12 [facility] OFFICE O/P EST MOD 30 MIN [id number] [id number] Diagnos is: ICD-10- CM Z01.818 Encount er for other preproc edural examina tion MEGAN-AD ONBEATRIZ TAYO B 01/12 [facility] Outpatient Encounter [id number] [id number] IZA DOBBS A 01/12 [facility] Outpatient Encounter [id number] [id number] JAQUELIN DEE 01/12 [facility] XCAPSL CTRC RMVL W/O ECP [id number] [id number] WILKINSON,NA NIKOLAY G 01/12 [facility] Outpatient Encounter [id number] [id number] KAMRYN GOOD K 01/12 [facility] Outpatient Encounter [id number] [id number] KAMRYN GOOD K 01/12 [facility] POSTOP FOLLOW-UP VISIT [id number] [id number] Diagnos is: ICD-10- CM Z98.42 Catarac t extract ion status, left eye JAQUELIN DEE ALEJANDRA 01/12 [facility] Outpatient Encounter [id number] [id number] 01/15 [facility] [id number] [id number] Diagnos is: ICD-10- CM Z98.42 Catarac t extract ion status, left eye NEDA DAVIS ICA Y 01/18 [facility] Outpatient Encounter [id number] [id number] 01/24 [facility] POSTOP FOLLOW-UP VISIT 23941-3.65 [id number] 9 Diagnos is: ICD-10- CM Z98.42 Catarac t extract ion status, left eye JAQUELIN DEE 02/07 [facility] REAGENT STRIP/BLOO D GLUCOSE [id number] [id number] Diagnos is: ICD-10- CM H25.12 Age-rel ated nuclear catarac t, left eye WILFREDO JUSTIN 02/14 [facility] OFFICE O/P EST LOW 20 MIN [id number] [id number] Diagnos is: ICD-10- CM Z01.818 Encount er for other preproc edural examina tion IDANIA,ER IN A 02/14 [facility] Outpatient Encounter [id number] [id number] IZA DOBBS NNIFER A 02/14 [facility] XCAPSL CTRC RMVL W/O ECP 02285-2.65 [id number] IZA DOBBS NNIFER A 02/14 [facility] Outpatient Encounter [id number] [id number] NOREEN HILLIARD E 02[facility] POSTOP FOLLOW-UP VISIT [id number] [id number] Diagnos is: ICD-10- CM Z98.41 Catarac t extract ion status, right eye NEDA DAVIS ICA Y 02/15 [facility] Outpatient Encounter [id number] [id number] 02/15 [facility] Outpatient Encounter [id number] [id number] 02/15 [facility] Outpatient Encounter [id number] [id number] 02/17 [facility] Procedures Combined list of: 1) Procedures from Department of Veterans Affairs facilities going back up to thelast 18 months, not all [place] non-surgical procedures are included; 2) All procedures from the Department of Defense facilities. Procedure Procedure Type Code Date Perfomer Comments Sourc e RIGHT EYE PHACO CATARACT EXTRACTION WITH LENS IMPLANT [facility] [id number] 02/14/2025 DIANN MEEKS [facility] LEFT EYE PHACO CATARACT EXTRACTION WITH LENS IMPLANT XCAPSL CTR[facility] RMVL W/O ECP [id number] 01/12/2025 DELORIS WILKINSON [facility] Social History Combined list of available smoking, tobacco, and other social history from Department of Defense and Veterans Affairs facilities. Social History Type Response Date Comment Sourc e Tobacco smoking status NHIS VA-TOBACCO FORMER USER 11/30/2023 [facility] History of tobacco use HI-TOBACCO QUIT 15 YRS OR MORE 11/30/2023 [facility] History of tobacco use ORYX ADMIT TOBACCO SCREEN NO 06/19/2023 [facility] History of tobacco use VA-TOBACCO FORMER USER 06/02/2023 [facility] History of tobacco use VA-TOBACCO NEVER USED 01/12/2022 [facility] History of tobacco use VA-TOBACCO FORMER USER 12/17/2020 [facility] History of tobacco use VA-TOBACCO FORMER USER 08/04/2018 [facility] History of tobacco use QUIT TOBACCO >7 YEARS AGO 11/10/2017 [facility] History of tobacco use QUIT TOBACCO >7 YEARS AGO 05/12/2017 [facility] History of tobacco use QUIT TOBACCO >7 YEARS AGO 04/02/2016 [facility] History of tobacco use LIFETIME NON-USER OF TOBACCO 05/21/2015 [facility] History of tobacco use LIFETIME NON-USER OF TOBACCO 01/03/2014 [facility] History of tobacco use QUIT TOBACCO >12 MO and <7 YRS AGO 02/21/2013 [facility] History of tobacco use LIFETIME NON-USER OF TOBACCO 08/19/2009 [facility] History of tobacco use QUIT TOBACCO >12 MO and <7 YRS AGO 10/05/2008 [facility] History of tobacco use QUIT TOBACCO IN THE LAST 12 MONTHS 11/18/2007 [facility] History of tobacco use CURRENT TOBACCO USER 08/05/2006 [facility] History of tobacco use CURRENT TOBACCO USER 01/13/2006 [facility] Plan of Care List of future care activities from [facility] facilities. Additional future care activities may be listed in the Assessment and Plan section. Date/Time Care Activity Care Activity Detail Facili ty 02/22/2025 AMBULATORY - SURGERY AMBULATORY - SURGERY [facility] Advance Directives List of completed, amended, or rescinded Advance Directives on record at [facility] facilities. An actual copy of the Directive is not included. Date Advance Directive Provider Source 01/22/2016 ADVANCE DIRECTIVE DISCUSSION AMBERLY HOFFMAN [facility] 03/31/2007 ADVANCE DIRECTIVE JOSE C ALLEN [facility]
--- OUTSIDE RECORDS SUMMARY | 2025-02-17 15:30 | XMS_ITS | Clinical Summary ---
Author Organization [facility] Address [address] [place] [id number] Care Team Providers Care Varying Exceptionalities Teacher Name Role Phone [facility] [place], Victor Manuel Proctor MD Primary Care P rovider Allergies Active Allergy Reactions Criticality Noted Date Comments Iodinated Contrast Media Swelling Medium 01/13/2006 Iodine Swelling Medium 09/08/2017 Lisinopril Angioedema High 05/28/2022 Semaglutide Diarrhea Low 10/21/2023 Medications atorvastatin (LIPITOR) 20 mg tabletIndication s:hyperlipidemia Take 0.5 tablets (10 mg total) by mouth every evening 4 Active cholecalciferol (VITAMIN D-3) 400 unit capsuleIndicatio ns:Vitamin D Deficiency Take 2 tablet/capsule (800 Units total) by mouth every evening 3 Active cyanocobalamin (Vitamin B-12) 500 mcg tabletIndication s:Prevention of Vitamin B12 Deficiency Take 1 tablet (500 mcg total) by mouth every evening 3 Active dulaglutide (TRULICITY) 0.75 mg/0.5 mL pen injectorIndicati ons:type 2 diabetes mellitus Inject 0.5 mL (0.75 mg total) under the skin once a week Wednesday 4 Active metFORMIN (GLUCOPHAGE) 1,000 mg tabletIndication s:type 2 diabetes mellitus Take 1 tablet (1,000 mg total) by mouth 2 (two) times a day 4 Active metoprolol tartrate (LOPRESSOR) 25 mg immediate release tabletIndication s:hypertension Take 0.5 tablets (12.5 mg total) by mouth 2 (two) times a day 4 Active tamsulosin (FLOMAX) 0.4 mg extended release capsuleIndicatio ns:benign prostatic hyperplasia with lower urinary tract sx Take 1 capsule (0.4 mg total) by mouth every evening 3 Active diclofenac sodium (VOLTAREN) 1 % gelIndications:P ain Apply 4 g topically 4 (four) times a day as needed (pain) Active losartan-hydroCH LOROthiazide (HYZAAR) 100-12.5 mg per tabletIndication s:hypertension Take 1 tablet by mouth every morning Active ergocalciferol (VITAMIN D) 50,000 unit capsuleIndicatio ns:Vitamin D deficiency Take 1 capsule (50,000 Units total) by mouth once a week TAKE 1 CAPSULE ONCE A WEEK FOR 12 WEEKS, THEN FOLLOW UP WITH YOUR PCP. 12 capsule 4 Active cycloSPORINE (RESTASIS) 0.05 % ophthalmic emulsionIndicati ons:dry eye Administer 1 drop into both eyes 2 (two) times a day Active acetaminophen (TYLENOL) 500 mg tablet Take 2 tablets (1,000 mg total) by mouth every 8 (eight) hours 90 tablet 1 4 Active amLODIPine (NORVASC) 5 mg tablet Take 1 tablet (5 mg total) by mouth daily 4 Active cyclobenzaprine (FLEXERIL) 5 mg tablet Take 1 tablet (5 mg total) by mouth 4 Active Active Problems Problem Noted Date Diagnosed Date S/P total knee arthroplasty, left 03/22/2024 Hypertension 03/09/2024 Hyperlipidemia 03/09/2024 Class 2 obesity in adult 03/09/2024 CKD (chronic kidney disease) 03/09/2024 History of partial nephrectomy 03/09/2024 Type 2 diabetes mellitus 03/09/2024 At risk for obstructive sleep apnea 03/09/2024 Age-related nuclear cataract, bilateral 12/29/19 Calculus of kidney 12/29/2023 Carcinoma in situ of kidney 12/29/2023 Diabetic peripheral neuropat hy associated with type 2 diabetes mellitus 12/29/2023 Exposure to potentially hazardous substance 12/17 Primary osteoarthritis of left knee 12/29/2023 Immunizations Immunization Administration Dates Next Due H1N1 All Forms 07/09/2009 Influenza, Quad, Adjuvantate d, Intramuscular 04/23/2023 Influenza, Quadrivalent, Hig h Dose, Preservative Free, Intrr 03/26/2022,04/17/2021 Influenza, Quadrivalent, Spl it, Intramuscular 05/19/2019 Influenza, Quadrivalent, Spl it, Preservative Free, Intramuscular 05/23/2018,05/12/2017 Influenza, Trivalent, Preser vative Free, Intramuscular 05/21/2015 Influenza, Unspecified 05/22/2014,2013,05/13/2012,05/12,03/22/2009 Pfizer SARS-CoV-2 Monovalent Vaccination (12+ Yrs) PURPLE 10/24/2021,09/03/2020,08/13/2020 Pneumococcal Conjugate PCV 13 09/28/2014 Pneumococcal Polysaccharide PPV23 11/26/2015 Pneumococcal, Unspecified 07/19/2003 Td, Unspecified 01/13/2006 Tdap 11/26/2015,01/13/2006 ZOSTER LIVE 03/11/2011 ZOSTER Recombinant 09/04/2021,12/17/2020 Surgical History Surgery Date Site/Laterality Comments HYDROCELE EXCISION / REPAIR x3 CHOLECYSTECTOMY FISTULA REPAIR x5 KNEE ARTHROSCOPY BACK SURGERY HERNIA REPAIR KIDNEY SURGERY LITHOTRIPSY Medical History Medical History Date Comments Hypertension Diabetes mellitus (HCC) Type 2 diabetes mellitus Family History Medical History Relation Name Comments Deep vein thrombosis Maternal Grandfather Relation Name Status Comments Maternal Grandfather Social History Tobacco Use Types Packs/Day Years Used Date Smoking Tobacco: Former Cigarettes 1 35 Q uit: 03/28/2007 Smokeless Tobacco: Never Tobacco Cessation:Counseling Given: Not Answered AUDIT-C Answer Date Recorded Q1: How often do you have a drink containing alcohol? Never 03/22/2024 Q2: How many drinks containi ng alcohol do you have on a typical day when you are drinking? Patient does not drink Q3: How often do you have si x or more drinks on one occasion? Never 03/22/2024 Personal Safety Answer Date Recorded Have you ever been in or are you currently in a harmful physical or emotional relationship or is someone making you feel afraid or unsafe? Denies 03/22/2024 Sex and Gender Information Value Date Recorded Sex Assigned at Not on file Legal Sex Male 1:45 AM [employer] Gender Identity Not on file Sexual Orientation Not on file Obstetrics History Last Filed Vital Signs Vital Sign Reading Time Taken Comments Blood Pressure 128/70 03/23/2024 10:01 AM CDT Pulse 64 03/23/2024 10:01 AM CDT Temperature 36.4 C (97.6 F) 03/23/2024 3:31 AM CDT Respiratory Rate 18 03/23/2024 8:03 AM CDT Oxygen Saturation 95% 03/23/2024 8:03 AM CDT Inhaled Oxygen Concentration - - Weight 125.7 kg (277 lb 3.2 oz) 024 10:04 AM CDT Height 180.3 cm (5' 11) 03/22/2024 10: 04 AM CDT Body Mass Index 38.66 03/22/2024 10:04 AM CDT Plan of Treatment Health Maintenance Due Date Last Done Comments Albumin Creatinine Ratio, Urine 1950 Depression Screening 1950 Hepatitis C Screening 1950 Dilated Eye Exam 1949 Foot Exam 1949 Lipid Panel 1949 Hepatitis B Screening 1967 Well Visit 65+ 2014 Covid-19 Vaccine (2023-2 5 season) 2024 04/23/2023, 11/25/2022, 03/26/2022, Additional history exists Hemoglobin A1C 09/02/2024 03/02/2024 Influenza Vaccine (#1) 2025 , 04/23/2023, 03/26/2022, Additional history exists Fall Risk Assessment 03/23/2025 03/23/2024 eGFR 03/23/2025 03/23/2024, 03/02/2024 DTaP/Tdap/Td Vaccine (4 - Td or Tdap) 11/25/2025 11/26/2015, 01/13/2006, 01/13/2006 Pneumococcal vaccine 65+ Completed 016, 09/28/2014, 07/19/2003 Abdominal Aortic Aneurysm (A AA) Screen Completed 11/10/2017 Zoster Vaccine Completed 09/04/2021, 06/07/2020, 03/11/2011 Medical Devices Implanted Type [employer] Device Identifier Shelf Expiration Date Model / Serial / Lot [employer] Simplex P Full Dose Radiopaque Preblend Cement Bone Tobramycin 6197-9-010 - [id number] Implanted:Qty: 1 on 03/22/2024 at [facility] Left: Knee [employer] 06/17/2025 6197-9-010 / / [id number] [employer] Simplex P Full Dose Radiopaque Preblend Cement Bone Tobramycin 6197-9-010 - [id number] Implanted:Qty: 1 on 03/22/2024 at [facility] Left: Knee [employer] 06/17/2025 6197-9-010 / / [id number] [employer] Simplex P Full Dose Radiopaque Preblend Cement Bone Tobramycin 6197-9-010 - [id number] Implanted:Qty: 1 on 03/22/2024 at [facility] Left: Knee [employer] 06/17/2025 6197-9-010 / / [id number] [employer] Insert Attune Left Medial Stabilized Size 8 5mm [id number] - [id number] Implanted:Qty: 1 on 03/22/2024 at [facility] Left: Knee [employer] 01/16/2032 [id number] / / [id number] [employer] Attune S+ Cement Fix Bearing Knee 8 Baseplate Tibial [id number] - [id number] Implanted:Qty: 1 on 03/22/2024 at [facility] Left: Knee [employer] 01/15/2034 [id number] / / [id number] [employer] Attune Cemented Cruciate Retaining Knee Left 8 Component Femoral [id number] - [id number] Implanted:Qty: 1 on 03/22/2024 at [facility] Left: Knee [employer] 08/18/2033 [id number] / / [id number] Procedures Procedure Name Priority Date/Time Associated Diagnosis Comments EGFR Routine 03/23/2024 3:37 AM CDT HEMOGLOBIN A1C Routine 03/02/2024 3:30 PM CDT Preoperative testing CT ABDOMEN PELVIS WO CONTRAST Routine 11/10/2017 8:06 PM CDT from Last 3 Months or Most Recently Relevant to Health Maintenance Results * eGFR (03/23/2024 3:37 AM CDT) eGFR 75 >=60 mL/min/1. 73 m2 Comment: Interpretive Data Reference Interval Normal >/= 90 mL/min/1.73m2 Mildly decreased* 60 - 89 mL/min/1.73m2 Mildly to moderately decreased 45 - 59 mL/min/1.73m2 Moderately to severely decreased 30 - 44 mL/min/1.73m2 Severely decreased 15 - 29 mL/min/1.73m2 Kidney Failure < 15 mL/min/1.73m2 *Relative to young adult level Estimated glomerular filtration rate is determined by the 2020 CKD-EPI equation recommended by the National Kidney Foundation (A Unifying Approach to GFR Estimation: Recommendations of the NKF-ASK Task Force on Reassessing the Inclusion of Race in Diagnosing Kidney Disease, JASN 2020). The CKD-EPI equation should not be used for patients with unstable renal function and has not been validated in children and those over 70. Current interpretive data was last reviewed 2021. Blood 03/23/2024 3:37 AM CDT 03/23/2024 3:44 AM CDT Libby Ferris MD LAB BLOOD ORDERABLES Ivanna zelaya Result [facility] [address] [facility]. Department [place] [address] * (ABNORMAL) Hemoglobin A1c (03/02/2024 3:30 PM CDT) Hgb A1C 6.7(H) 4.0 - 5.6 % Estimated Average Glucose 146 mg/dL [facility] Comment: The ADA recommends reporting an estimated Average Glucose (eAG) with all Hemoglobin A1c results using the equation derived from a study of 507 normal and diabetic adults. Minority populations were underrepresented and children were not included. (Diabetes Care 31:0154-4492, 2008). The eAG is not equivalent to a fasting glucose. Blood 03/02/2024 3:30 PM CDT 03/02/2024 4:04 PM CDT us Nadeem Saldana MD LAB BLOOD ORDERABLES Final Resul t [facility] [address] [facility]. [place] [place] [address] * CT Abdomen Pelvis WO Contrast (11/10/2017 8:06 PM CDT) Anatomical Region Laterality Modality Body N/A Computed Tomogra phy 11/10/2017 8:06 PM CDT Narrative 11/11/2017 12:54 AM CDT JIGAR SANCHES M.D. ILIANA SAMS M.D. FINAL REPORT The radiology attending physician has personally reviewed this study, and has reviewed and/or edited this written report and agrees with it. ACC# Date Time Exam [id number] Nov 10, 2017 15:06:[id number] Abd & Pelvis wo cont EXAMINATION: Computed tomography of the abdomen and pelvis without intravenous contrast HISTORY: 67-year-old male with history of nephrolithiasis status post lithotripsy x2, right renal cancer status post partial nephrectomy presenting with 2 days left pelvic pain. TECHNIQUE: Transaxial computed tomographic images of the abdomen and pelvis were obtained without intravenous contrast according to the renal stone protocol. COMPARISON: None available. FINDINGS: There is an 8 mm solid pulmonary nodule in the right middle lobe with central punctate calcification at slice location -924.5. Central calcification suggests a benign etiology and is likely sequelae of old granulomatous disease given a second calcified nodule seen adjacent in the right middle lobe. Heart is normal in size without pericardial effusion. There is elevation left hemidiaphragm. Surgical clips are seen posterior to the right hemiliver. No focal liver lesion is identified on this noncontrast examination. No intra or extrahepatic biliary ductal dilatation. The gallbladder is surgically absent. The pancreas, spleen, and adrenal glands are normal. There is a large exophytic hypoattenuating lesion in the upper pole of the left kidney density consistent with a cyst measuring 6 cm. Small subcentimeter exophytic high density focus in the lower pole left kidney measuring 5 mm is too small to characterize slice position -720 and may represent a proteinaceous or hemorrhagic cyst. Isoattenuating exophytic focus measuring 4 mm interpolar left kidney slice position -760 is too small to characterize. 2 cm homogenous low-density exophytic lesion lower pole left kidney slice position -748 likely represents a cyst. Partially exophytic 6 mm hyperattenuating lesion in interpolar right kidney may represent a proteinaceous or hemorrhagic cyst, but is too small to characterize. Adjacent to and abutting the lower pole of the right kidney, there is a calcified lesion which measures 2.2 cm likely secondary to prior partial nephrectomy and may represent a calcified old hematoma or sequelae of prior fat necrosis. No hydronephrosis. There are multiple bilateral nonobstructing renal stones the largest of which measures 1.5 cm in the upper pole the left kidney. There are multiple tiny fat-containing ventral abdominal hernias. There is also a right epigastric ventral abdominal wall hernia containing nondilated transverse colon with no surrounding stranding to suggest incarceration. There is a large fluid collection in the anterior abdominal wall with peripheral calcification. This may represent an old hematoma or old seroma from prior surgery. The lesion with central fat attenuation and peripheral thin rim of soft tissue adjacent to the sigmoid colon slice position -660.5 may represent sequelae of prior epiploic appendicitis. Metallic density is seen anterior to the right psoas muscle slice position -610 and may be from a prior surgery. Small fluid density in the subcutaneous fat of the anterior abdomen slice position -64.5 may represent an old seroma but is nonspecific. There is extensive colonic diverticulosis without diverticulitis. The appendix is not well visualized and may be surgically absent. Mild stranding adjacent to the cecum in the right lower quadrant appears chronic and may represent some scarring especially given atrophy of the adjacent abdominal wall musculature. There is also generalized anterior abdominal wall diastases. There is a small outpouching of the left dome of the urinary bladder representing a small urachal remnant or more likely small bladder diverticulum. The prostate is enlarged. There is a small fat-containing right inguinal hernia. No pelvic, abdominal, or retroperitoneal lymphadenopathy. The abdominal aorta is normal in course and caliber and contains atherosclerotic calcification. Bone windows reveal no suspicious lytic or blastic lesions. There is right greater than left sacroiliac joint osteoarthritis. Multilevel degenerative disc disease of the spine is noted. IMPRESSION: 1. Bilateral nonobstructing renal calculi without hydronephrosis. Small outpouching along the left anterior bladder dome may represent a small bladder diverticulum. 2. Postoperative changes of partial right nephrectomy. Bilateral subcentimeter hyperattenuating foci are seen in both kidneys and may represent proteinaceous or hemorrhagic cysts but are too small to characterize. Can follow up with ultrasound. 3. Small ventral hernia which contains fat and nondilated colon. 4. Fluid collection with peripheral calcification within the anterior abdominal wall may represent an old seroma or old organized hematoma. Electronically signed by: Jigar Sanches M.D. Requested By: BRONSON GREENE M.D. Dictated By: ILIANA SAMS M.D. on Nov 10 2017 5:00P This document has been electronically signed by: JIGAR SANCHES M.D. on Nov 10 2017 7:52P [id number] THRASHER M.D. FINAL REPORT The radiology attending physician has personally reviewed this study, and has reviewed and/or edited this written report and agrees with it. Attending: GARRETT TREVIZO Requesting: BRONSON GREENE Requesting Fax: Attending Fax: Attending ID: [id number] Requesting ID: [id number] Report To 1 ID: [id number] Report To 1 Name: , Report To 1 FAX: NextGen Order #: Procedure Note Miscellaneous, Not In File - 11/10/2017 Melissa THRASHER M.D. FINAL REPORT The radiology attending physician has personally reviewed this study, and has reviewed and/or edited this written report and agrees with it. ACC# Date Time Exam [id number] Nov 10, 2017 15:06:[id number] Abd & Pelvis wo cont EXAMINATION: Computed tomography of the abdomen and pelvis without intravenous contrast HISTORY: 67-year-old male with history of nephrolithiasis status post lithotripsy x2, right renal cancer status post partial nephrectomy presenting with 2 days left pelvic pain. TECHNIQUE: Transaxial computed tomographic images of the abdomen and pelvis were obtained without intravenous contrast according to the renal stone protocol. COMPARISON: None available. FINDINGS: There is an 8 mm solid pulmonary nodule in the right middle lobe with central punctate calcification at slice location -924.5. Central calcification suggests a benign etiology and is likely sequelae of old granulomatous disease given a second calcified nodule seen adjacent in the right middle lobe. Heart is normal in size without pericardial effusion. There is elevation left hemidiaphragm. Surgical clips are seen posterior to the right hemiliver. No focal liver lesion is identified on this noncontrast examination. No intra or extrahepatic biliary ductal dilatation. The gallbladder is surgically absent. The pancreas, spleen, and adrenal glands are normal. There is a large exophytic hypoattenuating lesion in the upper pole of the left kidney density consistent with a cyst measuring 6 cm. Small subcentimeter exophytic high density focus in the lower pole left kidney measuring 5 mm is too small to characterize slice position -720 and may represent a proteinaceous or hemorrhagic cyst. Isoattenuating exophytic focus measuring 4 mm interpolar left kidney slice position -760 is too small to characterize. 2 cm homogenous low-density exophytic lesion lower pole left kidney slice position -748 likely represents a cyst. Partially exophytic 6 mm hyperattenuating lesion in interpolar right kidney may represent a proteinaceous or hemorrhagic cyst, but is too small to characterize. Adjacent to and abutting the lower pole of the right kidney, there is a calcified lesion which measures 2.2 cm likely secondary to prior partial nephrectomy and may represent a calcified old hematoma or sequelae of prior fat necrosis. No hydronephrosis. There are multiple bilateral nonobstructing renal stones the largest of which measures 1.5 cm in the upper pole the left kidney. There are multiple tiny fat-containing ventral abdominal hernias. There is also a right epigastric ventral abdominal wall hernia containing nondilated transverse colon with no surrounding stranding to suggest incarceration. There is a large fluid collection in the anterior abdominal wall with peripheral calcification. This may represent an old hematoma or old seroma from prior surgery. The lesion with central fat attenuation and peripheral thin rim of soft tissue adjacent to the sigmoid colon slice position -660.5 may represent sequelae of prior epiploic appendicitis. Metallic density is seen anterior to the right psoas muscle slice position -610 and may be from a prior surgery. Small fluid density in the subcutaneous fat of the anterior abdomen slice position -64.5 may represent an old seroma but is nonspecific. There is extensive colonic diverticulosis without diverticulitis. The appendix is not well visualized and may be surgically absent. Mild stranding adjacent to the cecum in the right lower quadrant appears chronic and may represent some scarring especially given atrophy of the adjacent abdominal wall musculature. There is also generalized anterior abdominal wall diastases. There is a small outpouching of the left dome of the urinary bladder representing a small urachal remnant or more likely small bladder diverticulum. The prostate is enlarged. There is a small fat-containing right inguinal hernia. No pelvic, abdominal, or retroperitoneal lymphadenopathy. The abdominal aorta is normal in course and caliber and contains atherosclerotic calcification. Bone windows reveal no suspicious lytic or blastic lesions. There is right greater than left sacroiliac joint osteoarthritis. Multilevel degenerative disc disease of the spine is noted. IMPRESSION: 1. Bilateral nonobstructing renal calculi without hydronephrosis. Small outpouching along the left anterior bladder dome may represent a small bladder diverticulum. 2. Postoperative changes of partial right nephrectomy. Bilateral subcentimeter hyperattenuating foci are seen in both kidneys and may represent proteinaceous or hemorrhagic cysts but are too small to characterize. Can follow up with ultrasound. 3. Small ventral hernia which contains fat and nondilated colon. 4. Fluid collection with peripheral calcification within the anterior abdominal wall may represent an old seroma or old organized hematoma. Electronically signed by: Jigar Sanches M.D. Requested By: BRONSON GREENE M.D. Dictated By: ILIANA SAMS M.D. on Nov 10 2017 5:00P This document has been electronically signed by: JIGAR SANCHES M.D. on Nov 10 2017 7:52P [id number] CRAWFORD M.D. FINAL REPORT The radiology attending physician has personally reviewed this study, and has reviewed and/or edited this written report and agrees with it. Attending: GARRETT TREVIZO Requesting: BRONSON GREENE Requesting Fax: Attending Fax: Attending ID: [id number] Requesting ID: [id number] Report To 1 ID: [id number] Report To 1 Name: , Report To 1 FAX: NextGen Order #: Bronson Greene MD IMG CT PROCEDURES Final Result from Last 3 Months or Most Recently Relevant to Health Maintenance Insurance [id number] [place] [address] Advance Directives For more information, please contact: [phone] * Full Code (Latest Code Status on File) Date Activated Date Inactivated Comments 03/22/2024 3:36 PM 03/23/2024 2:59 PM Care Teams Varying Exceptionalities Teacher Relationship Specialty Start Date End Date [facility], Victor Manuel Proctor MD [address] [place] [address] PCP - General 12/29/23
--- OUTSIDE RECORDS SUMMARY | 2025-02-17 15:30 | XMS_ITS | Encounter Summary ---
Author Name [facility] [place] [facility] [place] [facility] [facility] [place] Address [address] [place] [address] Care Team Providers Care Screen Door Maker Name Role Phone MORELIA ALLEN Primary [...] PART A Mar 19, 2014 PART A [id number] [place] PATIENT MEDICARE (WNR) MEDICARE (M) PART A Mar 19, 2014 PART A [id number] [phone] [place] PATIENT Selected Encounter This section includes the information on record at [place] for the Encounter. Date/Time Encounter Type Encounter Description Reason Provider Source Dec 18, 2024 08:00 AM INTRM OPH EXAM EST PATIENT OPHTHALMOLOGY ICD-10-CM H25.13 Age-related nuclear cataract, bilateral MING DEE IHKezia Encounter Template Text not used by [facility] Assessments - Encounter Diagnoses This section includes the primary and secondary diagnoses documented for the Encounter. Date/Time Primary/Secondary Diagnosis Diagnosis Name Provider Source Dec 18, 2024 10:37 AM PRIMARY Age-related nuclear cataract, bilateral MINH,GORDY Mcbride [facility] Plan of Treatment: Future Appointments (+ 6 months) and Future Tests (+/- 45 days) The Plan of Treatment section includes future care activities for the patient from all [place] treatmentfacilities. This section includes future appointments and future orders which are active, pending or scheduled. Future Appointments This section includes appointments that were scheduled to occur 6 months from the date of the Encounter, up to a maximum of 20 appointments. The data comes from all [place] treatment facilities. Appointment Date/Time Appointment Type Appointme nt Facility Name Dec 20, 2024 03:30 PM AMBULATORY - MEDICINE [facility] Dec 21, 2024 11:00 AM AMBULATORY - NONE [facility] Dec 29, 2024 08:00 AM AMBULATORY - REHAB MEDICIN E [facility] 2025 02:30 PM AMBULATORY - REHAB MEDICIN E [facility] Jan 12, 2025 11:30 AM AMBULATORY - NONE [facility] Jan 12, 2025 04:00 PM AMBULATORY - SURGERY [facility] Jan 18, 2025 11:00 AM AMBULATORY [facility] Feb 07, 2025 11:00 AM AMBULATORY [facility] Feb 14, 2025 06:30 AM AMBULATORY - NONE [facility] Feb 15, 2025 08:30 AM AMBULATORY - SUR[facility]ERY [facility] Feb 22, 2025 08:00 AM AMBULATORY - SUR[facility]ERY [facility] Feb 28, 2025 09:00 AM AMBULATORY - SUR[facility]ERY [facility] Mar 06, 2025 08:30 AM AM[facility]ULATORY [facility] NONE [facility] Mar 12, 2025 01:30 PM AMBULATORY - SURGERY [facility] Mar 16, 2025 08:30 AM [facility] May 31, 2025 11:00 AM AMBULATORY - MEDICINE [facility] Active, Pending, and Scheduled Orders This section includes a listing of several types of active, pending, and scheduled orders, including clinic medications orders, diagnostic test orders, procedure orders and consult orders; where the start date of the order is 45 days before the date of the Encounter or 45 days after the date of theEncounter. The data comes from all [place] treatment facilities. Test Date/Time Test Type Test Details Facility Name Dec 29, 2024 12:00 AM Laboratory - Chemi stry Order BASIC METABOLIC PANEL GREEN LI/HEP BLD/PLAS PLASMA SP [facility] Lab Results: +/- 30 [...] Type Comment Jan 12, 2025 01:10 PM [facility] GLUCOSE,BLOOD-poct (STL) BLOOD Specimen Type: BLOOD Comment: Test Performed by: [id number] Meter #: [id number] Ordering Provider: MORELIA ALLEN Report Released Date/Time: Jan 12, 2025 01:12 PM Reporting Lab: [address] [address] Performing Lab: [address] [address] GLUCOSE,BLOOD-poct (STL) 150 mg/dL H 72-99 Jan 12, 2025 11:38 AM [facility] GLUCOSE,BLOOD-poct (STL) BLOOD Specimen Type: BLOOD Comment: Test Performed by: [id number] Meter #: [id number] Ordering Provider: MORELIA ALLEN Report Released Date/Time: Jan 12, 2025 11:48 AM Reporting Lab: [address] [address] Performing Lab: [address] [facility] [address] GLUCOSE,BLOOD-poct (STL) 147 mg/dL H 72-99 November 23, 2024 09:41 AM [facility] HGA1C BLOOD Specimen Type: BLOOD No comment entered. Ordering Provider: TAPAN BLAS Report Released Date/Time: November 23, 2024 09:18 AM Reporting Lab: [facility] [address] [facility] [id number] Performing Lab: [facility] [address] [facility] [address] HGA1C 6.8 H 4.0-6.0 November 23, 2024 09:41 AM [facility] BASIC METABOLIC PANEL PLASMA Specimen Type: PL ASMA Comment: No hemolysis noted. Ordering Provider: TAPAN BLAS Report Released Date/Time: November 23, 2024 09:18 AM Reporting Lab: [facility] [address] Performing Lab: [facility] [facility] [address] CREATININE 0.96 mg/dL 0.70-1.30 UREA NITROGEN 24.0 mg/dL 9.0-25.0 GLUCOSE 153 mg/dL H 72-99 SODIUM 141 meq/L 136-145 POTASSIUM 4.4 meq/L 3.5-5.0 CHLORIDE 106 meq/L 98-107 CARBON DIOXIDE 28 meq/L 22-31 CALCIUM 9.4 mg/dL 8.4-10.4 EGFR (CKD-EPI 2020) 82.43 >60 Social History: Smoking Status (Most current) and Tobacco Use (All prior to encounter date) This section includes the most current, and the historical, smoking and tobacco- related health factors from the [place] facility where the Encounter took place. Current Smoking Status This section includes the most current smoking, or tobacco-related health factor, from the [place] facility where the Encounter took place. Date/Time Current Smoking Status Comment Facil genevieve Jun 19, 2023 02:53 AM ORYX ADMIT TOBACCO SCREEN NO [facility] Tobacco Use History This section includes a history of the smoking, or tobacco-related health factors, that were collected on or before the date of the Encounter. The data comes from the [place] facility where the Encounter took place. Date/Time Smoking Status/Tobacco Use Comment [facility]irstin [facility] Apr 02, 2016 12:55 PM QUIT TOBACCO >7 YEARS AGO [facility] May 21, 2015 01:30 PM LIFETIME NON-USER OF TOBACCO [facility] Jan 03, 2014 10:46 AM LIFETIME NON-USER OF TOBACCO [facility] Feb 21, 2013 11:08 AM QUIT TOBACCO >12 M O & <7 YRS AGO [facility] Aug 19, 2009 12:46 PM LIFETIME NON-USER OF TOBACCO [facility] Oct 05, 2008 10:28 AM QUIT TOBACCO >12 M O & <7 YRS AGO [facility] November 18, 2007 09:08 AM QUIT TOBACCO IN TH E LAST 12 MONTHS [facility] Aug 05, 2006 12:57 PM CURRENT TOBACCO USER [facility] Aug 05, 2006 12:57 PM TOB-DECLINES SMOKI NG CESSATION REFERRAL [facility] Jan 13, 2006 08:42 AM CURRENT TOBACCO USER [facility] Jan 13, 2006 08:42 AM SMOKER 1-2 PACKS [facility] Advance Directives: All historical and current Section Date Range: From patient's date of to the date document was created. This section includes ALL of a patient's completed or amended [place] Advance and Rescinded Directives. The entries below indicate that a directive exists for the patient, but an actual copy is not included with this document. The data comes from all [facility]. Date Advance Directives Provider Source Jan 22, 2016 ADVANCE DIRECTIVE DISCUSSION AMBERLY HOFFMAN [facility] Mar 31, 2007 ADVANCE DIRECTIVE JOSE C ALLEN [facility] Radiology Reports: +/- 30 days of the [...] the Encounter. The data comes from all [place] treatment facilities. Date/Time Radiology Report Provider Source Dec 18, 2024 11:32 AM SPINE LUMBOSACRAL 2 OR 3 VIEWS: ALLAN LOVETT [id number] -[id number] M Exm Date: DEC 18, 2024@11:32 Req Phys: JOSE FRANCISCO RAY Loc: [facility]-PACT PHONE NURSE E4 (Req'g Img Loc: [facility] RADIOLOGY Service: Unknown [facility], [address] [place] [address] (Case [id number] COMPLETE) SPINE LUMBOSACRAL 2 OR 3 VIEWS (RAD Detailed) CPT:78537 Reason for Study: low back pain Clinical History: Report Status: Verified Date Reported: DEC 18, 2024 Date Verified: DEC 18, 2024 [employer] E-Sig:/ES/CHRIS HAMMOND MD Report: Case #[id number]. Lumbar [...] CHRIS HAMMOND MD, Staff Physician - Radiologist ([employer]) /CHRIS [facility] Encounter Notes: All associated encounter notes This section contains the clinical notes associated to the Encounter. Date/Time Encounter Note(s) Provider Source Jan 11, 2025 03:43 PM OPERATIVE NOTE: LOCAL TITLE: BRIEF OP NOTE STL STANDARD TITLE: OPERATIVE NOTE DATE OF NOTE: JAN 11, 2025@15:43 ENTRY DATE: JAN 11, 2025@15:43:17 AUTHOR: GORDY WILKINSON EXP COSIGNER: MING DEE URGENCY: STATUS: COMPLETED Date of Surgery:Dec Surgery Case #: [id number] Pre-Operative Diagnosis:cataract, left eye Post-Operative Diagnosis:cataract, left eye Surgery Performed:cataract surgery, left eye Attending:Dr. Ming Dee Surgeon:Dr. Gordy Wilkinson [employer] Helper:Dr. Ming Dee Type of Anesthesia:MAC Specimens:No If yes, Type and number of specimens: Findings: cataract, left eye Complications: none Estimated Blood Loss:<1cc Blood Given? No If yes, how much? Fluid Replacement:per anesthesia Status En-Route to PACU? Critical: No Satisfactory: Yes Operative Note Dictation Job#: /shadi/ Gordy Wilkinson M.D. Resident Physician, Ophthalmology Signed: 01/12/2025 13:07 /shadi/ MING DEE MD Staff Physician, Ophthalmology Cosigned: 01/19/2025 06:19 GORDY WILKINSON [facility] Dec 18, 2024 08:12 AM OPHTHALMOLOGY CONS ULT: LOCAL TITLE: OPHTHALMOLOGY CONSULT ST STANDARD TITLE: OPHTHALMOLOGY CONSULT DATE OF NOTE: DEC 18, 2024@08:12 ENTRY DATE: DEC 18, 2024@08:12:24 AUTHOR: GORDY WILKINSON EXP COSIGNER: MING DEE URGENCY: STATUS: COMPLETED OPHTHALMOLOGY CONSULT STL Has ADDENDA ALLAN Palacios is a 74 y/o MALE who presents for cataract evaluation. Patient reports distance vision has been worsening over the past 5 years, slowly. Now unable to see at night and extremely difficult if raining. Also having issues with haloes. [facility] helps but does not resolve it. Went to [facility] to renew DL and unable to pass nighttime driving. Retook it December 06, then passed. He feels that surgery would help enhance his vision & quality of life. Drops: Restasis BID OU Eye dominance - OD POH: 1. 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 Dry Eye c Ocular Rosacea OU 3. Cataract OU 4. DMC OU 5. Macular RPE Changse OU 6. RE/P no glasses wear as a child, started wearing readers in early 40s. Wears glasses all the time. no contact lens wear no past eye surgery or laser surgery no h/o trauma/boxing Hx of subconj heme ROS: no known CAD no h/o COPD/bronchitis/pneumonia no h/o CVA or PR + HTN + DM --Last HbA1c = HGA1C 6.8 H % 11/23/2024 09:41 no h/o GABE + h/o Flomax no ASA/plavix/coumadin 1) Denies angina 2) Denies cough or orthopnea 3) Denies dyspnea on exertion 4) Patient is able to lie flat for at least one hour PMH: 1) Essential hypertension (SNOMED CT 68995042) 2) Obesity (SNOMED CT 925105070) 3) Osteoarthritis of knee (SNOMED CT 541091848) 4) Carcinoma in situ of kidney (SNOMED CT 50818613) 5) Squamous cell carcinoma of skin (SNOMED CT 814357034) 6) Sclerosis 7) History of drug abuse 8) H/O: alcoholism 9) Rosacea 10) Kidney stone 11) Allergic rhinitis 12) Erectile Dysfunction (SCT 881310987) 13) Polyp Colon (SCT 59569192) 14) Hyperlipidemia 15) Hearing loss 16) Squamous cell carcinoma of scalp 17) Recurrent ventral incisional hernia 18) Nicotine dependence in remission 19) Vitamin B12 deficiency (non anemic) 20) Exposure to potentially hazardous substance 21) Peripheral Neuropathy with Type 2 Diabetes (SCT 5158646339687) Meds: Active Outpatient Medications (including Supplies): Active [...] DAY Indication: FOR HIGH BLOOD PRESSURE 4) CHOLECALCIF 10MCG (D3-400UNIT) TAB TAKE TWO [...] ONCE A DAY Indication: FOR DIABETES 13) NEEDLE,PEN 31G,5MM USE 1 NEEDLE UNDER THE SKIN ONCE A DAY ACTIVE Indication: FOR USE WITH VICTOZA Allergies: IODINATED CONTRAST MEDIA, LISINOPRIL, SEMAGLUTIDE, DULAGLUTIDE SH: 1) Tobacco - none 2) Alcohol - none ======Ophthalmic Examination====== VA(cc): OD: 20/30-2 phni OS: 20/60+2 ph 20/40 MRx: Refraction: 03/09/2024, see acuity above for today's vision OD: -1.25 -1.25 x095 20/25-2 OS: -0.25 -1.25 x095 20/30 Add: + 2.75 BAT: OD 20/70+2 OS 20/150 PAP: OD: 20/20-2 OS: 20/20 VF: Full to confrontation OU Motility: Full OU Alignment: Ortho by ACT Pupils: 4 to 2 OU without APD OU T(ap) : OD: 15 OS: 15 Gonioscopy: OD: grade 2 OS: grade 2-3 SLEx: OD: SLIT LAMP EXAMINATION Lids/Lashes/Lacrimal (-)blepharitis OU, MGD OU lid telangiectasia OU Conjunctiva/Sclera White/quiet OU Cornea/Tear Film Clear OU, instant TBUT OU Ant Chamber Deep and quiet OU Iris Normal, Flat nevus @11:30 OS (-)NVI OU Lens 3+ NSC OU with burnescence Dilated Fundus Examination: Dilates to: OD: 7 mm OS: 7 mm OD: vit syn CDR: 0.5 mild temporal sloping, Nerve Healthy, no pallor, PPA Macula flat, BFR Vessels WNL Periphery WNL, no lattice degeneration, mild pigmentary changes OS: vit syn CDR: 0.3 Nerve Healthy, no pallor, PPA Macula flat, BFR Vessels WNL Periphery WNL, no lattice degeneration, mild pigmentary changes A/P: 1. Visually Significant Cataracts OS - Patient interested in having CE/IOL OS. - R/B/A of surgery discussed in detail with patient including infection, bleeding, persistent inflammation, diplopia, ptosis, need for further surgeries, need for spectacle correction after surgery, possible loss of vision, possible loss of the eye. Additional risks including CME/PCO were also discussed. We discussed that dryness and ptosis can worsen after surgery. We also disucssed that he has mild pigmentary changes of the macula OS> OD and those may evolve over time, regardless of surgery. The patient understands these risks and wishes to proceed. *Loss of vision and eye -rare but could develop a blind painful eye -in severe cases, may need to remove eye *Severe bleeding -rare but possible expulsive hemorrhage -risk increased with obesity, coughing or movement during surgery, HTN, anticoagulation, elevated IOP *Severe infection -rare ~07/999 to ~07/1499 endophthalmitis rate *Further surgery or treatment -including possible lensectomy/vitrectomy for retained lens fragment, corneal transplantation for corneal decompensation, retinal surgery for retinal tear/hole/detachment, laser capsulotomy for posterior capsular opacification, increased or decreased in eye pressure requiring medicine and/or surgery *Persistent intraocular swelling -possible macular edema limiting central vision and/or uveitis -pt aware chronic treatment with steroids may lead to irreversible glaucoma and vision loss, problems with other eye *Refractive error with residual presbyopia -counseled may still need distance glasses and will still need reading glasses -anisometropia *Diplopia, ptosis - Target refraction was discussed with the patient including near, distance, and monovision. We also discussed multifocal and toric lenses. The patient elected to target plano. Planned Operation: CE/IOL OS Target Refraction: [place] AETC: consult to be entered Stay: none Gonioscopy: done today, tolerates well Pre-OP NSAID: not needed Coumadin/ASA/Plavix: No Flomax/Hytrin: No Biometry: done Consent: done Labs/EKG: per PCP Med Clearance: will forward chart to primary care team Surgery date: 01/12 at 1:30p Other +phenyl-lido, maybe procedure 2 RTC 1 day, 1 week, 1 month after day of surgery. Other eye likely to follow 2. Cup to disc asymmetry - Plan for OCT RNFL post op 3. 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 CLAUDIA/Ocular Rosacea OU - Good relief with current therapy - Continue Restasis BID OU - Discussed possible worsening of sx after cataract sx 5. Dermatochalasis OU - OS>OD, stable - Discussed possible worsening after surgery, may be interested in oculoplastics referral after 6. Macular RPE Changes OU - OCT Macula (02/2024): RPE disruption with pigment migration OD, few small drusen inferior to fovea OS, (-)SRF/CNVM OU - possible mild visual significance OD (vs cataract) - Monitor yearly, sooner with vision changes /es/ Gordy Wilkinson M.D. Resident Physician, Ophthalmology Signed: 12/18/2024 10:37 /es/ MING DEE MD Staff Physician, Ophthalmology Cosigned: 12/20/2024 13:34 12/18/2024 ADDENDUM STATUS: COMPLETED Dear PCP, This patient (ALLAN LOVETT) is scheduled for cataract surgery under local anesthesia with mild sedation. This is elective surgery to improve the patient's vision. I appreciate your assessment of this 's medical stability for this procedure. We do not routinely order preoperative labs or EKG before cataract surgery, unless there is a specific medical indication to do so (see Abby et al, NEJM 2000;3:429-30, and Jaja review 2012; [3]:[id number]). If you feel that labs or further testing will aid in the patient's pre-operative or taty-operative management, I kindly request that you order them. Please let me know if you have any special concerns regarding this procedure. Thank you. Respectfully, Gordy Wilkinson MD PGY-4 Ophthalmology Resident /shadi/ Gordy Wilkinson M.D. Resident Physician, Ophthalmology Signed: 12/18/2024 10:38 /shadi/ JOSE FRANCISCO RAY MSN,CATALOGUE LIBRARIAN-BC NURSE PRACTITIONER Cosigned: 12/18/2024 11:03 for MORELIA ALLEN MSN AGPNP-C NURSE PRACTITIONER 2025 ADDENDUM STATUS: COMPLETED Called pt to review pre op instructions for left eye cataract surgery on 01/12/25. 1. NPO after midnight the night before surgery 2. Take normal meds c a sip of water the morning of surgery. 3. Arrive at by 1130a day of surgery & take main elevator to 4th floor. 4. Must have a lease purchase truck driver to take home after surgery that evening. Also discussed date and time of first post op visit. Pt agrees with plan. /shadi/ Gordy Wilkinson M.D. Resident Physician, Ophthalmology Signed: 2025 17:31 /shadi/ MING DEE MD Staff Physician, Ophthalmology Cosigned: 01/12/2025 10:42 GORDY WILKINSON [facility]
--- OUTSIDE RECORDS SUMMARY | 2025-02-17 15:30 | XMS_ITS | Encounter Summary ---
Author Name [facility] ([place] Organization [facility] [place] Address [address] [place] [address] Care Team Providers Care Commercial Sales Director Name Role Phone MORELIA ALLEN Primary Care [...] PART A Mar 19, 2014 PART A [id number] [place] PATIENT MEDICARE (WNR) MEDICARE (M) PART A Mar 19, 2014 PART A [id number] [place] PATIENT Selected Encounter This section includes the information on record at OR for the Encounter. Date/Time Encounter Type Encounter Description Reason Provider Source Feb 07, 2025 11:00 AM POSTOP FOLLOW-UP VISIT OPHTHALMOLOGY ICD-10-CM Z98.42 Cataract extraction status, left eye JEFFERSON DEE Encounter Template Text not used by VA Assessments - Encounter Diagnoses This section includes the primary and secondary diagnoses documented for the Encounter. Date/Time Primary/Secondary Diagnosis Diagnosis Name Provider Source Feb 07, 2025 11:00 AM PRIMARY Cataract extraction status, left eye RUSSEL BENJAMIN [facility] Plan of Treatment: Future Appointments (+ 6 months) and Future Tests (+/- 45 days) The Plan of Treatment section includes future care activities for the patient from all OR treatmentfacilities. This section includes future appointments and future orders which are active, pending or scheduled. Future Appointments This section includes appointments that were scheduled to occur 6 months from the date of the Encounter, up to a maximum of 20 appointments. The data comes from all OR treatment facilities. Appointment Date/Time Appointment Type Appointme nt Facility Name Feb 14, 2025 06:30 AM AMBULATORY - NONE [facility] Feb 15, 2025 08:30 AM AMBULATORY - SURGERY [facility] Feb 22, 2025 08:00 AM AMBULATORY - SUR[facility]ERY [facility] Feb 28, 2025 09:00 AM AMBULATORY - SUR[facility]ERY [facility] Mar 06, 2025 08:30 AM AMBULATORY - NONE [facility] Mar 12, 2025 01:30 PM AMBULATORY - SURGERY [facility] Mar 16, 2025 08:30 AM AMBULATORY - SURGERY [facility] May 31, 2025 11:00 AM AMBULATORY - MEDICINE [facility] Active, Pending, and Scheduled Orders This section includes a listing of several types of active, pending, and scheduled orders, including clinic medications orders, diagnostic test orders, procedure orders and consult orders; where the start date of the order is 45 days before the date of the Encounter or 45 days after the date of theEncounter. The data comes from all OR treatment facilities. Test Date/Time Test Type Test Details Facility Name Dec 29, 2024 12:00 AM Laboratory - Chemi stry Order BASIC METABOLIC PANEL GREEN LI/HEP BLD/PLAS PLASMA SP [facility] Lab Results: +/- 30 days of the encounter This section includes the Chemistry and Hematology Lab Results on record with OR for the patient. Radiology Reports and Pathology Reports are provided separately, in subsequent sections. Lab Results This section contains the Chemistry/Hematology Results that were resulted 30 days before or 30 daysafter the date of the Encounter. Date/Time Source Result Type Result - Unit Interpretation Reference Range Specimen Type Comment Feb 14, 2025 06:47 AM [facility] GLUCOSE,BLOOD-poct (STL) BLOOD Specimen Type: BLOOD Comment: Test Performed by: [id number] Meter #: [id number] Ordering Provider: ENEDELIA EMERSON Report Released Date/Time: Feb 14, 2025 08:34 AM Reporting Lab: [address] [address] Performing Lab: [address] [address] GLUCOSE,BLOOD-poct (STL) 146 mg/dL H 72-99 Jan 12, 2025 01:10 PM [facility] GLUCOSE,BLOOD-poct (STL) BLOOD Specimen Type: BLOOD Comment: Test Performed by: [id number] Meter #: [id number] Ordering Provider: MORELIA ALLEN Report Released Date/Time: Jan 12, 2025 01:12 PM Reporting Lab: [address] [address] Performing Lab: [address] [address] GLUCOSE,BLOOD-poct (STL) 150 mg/dL H 72-99 Jan 12, 2025 11:38 AM [facility] GLUCOSE,BLOOD-poct (STL) BLOOD Specimen Type: BLOOD Comment: Test Performed by: [id number] Meter #: [id number] Ordering Provider: MORELIA ALLEN Report Released Date/Time: Jan 12, 2025 11:48 AM Reporting Lab: [address] [address] Performing Lab: [address] [address] GLUCOSE,BLOOD-poct (STL) 147 mg/dL H 72-99 Social History: Smoking Status (Most current) and Tobacco Use (All prior to encounter date) This section includes the most current, and the historical, smoking and tobacco- related health factors from the OR facility where the Encounter took place. Current Smoking Status This section includes the most current smoking, or tobacco-related health factor, from the OR facility where the Encounter took place. Date/Time Current Smoking Status Comment Ronda [email or web address] Jun 19, 2023 02:53 AM ORYX ADMIT TOBACCO SCREEN NO [facility] Tobacco Use History This section includes a history of the smoking, or tobacco-related health factors, that were collected on or before the date of the Encounter. The data comes from the OR facility where the Encounter took place. Date/Time Smoking Status/Tobacco Use Comment Kirstin acyordan Apr 02, 2016 12:55 PM QUIT TOBACCO >7 YEARS AGO [facility] May 21, 2015 01:30 PM LIFETIME NON-USER OF TOBACCO [facility] Jan 03, 2014 10:46 AM LIFETIME NON-USER OF TOBACCO [facility] Feb 21, 2013 11:08 AM QUIT TOBACCO >12 M O & <7 YRS AGO [facility] Aug 19, 2009 12:46 PM LIFETIME NON-USER OF TOBACCO [facility] Oct 05, 2008 10:28 AM QUIT TOBACCO >12 M O & <7 YRS AGO [facility] November 18, 2007 09:08 AM QUIT TOBACCO IN TH E LAST 12 MONTHS [facility] Aug 05, 2006 12:57 PM CURRENT TOBACCO USER [facility] Aug 05, 2006 12:57 PM TOB-DECLINES SMOKI NG CESSATION REFERRAL [facility] Jan 13, 2006 08:42 AM CURRENT TOBACCO USER [facility] Jan 13, 2006 08:42 AM SMOKER 1-2 PACKS [facility] Advance Directives: All historical and current Section Date Range: From patient's date of to the date document was created. This section includes ALL of a patient's completed or amended VA Advance and Rescinded Directives. The entries below indicate that a directive exists for the patient, but an actual copy is not included with this document. The data comes from all VA facilities. Date Advance Directives Provider Source Jan 22, 2016 ADVANCE DIRECTIVE DISCUSSION AMBERLY HOFFMAN [facility] Mar 31, 2007 ADVANCE DIRECTIVE JOSE C ALLEN [facility] Encounter Notes: All associated encounter notes This section contains the clinical notes associated to the Encounter. Date/Time Encounter Note(s) Provider Source Feb 14, 2025 07:50 AM SURGERY ATTENDING NOTE: LOCAL TITLE: ATTENDING SURGEON PREOPERATIVE STL STANDARD TITLE: SURGERY ATTENDING NOTE DATE OF NOTE: FEB 14, 2025@07:50 ENTRY DATE: FEB 12, 2025@11:46:55 AUTHOR: JOSE FRANCISCO DAVIS EXP COSIGNER: URGENCY: STATUS: COMPLETED Surgical H&P Date of Planned Procedure: Jan Surgical H&P Dated Jan reviewed on Jan Surgical H&P completed within 30 days of planned procedure:Yes Attending Surgeon Preoperative STL completed within 24 hours of procedure? Yes Changes noted to the H&P:NO I have seen and examined the patient and agree with the H&P, assessment and plan. YES Preoperative Findings/Diagnosis: Visually significant cataract, right eye Plan/Procedure: Cataract extraction and IOL implantation, right eye /es/ JOSE FRANCISCO DAVIS MD Staff Physician-Ophthalmology Signed: 02/14/2025 07:50 JOSE FRANCISCO DAVIS [facility] Feb 07, 2025 10:47 AM OPHTHALMOLOGY NOTE : LOCAL TITLE: OPHTHALMOLOGY NOTE STL STANDARD TITLE: OPHTHALMOLOGY NOTE DATE OF NOTE: FEB 07, 2025@10:47 ENTRY DATE: FEB 07, 2025@10:47:56 AUTHOR: RUSSEL BENJAMIN EXP COSIGNER: UMA DEE URGENCY: STATUS: COMPLETED OPHTHALMOLOGY NOTE STL Has ADDENDA 1 month s/p Phaco/PCIOL OS (Marvin/Jessee, 01/12/25, topical, ZCB00 +19.0D). No pain. Vision improved. Gtts: tapered off as instructed VAsc: OS: 20/15-1 MRx: OS: +0.25 sph (20/15) Ta OS: 12 Pupils: no APD SLEx (OS): L/L WNL C/S Clear/White/Quiet K Clear, no Stain AC D&Q I Round, no NVI L PCIOL well-positioned A/P: # S/p phaco/PCIOL OS. -- Doing well. Patient very happy. -- D/C gtts -- MRx today -- Discussed possibility of PCO and need for YAG cap if this develops. 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 Arrival at 6:30am (2h prior to surgery) on 02/14/25. 1. NPO after midnight the night before surgery 2. Can take normal meds with a sip of water the morning of surgery (not insulin) 3. Arrive at & take main elevator to 4th floor 4. Must have a fire truck driver to take home after surgery that evening Patient verbalized understanding, no concerns at this time. /shadi/ DIANN MEEKS MD, BIANKA RESIDENT PHYSICIAN Signed: 02/09/2025 16:43 RUSSEL BENJAMIN [facility]
--- OUTSIDE RECORDS SUMMARY | 2025-02-17 15:30 | XMS_ITS | Encounter Summary ---
Author Name [facility] of [facility] ([place]) Organization [facility] [place] Address [address] [place] [address] Care Team Providers Care Mill Attendant Name Role Phone MORELIA ALLEN Primary [...] PART A Mar 19, 2014 PART A [id number] [phone] [place] PATIENT MEDICARE (WNR) MEDICARE (M) PART A Mar 19, 2014 PART A [id number] [place] PATIENT Selected Encounter This section includes the information on record at [place] for the Encounter. Date/Time Encounter Type Encounter Description Reason Provider Source Oct 11, 2024 10:30 AM MTMS BY PHARM ADDL 15 MIN CLINICAL PHARMACY ICD-10-CM E11.8 Type 2 diabetes mellitus with unspecified complications TAPAN BLAS Encounter Template Text not used by VA Assessments - Encounter Diagnoses This section includes the primary and secondary diagnoses documented for the Encounter. Date/Time Primary/Secondary Diagnosis Diagnosis Name Provider Source Oct 11, 2024 04:22 PM PRIMARY Type 2 diabetes mellitus with unspecified complications PEGGY PRICESAY [facility] Oct 11, 2024 04:22 PM SECONDARY Essential (primary) hypertension [facility] Oct 11, 2024 04:22 PM SECONDARY Hyperlipidemia, unspecified [facility] Plan of Treatment: Future Appointments (+ 6 months) and Future Tests (+/- 45 days) The Plan of Treatment section includes future care activities for the [facility] This section includes future appointments and future orders which are active, pending or scheduled. Future Appointments This section includes appointments that were scheduled to occur 6 months from the date of the Encounter, up to a maximum of 20 appointments. The data comes from all [place] treatment facilities. Appointment Date/Time Appointment Type Appointme nt Facility Name Nov 07, 2024 09:15 AM AMBULATORY - MEDICINE [facility] November 23, 2024 09:00 AM AMBULATORY - NONE [facility] November 23, 2024 11:00 AM AMBULATORY - SURGERY [facility] December 15, 2024 03:30 PM AMBULATORY - MEDICINE [facility] Dec 18, 2024 08:00 AM AMBULATORY - SURGERY [facility] Dec 20, 2024 03:30 PM AMBULATORY - MEDICINE [facility] Dec 21, 2024 11:00 AM AMBULATORY - NONE [facility] Dec 29, 2024 08:00 AM AMBULATORY - REHAB MEDICIN E [facility] 2025 02:30 PM AMBULATORY - REHAB MEDICIN E [facility] Jan 12, 2025 11:30 AM AMBULATORY - NONE [facility] Jan 12, 2025 04:00 PM AMBULATORY - SURGERY [facility] Jan 18, 2025 11:00 AM [facility] Feb 07, 2025 11:00 AM AMBULATORY - SURGERY [facility] Feb 14, 2025 06:30 AM AMBULATORY - NONE [facility] Feb 15, 2025 08:30 AM AMBULATORY - SURGERY [facility] Feb 22, 2025 08:00 AM AMBULATORY - SURGERY [facility] Feb 28, 2025 09:00 AM AMBULATORY - SURGERY [facility] Mar 06, 2025 08:30 AM AMBULATORY - NONE [facility] Mar 12, 2025 01:30 PM AMBULATORY - SURGERY [facility] Mar 16, 2025 08:30 AM AMBULATORY - SURGERY [facility] Vital Signs: All taken on the encounter date This section contains inpatient and outpatient Vital Signs collected on the date of the Encounter. Date/Time Temperature Pulse Blood Pressure Respiratory Rate SP02 Pain Height Weight Body Mass Index Source Oct 11, 2024 10:56 AM 95 136/74 [facility] Oct 11, 2024 10:56 AM 95 150/78 [facility] N Social History: Smoking Status (Most [...] place. Date/Time Current Smoking Status Comment Ronda [email or web address] November 30, 2023 03:00 PM VA-TOBACCO FORMER USER [facility] Tobacco Use [...] [facility] Jun 02, 2023 10:00 AM VA-TOBACCO FORMER USER [facility] Jun 02, 2023 10:00 AM VA-TOBACCO QUIT 15 YRS OR MORE [facility] Advance Directives: All historical and current [...] 22, 2016 ADVANCE DIRECTIVE DISCUSSION AMBERLY HOFFMAN [facility] Mar 31, 2007 ADVANCE DIRECTIVE JOSE C ALLEN [facility] Encounter Notes: All associated encounter notes This section contains the clinical notes associated to the Encounter. Date/Time Encounter Note(s) Provider Source Oct 11, 2024 08:24 AM INTERNAL MEDICINE CLINICAL PHARMACIST MEDICATION MGT NOTE: LOCAL TITLE: CLINICAL PHARMACIST NOTE [facility] STANDARD TITLE: INTERNAL MEDICINE CLINICAL PHARMACIST MEDICATION DATE OF NOTE: OCT 11, 2024@08:24 ENTRY DATE: OCT 11, 2024@08:24:22 AUTHOR: DESIRE PRICE EXP COSIGNER: TAPAN BLAS URGENCY: STATUS: COMPLETED CLINICAL PHARMACIST NOTE ST Has ADDENDA CLINICAL PHARMACY FOLLOW-UP ALLAN LOVETT is a 74 yo, WHITE, MALE seen F2F by clinical pharmacy for DM management. was identified by name and . During the last contact with vet (08/31/24), the following changes were made: - discontinue dulaglutide 0.75 mg weekly - initiate liraglutide 0.6mg daily x1 weeks, then increase to 1.2 mg daily - continue metformin 1000 mg PO BID - SMBG: BID per pt preference - Continue HCTZ/losartan 12.5/100 mg PO daily - Continue metoprolol tartrate 12.5 mg PO BID - Continue amlodipine 5 mg PO daily - Continue atorvastatin 10 mg PO daily Allergies/ADR's: IODINATED CONTRAST MEDIA, LISINOPRIL, SEMAGLUTIDE Subjective: - Doing better with Victoza - able to titrate to 1.2 of Victoza after 7 days of 0.6 mg dose and is tolerating well [-] hypoglycemia symptoms or values <80 mg/dL [-] hyperglycemia symptoms [-] hypotension symptoms or values <90/60 mmHg [-] hypertension symptoms [+] neuropathy, no changes; prefers no meds to treat [-] edema [-] N/V/D - significantly improved since [facility] [-] Dietary modifications made - cooks meals, never uses salt shaker [-] Changes in lifestyle or social history [-] Adverse effects to antilipemic agents (muscle pain/weakness, GI upset, flushing) Objective: 1) Essential hypertension (SNOMED CT 25693811) 2) Obesity (SNOMED CT 115604167) 3) Osteoarthritis of knee (SNOMED CT 371200935) 4) Carcinoma in situ of kidney (SNOMED CT 49427570) 5) Squamous cell carcinoma of skin (SNOMED CT 948683865) 6) Sclerosis 7) History of drug abuse 8) H/O: alcoholism 9) Rosacea 10) Kidney stone 11) Allergic rhinitis 12) Erectile Dysfunction ([facility] [id number]) 13) Polyp Colon ([facility] 08341309) 14) Hyperlipidemia 15) Hearing loss 16) Squamous cell carcinoma of scalp 17) Recurrent ventral incisional hernia 18) Nicotine dependence in remission 19) Vitamin B12 deficiency (non anemic) 20) Exposure to potentially hazardous substance 21) Peripheral Neuropathy with Type 2 Diabetes ([facility] [id number]) Active and Recently Outpatient Medications (excluding Supplies): Active Outpatient Medications Status 1) AMLODIPINE BESYLATE 5MG TAB TAKE ONE TABLET BY MOUTH ONCE A ACTIVE DAY Indication: FOR HIGH BLOOD PRESSURE - taking 2) ATORVASTATIN CALCIUM 20MG TAB TAKE ONE-HALF TABLET BY MOUTH ACTIVE EVERY EVENING TO LOWER CHOLESTEROL - taking 3) CHOLECALCIF 10MCG (D3-400UNIT) TAB TAKE TWO TABLETS BY MOUTH ACTIVE ONCE A DAY Indication: FOR VITAMIN D DEFICIENCY - taking 4) CYANOCOBALAMIN 500MCG TAB TAKE ONE TABLET BY MOUTH ONCE A ACTIVE DAY Indication: FOR VITAMIN B12 SUPPLEMENTATION - taking 5) CYCLOSPORINE 0.05% (PF) OPH EMUL 0.4ML INSTILL 1 DROP IN ACTIVE BOTH EYES TWICE A DAY (USE EVERY 12 HRS) Indication: FOR DRY EYES 6) DICLOFENAC NA 1% TOP GEL APPLY 4 GM TO AFFECTED AREA(S) FOUR ACTIVE TIMES A DAY NEEDED DO NOT EXCEED MORE THAN 16 GRAMS DAILY TO ANY LOWER EXTREMITY JOINT. NOT MORE THAN 8 GRAMS DAILY TO ANY UPPER EXTREMITY JOINT. MAX 32GM/DAY OVER ALL JOINTS. (MEASURE DOSE WITH RULER ATTACHED INSIDE BOX) Indication: FOR PAIN 7) FLUTICASONE PROP 50MCG 120D NASAL INHL INSTILL 2 SPRAYS IN ACTIVE NOSTRIL(S) ONCE A DAY (MUST BE USED DIRECTED FOR MINIMUM OF 21 DAYS TO PROVIDE ADEQUATE BENEFITS) Indication: FOR CHRONIC RHINOSINUSITIS - taking 8) HCTZ 12.5MG/LOSARTAN 100MG TAB TAKE 1 TABLET BY MOUTH EVERY ACTIVE MORNING Indication: FOR HIGH BLOOD PRESSURE - taking 9) LIDOCAINE 5% PATCH APPLY 1 PATCH TO SKIN SITE ONCE A DAY ACTIVE APPLY PATCH AND PRESS FIRMLY FOR 10-15 SECONDS. KEEP ON FOR 12 HOURS THEN REMOVE PATCH FOR 12 HOURS. Indication: FOR LOCAL ANESTHESIA 10) LIRAGLUTIDE (EQV-VICTOZA) 6MG/ML PEN 3ML INJECT 0.6MG UNDER ACTIVE THE SKIN ONCE A DAY FOR 1 WEEK, THEN INJECT 1.2MG ONCE A DAY Indication: FOR DIABETES - taking in AM 11) METFORMIN HCL 1000MG TAB TAKE ONE TABLET BY MOUTH TWICE A ACTIVE DAY WITH MEALS TO LOWER BLOOD SUGAR - taking 12) METOPROLOL TARTRATE 25MG TAB TAKE ONE-HALF TABLET BY MOUTH ACTIVE TWICE A DAY FOR HEART/BLOOD PRESSURE. TAKE WITH OR IMMEDIATELY FOLLOWING FOOD. - taking 13) TAMSULOSIN HCL 0.4MG CAP TAKE ONE CAPSULE BY MOUTH ONCE A ACTIVE (S) DAY APPROXIMATELY 30 MINUTES AFTER THE SAME MEAL EACH DAY (FOR PROSTATE) - taking Medication adherence: denies missed doses HGA1C 6.9 H % 08/31/2024 08:25 SODIUM 140 mEq/L 08/31/2024 08:25 POTASSIUM 4.4 mEq/L 08/31/2024 08:25 CHLORIDE 104 mEq/L 08/31/2024 08:25 UREA NITROGEN 15.8 mg/dL 08/31/2024 08:25 CREATININE 0.97 mg/dL 08/31/2024 08:25 CALCIUM 9.4 mg/dL 08/31/2024 08:25 CARBON DIOXIDE 27 mEq/L 08/31/2024 08:25 GLUCOSE 168 H mg/dL 08/31/2024 08:25 EGFR (CKD-EPI 2020) 81.41 08/31/2024 08:25 est CrCl: 85.6mL/min CREATuF: 85.6 (05/11/24 11:44) M/CREAT: 473 (05/11/24 11:44) MICRAL: 405 (05/11/24 11:44) TRIGLYCERIDE 187 H mg/dL 06/01/2024 11:11 CHOLESTEROL 113 mg/dL 06/01/2024 11:11 HDL(New) 36 L mg/dL 06/01/2024 11:11 CALCULATED LDL 40 mg/dL 06/01/2024 11:11 SGOT: 13 U/L (06/01/24 11:11) SGPT: 15 U/L (06/01/24 11:11) SMBG's: FBG HS 10/10 131 1715 115 10/09 123 1800 121 10/08 129 10/07 139 1900 106 10/06 124 10/05 127 1715 128 10/04 138 2030 113 10/03 126 BP last visit:138/80 (07/20/2024 09:15) Pulse last visit: 91 (07/20/2024 09:15) BP seated, rested: 150/78 mmHg Pulse: 95 bpm Rechecked BP seated, rested: 136/74 mmHg Home BP Readings: 09/15 148/77 3/ 143/66 09/10 136/71 10/05 152/73 128/72 (rechecked) 10/08 134/85 10/10 148/83 - sometimes takes mid-afternoon, sometimes evening - drinks coffee in the AM, tea all day, so readings reflect this Assessment/Plan: 1) DM - Goal A1c <7.5%, FPG 80-145, PPG <195 d/t age, CKD per VA/DoD and ADA guidelines A1c within target (reflecting metformin + dulaglutide with 1 dose of dulaglutide missed); most SMBGs within target. Tolerating liraglutide at 1.2 mg daily and pt expresses satisfaction with BG management on current regimen. Denies sx of hypoglycemia or hyperglycemia. Denies hx of pancreatitis, thyroid cancers, retinopathy. eGFR >45 mL/min/1.73m2. Avoiding SGLT2i d/t hx of UTI, kidney stones resulting in UTIs, and frequent urination at baseline. Will continue w/ current management pending future A1c + continued liraglutide tolerance. - continue liraglutide 1.2 mg daily - continue metformin 1000 mg PO BID - SMBG: BID per pt preference - educated vet on hypoglycemia symptoms and appropriate treatment and when to call clinic or go to emergency room - Labs: A1c 11/2024, BMP with A1c, uACR 04/2025 - SOC: (+) ACEi/ARB (+) [...] mmHg Clinic BP within looser target today. Vet continues to consume coffee and tea prior to checking BP, likely attributing to higher readings. States he may cut back on tea this week and see if that impacts BP. Micral/creat >300 mcg/mg. Denies sx of hypotension [...] to vet's satisfaction. Time spent with vet: 15 min RTC: Pt requested 6 week f/u - F2F 11/23/24 9AM PBM PharmD Pharmacotherapy Rem V12: PHARMACIST INTERVENTIONS: HYPERTENSION Medication monitoring, no dosage change required, continue to monitor and assess LIPID MANAGEMENT Medication monitoring, no dosage change required, continue to monitor and assess TYPE 2 DIABETES MELLITUS Medication monitoring, no dosage change required, continue to monitor and assess /ulises Price PharmD, RD PGY1 Report Writer Signed: 10/12/2024 08:09 /ulises Blas Pharm.D., [facility] Clinical Director Motion Picture Cosigned: 10/12/2024 09:47 10/12/2024 ADDENDUM STATUS: COMPLETED I have reviewed and agree with the above findings and plan as outlined. /ulises Blas Pharm.D., [facility] Clinical Director Motion Picture Signed: 10/12/2024 09:48 DESIRE PRICE [facility]
--- OUTSIDE RECORDS SUMMARY | 2025-02-17 15:30 | XMS_ITS | Encounter Summary ---
Author Name [facility] [place] Organization [facility] [place] [facility] [place] Address [address] [place] [address] Care Team Providers Care Alumnae Secretary Name Role Phone MORELIA ALLEN Primary Care [...] PART A Mar 19, 2014 PART A [id number] [place] PATIENT MEDICARE (WNR) MEDICARE (M) PART A Mar 19, 2014 PART A [id number] [phone] [place] PATIENT Selected Encounter This section includes the information on record at [place] for the Encounter. Date/Time Encounter Type Encounter Description Reason Provider Source Jun 08, 2024 11:00 AM MTMS BY PHARM ADDL 15 MIN CLINICAL PHARMACY ICD-10-CM I10 Essential (primary) hypertension TAPAN BLAS Encounter Template Text not used by [place] Assessments - Encounter Diagnoses This section includes the primary and secondary diagnoses documented for the Encounter. Date/Time Primary/Secondary Diagnosis Diagnosis Name Provider Source Jun 08, 2024 12:32 PM PRIMARY Essential (primary) [facility] Jun 08, 2024 12:32 PM SECONDARY Hyperlipidemia, unspecified [facility] Jun 08, 2024 12:32 PM SECONDARY Type 2 diabetes mellitus with unspecified complications [facility] Plan of Treatment: Future Appointments (+ 6 months) and Future Tests (+/- 45 days) The Plan of Treatment section includes future care activities for the [facility] This section includes future appointments and future orders which are active, pending or scheduled. Future Appointments This section includes appointments that were scheduled to occur 6 months from the date of the Encounter, up to a maximum of 20 appointments. The data comes from all [place] treatment facilities. Appointment Date/Time Appointment Type Appointme nt Facility Name Jul 03, 2024 10:00 AM AMBULATORY - SURGERY [facility] Jul 20, 2024 09:00 AM AMBULATORY - NONE [facility] Aug 31, 2024 09:00 AM AMBULATORY - NONE [facility] Sep 12, 2024 01:00 PM AMBULATORY - MEDICINE [facility] Oct 11, 2024 10:30 AM AMBULATORY - NONE [facility] Nov 07, 2024 09:15 AM AMBULATORY - MEDICINE [facility] November 23, 2024 09:00 AM AMBULATORY - NONE [facility] November 23, 2024 11:00 AM AMBULATORY - SURGERY [facility] Lab Results: +/- 30 days of the encounter This section includes the Chemistry and Hematology Lab Results on record with [place] for the patient. Radiology Reports and Pathology Reports are provided separately, in subsequent sections. Lab Results This section contains the Chemistry/Hematology Results that were resulted 30 days before or 30 daysafter the date of the Encounter. Date/Time Source Result Type Result - Unit Interpretation Reference Range Specimen Type Comment Jun 01, 2024 11:11 AM [facility] LIPID PANEL (STL) PLASMA Specimen Type: PLASMA Comment: No hemolysis noted. Ordering Provider: JOSE OTTO Report Released Date/Time: Jun 01, 2024 10:24 AM Reporting Lab: [facility] [address] [place] [address] Performing Lab: [facility] [address] [place] [address] CHOLESTEROL 113 mg/dL 0-200 TRIGLYCERIDE 187 mg/dL H 0-150 CALCULATED LDL 40 mg/dL See Interp HDL(New) 36 mg/dL L > 40 Jun 01, 2024 11:11 AM [facility] PROST. SPECIFIC AG.(PB-STL) SERUM Specimen Ty pe: SERUM Comment: The listed sex of this patient may not be a typical indication for this test. Therefore, reference ranges or interpretive criteria listed may not be valid. Clinical correlation suggested. Ordering Provider: JOSE OTTO Report Released Date/Time: Jun 01, 2024 10:24 AM Reporting Lab: [facility] [address] [place] [address] Performing Lab: [facility] [address] [place] [address] PROST. SPECIFIC AG.(PB-STL) 0.653 ng/mL 0.000-4.000 Jun 01, 2024 11:11 AM [facility] TSH W/ REFLEX FT4 (STL) PLASMA Specimen Type: PLASMA No comment entered. Ordering Provider: JOSE OTTO Report Released Date/Time: Jun 01, 2024 10:24 AM Reporting Lab: [facility] [address] [place] [address] Performing Lab: [facility] [address] [place] [address] TSH 1.049 u[IU]/mL 0.470-5.000 Jun 01, 2024 11:11 AM [facility] COMPREHENSIVE METABOLIC PANEL PLASMA Specimen Type: PLASMA Comment: No hemolysis noted. Ordering Provider: JOSE OTTO Report Released Date/Time: Jun 01, 2024 10:24 AM Reporting Lab: [facility] [address] Performing Lab: [facility] [facility] [address] CREATININE 0.87 mg/dL 0.70-1.30 UREA NITROGEN 17.4 [...] 89.98 >60 Jun 01, 2024 11:11 AM [facility] VITAMIN D, 25-HYDROXY SERUM Specimen Type: SE RUM Comment: The listed sex of this patient may not be a typical indication for this test. Therefore, reference ranges or interpretive criteria listed may not be valid. Clinical correlation suggested. Ordering Provider: JOSE OTTO Report Released Date/Time: Jun 01, 2024 10:24 AM Reporting Lab: [facility] [address] Performing Lab: [facility] [facility] [address] VITAMIN D, 25-HYDROXY 31.3 ng/mL 30-96 Jun 01, 2024 11:11 AM [facility] THYROXINE SERUM Specimen Type: SERUM Comment: The listed sex of this patient may not be a typical indication for this test. Therefore, reference ranges or interpretive criteria listed may not be valid. Clinical correlation suggested. Ordering Provider: JOSE OTTO Report Released Date/Time: Jun 01, 2024 10:24 AM Reporting Lab: [facility] [address] Performing Lab: [facility] [address] THYROXINE 6.36 ug/dL 4.50-12.00 Jun 01, 2024 11:11 AM [facility] CBC BLOOD Specimen Type: BLOOD No comment entered. Ordering Provider: JOSE OTTO Report Released Date/Time: Jun 01, 2024 10:24 AM Reporting Lab: [facility] [address] Performing Lab: [facility] [facility] [address] WBC 7.1 10*3/uL 3.6-11.2 RBC 4.74 10*6/uL [...] 0.00-0. 20 Jun 01, 2024 11:10 AM [facility] BASIC METABOLIC PANEL PLASMA Specimen Type: PL ASMA Comment: No hemolysis noted. Ordering Provider: TAPAN BLAS Report Released Date/Time: Mar 01, 2024 04:29 PM Reporting Lab: [facility] [address] Performing Lab: [facility] [facility] [address] CREATININE 0.87 mg/dL 0.70-1.30 UREA NITROGEN 17.3 mg/dL 9.0-25.0 GLUCOSE 142 mg/dL H 72-99 SODIUM 138 meq/L 136-145 POTASSIUM 3.8 meq/L 3.5-5.0 CHLORIDE 103 meq/L 98-107 CARBON DIOXIDE 25 meq/L 22-31 CALCIUM 9.6 mg/dL 8.4-10.4 EGFR (CKD-EPI 2020) 89.98 >60 May 11, 2024 11:44 AM [facility] MICRAL/CREAT PROFILE (STL) URINE Specimen Typ e: URINE No comment entered. Ordering Provider: TAPAN BLAS Report Released Date/Time: May 11, 2024 11:35 AM Reporting Lab: [facility] [facility] [address] Performing Lab: [facility] [address] URINE ALBUMIN (PB-STL) 405 mg/L No range refer to micral/creat ratio uACR (STL) 473 mg/g H 0-29 CREATININE URINE/OTHERS 85.6 mg/dL 63.0- 166.0 Vital Signs: All taken on the encounter date This section contains inpatient and outpatient Vital Signs collected on the date of the Encounter. Date/Time Temperature Pulse Blood Pressure Respiratory Rate SP02 Pain Height Weight Body Mass Index Source Jun 08, 2024 11:26 AM 81 146/83 [facility] Jun 08, 2024 11:25 AM 80 144/82 [facility] Jun 08, 2024 11:18 AM 83 159/82 [facility] Social History: Smoking Status (Most current) and Tobacco Use (All prior to encounter date) This section includes the most current, and the historical, smoking and tobacco- related health factors from the [place] facility where the Encounter took place. Current Smoking Status This section includes the most current smoking, or tobacco-related health factor, from the [place] facility where the Encounter took place. Date/Time Current Smoking Status Comment Facil ity November 30, 2023 03:00 PM VA-TOBACCO FORMER USER [facility] Tobacco Use History This section includes a history of the smoking, or tobacco-related health factors, that were collected on or before the date of the Encounter. The data comes from the [place] facility where the Encounter took place. Date/Time Smoking Status/Tobacco Use Comment F acyordan November 30, 2023 03:00 PM VA-TOBACCO QUIT 15 YRS OR MORE [facility] Jun 02, 2023 10:00 AM VA-TOBACCO FORMER USER [facility] Jun 02, 2023 10:00 AM MI-TOBACCO QUIT 15 YRS OR MORE [facility] Advance Directives: All historical and current Section Date Range: From patient's date of to the date document was created. This section includes ALL of a patient's completed or amended [place] Advance and Rescinded Directives. The entries below indicate that a directive exists for the patient, but an actual copy is not included with this document. The data comes from all [facility]. Date Advance Directives Provider Source Jan 22, 2016 ADVANCE DIRECTIVE DISCUSSION AMBERLY HOFFMAN [facility] Mar 31, 2007 ADVANCE DIRECTIVE JOSE C ALLEN [facility] Encounter Notes: All associated encounter notes This section contains the clinical notes associated to the Encounter. Date/Time Encounter Note(s) Provider Source Jun 08, 2024 10:46 AM INTERNAL MEDICINE CLINICAL PHARMACIST MEDICATION MGT NOTE: LOCAL TITLE: CLINICAL PHARMACIST NOTE ST STANDARD TITLE: INTERNAL MEDICINE CLINICAL PHARMACIST MEDICATION DATE OF NOTE: JUN 08, 2024@10:46 ENTRY DATE: JUN 08, 2024@10:46:47 AUTHOR: SHIELA VELAZCO EXP COSIGNER: TAPAN BLAS URGENCY: STATUS: COMPLETED CLINICAL PHARMACIST NOTE ST Has ADDENDA CLINICAL PHARMACY FOLLOW-UP Subjective: ALLAN LOVETT is a 74 MALE who presents to clinic for follow up on DM, HTN, HLD. PMH: 1) Essential hypertension (SNOMED CT 74917272) 2) Obesity (SNOMED CT 280711920) 3) Osteoarthritis of knee (SNOMED CT 886040070) 4) Carcinoma in situ of kidney (SNOMED CT 68290297) 5) Squamous cell carcinoma of skin (SNOMED CT 721119847) 6) Sclerosis 7) History of drug abuse 8) H/O: alcoholism 9) Rosacea 10) Kidney stone 11) Allergic rhinitis 12) Erectile Dysfunction ([facility] [id number]) 13) Polyp Colon ([facility] [id number]) 14) Hyperlipidemia 15) Hearing loss 16) Squamous cell carcinoma of scalp 17) Recurrent ventral incisional hernia 18) Nicotine dependence in remission 19) Vitamin B12 deficiency (non anemic) 20) Exposure to potentially hazardous substance 21) Peripheral Neuropathy with Type 2 Diabetes ([facility] [id number]) During the last contact with vet, the following changes were made: - initiate amlodipine 5mg PO QPM - continue HCTZ/losartan 12.5/100mg PO daily - continue metoprolol tartrate 12.5mg PO BID - decrease dulaglutide to 0.75 mg weekly at 05/31/24 phone contact - Continue metformin 1000 mg PO BID During current visit: -Patient took one dose of the dulaglutide 0.75 mg weekly on 06/07. -Patient reported no changes in diet, occasional sweets -Patient underwent surgery for his back, and reports that his blood pressure was higher shortly after surgery ROS: DM (-) hypoglycemia symptoms or values <80 mg/dL (-) hyperglycemia symptoms (+) tingling/numbness--neuropathy , left is worse than the right. HLD (-) muscle pain/cramps HTN (-) hypotension [...] A DAY FOR BLOOD SUGAR MONITORING 2) AMLODIPINE BESYLATE 5MG TAB TAKE ONE TABLET BY MOUTH ACTIVE (S) ONCE A DAY 3) ATORVASTATIN CALCIUM 20MG TAB TAKE ONE-HALF TABLET BY ACTIVE MOUTH EVERY EVENING TO LOWER CHOLESTEROL 4) CHOLECALCIF 10MCG (D3-400UNIT) TAB TAKE TWO TABLETS ACTIVE BY MOUTH ONCE A DAY FOR VITAMIN D DEFICIENCY 5) CYANOCOBALAMIN 500MCG TAB TAKE ONE TABLET BY MOUTH ACTIVE ONCE A DAY FOR VITAMIN B12 SUPPLEMENTATION 6) CYCLOBENZAPRINE HCL 5MG TAB TAKE ONE TABLET BY MOUTH ACTIVE THREE TIMES A DAY NEEDED FOR MUSCLE SPASM MAY CAUSE DROWSINESS. DO NOT DRINK ALCOHOL WHILE TAKING THIS MEDICATION. 7) CYCLOSPORINE 0.05% (PF) OPH EMUL 0.4ML [...] TAB TAKE 1 TABLET BY MOUTH ACTIVE (S) EVERY MORNING FOR HIGH BLOOD PRESSURE 11) LIDOCAINE 5% PATCH APPLY 1 PATCH TO SKIN SITE ONCE A ACTIVE DAY FOR LOCAL ANESTHESIA APPLY PATCH AND PRESS FIRMLY FOR 10-15 SECONDS. KEEP ON FOR 12 HOURS THEN REMOVE PATCH FOR 12 HOURS. 12) METFORMIN HCL 1000MG TAB TAKE ONE TABLET BY MOUTH ACTIVE TWICE A DAY WITH MEALS TO LOWER BLOOD SUGAR 13) METOPROLOL TARTRATE 25MG TAB TAKE ONE-HALF TABLET BY ACTIVE MOUTH TWICE A DAY FOR HEART/BLOOD PRESSURE. TAKE WITH OR IMMEDIATELY FOLLOWING FOOD. 14) TAMSULOSIN HCL 0.4MG CAP TAKE ONE CAPSULE BY MOUTH ACTIVE (S) ONCE A DAY APPROXIMATELY 30 MINUTES AFTER THE SAME MEAL EACH DAY (FOR PROSTATE) meds: n/a OTC/Non-VA meds: denies Medication reconciliation completed: Yes - targeted review, denies discrepancies Adherence to above medications: Patient reports adherence. Patient's fill history indicates likely adherence. Refills/renewals needed: None Labs: CMP: SODIUM 138 mEq/L 06/01/2024 11:11 POTASSIUM 3.7 mEq/L 06/01/2024 11:11 CHLORIDE 104 mEq/L 06/01/2024 11:11 UREA NITROGEN 17.4 mg/dL 06/01/2024 11:11 CREATININE 0.87 mg/dL 06/01/2024 11:11 CALCIUM 9.6 mg/dL 06/01/2024 11:11 PROTEIN 6.7 g/dL 06/01/2024 11:11 ALBUMIN 3.8 g/dL 06/01/2024 11:11 ALKALINE PHOSPHATASE 110 U/L 06/01/2024 11:11 ALT/SGPT 15 U/L 06/01/2024 11:11 AST/SGOT 13 U/L 06/01/2024 11:11 TOTAL BILIRUBIN 0.3 mg/dL 06/01/2024 11:11 CARBON DIOXIDE 25 mEq/L 06/01/2024 11:11 GLUCOSE 142 H mg/dL 06/01/2024 11:11 EGFR (CKD-EPI 2020) 89.98 06/01/2024 11:11 FLP: Lipid Panel: TRIGLYCERIDE 187 H mg/dL 06/01/2024 11:11 CHOLESTEROL 113 mg/dL 06/01/2024 11:11 HDL(New) 36 L mg/dL 06/01/2024 11:11 CALCULATED LDL 40 mg/dL 06/01/2024 11:11 MICRAL/CR PROFILE: CREATuF: 85.6 (05/11/24 11:44) M/CREAT: 473 (05/11/24 11:44) MICRAL: 405 (05/11/24 11:44) A1c: HGA1C 6.5 H % 04/13/2024 11:44 TSH: TSH 1.049 uIU/mL 06/01/2024 11:11 Vitamin D: VITAMIN D, 25-HYDROXY 31.3 ng/mL 06/01/2024 11:11 SMBGs: Date Breakfast Lunch Evening Bedtime 05/12 116 mg/dL 159 05/13 131 05/14 131 108 05/15 128 05/16 115 05/19 133 116 05/20 148 05/21 125 137 05/22 127 124 05/23 123 05/25 132 123 05/26 121 05/28 128 05/29 134 140 05/30 128 05/31 133 06/06 134 116 06/07 116 152 06/08 143 BP last visit:128/68 (06/01/2024 10:43) Pulse last visit: 88 (06/01/2024 10:16) Home Readings: Date Blood Pressure 06/08 138/75 05/31 136/74 05/21 136/75 05/20 144/70 Clinic BP: 159/82 mmHg, HR 83 bpm Repeat clinic BP: 144/82 mmHg, HR 80 bpm Repeat Clinic BP: 146/83 mmHg, Hr 81 bpm Assessment/Plan: 1) Diabetes - Goal A1c <7.5%, FPG 80-145, PPG <195 d/t age, CKD per VA/DoD guidelines A1c within goal, SMBG log is mostly at goal with occasional spikes on days after he eats sweets. Patient's dulaglutide was reduced to 0.75 mg weekly due to diarrhea on the 1.5 mg dose. Patient administered first dose of dulaglutide 0.75 mg 06/07/24. Denies s/sx of hypoglycemia or hyperglycemia since last visit. Denies hx of pancreatitis, thyroid cancers, retinopathy. eGFR >45 mL/min/1.73m2 As patient's glucose and A1c are both at goal, will continue current regimen and will monitor GI sx going forward using low dose dulaglutide. - Continue dulaglutide 0.75 mg weekly - Continue metformin 1000 mg PO BID - SMBG: BID per pt preference - educated vet on hypoglycemia symptoms and appropriate treatment and when to call clinic or go to emergency room -Labs: A1c -09/2024, BMP w/A1c, uACR 04/2025 -SOC: (+) ACEi/ARB (+) statin (+) flu vaccine (04/13/2024) (+) pneumo vaccine (PCV13 2015, PPSV23 2016) (+) eye exam - 02/2024 Type 2 Diabetes without retinopathy - No DME/CSME OU- confirmed w/ OCT Mac 2) Lipids - VADoD/ACC/AHA lipid treatment guidelines goal- at least moderate- intensity statin for primary prevention (DM) Currently meeting statin recommendations. Patient denies ADRs with current statin regimen. LFTs WNL. LDL at goal <100 mg/dL. - continue atorvastatin 10 mg PO daily - monitor for myalgias and report to CP or PCP if occurs - Labs: LFTs, lipid panel annually/prn adherence. 3) HTN - Goal <140/90 mmHg per [place] DoD guidelines. AHA/ACC goal<130/80 mmHg Clinic BP is elevated x3. Home BPs have improved and are within looser target range since starting amlodipine 5 mg daily. Micral/creat >300 mcg/mg. Denies s/sx of hypotension or hypertension. Denies pedal edema w/ amlodipine reinitiation (previously experienced w/ 10mg daily dose). SCr and K wnl. As home BPs are within looser target, per shared decision making will continue current regimen with plan to reassess blood pressure at next office visit. Vet will increase routine home BP monitoring. Avoiding uptitration of HCTZ and initiation of spironolactone due to patient concern for frequent urination. Will defer increasing amlodipine dose per pt preference due to concern for pedal edema w/ previous higher dose use. In the future, can consider switching metoprolol tartrate to carvedilol. - Continue HCTZ/losartan 12.5/100 mg PO daily [...] to vet's satisfaction. Time spent with vet: ~23 minutes RTC: 07/20/2024 F2F PBM PharmD Pharmacotherapy Rem V12: PHARMACIST INTERVENTIONS: HYPERTENSION Medication monitoring, no dosage change required, continue to monitor and assess LIPID MANAGEMENT Medication monitoring, no dosage change required, continue to monitor and assess TYPE 2 DIABETES MELLITUS Medication monitoring, no dosage change required, continue to monitor and assess /ulises Velazco PharmD PGY1 Special Education Paraeducator Signed: 06/09/2024 08:03 /ulises Blas Pharm.D., [facility] Clinical Fire Tower Keeper Cosigned: 06/09/2024 08:23 06/09/2024 ADDENDUM STATUS: COMPLETED I have reviewed and agree with the above findings and plan as outlined. PACT CPP present throughout visit. /ulises Blas, Pharm.D., [facility] Clinical Fire Tower Keeper Signed: 06/09/2024 08:24 SHIELA VEALZCO [facility]
--- OUTSIDE RECORDS SUMMARY | 2025-02-17 15:30 | XMS_ITS | Encounter Summary ---
Author Name [facility] [place] Organization [facility] [facility] [place] Address [address] [place] [address] Care Team Providers Care Senior Data Warehouse Architect Name Role Phone MORELIA ALLEN Primary Care [...] PART A Mar 19, 2014 PART A [id number] [place] PATIENT MEDICARE (WNR) MEDICARE (M) PART A Mar 19, 2014 PART A [id number] [place] PATIENT Selected Encounter This section includes the information on record at MD for the Encounter. Date/Time Encounter Type Encounter Description Reason Provider Source Feb 15, 2025 08:30 AM POSTOP FOLLOW-UP VISIT OPHTHALMOLOGY ICD-10-CM Z98.41 Cataract extraction status, right eye JOSE FRANCISCO DAVIS Encounter Template Text not used by [facility] Assessments - Encounter Diagnoses This section includes the primary and secondary diagnoses documented for the Encounter. Date/Time Primary/Secondary Diagnosis Diagnosis Name Provider Source Feb 15, 2025 09:07 AM PRIMARY Cataract extraction status, right eye DIANN MEEKS [facility] Plan of Treatment: Future Appointments (+ 6 months) and Future Tests (+/- 45 days) The Plan of Treatment section includes future care activities for the patient from all [place] treatmentfacilities. This section includes future appointments and [...] 08:00 AM AMBULATORY - SURGERY [facility] Feb 28, 2025 09:00 AM AMBULATORY - SURGERY . [facility] Mar 06, 2025 08:30 AM AMBULATORY - NONE [facility] Mar 12, 2025 01:30 PM AMBULATORY - SURGERY [facility] Mar 16, 2025 08:30 AM AMBULATORY - SURGERY [facility] May 31, 2025 11:00 AM AMBULATORY - MEDICINE [facility] Lab Results: +/- 30 days [...] Type Comment Feb 14, 2025 06:47 AM [facility] GLUCOSE,BLOOD-poct (STL) BLOOD Specimen Type: BLOOD Comment: Test Performed by: [id number] Meter #: [id number] Ordering Provider: ENEDELIA EMERSON Report Released Date/Time: Feb 14, 2025 08:34 AM Reporting Lab: [place] [address] [facility] [address] Performing Lab: [address] [place] [address] GLUCOSE,BLOOD-poct (STL) 146 mg/dL H 72-99 Social [...] 02:53 AM ORYX ADMIT TOBACCO SCREEN NO [facility] Tobacco Use History This section includes a history of the smoking, or tobacco-related health factors, that were collected on or before the date of the Encounter. The data comes from the [place] facility where the Encounter took place. Date/Time Smoking Status/Tobacco Use Comment Kirstin acyordan Apr 02, 2016 12:55 PM QUIT TOBACCO >7 YEARS AGO [facility] May 21, 2015 01:30 PM LIFETIME NON-USER OF TOBACCO [facility] Jan 03, 2014 10:46 AM LIFETIME NON-USER OF TOBACCO [facility] Feb 21, 2013 11:08 AM QUIT TOBACCO >12 M O & <7 YRS AGO [facility] Aug 19, 2009 12:46 PM LIFETIME NON-USER OF TOBACCO [facility] Oct 05, 2008 10:28 AM QUIT TOBACCO >12 M O & <7 YRS AGO [facility] November 18, 2007 09:08 AM QUIT TOBACCO IN TH E LAST 12 MONTHS [facility] Aug 05, 2006 12:57 PM CURRENT TOBACCO USER [facility] Aug 05, 2006 12:57 PM TOB-DECLINES SMOKI NG CESSATION REFERRAL [facility] Jan 13, 2006 08:42 AM CURRENT TOBACCO USER [facility] Jan 13, 2006 08:42 AM SMOKER 1-2 PACKS [facility] Advance Directives: All historical and current [...] 22, 2016 ADVANCE DIRECTIVE DISCUSSION AMBERLY HOFFMAN [facility] Mar 31, 2007 ADVANCE DIRECTIVE JOSE C ALLEN [facility] Encounter Notes: All associated encounter notes This section contains the clinical notes associated to the Encounter. Date/Time Encounter Note(s) Provider Source Feb 14, 2025 04:24 PM OPHTHALMOLOGY NOTE : LOCAL TITLE: OPHTHALMOLOGY NOTE ST STANDARD TITLE: OPHTHALMOLOGY NOTE DATE OF NOTE: FEB 14, 2025@16:24 ENTRY DATE: FEB 14, 2025@16:25:01 AUTHOR: DIANN MEEKS EXP COSIGNER: URGENCY: STATUS: COMPLETED POD#1 s/p CEIOL OD (Kathy/Aidee, 02/14/25, ZCB00 +20.5). Second eye. No complaints overnight. VA sc OD = 20/25 ph20/20 Ta OD: 24 SLEx: OD c/s Mild injection K Fine D-folds and MCE, all wounds Dilip negative AC Deep, 2+ cell I R/D L PCIOL well-positioned AV Syn, no cell/pig A/P: # POD#1 s/p CEIOL OD - Doing well - PF QID OD - Moxi QID OD - No bending/lifting/straining, no swimming, rigid shield QHS - Reviewed signs/symptoms of RD, endophthalmitis - Given gtt schedule with post-op instructions and emergency numbers RTC POW#1 SCHEDULED /shadi/ DIANN MEEKS MD, BIANKA RESIDENT PHYSICIAN Signed: 02/15/2025 09:07 Receipt Acknowledged By: 02/15/2025 10:51 /shadi/ JOSE FRANCISCO DAVIS MD Staff Physician-Ophthalmology DIANN MEEKS [facility]
--- OUTSIDE RECORDS SUMMARY | 2025-02-17 15:30 | XMS_ITS ---
Author Name [facility] Organization [place] Address [address] [place] [address] Care Team Providers Care Healthcare Associate Name Role Phone MORELIA ALLEN Primary [...] PART A Mar 19, 2014 PART A [id number] [place] PATIENT MEDICARE (WNR) MEDICARE (M) PART A Mar 19, 2014 PART A [id number] [phone] [place] PATIENT Selected Encounter This section includes the information on record at [place] for the Encounter. Date/Time Encounter Type Encounter Description Reason Provider Source Nov 07, 2024 09:15 AM OFFICE O/P EST LOW 20 MIN DERMATOLOGY ICD-10-CM D18.01 Hemangioma of skin and subcutaneous tissue JULIANNA CHAUDHRY IHKezia Encounter Template Text not used by [place] Assessments - Encounter Diagnoses This section includes the primary and secondary diagnoses documented for the Encounter. Date/Time Primary/Secondary Diagnosis Diagnosis Name Provider Source Nov 07, 2024 09:17 AM PRIMARY Hemangioma of skin and subcutaneous tissue AUXELISSA GRANGER [facility] Nov 07, 2024 09:17 AM SECONDARY Actinic keratosis AUXELISSA GRANGER [facility] Nov 07, 2024 09:17 AM SECONDARY Melanocytic nevi, unspecified AUXELISSA GRANGER [facility] Nov 07, 2024 09:17 AM SECONDARY Other melanin [facility]pigmentation [facility] Nov 07, 2024 09:17 AM SECONDARY Other rosacea AUXELISSA GRANGER [facility] Nov 07, 2024 09:17 AM SECONDARY Other seborrheic keratosis [facility] Nov 07, 2024 09:17 AM SECONDARY Personal history of other malignant neoplasm of skin AUXELISSA GRANGER [facility] Plan of Treatment: Future Appointments (+ 6 months) and Future Tests (+/- 45 days) The Plan of Treatment section includes future care activities for the patient from all [place] [facility] This section includes future appointments and future orders which are active, pending or scheduled. Future Appointments This section includes appointments that were scheduled to occur 6 months from the date of the Encounter, up to a maximum of 20 appointments. The data comes from all [place] treatment facilities. Appointment Date/Time Appointment Type Appointme nt Facility Name November 23, 2024 09:00 AM AMBULATORY - NONE [facility] November 23, 2024 11:00 AM AMBULATORY - SURGERY [facility] December 15, 2024 03:30 PM AMBULATORY - MEDICINE [facility] Dec 18, 2024 08:00 AM AMBULATORY - SURGERY [facility] Dec 20, 2024 03:30 PM AMBULATORY - MEDICINE [facility] Dec 21, 2024 11:00 AM [facility] Dec 29, 2024 08:00 AM [facility] 2025 02:30 PM [facility] Jan 12, 2025 11:30 AM AMBULATORY - NONE [facility] Jan 12, 2025 04:00 PM AMBULATORY - SURGERY [facility] Jan 18, 2025 11:00 AM AMBULATORY - SUR[facility]ERY [facility] Feb 07, 2025 11:00 AM AMBULATORY - SURGERY [facility] Feb 14, 2025 06:30 AM AMBULATORY - NONE [facility] Feb 15, 2025 08:30 AM AMBULATORY - SURGERY [facility] Feb 22, 2025 08:00 AM AMBULATORY - SUR[facility]ERY [facility] Feb 28, 2025 09:00 AM AMBULATORY - SURGERY [facility] Mar 06, 2025 08:30 AM AMBULATORY - NONE [facility] Mar 12, 2025 01:30 PM AMBULATORY - SURGERY [facility] Mar 16, 2025 08:30 AM AMBULATORY - SURGERY [facility] Lab Results: +/- 30 days of [...] Type Comment November 23, 2024 09:41 AM [facility] HGA1C BLOOD Specimen Type: BLOOD No comment entered. Ordering Provider: JULIANNA BLAS Report Released Date/Time: November 23, 2024 09:18 AM Reporting Lab: [facility] [id number] Performing Lab: [facility] [address] HGA1C 6.8 H 4.0-6.0 November 23, 2024 09:41 AM [facility] BASIC METABOLIC PANEL PLASMA Specimen Type: PL ASMA Comment: No hemolysis noted. Ordering Provider: JULIANNA BLAS Report Released Date/Time: November 23, 2024 09:18 AM Reporting Lab: [facility] [address] Performing Lab: [facility] [address] CREATININE 0.96 mg/dL 0.70-1.30 UREA NITROGEN 24.0 mg/dL 9.0-25.0 GLUCOSE 153 mg/dL H 72-99 SODIUM 141 meq/L 136-145 POTASSIUM 4.4 meq/L 3.5-5.0 CHLORIDE 106 meq/L 98-107 CARBON DIOXIDE 28 meq/L 22-31 CALCIUM 9.4 mg/dL 8.4-10.4 EGFR (CKD-EPI 2020) 82.43 >60 Advance Directives: All historical and current Section Date Range: From patient's date of to the date document was created. This section includes ALL of a patient's completed or amended [place] Advance and Rescinded Directives. The entries below indicate that a directive exists for the patient, but an actual copy is not included with this document. The data comes from all [place] facilities. Date Advance Directives Provider Source Jan 22, 2016 ADVANCE DIRECTIVE DISCUSSION AMBERLY HOFFMAN [facility] Mar 31, 2007 ADVANCE DIRECTIVE JOSE C ALLEN [facility] Encounter Notes: All associated encounter notes This section contains the clinical notes associated to the Encounter. Date/Time Encounter Note(s) Provider Source Nov 07, 2024 09:15 AM SUICIDE PREVENTION NOTE: LOCAL TITLE: ADMISSION SUICIDE SCREENING STANDARD TITLE: SUICIDE PREVENTION NOTE DATE OF NOTE: NOV 07, 2024@09:15 ENTRY DATE: NOV 07, 2024@09:16:03 AUTHOR: ELISSA ALBERT COSIGNER: URGENCY: STATUS: COMPLETED C-SSRS Screening [place] Suicide Severity Rating Scale (C-SSRS) screener 1. Over the past month, have you wished you were or wished you could go to sleep and not wake up? No 2. Over the past month, have you had any actual thoughts of killing yourself? No 3. Over the past month, have you been thinking about how you might do this? Response not required due to responses to other questions. 4. Over the past month, have you had these thoughts and had some intention of acting on them? Response not required due to responses to other questions. 5. Over the past month, have you started to work out or worked out the details of how to kill yourself? Response not required due to responses to other questions. 6. If yes, at any time in the past month did you intend to carry out this plan? Response not required due to responses to other questions. 7. In your lifetime, have you ever done anything, started to do anything, or prepared to do anything to end your life (for example, collected pills, obtained a gun, gave away valuables, went to the roof but didn't jump)? No 8. If YES, was this within the past 3 months? Response not required due to responses to other questions. /shadi/ ELISSA ALBERT LPN LICENSED PRACTICAL NURSE Signed: 11/07/2024 09:18 ELISSA ALBERT [facility] Nov 07, 2024 09:05 AM DERMATOLOGY NOTE: LOCAL TITLE: DERMATOLOGY NOTE STANDARD TITLE: DERMATOLOGY NOTE DATE OF NOTE: NOV 07, 2024@09:05 ENTRY DATE: NOV 07, 2024@09:05:32 AUTHOR: DEJA GUERRERO EXP COSIGNER: JULIANNA CHAUDHRY URGENCY: STATUS: COMPLETED DERMATOLOGY NOTE Has ADDENDA Dermatology Clinic Note CC: TBSE 2/2 hx of NMSC HPI: ALLAN LOVETT is a 74-year old M with a history of NMSC who presents for TBSE. Concerns today: - Patient reports scaly spot on scalp and on right cheek as well Otherwise, no new, changing, bleeding, non healing [...] The patient's face, ears, scalp/hair, eyes/eyelids, lips, neck, chest, back, abdomen, bilateral upper extremities were examined and normal, unless specified below: gritty papule scalp vertex skin colored hyperkeratotic papule on right cheek dilated blood vessels on bilateral cheeks w phymatous changes of nose scattered homogenous wadsworth/brown macules and papules on face, trunk, extremtities scattered wadsworth/brown struck on appearing papules and plaques on face, trunk, extremities scattered homogenous well circumscribed red papules on trunk, extremities WHSS prior sites, NER ASSESSMENT AND PLAN: Actinic keratoses Premalignant nature reviewed Discussed options for treatment, including observation, LN2, field therapy LN2 x 7 sec x _1_ lesions on scalp vertex Blister care and photoprotection Rosacea - Discussed etiology - Recommend sunprotection with hats, SPF 30+ - Discussed triggers such as alcohol, heat, spicy foods Seborrheic keratoses, including on R cheek Cameron angioma - benign reassured Multiple melanocytic [...] regular self-skin exams and dermatology follow-up RTC 1 year or PRN /shadi/ DEJA GUERRERO Dermatology Resident Signed: 11/07/2024 09:17 /shadi/ Julianna Chaudhry MD [employer] Cosigned: 11/07/2024 10:03 11/07/2024 ADDENDUM STATUS: COMPLETED Discussed case with resident. Agree with history, physical examination, assessment, and plan. /shadi/ Julianna Chaudhry MD [employer]OUNDER [employer] CEO Signed: 11/07/2024 10:03 DEJA GUERRERO [facility]
--- OUTSIDE RECORDS SUMMARY | 2025-02-17 15:30 | XMS_ITS | Encounter Summary ---
Author Name Department of Veter[place] Affairs [place] Organization Department of [place] Address [address] [place] [address] Care Team Providers Care Telephone Directory Deliverer Name Role Phone MORELIA ALLEN Primary Care [...] PART A Mar 19, 2014 PART A [id number] [place] PATIENT MEDICARE (WNR) MEDICARE (M) PART A Mar 19, 2014 PART A [id number] [phone] [place] PATIENT Selected Encounter This section includes the information on record at [place] for the Encounter. Date/Time Encounter Type Encounter Description Reason Pro vider Source November 20, 2024 09:39 AM Outpatient Encounter ADMIN PAT ACTIVTIES (MASNONCT) IHE Encounter Template Text not used by [place] Plan of Treatment: Future Appointments (+ 6 months) and Future Tests (+/- 45 days) The Plan of Treatment section includes future care activities for the patient [facility] [place] [facility] This section includes future appointments [...] 23, 2024 09:00 AM AMBULATORY - NONE [facility] November 23, 2024 11:00 AM AMBULATORY - SURGERY [facility] December 15, 2024 03:30 PM AMBULATORY - MEDICINE [facility] Dec 18, 2024 08:00 AM AMBULATORY - SURGERY [facility] Dec 20, 2024 03:30 PM AMBULATORY - MEDICINE [facility] Dec 21, 2024 11:00 AM AMBULATORY - NONE [facility] Dec 29, 2024 08:00 AM AMBULATORY - REHAB MEDICIN E [facility] 2025 02:30 PM AMBULATORY - REHAB MEDICIN E [facility] Jan 12, 2025 11:30 AM AMBULATORY - NONE [facility] Jan 12, 2025 04:00 PM AMBULATORY - SUR[facility]ERY [facility] Jan 18, 2025 11:00 AM [facility]ULAT[facility] - [facility]ERY [facility] Feb 07, 2025 11:00 AM AMBULATORY - [facility]ERY [facility] Feb 14, 2025 06:30 AM AMBULATORY - NONE [facility] Feb 15, 2025 08:30 AM AMBULATORY - SURGERY [facility] Feb 22, 2025 08:00 AM AMBULATORY - [facility]ERY [facility] Feb 28, 2025 09:00 AM AMBULATORY - [facility]ERY [facility] Mar 06, 2025 08:30 AM AMBULATORY - NONE [facility] Mar 12, 2025 01:30 PM AMBULATORY - SURGERY [facility] Mar 16, 2025 08:30 AM AMBULATORY - SURGERY [facility] Active, Pending, and Scheduled Orders This [...] November 23, 2024 09:18 AM Reporting Lab: [facility] [address] Performing Lab: [facility] [address] HGA1C 6.8 H 4.0-6.0 November 23, 2024 09:41 AM [facility] BASIC METABOLIC PANEL PLASMA Specimen Type: PL ASMA Comment: No hemolysis noted. Ordering Provider: TAPAN BLAS Report Released Date/Time: November 23, 2024 09:18 AM Reporting Lab: [facility] [address] Performing Lab: [facility] [address] CREATININE 0.96 mg/dL 0.70-1.30 UREA NITROGEN 24.0 [...] 02:53 AM ORYX ADMIT TOBACCO SCREEN NO [facility] Tobacco Use History This section includes a history of the smoking, or tobacco-related health factors, that were collected on or before the date of the Encounter. The data comes from the [place] facility where the Encounter took place. Date/Time Smoking Status/Tobacco Use Comment Kirstin acyordan Apr 02, 2016 12:55 PM QUIT TOBACCO >7 YEARS AGO [facility] May 21, 2015 01:30 PM LIFETIME NON-USER OF TOBACCO [facility] Jan 03, 2014 10:46 AM LIFETIME NON-USER OF TOBACCO [facility] Feb 21, 2013 11:08 AM QUIT TOBACCO >12 M O & <7 YRS AGO [facility] Aug 19, 2009 12:46 PM LIFETIME NON-USER OF TOBACCO [facility] Oct 05, 2008 10:28 AM QUIT TOBACCO >12 M O & <7 YRS AGO [facility] November 18, 2007 09:08 AM QUIT TOBACCO IN TH E LAST 12 MONTHS [facility] Aug 05, 2006 12:57 PM CURRENT TOBACCO USER [facility] Aug 05, 2006 12:57 PM TOB-DECLINES SMOKI NG CESSATION REFERRAL [facility] Jan 13, 2006 08:42 AM CURRENT TOBACCO USER [facility] Jan 13, 2006 08:42 AM SMOKER 1-[address] [facility] Advance Directives: All historical and current Section Date Range: From patient's date of to the date document was created. This section includes ALL of a patient's completed or amended [place] Advance and Rescinded Directives. The entries below indicate that a directive exists for the patient, but an actual copy is not included with this document. The data comes from all [facility]. Date Advance Directives Provider Source Jan 22, 2016 ADVANCE DIRECTIVE DISCUSSION AMBERLY HOFFMAN [facility] Mar 31, 2007 ADVANCE DIRECTIVE STEFFENKeziaJOSE C [facility] Radiology Reports: +/- 30 days of [...] the Encounter. The data comes from all [place] treatment facilities. Date/Time Radiology Report Provider Source Dec 18, 2024 11:32 AM SPINE LUMBOSACRAL 2 OR 3 VIEWS: ELISEALLAN KAM Philippe [id number] -[id number] M Exm Date: DEC 18, 2024@11:32 Req Phys: JOSE FRANCISCO RAY Loc: [facility]-PACT PHONE NURSE E4 (Req'g Img Loc: [facility] Service: [facility], [facility] [address] [place] [address] (Case [id number] COMPLETE) SPINE LUMBOSACRAL 2 OR 3 VIEWS (RAD Detailed) CPT:01051 Reason for Study: low back pain Clinical History: Report Status: Verified Date Reported: DEC 18, 2024 Date Verified: DEC 18, 2024 Osteopathy Doctor E-Sig:/ES/CHRIS HAMMOND MD Report: Case #[id number]. Lumbar [...] CHRIS HAMMOND MD, Staff Physician - Radiologist (Osteopathy Doctor) /CHRIS BRIONES [facility] Encounter Notes: All associated encounter notes This section contains the clinical notes associated to the Encounter. Date/Time Encounter Note(s) Provider Source November 20, 2024 09:39 AM PHARMACY PROGRESS NOTE: LOCAL TITLE: PHARMACY GENERAL STL STANDARD TITLE: PHARMACY PROGRESS NOTE DATE OF NOTE: NOVEMBER 20, 2024@09:39 ENTRY DATE: NOVEMBER 20, 2024@09:39:36 AUTHOR: RONALD FARMER EXP COSIGNER: URGENCY: STATUS: COMPLETED sent secure message to Pharmacy requesting refill of CYCLOBENZAPRINE HCL 5MG TAB. Rx has . Please renew as deemed appropriate, thanks. Ronald Farmer, PharmD. /shadi/ RONALD FARMER Signed: 11/20/2024 09:40 Receipt Acknowledged By: 11/20/2024 09:54 /shadi/ MORELIA Mast LECTURE MSN AGPNP-C NURSE PRACTITIONER RONALD FARMER [facility]
--- OUTSIDE RECORDS SUMMARY | 2025-02-17 15:30 | XMS_ITS | Encounter Summary ---
Author Name [place] Organization [place] Address [address] [place] [address] Care Team Providers Care Cork Tile Floor Layer Name Role Phone MORELIA ALLEN Primary Care [...] PART A Mar 19, 2014 PART A [id number] [place] PATIENT MEDICARE (WNR) MEDICARE (M) PART A Mar 19, 2014 PART A [id number] [place] PATIENT Selected Encounter This section includes the information on record at [place] for the Encounter. Date/Time Encounter Type Encounter Description Reason Pro vider Source Apr 28, 2024 01:43 PM Outpatient Encounter GENERAL INTERNAL MEDICINE IHE Encounter Template Text not used by [place] Plan of Treatment: Future Appointments (+ 6 months) and Future Tests (+/- 45 days) The Plan of Treatment section includes future care activities for the patient from all [place] [facility] This section includes future appointments and future orders which are active, pending or scheduled. Future Appointments This section includes appointments that were scheduled to occur 6 months from the date of the Encounter, up to a maximum of 20 appointments. The data comes from all [place] treatment facilities. Appointment Date/Time Appointment Type Appointme nt Facility Name May 11, 2024 11:00 AM AMBULATORY - NONE [facility] May 12, 2024 09:00 AM AMBULATORY - REHAB MEDICIN E [facility] Jun 01, 2024 11:30 AM AMBULATORY - MEDICINE [facility] Jun 08, 2024 11:00 AM AMBULATORY - NONE [facility] Jul 03, 2024 10:00 AM AMBULATORY - SURGERY [facility] Jul 20, 2024 09:00 AM AMBULATORY - NONE [facility] Aug 31, 2024 09:00 AM AMBULATORY - NONE [facility] Sep 12, 2024 01:00 PM AMBULATORY - MEDICINE [facility] Oct 11, 2024 10:30 AM AMBULATORY - NONE [facility] Lab Results: +/- 30 days [...] Type Comment May 11, 2024 11:44 AM [facility] MICRAL/CREAT PROFILE (STL) URINE Specimen Typ e: URINE No comment entered. Ordering Provider: TAPAN BLAS Report Released Date/Time: May 11, 2024 11:35 AM Reporting Lab: [facility] [phone] Performing Lab: [facility] [address] URINE ALBUMIN (PB-STL) 405 mg/L No range refer to micral/creat ratio uACR (STL) 473 mg/g H 0-29 CREATININE URINE/OTHERS 85.6 mg/dL 63.0- 166.0 Apr 13, 2024 11:44 AM [facility] HGA1C BLOOD Specimen Type: BLOOD No comment entered. Ordering Provider: TAPAN BLAS Report Released Date/Time: Apr 13, 2024 11:22 AM Reporting Lab: [facility] [address] Performing Lab: [facility] [address] HGA1C 6.5 H 4.0-6.0 Apr 13, 2024 11:44 AM [facility] BASIC METABOLIC PANEL PLASMA Specimen Type: PL ASMA Comment: No hemolysis noted. Ordering Provider: TAPAN BLAS Report Released Date/Time: Apr 13, 2024 11:22 AM Reporting Lab: [facility] [address] Performing Lab: [facility] [address] CREATININE 0.83 mg/dL 0.70-1.30 UREA NITROGEN 20.3 [...] and tobacco- related health factors from the [place] facility where the Encounter took place. Current Smoking Status This section includes the most current smoking, or tobacco-related health factor, from the [place] facility where the Encounter took place. Date/Time Current Smoking Status Comment Ronda vallejo Jun 19, 2023 02:53 AM ORYX ADMIT TOBACCO SCREEN NO [facility] Tobacco Use History This section includes a history of the smoking, or tobacco-related health factors, that were collected on or before the date of the Encounter. The data comes from the [place] facility where the Encounter took place. Date/Time Smoking Status/Tobacco Use Comment F acility Apr 02, 2016 12:55 PM QUIT TOBACCO >7 YEARS AGO [facility] May 21, 2015 01:30 PM LIFETIME NON-USER OF TOBACCO [facility] Jan 03, 2014 10:46 AM LIFETIME NON-USER OF TOBACCO [facility] Feb 21, 2013 11:08 AM QUIT TOBACCO >12 M O & <7 YRS AGO [facility] Aug 19, 2009 12:46 PM LIFETIME NON-USER OF TOBACCO [facility] Oct 05, 2008 10:28 AM QUIT TOBACCO >12 M O & <7 YRS AGO [facility] November 18, 2007 09:08 AM QUIT TOBACCO IN TH E LAST 12 MONTHS [facility] Aug 05, 2006 12:57 PM CURRENT TOBACCO USER [facility] Aug 05, 2006 12:57 PM TOB-DECLINES SMOKI NG CESSATION REFERRAL [facility] Jan 13, 2006 08:42 AM CURRENT TOBACCO USER [facility] Jan 13, 2006 08:42 AM SMOKER 1-2 PACKS [facility] Advance Directives: All historical and current Section Date Range: From patient's date of to the date document was created. This section includes ALL of a patient's completed or amended [place] Advance and Rescinded Directives. The entries below indicate that a directive exists for the patient, but an actual copy is not included with this document. The data comes from all [place] facilities. Date Advance Directives Provider Source Jan 22, 2016 ADVANCE DIRECTIVE DISCUSSION AMBERLY HOFFMAN [facility] Mar 31, 2007 ADVANCE DIRECTIVE JOSE C ALLEN [facility] Encounter Notes: All associated encounter notes This section contains the clinical notes associated to the Encounter. Date/Time Encounter Note(s) Provider Source Apr 28, 2024 01:43 PM NONVA NOTE: LOCAL TITLE: COMMUNITY CARE-CARE COORDINATION PLAN NOTE [address] [facility] STANDARD TITLE: NONVA NOTE DATE OF NOTE: APR 28, 2024@13:43 ENTRY DATE: APR 28, 2024@13:43:28 AUTHOR: EDWARD MALCOLM EXP COSIGNER: URGENCY: STATUS: COMPLETED contacted [facility] to see if we had received a referral for his Knee Flexionator. Sleeping Bag Filler informed the we did not have the referral. Sleeping Bag Filler spoke with Natali at [facility] who wanted to speak with Jessica Schmitz, to better explain why the device was needed policy writer reached out to Jessica woods phone number to contact Natali at [facility]. /shadi/ EDWARD MACLOLM COMMERCIAL ADMINISTRATOR Signed: 04/28/2024 13:47 EDWARD MALCOLM [facility]
--- OUTSIDE RECORDS SUMMARY | 2025-02-17 15:30 | XMS_ITS | Encounter Summary ---
Author Name [facility] [place] Organization [facility] [place] Address [address] [place] [address] Care Team Providers Care Attendant Child Activity Name Role Phone MORELIA ALLEN Primary Care [...] PART A Mar 19, 2014 PART A [id number] [place] PATIENT MEDICARE (WNR) MEDICARE (M) PART A Mar 19, 2014 PART A [id number] [phone] [place] PATIENT Selected Encounter This section includes the information on record at [place] for the Encounter. Date/Time Encounter Type Encounter Description Reason Provider Source Jan 12, 2025 11:50 AM OFFICE O/P EST MOD 30 MIN ANESTHESIA PRE/POST-OP CONSULT ICD-10-CM Z01.818 Encounter for other preprocedural examination [place] [facility] Encounter Template Text not used by [place] Assessments - Encounter Diagnoses This section includes the primary and secondary diagnoses documented for the Encounter. Date/Time Primary/Secondary Diagnosis Diagnosis Name Provider Source Jan 12, 2025 12:05 PM PRIMARY Encounter for other preprocedural examination VERNON HERRERACANDY Proctor [facility] Jan 12, 2025 12:05 PM SECONDARY Encounter for other specified surgical aftercare WILBUR HERRERASANJUANAMOOSEMOSHE Proctor [facility] Plan of Treatment: Future Appointments (+ 6 months) and Future Tests (+/- 45 days) The Plan of Treatment section includes future care activities for the [facility] [place] [facility] This section includes future appointments and future orders which are active, pending or scheduled. Future Appointments This section includes appointments that were scheduled to occur 6 months from the date of the Encounter, up to a maximum of 20 appointments. The data comes from all [place] treatment facilities. Appointment Date/Time Appointment Type Appointme nt Facility Name Jan 18, 2025 11:00 AM AMBULATORY - SURGERY [facility] Feb 07, 2025 11:00 AM [facility] Feb 14, 2025 06:30 AM AMBULATORY - NONE [facility] Feb 15, 2025 08:30 AM AMBULATORY - SURGERY [facility] Feb 22, 2025 08:00 AM AMBULATORY - SURGERY [facility] Feb 28, 2025 09:00 AM AMBULATORY - SURGERY [facility] Mar 06, 2025 08:30 AM AMBULATORY - NONE [facility] Mar 12, 2025 01:30 PM AMBULATORY - SURGERY [facility] Mar 16, 2025 08:30 AM AMBULATORY - SURGERY [facility] May 31, 2025 11:00 AM AMBULATORY - MEDICINE [facility] Active, Pending, and Scheduled Orders This section includes a listing of several types of active, pending, and scheduled orders, including clinic medications orders, diagnostic test orders, procedure orders and consult orders; where the start date of the order is 45 days before the date of the Encounter or 45 days after the date of theEncounter. The data comes from all [place] treatment facilities. Test Date/Time Test Type Test Details Facility Name Dec 29, 2024 12:00 AM Laboratory - Chemi stry Order BASIC METABOLIC PANEL GREEN LI/HEP BLD/PLAS PLASMA SP [facility] Lab Results: +/- 30 days of the [...] Type Comment Jan 12, 2025 01:10 PM [facility] GLUCOSE,BLOOD-poct (STL) BLOOD Specimen Type: BLOOD Comment: Test Performed by: [id number] Meter #: [id number] Ordering Provider: MORELIA ALLEN Report Released Date/Time: Jan 12, 2025 01:12 PM Reporting Lab: [address] [address] Performing Lab: [address] [address] GLUCOSE,BLOOD-poct (STL) 150 mg/dL H 72-99 Jan 12, 2025 11:38 AM [facility] GLUCOSE,BLOOD-poct (STL) BLOOD Specimen Type: BLOOD Comment: Test Performed by: [id number] Meter #: [id number] Ordering Provider: MORELIA ALLEN Report Released Date/Time: Jan 12, 2025 11:48 AM Reporting Lab: [address] [address] Performing Lab: [address] [address] GLUCOSE,BLOOD-poct (STL) 147 mg/dL H 72-99 Vital Signs: All taken on the encounter date This section contains inpatient and outpatient Vital Signs collected on the date of the Encounter. Date/Time Temperature Pulse Blood Pressure Respiratory Rate SP02 Pain Height Weight Body Mass Index Source Jan 12, 2025 02:00 PM 97.3 F 77 /min 141/72 mm[Hg] 13 /min 93 % 0 [facility] Jan 12, 2025 01:05 PM 97.1 F 89 /min 145/93 mm[Hg] 14 /min 95 % 0 [facility] Jan 12, 2025 11:31 AM 98.4 F 77 /min 151/80 mm[Hg] 20 /min 93 % 1 71.5 in 280 lb 39 [facility] Social History: Smoking Status (Most [...] 02:53 AM ORYX ADMIT TOBACCO SCREEN NO [facility] Tobacco Use History This section includes a history of the smoking, or tobacco-related health factors, that were collected on or before the date of the Encounter. The data comes from the [place] facility where the Encounter took place. Date/Time Smoking Status/Tobacco Use Comment Kirstin prado Apr 02, 2016 12:55 PM QUIT TOBACCO >7 YEARS AGO [facility] May 21, 2015 01:30 PM LIFETIME NON-USER OF TOBACCO [facility] Jan 03, 2014 10:46 AM LIFETIME NON-USER OF TOBACCO [facility] Feb 21, 2013 11:08 AM QUIT TOBACCO >12 M O & <7 YRS AGO [facility] Aug 19, 2009 12:46 PM LIFETIME NON-USER OF TOBACCO [facility] Oct 05, 2008 10:28 AM QUIT TOBACCO >12 M O & <7 YRS AGO [facility] November 18, 2007 09:08 AM QUIT TOBACCO IN TH E LAST 12 MONTHS [facility] Aug 05, 2006 12:57 PM CURRENT TOBACCO USER [facility] Aug 05, 2006 12:57 PM TOB-DECLINES SMOKI NG CESSATION REFERRAL [facility] Jan 13, 2006 08:42 AM CURRENT TOBACCO USER [facility] Jan 13, 2006 08:42 AM SMOKER 1-2 PACKS [facility] Advance Directives: All historical and current Section Date Range: From patient's date of to the date document was created. This section includes ALL of a patient's completed or amended [place] Advance and Rescinded Directives. The entries below indicate that a directive exists for the patient, but an actual copy is not included with this document. The data comes from all [place] facilities. Date Advance Directives Provider Source Jan 22, 2016 ADVANCE DIRECTIVE DISCUSSION AMBERLY HOFFMAN [facility] Mar 31, 2007 ADVANCE DIRECTIVE JOSE C ALLEN [facility] Radiology Reports: +/- 30 days of [...] LUMBOSACRAL 2 OR 3 VIEWS: ALLAN LOVETT [id number] -[id number] M Exm Date: DEC 18, 2024@11:32 Req Phys: JOSE FRANCISCO RAY Loc: [facility]-PACT PHONE NURSE E4 (Req'g Img Loc: [facility] RAD[facility]OLOGY Service: [facility], [facility] [address] [place] [address] (Case [id number] COMPLETE) SPINE LUMBOSACRAL 2 OR 3 VIEWS (RAD Detailed) CPT:43080 Reason for Study: low back pain Clinical History: Report Status: Verified Date Reported: DEC 18, 2024 Date Verified: DEC 18, 2024 Yard Switcher E-Sig:/ES/CHRIS HAMMOND MD Report: Case #[id number]. Lumbar [...] CHRIS HAMMOND MD, Staff Physician - Radiologist (Yard Switcher) /CHRIS BRIONES [facility] Encounter Notes: All associated encounter notes This section contains the clinical notes associated to the Encounter. Date/Time Encounter Note(s) Provider Source Jan 12, 2025 03:20 PM ANESTHESIOLOGY POST OPERATIVE E & M NOTE: LOCAL TITLE: ANESTHESIA POST-OP STL STANDARD TITLE: ANESTHESIOLOGY POST OPERATIVE E & M NOTE DATE OF NOTE: JAN 12, 2025@15:20 ENTRY DATE: JAN 12, 2025@15:20:49 AUTHOR: VERNON HERRERA EXP COSIGNER: URGENCY: STATUS: COMPLETED Post-Anesthetic Note No complications noted from anesthetic at the time of this note. Please look at intra-op flowsheet for details on anesthetic. Anesthesia intra-op flowsheet uploaded to [facility]. /es/ LORENZA HERRERA MD ANESTHESIOLOGY/CRITICAL CARE MEDICINE Signed: 01/12/2025 15:21 VERNON HERRERA [facility] Jan 12, 2025 11:51 AM ANESTHESIOLOGY PRE OPERATIVE E & M NOTE: LOCAL TITLE: ANESTHESIA PRE-OP STL STANDARD TITLE: ANESTHESIOLOGY PRE OPERATIVE E & M NOTE DATE OF NOTE: JAN 12, 2025@11:51 ENTRY DATE: JAN 12, 2025@11:51:13 AUTHOR: VERNON HERRERA COSIGNER: URGENCY: STATUS: COMPLETED [place]AN Paez is a 75 year old MALE who is to undergo the proposed procedure below Pre-operative diagnosis: left eye cataract Operation proposed: phaco cataract with lens implant and MIGS, left eye VITALS Age: 75 Weight: 280 lb [127.01 kg] (01/12/2025 11:31) Height: 71.5 in [181.6 cm] (01/12/2025 11:31) BMI: 38.6 Blood pressure: 151/80 (01/12/2025 11:31) Pulse: 77 (01/12/2025 11:31) Temperature: 98.4 F [36.9 C] (01/12/2025 11:31) Respiration: 20 (01/12/2025 11:31) SpO2: 93% (01/12/2025 11:31) Pain: 1 (01/12/2025 11:31) ALLERGIES IODINATED CONTRAST MEDIA, LISINOPRIL, SEMAGLUTIDE, DULAGLUTIDE MEDICATIONS Inpatient: No medications found. Active Outpatient Medications (including Supplies): Active Outpatient [...] TIMES A DAY Indication: FOR EYE INFLAMMATION LABS SODIUM 141 mEq/L 11/23/2024 09:41 POTASSIUM 4.4 mEq/L 11/23/2024 09:41 CHLORIDE 106 mEq/L 11/23/2024 09:41 UREA NITROGEN 24.0 mg/dL 11/23/2024 09:41 CREATININE 0.96 mg/dL 11/23/2024 09:41 CALCIUM 9.4 mg/dL 11/23/2024 09:41 PROTEIN 6.7 g/dL 06/01/2024 11:11 ALBUMIN 3.8 g/dL 06/01/2024 11:11 ALKALINE PHOSPHATASE 110 U/L 06/01/2024 11:11 ALT/SGPT 15 U/L 06/01/2024 11:11 AST/SGOT 13 U/L 06/01/2024 11:11 TOTAL BILIRUBIN 0.3 mg/dL 06/01/2024 11:11 CARBON DIOXIDE 28 mEq/L 11/23/2024 09:41 GLUCOSE 153 H mg/dL 11/23/2024 09:41 EGFR (CKD-EPI 2020) 82.43 11/23/2024 09:41 WBC 7.1 10*3/uL 06/01/2024 11:11 RBC 4.74 [...] 11:11 BASOPHILS, ABSOLUTE 0.03 10*3/uL 06/01/2024 11:11 INR VALUE 1.4 INR 06/19/2023 06:00 PROTIME 15.1 H sec 06/19/2023 06:00 No PTT EO data found HGA1C 6.8 H % 11/23/2024 09:41 URINE COLOR Light-Yellow 09/22/2023 08:10 APPEARANCE Clear 09/22/2023 08:10 U.PH 6.0 09/22/2023 08:10 U.BILIRUBIN Negative mg/dL 09/22/2023 08:10 U.NITRITE Negative mg/dL 09/22/2023 08:10 URINE RBC/HPF <1 /HPF 09/22/2023 08:10 URINE WBC/HPF 52 H /HPF 09/22/2023 08:10 WBC Clumps RARE /HPF 09/22/2023 08:10 SQUAMOUS EPITH. <1 /HPF 09/22/2023 08:10 MUCUS RARE /LPF 08/10/2023 08:29 No URINE DRUG SCREEN EO data found No TEST LAST ONE EO data found HIV COMBO FOURTH GENERATION ([place]) Negative 07/27/2013 12:55 [facility] Hep C tests in last five years. *No Lab Data Found* DIAGNOSTICS CXR: Impression for CHEST X-RAY, 2 VIEWS, 07/01/23, case [id number] No acute disease PFT: No Pulmonary Function Test for this patient. EKG: No data available for: EKG CONSULT STL EKG CONSULTS PB EKG RESULTS MA Echocardiogram: PROGRESS NOTES SELECTED No data available for: ECHOCARDIOGRAPHIC RESULTS MA ECHOCARDIOGRAPHY CONSULT STL ECHO COMPLETED CONSULT STL TRANSESOPHAGEAL ECHOCARDIOGRAM CONSULT RESULTS (JACK) MA TRANSESOPHAGEAL ECHOCARDIOGRAM (JACK) CONSULT REPORT IMAGING IMPRESSION SELECTED No data available for: US ECHOCARDIOGRAPHY, TRANSTHORACIC US DOPPLER ECHOCARDIOGARPHY COLOR FLOW MAPPING -PB ONLY US DOPPLER ECHOCARDIOGRAPHY-PB ONLY US ECHOCARDIOGRAPHY, TRANSTHORACIC-PB ONLY CARDIOLOGY ECHOCARDIOGRAM No Data Available Stress test: No Stress Test Data available PROBLEM LIST 1) Essential hypertension (SNOMED CT 66086997) 2) Obesity (SNOMED CT 730407135) 3) Osteoarthritis of knee (SNOMED CT 072971305) 4) Carcinoma in situ of kidney (SNOMED CT 92696720) 5) Squamous cell carcinoma of skin (SNOMED CT 845022971) 6) Sclerosis 7) History of drug abuse 8) H/O: alcoholism 9) Rosacea 10) Kidney stone 11) Allergic rhinitis 12) Erectile Dysfunction ([facility] [id number]) 13) Polyp Colon ([facility] 59498008) 14) Hyperlipidemia 15) Hearing loss 16) Squamous cell carcinoma of scalp 17) Recurrent ventral incisional hernia 18) Nicotine dependence in remission 19) Vitamin B12 deficiency (non anemic) 20) Exposure to potentially hazardous substance 21) Peripheral Neuropathy with Type 2 Diabetes ([facility] [id number]) REVIEW OF SYSTEMS/METS/PAST MEDICAL HISTORY/PHYSICAL EXAM PSYCH/CENTRAL NERVOUS for: - Depression - Anxiety - Post-traumatic stress disorder - Cerebral vascular accident - TIA - Seizures + h/o ETOH use + h/o illicit drug use CARDIAC for: - Recent chest pain + Hypertension - Hyperlipidemia - Myocardial infarction - Coronary artery disease - Heart failure - Valvular disease - Atrial fibrillation/flutter RESPIRATORY for: - Recent or current dyspnea - Sleep apnea - Asthma - COPD - Home O2 use + h/o Tobacco use GI for: - GERD - Hiatal hernia - GI bleed - Liver disease RENAL for: - Chronic kidney disease + Nephrolithiasis + h/o renal CA, s/p partial nephrectomy ENDOCRINE for: + Diabetes - Hypothyroid VASCULAR/HEMATOLOGY/ONCOLOGY for: - Anemia - Thrombocytopenia - Blood disorders INFECTIOUS DZ for: - Active infection - Chronic infection MUSCULOSKELETAL/SKIN/PERIPHE RAL NERVOUS for: + Obesity + Arthritis/degenerative joint disease - Rheumatoid arthritis + Neuropathy/radiculopathy /REPRODUCTIVE for: - Prostate hypertrophy + ED OTHER: Nothing other clinically significant discovered HABITS Alcohol: Occasional Tobacco: Denies current use Other drugs: Denies Functional capacity: >4 METS SURGICAL HISTORY Reviewed Previous anesthesia complications: None Family history of anesthesia complications: None PHYSICAL EXAM Neuro: Alert & oriented Heart: Regular rate, regular rhythm Lungs: Bilateral chest rise AIRWAY Mallampati class: 3 Neck: Normal thyromental distance, full neck range of motion Teeth: Upper bridge, otherwise intact ASA CLASS 3. A patient with severe systemic disease ANESTHETIC PLAN Sedation/Monitored anesthesia care (MAC) Planned anesthetic technique and options were discussed with the patient or guardian including risks, benefits, and potential complications. All questions answered. PRE-INDUCTION REASSESSMENT NPO status: Appropriate Patient took their beta-beni this AM His blood glucose is acceptable He last took his GLP-1 agonist today. He denies N/V or bloating. /es/ LORENZA HERRERA MD ANESTHESIOLOGY/CRITICAL CARE MEDICINE Signed: 01/12/2025 12:06 Receipt Acknowledged By: 01/12/2025 12:25 /es/ KAMRYN GOOD CERTIFIED REGISTERED NURSE SPECIALTY THERAPIST VERNON HERRERA [facility]
--- OUTSIDE RECORDS SUMMARY | 2025-02-17 15:30 | XMS_ITS | Encounter Summary ---
Author Name [facility] [place] Address [address] [place] [address] Care Team Providers Care Comic Book Artist Name Role Phone MORELIA ALLEN Primary Care [...] PART A Mar 19, 2014 PART A [id number] [phone] [place] PATIENT MEDICARE (WNR) MEDICARE (M) PART A Mar 19, 2014 PART A [id number] [phone] [place] PATIENT Selected Encounter This section includes the information on record at [place] for the Encounter. Date/Time Encounter Type Encounter Description Reason Provider Source Mar 15, 2024 01:00 PM OFFICE O/P EST LOW 20 MIN UROLOGY CLINIC ICD-10-CM N20.0 Calculus of kidney MERRITT CURRY Encounter Template Text not used by [facility] Assessments - Encounter Diagnoses This section includes the primary and secondary diagnoses documented for the Encounter. Date/Time Primary/Secondary Diagnosis Diagnosis Name Provider Source Mar 15, 2024 01:28 PM PRIMARY Calculus of kidney EDUARD SONI [facility] Plan of Treatment: Future Appointments (+ 6 months) and Future Tests (+/- 45 days) The Plan of Treatment section includes future care activities for the patient from all [place] treatmentfacilities. This section includes future appointments and [...] 11:00 AM AMBULATORY - NONE [facility] May 12, 2024 09:00 AM AMBULATORY - REHAB MEDICIN E [facility] Jun 01, 2024 11:30 AM AMBULATORY - MEDICINE [facility] Jun 08, 2024 11:00 AM AMBULATORY - NONE [facility] Jul 03, 2024 10:00 AM AMBULATORY - SURGERY [facility] Jul 20, 2024 09:00 AM AMBULATORY - NONE [facility] Aug 31, 2024 09:00 AM AMBULATORY - NONE [facility] Sep 12, 2024 01:00 PM AMBULATORY - MEDICINE [facility] Lab Results: +/- 30 days of [...] Unit Interpretation Reference Range Specimen Type Comment Apr 13, 2024 11:44 AM [facility] HGA1C BLOOD Specimen Type: BLOOD No comment entered. Ordering Provider: TAPAN BLAS Report Released Date/Time: Apr 13, 2024 11:22 AM Reporting Lab: [facility] [phone] Performing Lab: [facility] [phone] HGA1C 6.5 H 4.0-6.0 Apr 13, 2024 11:44 AM [facility] BASIC METABOLIC PANEL PLASMA Specimen Type: PL ASMA Comment: No hemolysis noted. Ordering Provider: TAPAN BLAS Report Released Date/Time: Apr 13, 2024 11:22 AM Reporting Lab: [facility] [phone] Performing Lab: [facility] [address] CREATININE 0.83 mg/dL 0.70-1.30 UREA NITROGEN 20.3 [...] Height Weight Body Mass Index Source Mar 15, 2024 12:41 PM 98.4 72 151/74 20 94 0 71 283.7 [address] [facility] Social History: Smoking [...] 02:53 AM ORYX ADMIT TOBACCO SCREEN NO [facility] Tobacco Use History This section includes a history of the smoking, or tobacco-related health factors, that were collected on or before the date of the Encounter. The data comes from the [place] facility where the Encounter took place. Date/Time Smoking Status/Tobacco Use Comment F acility Apr 02, 2016 12:55 PM QUIT TOBACCO >7 YEARS AGO [facility] May 21, 2015 01:30 PM LIFETIME NON-USER OF TOBACCO [facility] Jan 03, 2014 10:46 AM LIFETIME NON-USER OF TOBACCO [facility] Feb 21, 2013 11:08 AM QUIT TOBACCO >12 M O & <7 YRS AGO [facility] Aug 19, 2009 12:46 PM LIFETIME NON-USER OF TOBACCO [facility] Oct 05, 2008 10:28 AM QUIT TOBACCO >12 M O & <7 YRS AGO [facility] November 18, 2007 09:08 AM QUIT TOBACCO IN TH E LAST 12 MONTHS [facility] Aug 05, 2006 12:57 PM CURRENT TOBACCO USER [facility] Aug 05, 2006 12:57 PM TOB-DECLINES SMOKI NG CESSATION REFERRAL [facility] Jan 13, 2006 08:42 AM CURRENT TOBACCO USER [facility] Jan 13, 2006 08:42 AM SMOKER 1-2 [facility] Advance Directives: All historical and current Section Date Range: From patient's date of to the date document was created. This section includes ALL of a patient's completed or amended [place] Advance and Rescinded Directives. The entries below indicate that a directive exists for the patient, but an actual copy is not included with this document. The data comes from all [place] facilities. Date Advance Directives Provider Source Jan 22, 2016 ADVANCE DIRECTIVE DISCUSSION AMBERLY HOFFMAN [facility] Mar 31, 2007 ADVANCE DIRECTIVE JOSE C ALLEN [facility] Radiology Reports: +/- 30 days of [...] the Encounter. The data comes from all [place] treatment facilities. Date/Time Radiology Report Provider Source Mar 15, 2024 11:[address] ABDOMEN PELVIS W/O CONTRAST-P: ALLAN LOVETT [id number] -1950 M Exm Date: MAR 15, 2024@11:41 Req Phys: MERRITT CURRY Loc: [facility]-UROLOGY 1 (Req'g Loc) Img Loc: [facility]-CT IMAGING [facility] Service: Unknown MEDICINE [facility], [address] [place] [address] (Case [id number] COMPLETE) CT ABDOMEN AND PELVIS W/O CONTRAS(CT Detailed) CPT:15486 Reason for Study: Bialteral Renal Stones Clinical [...] 15, 2024 Date Verified: MAR 15, 2024 Traffic Analyst E-Sig:/ES/MOODY FRAZIER MD Report: Spiral axial imaging [...] Primary Interpreting Staff: MOODY FRAZIER MD, Radiologist (Traffic Analyst) /CPG MOODY FRAZIER [facility] Encounter Notes: All associated encounter notes This section contains the clinical notes associated to the Encounter. Date/Time Encounter Note(s) Provider Source Mar 15, 2024 01:07 PM UROLOGY NOTE: LOCAL TITLE: UROLOGY NOTE STANDARD TITLE: UROLOGY NOTE DATE OF NOTE: MAR 15, 2024@13:07 ENTRY DATE: MAR 15, 2024@13:08:05 AUTHOR: EDUARD SONI COSIGNER: MERRITT CURRY URGENCY: STATUS: COMPLETED CHIEF COMPLAINT, HPI, EXAM & DATA CC: nephrolithasis f/u HPI: 74 yo M with hx of nephrolithiasis presenting for f/u - 06/2023: presented to ED for flank pain, found to have L obstructing stone and 1.8cm stone L kidney s/p L PCNL 06/2023 - has been doing well post-op - CT KUB today with small <4mm non-obstructing L renal stone - patient denies any episodes of flank pain, gross hematuria, or UTIs - also 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 Yes TARGETED PHYSICAL EXAM: Gen: NAD Resp: NLB Abd: s/nt/nd, no rebound or guarding = CREATININE:CREATININE 0.91 mg/dL 12/28/2023 09:42 PSA: PROST. SPECIFIC AG.(PB-STL) 0.802 ng/mL 06/02/2023 10:41 IMAGIN02/2024: CT non-con Impression: Small <4mm left calyceal stones ASSESSMEN T AND PLAN - 74 yo M with hx of nephrolithiasis s/p L PCNL 06/2023 presenting for f/u. <4mm non-obstructing L renal stone on CT KUB. We discussed ongoing observation with RTC in 1 year with RBUS unless he has any interval concerns. For stone prevention, I also counseled the patient to drink plenty of fluids, with water being the best but generally staying well hydrated with a goal of producing at least 2.5 liters of urine daily (ideally drink at least 3 liters or 100 ounces of fluid, but more if sweating or having other fluid loss). Additionally I have counseled to keep salt intake to under 2300 mg daily, moderate oxalate intake (particularly nuts, chocolate, spinach, and tea brewed from tea leaves), and moderate animal protein intake. I have also counseled not to restrict calcium intake. FOLLOW-UP: - RTC 1 year with RBUS (MORE INFORMATION) * LABS-------- PSA Trend: PROST. SPECIFIC AG.(PB-STL) 0.802 ng/mL 06/02/2023 10:41 PROST. SPECIFIC AG.(PB-STL) 0.836 ng/mL 05/27/2022 07:36 PROST. SPECIFIC AG.(PB-STL) 1.001 ng/mL 09/04/2021 11:45 PROST. SPECIFIC AG.(PB-STL) 0.585 ng/mL 07/30/2020 15:36 BMP: SODIUM 139 mEq/L 12/28/2023 09:42 POTASSIUM 4.2 mEq/L 12/28/2023 09:42 CHLORIDE 103 mEq/L 12/28/2023 09:42 UREA NITROGEN 22.2 mg/dL 12/28/2023 09:42 CREATININE 0.91 mg/dL 12/28/2023 09:42 CALCIUM 9.6 mg/dL 12/28/2023 09:42 CARBON DIOXIDE 26 mEq/L 12/28/2023 09:42 GLUCOSE 99 mg/dL 12/28/2023 09:42 EGFR (CKD-EPI 2020) 88.44 12/28/2023 09:42 CBC: WBC 11.7 H 10*3/uL 07/06/2023 20:00 RBC [...] BASOPHILS, AUTO % 0 % 07/06/2023 20:00 IMMATURE GRANS, AUTO % 0.4 % 05/27/2022 07:36 NEUTROPHILS, ABSOLUTE 11.03 H 10*3/uL 07/06/2023 20:00 LYMPHOCYTES, ABSOLUTE 0.47 L 10*3/uL 07/06/2023 20:00 MONOCYTES, ABSOLUTE 0.10 L 10*3/uL 07/06/2023 20:00 EOSINOPHILS, ABSOLUTE 0.00 10*3/uL 07/06/2023 20:00 BASOPHILS, ABSOLUTE 0.02 10*3/uL 07/06/2023 20:00 IMMATURE GRANS, AUTO ABS 0.03 10*3/uL 05/27/2022 07:36 UA: URINE COLOR Light-Yellow 09/22/2023 08:10 APPEARANCE Clear 09/22/2023 08:10 U.PH 6.0 09/22/2023 08:10 U.BILIRUBIN Negative mg/dL 09/22/2023 08:10 U.NITRITE Negative mg/dL 09/22/2023 08:10 URINE RBC/HPF <1 /HPF 09/22/2023 08:10 URINE WBC/HPF 52 H /HPF 09/22/2023 08:10 WBC Clumps RARE /HPF 09/22/2023 08:10 SQUAMOUS EPITH. <1 /HPF 09/22/2023 08:10 MUCUS RARE /LPF 08/10/2023 08:29 --------- PAST MEDICAL, SOCIAL, FAMILY HX AND ROS 1) Essential hypertension (SNOMED CT 45946330) 2) Obesity (SNOMED CT 111775918) 3) Osteoarthritis of knee (SNOMED CT 964179980) 4) Carcinoma in situ of kidney (SNOMED CT 10729144) 5) Squamous cell carcinoma of skin (SNOMED CT 665092490) 6) Sclerosis 7) History of drug abuse 8) H/O: alcoholism 9) Rosacea 10) Kidney stone 11) Allergic rhinitis 12) Erectile Dysfunction (SCT 250359793) 13) Polyp Colon (SCT 80731782) 14) Hyperlipidemia 15) Hearing loss 16) Squamous cell carcinoma of scalp 17) Recurrent ventral incisional hernia 18) Nicotine dependence in remission 19) Vitamin B12 deficiency (non anemic) 20) Exposure to potentially hazardous substance 21) Peripheral Neuropathy with Type 2 Diabetes (SCT 6299009199884) MEDICATIONS: Active Outpatient Medications (including Supplies): Active Outpatient Medications Status 1) ACCU-CHEK GUIDE (GLUCOSE) TEST STRIP USE 1 STRIP FOR ACTIVE BLOOD TEST TWICE A DAY FOR BLOOD SUGAR MONITORING 2) ALCOHOL PREP PAD USE/APPLY PAD TO AFFECTED AREA(S) ACTIVE ONCE A DAY NEEDED FOR SKIN CLEANSING 3) ATORVASTATIN CALCIUM 20MG TAB TAKE ONE-HALF TABLET BY ACTIVE MOUTH EVERY EVENING TO LOWER CHOLESTEROL 4) CHOLECALCIF 10MCG (D3-400UNIT) TAB TAKE TWO TABLETS ACTIVE BY MOUTH ONCE A DAY FOR VITAMIN D DEFICIENCY 5) CYANOCOBALAMIN 500MCG TAB TAKE ONE TABLET BY MOUTH ACTIVE ONCE A DAY FOR VITAMIN B12 SUPPLEMENTATION 6) CYCLOSPORINE 0.05% (PF) OPH EMUL 0.4ML INSTILL 1 DROP ACTIVE IN BOTH EYES TWICE A DAY FOR DRY EYES (USE EVERY 12 HRS) 7) DICLOFENAC NA 1% TOP GEL APPLY 4 GM TO AFFECTED ACTIVE AREA(S) FOUR TIMES A DAY NEEDED FOR PAIN DO NOT EXCEED MORE THAN 16 GRAMS DAILY TO ANY LOWER EXTREMITY JOINT. NOT MORE THAN 8 GRAMS DAILY TO ANY UPPER EXTREMITY JOINT. MAX 32GM/DAY OVER ALL JOINTS. (MEASURE DOSE WITH RULER ATTACHED INSIDE BOX) 8) DULAGLUTIDE 0.75MG/0.5ML INJ PEN INJECT 0.75MG UNDER ACTIVE THE SKIN EVERY WEEK FOR DIABETES (ADMINISTER DOSE AT ANY TIME OF DAY, WITH OR WITHOUT MEALS) 9) HCTZ 12.5MG/LOSARTAN 100MG TAB TAKE 1 TABLET BY MOUTH ACTIVE EVERY MORNING FOR HIGH BLOOD PRESSURE 10) LANCET,SOFTCLIX USE LANCET FOR BLOOD TEST TWICE A DAY ACTIVE USE DIRECTED. 11) METFORMIN HCL 1000MG TAB TAKE ONE TABLET BY MOUTH ACTIVE TWICE A DAY WITH MEALS TO LOWER BLOOD SUGAR 12) METOPROLOL TARTRATE 25MG TAB TAKE ONE-HALF TABLET BY ACTIVE MOUTH TWICE A DAY FOR HEART/BLOOD PRESSURE. TAKE WITH OR IMMEDIATELY FOLLOWING FOOD. 13) TAMSULOSIN HCL 0.4MG CAP TAKE ONE CAPSULE BY MOUTH ACTIVE ONCE A DAY APPROXIMATELY 30 MINUTES AFTER THE SAME MEAL EACH DAY (FOR PROSTATE) Allergies: IODINATED CONTRAST MEDIA, LISINOPRIL, SEMAGLUTIDE /es/ Eduard Soni MD Resident Physician Signed: 03/15/2024 13:28 /shadi/ MERRITT CURRY MD Staff Physician, Urology Cosigned: 03/15/2024 17:17 EDUARD SONI [facility]
--- OUTSIDE RECORDS SUMMARY | 2025-02-17 15:30 | XMS_ITS | Encounter Summary ---
Author Name [facility] [place] Address [address] [place] [address] Care Team Providers Care Brine Process Operator Name Role Phone MORELIA ALLEN Primary [...] Policy Norman's Name Patient's Relationship to Policy Nroman MEDICARE (WNR) MEDICARE (M) PART A Mar 19, 2014 PART A [id number] [phone] [place] PATIENT MEDICARE (WNR) MEDICARE (M) PART A Mar 19, 2014 PART A [id number] [place] PATIENT Selected Encounter This section includes the information on record at [place] for the Encounter. Date/Time Encounter Type Encounter Description Reason Provider Source November 23, 2024 11:00 AM INTRM OPH EXAM EST PATIENT OPTOMETRY ICD-10-CM H25.13 Age-related nuclear cataract, bilateral TRISTIN PACHECO IHKezia Encounter Template Text not used by VA Assessments - Encounter Diagnoses This section includes the primary and secondary diagnoses documented for the Encounter. Date/Time Primary/Secondary Diagnosis Diagnosis Name Provider Source November 24, 2024 04:42 PM PRIMARY Age-related nuclear cataract, bilateral ALAINA HAGAN [facility] November 24, 2024 04:42 PM SECONDARY Dry eye syndrome of bilateral lacrimal glands ALAINA HAGAN [facility] November 24, 2024 04:42 PM SECONDARY Presbyopia ALAINA HAGAN DOLORES [facility] Plan of Treatment: Future Appointments (+ 6 months) and Future Tests (+/- 45 days) The Plan of Treatment section includes future care activities for the patient [facility] [place] [facility]. This section includes future appointments [...] 15, 2024 03:30 PM AMBULATORY - MEDICINE [facility] Dec 18, 2024 08:00 AM AMBULATORY - SURGERY [facility] Dec 20, 2024 03:30 PM AMBULATORY - MEDICINE [facility] Dec 21, 2024 11:00 AM AM[facility]ULATORY - NONE [facility] Dec 29, 2024 08:00 AM AMBULATORY - REHAB MEDICIN E [facility] 2025 02:30 PM AMBULATORY - REHAB MEDICIN E [facility] Jan 12, 2025 11:30 AM AMBULATORY - NONE [facility] Jan 12, 2025 04:00 PM AMBULATORY - SURGERY [facility] Jan 18, 2025 11:00 AM AMBULATORY - SUR[facility]ERY [facility] Feb 07, 2025 11:00 AM AMBULATORY - SURGERY [facility] Feb 14, 2025 06:30 AM AMBULATORY - NONE [facility] Feb 15, 2025 08:30 AM AMBULATORY - SURGERY [facility] Feb 22, 2025 08:00 AM AMBULATORY - SURGERY [facility] Feb 28, 2025 09:00 AM AMBULATORY - SURGERY [facility] Mar 06, 2025 08:30 AM AMBULATORY - NONE [facility] TAMMY Angel [facility] Mar 12, 2025 01:30 PM AMBULATORY - SURGERY [facility] Mar 16, 2025 08:30 AM AMBULATORY - SURGERY [facility] Carlo B[facility]IO [facility] Active, Pending, and Scheduled Orders This section includes a listing of several types of active, pending, and scheduled orders, including clinic medications orders, diagnostic test orders, procedure orders and consult orders; where the start date of the order is 45 days before the date of the Encounter or 45 days after the date of theEncounter. The data comes from all [place] treatment facilities. Test Date/Time Test Type Test Details Facility Name Dec 29, 2024 12:00 AM Laboratory - Chemi stry Order BASIC METABOLIC PANEL GREEN LI/HEP BLD/PLAS PLASMA SP [facility] Lab Results: +/- [...] Type Comment November 23, 2024 09:41 AM [facility] HGA1C BLOOD Specimen Type: BLOOD No comment entered. Ordering Provider: TAPAN BLAS Report Released Date/Time: November 23, 2024 09:18 AM Reporting Lab: [facility] [id number] Performing Lab: [facility] [address] HGA1C 6.8 H 4.0-6.0 November 23, 2024 09:41 AM [facility] BASIC METABOLIC PANEL PLASMA Specimen Type: PL ASMA Comment: No hemolysis noted. Ordering Provider: TAPAN BLSA Report Released Date/Time: November 23, 2024 09:18 AM Reporting Lab: [facility] [id number] Performing Lab: [facility] [address] CREATININE 0.96 mg/dL 0.70-1.30 UREA NITROGEN 24.0 [...] November 23, 2024 09:10 AM 87 144/75 [facility] Social History: Smoking Status [...] Ronda ity November 30, 2023 03:00 PM VA-TOBACCO QUIT 15 YRS OR MORE [facility] Tobacco Use History This section includes a history of the smoking, or tobacco-related health factors, that were collected on or before the date of the Encounter. The data comes from the [place] facility where the Encounter took place. Date/Time Smoking Status/Tobacco Use Comment F acility November 30, 2023 03:00 PM VA-TOBACCO QUIT 15 YRS OR MORE [facility] Jun 02, 2023 10:00 AM VA-TOBACCO FORMER USER [facility] Jun 02, 2023 10:00 AM VA-TOBACCO QUIT 15 YRS OR MORE [facility] Advance Directives: All historical and [...] 22, 2016 ADVANCE DIRECTIVE DISCUSSION AMBERLY HOFFMAN [facility] Mar 31, 2007 ADVANCE DIRECTIVE JOSE C ALLEN [facility] Radiology Reports: +/- 30 days [...] LUMBOSACRAL 2 OR 3 VIEWS: ALLAN LOVETT [id number] -1950 M Exm Date: DEC 18, 2024@11:32 Req Phys: JOSE FRANCISCO RAY Loc: [facility]-PACT PHONE NURSE E4 (Req'g Img Loc: [facility] RAD[facility]OLOGY Service: Unknown [facility], [address] [address] (Case [id number] COMPLETE) SPINE LUMBOSACRAL 2 OR 3 VIEWS (RAD Detailed) CPT:00625 Reason for Study: low back pain Clinical History: Report Status: Verified Date Reported: DEC 18, 2024 Date Verified: DEC 18, 2024 Evp General Counsel E-Sig:/ES/CHRIS HAMMOND MD Report: Case #[id number]. Lumbar [...] CHRIS HAMMOND MD, Staff Physician - Radiologist (Evp General Counsel) /CHRIS BRIONES [facility] Encounter Notes: All associated encounter notes This section contains the clinical notes associated to the Encounter. Date/Time Encounter Note(s) Provider Source November 23, 2024 10:51 AM OPTOMETRY NOTE: LOCAL TITLE: OPTOMETRY NOTE STANDARD TITLE: OPTOMETRY NOTE DATE OF NOTE: NOVEMBER 23, 2024@10:51 ENTRY DATE: NOVEMBER 23, 2024@10:51:11 AUTHOR: TAPAN HAGAN COSIGNER: NATTY PACHECO URGENCY: STATUS: COMPLETED OPTOMETRY NOTE Has ADDENDA Last seen 03/09/24 - CEE Reason for visit: VA/cataract check + DMV form CC: 1. Vision - failed DMV vision screening, unable to renew DL - blurry vision all distances OU with habitual glasses - reports difficulty driving at night but slight improvement in vision/glare sensitivity with [place] glasses - wants to know if cataracts have worsened, motivated for surgery now if it will help vision - (-)ocular discomfort - good relief with Restasis BID OU Ocular meds: Restasis BID OU Ocular ROS: (-) surgeries/lasers/injuries 1. 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 Dry Eye c Ocular Rosacea OU 3. Cataract OU 4. DMC OU 5. Macular RPE Changse OU 6. RE/P Family OcHX: (-) blindness (-) glaucoma (-) AMD (-) RD Cardiovascular ROS: no change from problem & medication lists CPRS Problem list, medications and allergies reviewed: CPRS Serology for Diabetes GLUCOSE 153 H mg/dL 11/23/2024 09:41 HGA1C 6.8 H % 11/23/2024 09:41 Cardiovascular BP: 144/75 (11/23/2024 09:10) Pulse: 87 (11/23/2024 09:10) Neuro: Orientation: Normal Psych: Mood/Affect: Normal Depression/suicide ideation: NO VISUAL ACUITY With correction Distance Visual Acuity OD: 20/30+2 PAP: 20/20 OS: 20/40 PAP: 20/16 Pupils PERRL OU (-)APD Confrontation: FTFC OU Extra-Ocular Muscles Full OU (-)pain, diplopia Externals/adnexa: DMC c hooding OS>OD Refraction: 03/09/2024, see acuity above for today's vision OD: -1.25 -1.25 x095 20/25-2 OS: -0.25 -1.25 x095 20/30 Add: + 2.75 BAT (highest light setting): OD: 20/50 OS: 20/50 SLIT LAMP EXAMINATION Lids/Lashes/Lacrimal (-)blepharitis OU, MGD OU lid telangiectasia OU Conjunctiva/Sclera White/quiet OU Cornea/Tear Film Clear OU, instant TBUT OU Ant Chamber Deep and quiet OU Iris Normal, Flat nevus @11:30 OS (-)NVI OU Lens 2+ brunescent NSC OU Intraocular Pressures (Goldmann) 1 gtt Fluress OU Date OD OS Time Meds 03/09/24 13 13 0812 None 11/23/24 12 12 1107 None RETINAL EVALUATION: Last DFE 03/09/24, UNdilated views with 90D today Optic Nerve: OD: 0.35 CDR Flat, pink, distinct (-)NVD OS: 0.25 CDR Flat, pink, distinct (-)NVD Vessels: 2/3 OU Macula: - fleeting views - OD: Flat, pigment mottling, (-)CSME OS: Flat, small druse inf to fovea, (-)CSME Assessment/Plan: 11/23/24 1. Cataract OU - visually significant OU - Discussed impact on vision - Patient motivated for surgery - Referral placed today for cataract consult with [facility] ophth 2. Type 2 Diabetes without retinopathy - PER LAST DFE - No DME/CSME OU - Last HGA1C: 6.8 H % - Pt ed on the importance of maintaining tight BG control to reduce the risk for diabetic ocular complications - Monitor yearly with DFE 3. CLAUDIA/Ocular Rosacea OU - Good relief with current therapy - Continue Restasis BID OU - RTC sooner if symptomatic 4. Dermatochalasis OU - OS>OD, stable - Patient not bothered cosmetically or visually - Defer oculoplastics referral at this time - Monitor 5. Macular RPE Changes OU - OCT Macula (02/2024): RPE disruption with pigment migration OD, few small drusen inferior to fovea OS, (-)SRF/CNVM OU - possible mild visual significance OD (vs cataract) - Monitor yearly, sooner with vision changes 6. Refractive error/Presbyopia OU - BVA c/b #1, possibly #5 - Continue habitual glasses at this time - Discussed visual expectations following CE - Completed [facility] vision form today per patient request Ed. pt on all findings & monitor for changes as directed. Patient given the opportunity to have all questions answered. Patient verbalized understanding of information given. RTC next available [facility] Oph-PreOp for cataract consult. /shadi/ TAPAN HAGAN Optometry Resident Signed: 11/27/2024 15:46 /shadi/ Natty Pacheco OD, FAAO Sap Ppm Consultant Cosigned: 11/27/2024 16:01 11/27/2024 ADDENDUM STATUS: COMPLETED I have reviewed the history, findings and agree with the assessment and plan as charted in CPRS on this patient. /ulises Pacheco OD, FAAO Sap Ppm Consultant Signed: 11/27/2024 16:01 TAPAN HAGAN [facility]
--- OUTSIDE RECORDS SUMMARY | 2025-02-17 15:30 | XMS_ITS | Referral Summary ---
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 Gender Identity Not on file Sexual Orientation [...] 03/22/2024 10:04 AM CDT Plan of Treatment Not on file Medical Devices Implanted Type Area Piercing Mill Operator Device Identifier Shelf Expiration Date Model / Serial / Lot [employer] Simplex P Full Dose Radiopaque Preblend Cement Bone Tobramycin 6197-9-010 - [id number] Implanted:Qty: 1 on 03/22/2024 at [facility] Left: Knee [employer] 06/17/2025 6197-9-010 / / [id number] [employer] [employer] Simplex P Full Dose Radiopaque Preblend Cement Bone Tobramycin 6197-9-010 - [id number] Implanted:Qty: 1 on 03/22/2024 at [facility] Left: Knee [employer] 06/17/2025 6197-9-010 / / [id number] [employer] Simplex P Full Dose Radiopaque Preblend Cement Bone Tobramycin 6197-9-010 - [id number] Implanted:Qty: 1 on 03/22/2024 at [facility] Left: Knee [employer] 06/17/2025 6197-9-010 / / [id number] [employer] Insert Attune Left Medial Stabilized Size 8 5mm [id number] - [id number] Implanted:Qty: 1 on 03/22/2024 at [facility] Left: Knee [employer] 01/16/2032 [id number] / / [id number] [employer] Attune S+ Cement Fix Bearing Knee 8 Baseplate Tibial [id number] - [id number] Implanted:Qty: 1 on 03/22/2024 at [facility] Left: Knee [employer] 01/15/2034 [id number] / / [id number] [employer] Attune Cemented Cruciate Retaining Knee Left 8 Component Femoral [id number] - [id number] Implanted:Qty: 1 on 03/22/2024 at [facility] Left: Knee [employer] 08/18/2033 [id number] / / [id number] Procedures Procedure Name Priority Date/Time Associated Diagnosis [...] of Race in Diagnosing Kidney Disease, JASN 202). The CKD-EPI equation should not be used for patients with unstable renal function and has not been validated in children and those over 70. Current interpretive data was last reviewed 2021. Blood 03/23/2024 3:37 AM CDT 03/23/2024 3:44 AM CDT Libby Ferris MD LAB BLOOD ORDERABLES Ivanna zelaya Result [facility] [address] [place] [address] * (ABNORMAL) Hemoglobin A1c (03/02/2024 3:30 PM CDT) Hgb A1C 6.7(H) 4.0 - 5.6 % Estimated Average Glucose 146 mg/dL [facility] Comment: The ADA recommends reporting an estimated Average Glucose (eAG) with all Hemoglobin A1c results using the equation derived from a study of 507 normal and diabetic adults. Minority populations were underrepresented and children were not included. (Diabetes Care 31:9398-8071, 2008). The eAG is not equivalent to a fasting glucose. Blood 03/02/2024 3:30 PM CDT 03/02/2024 4:04 PM CDT us Nadeem Saldana MD LAB BLOOD ORDERABLES Final Resul t [facility] [address] [address] [facility] [place] [address] * CT Abdomen Pelvis WO Contrast (11/10/2017 8:06 PM CDT) Anatomical Region Laterality Modality Body N/A Computed Tomogra phy 11/10/2017 8:06 PM CDT Narrative 11/11/2017 12:54 AM CDT JIGAR SANCHES M.D. ILIANA SAMS M.D. FINAL REPORT The radiology attending physician has personally reviewed this study, and has reviewed and/or edited this written report and agrees with it. ACC# Date Time Exam [id number] Nov 10, 2017 15:06:[id number] Abd & Pelvis wo cont EXAMINATION: [...] SANCHES M.D. on Nov 10 2017 7:52P [id number] CRAWFORD M.D. FINAL REPORT The radiology attending physician has personally reviewed this study, and has reviewed and/or edited this written report and agrees with it. Attending: GARRETT TREVIZO Requesting: BRONSON GREENE Requesting Fax: Attending Fax: Attending ID: [id number] Requesting ID: [id number] Report To 1 ID: [id number] Report To 1 Name: , Report To 1 FAX: NextGen Order #: Procedure Note Miscellaneous, Not In File - 11/10/2017 Melissa THRASHER M.D. FINAL REPORT The radiology attending physician has personally reviewed this study, and has reviewed and/or edited this written report and agrees with it. [facility]# Date Time Exam [id number] Nov 10, 2017 15:06:[id number] Abd & Pelvis wo cont EXAMINATION: [...] SANCHES M.D. on Nov 10 2017 7:52P [id number] CRAWFORD M.D. FINAL REPORT The radiology attending physician has personally reviewed this study, and has reviewed and/or edited this written report and agrees with it. Attending: GARRETT TREVIZO Requesting: BRONSON GREENE Requesting Fax: Attending Fax: Attending ID: [id number] Requesting ID: [id number] Report To 1 ID: [id number] Report To 1 Name: , Report To 1 FAX: NextGen Order #: Bronson Greene MD IMG CT PROCEDURES Final Result from Last 3 Months or Most Recently Relevant to Health Maintenance Insurance Member Subscriber Plan / Payer (Ef fective 2005-Present) Name:Newton Gustafson Relation to Subscriber:Self Name:Newton Gustafson Payer ID:[id number] Group ID:Not on file Type:OTHER GOVERNMENT Address: [place] [id number] Advance Directives For more information, please contact: [phone] * Full Code (Latest Code Status on File) Date Activated Date Inactivated Comments 03/22/2024 3:36 PM 03/23/2024 2:59 PM Care Teams Noteman Relationship Specialty Start Date End Date [facility], Victor Manuel Proctor MD [address] [place] [address] PCP - General 12/29/23
--- OUTSIDE RECORDS SUMMARY | 2025-02-17 15:31 | XMS_ITS | Encounter Summary ---
Author Name [facility] Organization [facility] Address [address] [place] [address] Care Team Providers Care Bonbon Dipper Name Role Phone MORELIA ALLEN Primary Care [...] PART A Mar 19, 2014 PART A [id number] [place] PATIENT MEDICARE (WNR) MEDICARE (M) PART A Mar 19, 2014 PART A [id number] [place] PATIENT Selected Encounter This section includes the information on record at MD for the Encounter. Date/Time Encounter Type Encounter Description Reason Provider Source Feb 14, 2025 08:44 AM Outpatient Encounter ADMIN PAT ACTIVTIES (MASNONCT) PHYLLIS HILLIARD Encounter Template Text not used by MD Plan of Treatment: Future Appointments (+ 6 months) and Future Tests (+/- 45 days) The Plan of Treatment section includes future care activities for the patient from [facility] This section includes future appointments and future [...] 08:30 AM AMBULATORY - SUR[facility]ERY [facility] Feb 22, 2025 08:00 AM AMBULATORY - SURGERY [facility] Feb 28, 2025 09:00 AM AMBULATORY - SURGERY [facility] Mar 06, 2025 08:30 AM AMBULATORY - NONE [facility] Mar 12, 2025 01:30 PM AMBULATORY - SURGERY [facility] Mar 16, 2025 08:30 AM AMBULATORY - SURGERY [facility] May 31, 2025 11:00 AM AMBULATORY - MEDICINE [facility] Lab Results: +/- 30 days of the encounter This section includes the Chemistry and Hematology Lab Results on record with MD for the patient. Radiology Reports and Pathology Reports are provided separately, in subsequent sections. Lab Results This section contains the Chemistry/Hematology Results that were resulted 30 days before or 30 daysafter the date of the Encounter. Date/Time Source Result Type Result - Unit Interpretation Reference Range Specimen Type Comment Feb 14, 2025 06:47 AM [facility] GLUCOSE,BLOOD-poct (STL) BLOOD Specimen Type: BLOOD Comment: Test Performed by: [id number] Meter #: [id number] Ordering Provider: ENEDELIA EMERSON Report Released Date/Time: Feb 14, 2025 08:34 AM Reporting Lab: [place] [id number] [facility] [id number] Performing Lab: [address] [id number] GLUCOSE,BLOOD-poct (STL) 146 mg/dL H 72-99 Vital Signs: All taken on the encounter date This section contains inpatient and outpatient Vital Signs collected on the date of the Encounter. Date/Time Temperature Pulse Blood Pressure Respiratory Rate SP02 Pain Height Weight Body Mass Index Source Feb 14, 2025 08:51 AM 98.3 F 66 /min 130/73 mm[Hg] 16 /min 97 % 0 [facility] N Feb 14, 2025 06:50 AM 97.2 F 80 /min 152/86 mm[Hg] 18 /min 94 % 1 71 in 280 lb 39 [facility] N Social History: Smoking Status (Most [...] 02:53 AM ORYX ADMIT TOBACCO SCREEN NO [facility] Tobacco Use History This section includes a history of the smoking, or tobacco-related health factors, that were collected on or before the date of the Encounter. The data comes from the MD facility where the Encounter took place. Date/Time Smoking Status/Tobacco Use Comment F acility Apr 02, 2016 12:55 PM QUIT TOBACCO >7 YEARS AGO [facility] May 21, 2015 01:30 PM LIFETIME NON-USER OF TOBACCO [facility] Jan 03, 2014 10:46 AM LIFETIME NON-USER OF TOBACCO [facility] Feb 21, 2013 11:08 AM QUIT TOBACCO >12 M O & <7 YRS AGO [facility] Aug 19, 2009 12:46 PM LIFETIME NON-USER OF TOBACCO [facility] Oct 05, 2008 10:28 AM QUIT TOBACCO >12 M O & <7 YRS AGO [facility] November 18, 2007 09:08 AM QUIT TOBACCO IN TH E LAST 12 MONTHS [facility] Aug 05, 2006 12:57 PM CURRENT TOBACCO USER [facility] Aug 05, 2006 12:57 PM TOB-DECLINES SMOKI NG CESSATION REFERRAL [facility] Jan 13, 2006 08:42 AM CURRENT TOBACCO USER [facility] Jan 13, 2006 08:42 AM [...] 22, 2016 ADVANCE DIRECTIVE DISCUSSION AMBERLY HOFFMAN [facility] Mar 31, 2007 ADVANCE DIRECTIVE JOSE C ALLEN [facility] Encounter Notes: All associated encounter notes This section contains the clinical notes associated to the Encounter. Date/Time Encounter Note(s) Provider Source Feb 14, 2025 08:44 AM ANESTHESIOLOGY ANNELIESE WSHEET: LOCAL TITLE: ANES INTRA-OP FLOWSHEET [facility] STANDARD TITLE: ANESTHESIOLOGY FLOWSHEET DATE OF NOTE: FEB 14, 2025@08:44 ENTRY DATE: FEB 14, 2025@08:44:41 AUTHOR: PHYLLIS HILLIARD COSIGNER: URGENCY: STATUS: COMPLETED Patient: ALLAN LOVETT SSN: [id number] Date of Operation: 02/14/2025 Surgery Start Time: 02/14/2025 8:15 Surgery End Time: 02/14/2025 8:43 Anesthesia Care Start: 02/14/2025 8:03 Anesthesia Care End: 02/14/2025 8:44 Anesthesia Method: Monitored 02/14/2025 8:03 (Primary), Level Of Consciousness: Awake, Monitors Applied, Oxygen Therapy: Nasal Cannula, EtCO2 Verified: Waveform Positioning: Head Neutral, Head And Neck In Alignment With Spine, Pressure Points Padded & Checked, Eyes, Ears And Nose Free Of Pressure, Groin Free Of Pressure ASA Number: 3 Procedure: phaco cataract with lens implant right eye Diagnosis: cataract right eye Holding, Anesthesia, PACU Drugs: ------- FentaNYL: 100 mcg DexmedeTOMidine: 12 mcg Ondansetron: 4 mg Holding, Anesthesia, PACU Fluids: -------- Normal Saline: 200 ml Resources: Arms Wrapped at Side - Bilateral Staff: --------- DIANN MEEKS, SURGEON JOSE FRANCISCO DAVIS, ATT. SURGEON PHYLLIS QUIÑONEZ PRIN. ANES. GIBBONS, ERIN, ANES. SUPER. PHYLLIS QUIÑONEZ PRIN. ANES. GIBBONS, ERIN, ANES. SUPER. Anesthesia Procedure: --- Procedure 02/14/2025 8:03 In Situ, Line Number: 1, Site: Arm, Laterality: Left, Catheter Type: Angio, Catheter Size: 22 Ga Securement: Taped, Sterile Occlusive Dressing Procedure Date: 02/14/2025 Procedure Start Time: Procedure End Time: /shadi/ PHYLLIS HILLIARD CRNA Anesthesiology Signed: 02/14/2025 08:44 PHYLLIS HILLIARD [facility]
--- OUTSIDE RECORDS SUMMARY | 2025-02-17 15:31 | XMS_ITS | Encounter Summary ---
Author Name [facility] [facility] [place] Address [address] [place] [address] Care Team Providers Care Toolroom Attendant Name Role Phone MORELIA ALLEN Primary [...] PART A Mar 19, 2014 PART A [id number] [phone] [place] PATIENT MEDICARE (WNR) MEDICARE (M) PART A Mar 19, 2014 PART A [id number] [phone] [place] PATIENT Selected Encounter This section includes the information on record at CT for the Encounter. Date/Time Encounter Type Encounter Description Reason Provider Source Dec 29, 2024 08:00 AM THERAPEUTIC EXERCISES PHYSICAL THERAPY ICD-10-CM M54.50 Low back pain, unspecified CLARK MONAE Kezia Encounter Template Text not used by CT Assessments - Encounter Diagnoses This section includes the primary and secondary diagnoses documented for the Encounter. Date/Time Primary/Secondary Diagnosis Diagnosis Name Provider Source Dec 29, 2024 02:35 PM PRIMARY Low back pain, unspecified CARMELO MONAE [facility] Plan of Treatment: Future Appointments (+ 6 months) and Future Tests (+/- 45 days) The Plan of Treatment section includes future care activities for the [facility] This section includes future appointments and future orders which are active, pending or scheduled. Future Appointments This section includes appointments that were scheduled to occur 6 months from the date of the Encounter, up to a maximum of 20 appointments. The data comes from all CT treatment facilities. Appointment Date/Time Appointment Type Appointme nt Facility Name 2025 02:30 PM AMBULATORY - REHAB MEDICIN E [facility] Jan 12, 2025 11:30 AM AMBULATORY - NONE [facility] Jan 12, 2025 04:00 PM AMBULATORY - SURGERY [facility] Jan 18, 2025 11:00 AM AMBULATORY - SURGERY [facility] Feb 07, 2025 11:00 AM AMBULATORY - SURGERY [facility] Feb 14, 2025 06:30 AM AMBULATORY - NONE [facility] Feb 15, 2025 08:30 AM AMBULATORY - SUR[facility]ERY [facility] Feb 22, 2025 08:00 AM AMBULATORY - SUR[facility]ERY [facility] Feb 28, 2025 09:00 AM AMBULATORY - SUR[facility]ERY [facility] Mar 06, 2025 08:30 AM AMBULATORY - NONE [facility] Mar 12, 2025 01:30 PM AMBULATORY - SURGERY [facility] Mar 16, 2025 08:30 AM AMBULATORY - SURGERY [facility] May 31, 2025 11:00 AM AMBULATORY - MEDICINE [facility] Active, Pending, and Scheduled Orders This [...] METABOLIC PANEL GREEN LI/HEP BLD/PLAS PLASMA SP [facility] Lab Results: +/- 30 days [...] Type Comment Jan 12, 2025 01:10 PM [facility] GLUCOSE,BLOOD-poct (STL) BLOOD Specimen Type: BLOOD Comment: Test Performed by: [id number] Meter #: [id number] Ordering Provider: MORELIA ALLEN Report Released Date/Time: Jan 12, 2025 01:12 PM Reporting Lab: [place] [address] [facility] [id number] Performing Lab: [address] [address] GLUCOSE,BLOOD-poct (STL) 150 mg/dL H 72-99 Jan 12, 2025 11:38 AM [facility] GLUCOSE,BLOOD-poct (STL) BLOOD Specimen Type: BLOOD Comment: Test Performed by: [id number] Meter #: [id number] Ordering Provider: MORELIA ALLEN Report Released Date/Time: Jan 12, 2025 11:48 AM Reporting Lab: [address] [address] Performing Lab: [address] [address] GLUCOSE,BLOOD-poct (STL) 147 mg/dL H 72-99 Social [...] PM VA-TOBACCO QUIT 15 YRS OR MORE [facility] Tobacco Use History This section includes a history of the smoking, or tobacco-related health factors, that were collected on or before the date of the Encounter. The data comes from the CT facility where the Encounter took place. Date/Time Smoking Status/Tobacco Use Comment F acility November 30, 2023 03:[address]-TOBACCO QUIT 15 YRS OR MORE [facility] Jun 02, 2023 10:00 AM VA-TOBACCO FORMER USER [facility] Jun 02, 2023 10:[address]-TOBACCO QUIT 15 YRS OR MORE [facility] Advance Directives: All historical and current Section Date Range: From patient's date of to the date document was created. This section includes ALL of a patient's completed or amended CT Advance and Rescinded Directives. The entries below indicate that a directive exists for the patient, but an actual copy is not included with this document. The data comes from all [facility]. Date Advance Directives Provider Source Jan 22, 2016 ADVANCE DIRECTIVE DISCUSSION AMBERLY HOFFMAN [facility] Mar 31, 2007 ADVANCE DIRECTIVE JOSE C ALLEN [facility] Radiology Reports: +/- 30 days [...] LUMBOSACRAL 2 OR 3 VIEWS: ALLAN LOVETT [id number] -1950 M Exm Date: DEC 18, 2024@11:32 Req Phys: JOSE FRANCISCO RAY Loc: [facility]-PACT PHONE NURSE E4 (Jenae'usha Img Loc: [facility] Service: Unknown [facility] [address] [place] [address] (Case [id number] COMPLETE) SPINE LUMBOSACRAL 2 OR 3 VIEWS (RAD Detailed) CPT:75641 Reason for Study: low back pain Clinical History: Report Status: Verified Date Reported: DEC 18, 2024 Date Verified: DEC 18, 2024 Rubbish Collection Supervisor E-Sig:/ES/CHRIS HAMMOND MD Report: Case #[id number]. [...] CHRIS HAMMOND MD, Staff Physician - Radiologist (Rubbish Collection Supervisor) /CHRIS [facility]ES [facility] Encounter Notes: All associated encounter notes This section contains the clinical notes associated to the Encounter. Date/Time Encounter Note(s) Provider Source Dec 29, 2024 08:02 AM PHYSICAL THERAPY C ONSULT: LOCAL TITLE: PT CONSULT ST STANDARD TITLE: PHYSICAL THERAPY CONSULT DATE OF NOTE: DEC 29, 2024@08:02 ENTRY DATE: DEC 29, 2024@08:02:35 AUTHOR: CHAYO MONAE COSIGNER: URGENCY: STATUS: COMPLETED PHYSICAL THERAPY EVALUATION Chart Review: PMH: 1) Essential hypertension (SNOMED CT 28738179) 2) Obesity (SNOMED CT 328147195) 3) Osteoarthritis of knee (SNOMED CT 713204886) 4) Carcinoma in situ of kidney (SNOMED CT 43064317) 5) Squamous cell carcinoma of skin (SNOMED CT 019016135) 6) Sclerosis 7) History of drug abuse 8) H/O: alcoholism 9) Rosacea 10) Kidney stone 11) Allergic rhinitis 12) Erectile Dysfunction ([facility] 300282728) 13) Polyp Colon ([facility] 54973878) 14) Hyperlipidemia 15) Hearing loss 16) Squamous cell carcinoma of scalp 17) Recurrent ventral incisional hernia 18) Nicotine dependence in remission 19) Vitamin B12 deficiency (non anemic) 20) Exposure to potentially hazardous substance 21) Peripheral Neuropathy with Type 2 Diabetes ([facility] [id number]) Chart Review: Imaging: -- Order Information To Service: PT OUTPT STL From Service: [facility]PACT PHONE NURSE E4 Requesting Provider: JOSE FRANCISCO RAY Service is to be rendered on an OUTPATIENT basis Place: Audio Video Repairer's choice Urgency: Routine Clinically Ind. Date: Dec 20, 2024 DST ID: Orderable Item: PT OUTPT STL Consult: Consult Request Provisional Diagnosis: Low back pain, unspecified(ICD-10-CM M54.50) Reason For Request: Physical Therapy Outpatient Consult (Please include post-op protocol as appropriate) low back pain Responsible attending:GERTRUDIS Angel Lecture (REQUIRED) Enter any precautions: None Start of Care: 12/29/24 Reevaluation due: POC through: Visits to date: 1 No shows/cancellations: 0 Treatment time: 4309-4612 Total 50 mins. Evaluation 20 mins. Therapeutic exercise: 30 mins. SUBJECTIVE: Pt reports chief concern is low back pain over the past 3 weeks, not chronic in nature. Reports that pain is worst when he twists his back or getting up from a chair, his pain is least intense when sitting down in chair and states that sleeping in recliner is most comfortable. Also reports that walking helps make the pain feel better in his back unless he Steps wrong then pain gets intense, which is why he has started using a cane for household and community mobility. Reports no mechanism of injury that occurred. Reports hx of having R lower rib removed years ago when he had surgery on his kidney. --Pain Rating (0-10): Current: 1/10 Best: 10 Worst: 03/28 -Location: low back --Previous PT: n/a for low back, recently completed PT for L TKA --Sensation: denies red flag symptoms or radicular symptoms BLE --Surgery: n/a for low back --CLOF: Independent --Occupation: retired --Pt. goal(s): To decrease pain OBJECTIVE: Assistive Device: single point cane, modified indep Cognition: Pt. is alert and oriented. Pt. is appropriate in conversation and answers questions directly. Posture: PSIS and iliac crest symmetrical in standing no leg length discrepency noted in supine>long sitting BLE Palpation: moderate tenderness to palpation R PSIS Active Trunk Motions: -rotation right 25% limited by pain -rotation left 25% limited by pain -forward bend 75% -trunk extension -lateral bend right -lateral bend left Strength: grossly WNL BLE Treatment: Initial Evaluation Therapeutic exercise: Pt was instructed in and demonstrated independence with current HEP x 1 includin. Supine posterior pelvic tilts - work up tolerance to performing bridges 2. Supine modified piriformis stretch with towel/belt 3. Supine or seated R LE hamstring stretch 4. Sidelying clamshells with green theraband around knees 5. Seated lumbar flexion stretch forward and 45 deg angle using rolling desk chair x10 reps each direction Attempted to perform supine bridge however unable to clear hips from mat and reports significantly increased pain with attempt ASSESSMENT: Patient presents to PT with chief concern of low back pain specifically R sided SIJ region for past 3-4 weeks and denies hx of chronic back pain. Patient demos decreased flexibility/ROM and painful movement of the trunk. Pt. would benefit from PT to address impairments and improve mobility and reduce pain with HEP instruction, stretching and manual therapy and modalities as needed. Patient verbalizes and demos understanding of education provided this session and agreeable to PT POC. --Complexity of eval: [x] Low [] Medium [] High -Complexity of eval due to: -Co-morbidities: -Personal Factors: -Examination: -Elements addressed: -Outcome measure: -Clinical Presentation: - [x] Stable and/or Uncomplicated - [] Evolving Clinical Presentation with Changing Clinical Characteristics: - [] Unstable And Unpredictable Characteristics Goals: Short term: 4 weeks 1) Pt. will demonstrate independence with current HEP x 1 2) Pt. will report pain at worst 5/10 3) Pt. to demonstrate independence with proper sitting and sleeping postures alf: 1) Pt to demonstrate independence with final HEP x 1 2) Pt. to report pain at worst 3/10 3) Patient to report 50% decreased overall pain with trunk ROM all planes --REHABILITATION POTENTIAL: [] POOR - Limited potential for improvement. [] GUARDED - There exists a question of the potential for improvement [] FAIR - Presents with the potential to improve in some areas while other deficits may remain unchanged. [x] GOOD - Presents with the potential to improve to a level of functional independence, though may continue to demonstrate certain minimal limitations with consistent performance of HEP. [] EXCELLENT - Presents with the potential to fully recover with no residual deficits. --CONTINUED SKILLED THERAPY NEEDED TO ADDRESS THE FOLLOWING IMPAIRMENTS/FUNCTIONAL LIMITATIONS AND EDUCATIONAL NEEDS: [x] Pain: [x] Physiological impairments of: [] Balance: [x] ROM: [x] Strength: [] Other: [x] ADL deficits: [] WB activities: [x] Self-care: [] Other: [x] Education needs: Individual(s) involved: [x] Patient: [] Caregiver: [x] Achieving (I) with home program: [] Gain further of understanding of self-management of condition: [] Self-Care: [] Caregiver education: [] Other: Equipment: TBD Plan: Cont. PT 1X/wk. for up to 12 weeks for manual therapy, patient education, therapeutic exercise and activity, gait training, and modalities PRN I f this is the last PT visit then this documentation serves as the discharge note as well. --PATIENT EDUCATION DOCUMENTATION: Person(s) who received education: [x] Patient; [] Family: [] Other: Education Topic/Teaching Needs: [x] Home program: [x] Why compliance with home program is important [] Regarding automated call/letter regarding scheduled appointment; two no show policy; late arriving for appointment; follow up appointment lengths. [] TENS [x] Nature of condition [] Other: Methods used Included: [x] Handout(s): [x] Home program: [] Why compliance with home program is important [] Regarding automated call/letter regarding scheduled appointment; two no show policy; late arriving for appointment; follow up appointment lengths. [] TENS [] Other: [x] One-on one: [x] Verbal instructions [x] Visual instructions [] Tactile cues. [] Other: Teaching Outcomes: [x] Good; [] Fair; [] Poor [x] Patient acknowledged understanding of instruction [] Family/Other acknowledged understanding of instruction /es/ CHAYO MONAE PHYSICAL THERAPIST Signed: 12/29/2024 14:35 CHAYO MONAE [facility]
--- NOTE | 2025-02-17 16:07 | ED.URI ---
HPI - URI/Sore Throat General Chief Complaint: Upper Respiratory Infection Stated Complaint: Shortness of breath/cough, headache +COVID Time Seen by Provider: 02/17/25 15:34 History of Present Illness HPI Narrative: 75-year-old male with history of hypertension, hyperlipidemia, diabetes, presenting to the ER from home with concerns that he needs Paxil overt for his recently diagnosed COVID infection. Patient's primary team is at the [facility] and he has been having some dry cough and headache for last 2 days and was tested positive for COVID 1 hour prior to arrival. He was referred to the nearest ER for evaluation to potentially get packs loaded or therapies if warranted. Patient is on multiple medications and a list was provided and taken down. He denies any shortness of breath or chest discomfort. No history of COVID before he is up-to-date and his COVID vaccines according to the patient. No nausea, vomiting, vision changes, chest pain, abdominal pain, back pain, difficulty breathing. Was otherwise in his normal state of health. States his family has sick contacts at home also tested positive for COVID yesterday. Related Data Allergies Allergy/AdvReac Type Severity Reaction Status Date / Time iodine Allergy Severe SWELLING,NA Unverified 02/17/25 15:26 USEA Exam Narrative: GENERAL: [Well-appearing, well-nourished, and in no acute distress.] HEAD: [Normocephalic, atraumatic.] EYES: [PERRLA and EOMI.] ENT: Nares clear, no rhinorrhea or epistaxis. Mucous membranes moist. NECK: Supple. CHEST: [Clear to auscultation. No respiratory distress.] HEART: [Regular rate and rhythm]. No murmur heard. [Normal peripheral pulses.] ABDOMEN: [Soft, nondistended], [nontender], [No rigidity or guarding] EXTREMITIES: Normal range of motion. [No edema.] SKIN: Warm, dry, no rash. NEURO: [No focal deficits]. Alert and oriented [x3.] PSYCH: [Normal mood and affect.] Course Vital Signs Vital signs: Vital Signs Temperature 36.6 C 02/17/25 15:27 Pulse Rate 97 02/17/25 15:27 Respiratory Rate 16 02/17/25 15:27 Blood Pressure 168/84 H 02/17/25 15:27 Pulse Oximetry 97 08/02/25 15:27 Oxygen Delivery Room Air 02/17/25 15:27 Temperature 36.6 C 02/17/25 15:27 Pulse Rate 97 02/17/25 15:27 Respiratory Rate 16 02/17/25 15:27 Blood Pressure 168/84 H 02/17/25 15:27 Pulse Oximetry 97 02/17/25 15:27 Oxygen Delivery Room Air 02/17/25 15:27 MDM - URI/Sore Throat MDM Narrative Medical decision making narrative: 75-year-old male presenting to the ER from home with concerns that he needs Paxil overt for his recently diagnosed COVID infection. Patient's primary team is at the [facility] and he has been having some dry cough and headache for last 2 days and was tested positive for COVID 1 hour prior to arrival. He was referred to the nearest ER for evaluation to potentially get Paxlovid or therapies if warranted. Patient is on multiple medications and a list was provided and taken down. He denies any shortness of breath or chest discomfort. No history of COVID before he is up-to-date and his COVID vaccines according to the patient. No nausea, vomiting, vision changes, chest pain, abdominal pain, back pain, difficulty breathing. Was otherwise in his normal state of health. States his family has sick contacts at home also tested positive for COVID yesterday. Patient has elevated risk factors for complications of COVID infection including his hypertension, hyperlipidemia and diabetes. He is not any respiratory distress his vital signs are reassuring without any tachycardia, fever, hypoxia significant blood pressure elevations. We did review his medication list and seemingly the only interactions that could possibly preclude his Paxlovid it is the atorvastatin he takes. According to the drug many factors web site for the antiviral therapy recommendations are to just hold this medication if your administering Paxlovid for Covid and can be resumed after. X-ray of the chest will be obtained to assess for his lungs to see if there is any significant pneumonia or consolidations and we will discuss initiation of this therapy afterwards. No hypoxia or significant respiratory disease or distress requiring admission or intravenous antiviral therapy or steroid administration at this time. X-ray confirms signs of opacities consistent with COVID 19 infection. We discussed risks and benefits and alternatives of initiation of Paxlovid. Does have mild chronic kidney disease so renally adjusted dose was prescribed and he was given side effects to watch out for. Encouraged to stop taking his atorvastatin for the duration of his therapy and then he can resume it afterwards. Patient's questions were answered he was safe for discharge. Medical Records Attestation: I reviewed the patient's medical records. Lab Data Attestation: I reviewed the patient's lab results. Imaging Data Attestation: I personally reviewed and interpreted this imaging study as follows: My impression: Impressions Chest X-Ray 02/17/25 16:19 IMPRESSION: Ill-defined right lower lung groundglass opacities may represent atelectasis, edema or infection. Minimal bibasilar subsegmental atelectasis/consolidation. Chronic left hemidiaphragm elevation, recommend nonemergent fluoroscopic sniff test for further evaluation if not performed elsewhere. Discharge Plan Discharge Clinical Impression: COVID-19, Upper respiratory infection Patient Disposition: Home Condition: Stable Instructions: Antibiotic Form Additional Instructions: We have prescribed you a renal dose adjustment of Paxlovid to be taken for the COVID-19 infection. We discussed potential side effects with this medication as well as needing to stop taking your atorvastatin until the entirety of the packed fluid is complete. Follow-up with regular primary care provider about your COVID infection. Return with any difficulty in breathing, chest pain or any other emergent concerns. Patient Language: Monegasque Prescriptions: New Paxlovid 150 mg (10)- 100 mg (10) tablets,dose pack See Rx Instructions .ROUTE .COMPLEX Qty: 20 0RF Rx Instructions: orally per package directions Follow-up/Referrals: PHYSICIAN NOT ON STAFF,NONSTAFF [Non-Staff] - Time of Disposition: 16:56
--- OUTSIDE RECORDS SUMMARY | 2025-02-17 16:36 | XMS_ITS | Clinical Summary ---
Author Organization [facility] [place] [address] Care Team Providers Care Regulatory Product Manager Name Role Phone Non-Staff, Provider Primary Care [...] patient's age to complete this topic Insurance [facility] Care Teams Regulatory Product Manager Relationship Specialty Start Date End Date Non-Staff, Provider PCP - General 11/28/20
--- OUTSIDE RECORDS SUMMARY | 2025-02-17 16:36 | XMS_ITS | Clinical Summary ---
Author Organization [facility] Address [address] [place] [id number] Care Team Providers Care Director Vaccine Name Role Phone 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 Gender Identity Not on file Sexual Orientation [...] 06/07/2020, 03/11/2011 Medical Devices Implanted Type Area Piping Supervisor Device Identifier Shelf Expiration Date Model / Serial / Lot [employer] Simplex P Full Dose Radiopaque Preblend Cement Bone Tobramycin 6197-9-010 - [id number] Implanted:Qty: 1 on 03/22/2024 at [facility] Left: Knee [employer] 06/17/2025 6197-9-010 / / [id number] [employer] Simplex P Full Dose Radiopaque Preblend Cement Bone Tobramycin 6197-9-010 - [id number] Implanted:Qty: 1 on 03/22/2024 at [facility] Left: Knee [employer] 06/17/2025 6197-9-010 / / [id number] [employer] Simplex P Full Dose Radiopaque Preblend Cement Bone Tobramycin 6197-9-010 - [id number] Implanted:Qty: 1 on 03/22/2024 at [facility] Left: Knee [employer] 06/17/2025 6197-9-010 / / [id number] [employer] Insert Attune Left Medial Stabilized Size 8 5mm [id number] - [id number] Implanted:Qty: 1 on 03/22/2024 at [facility] Left: Knee [employer] 01/16/2032 [id number] / / [id number] [employer] Attune S+ Cement Fix Bearing Knee 8 Baseplate Tibial [id number] - [id number] Implanted:Qty: 1 on 03/22/2024 at [facility] Left: Knee [employer] 01/15/2034 [id number] / / [id number] [employer] Attune Cemented Cruciate Retaining Knee Left 8 Component Femoral [id number] - [id number] Implanted:Qty: 1 on 03/22/2024 at [facility] Left: Knee [employer] 08/18/2033 [id number] / / [id number] Procedures Procedure Name Priority Date/Time Associated Diagnosis [...] LAB BLOOD ORDERABLES Ivanna zelaya Result [facility] [id number] [facility] [address] * (ABNORMAL) Hemoglobin A1c (03/02/2024 3:30 PM CDT) Hgb A1C 6.7(H) 4.0 - 5.6 % Estimated Average Glucose 146 mg/dL ANA VALERA Comment: The ADA recommends reporting an estimated Average Glucose (eAG) with all Hemoglobin A1c results using the equation derived from a study of 507 normal and diabetic adults. Minority populations were underrepresented and children were not included. (Diabetes Care 31:1199-6720, 2008). The eAG is not equivalent to a fasting glucose. Blood 03/02/2024 3:30 PM CDT 03/02/2024 4:04 PM CDT us Nadeem Saldana MD LAB BLOOD ORDERABLES Final Resul t [facility] [address] [facility]. [place] [address] * CT Abdomen Pelvis WO Contrast (11/10/2017 8:06 PM CDT) Anatomical Region Laterality Modality Body N/A Computed Tomogra phy 11/10/2017 8:06 PM CDT Narrative 11/11/2017 12:54 AM CDT JIGAR SANCHES M.D. ILIANA SAMS M.D. FINAL REPORT The radiology attending physician has personally reviewed this study, and has reviewed and/or edited this written report and agrees with it. ACC# Date Time Exam [id number] Nov 10, 2017 15:06:[id number] Abd & Pelvis wo cont EXAMINATION: [...] document has been electronically signed by: JIGAR SACNHES M.D. on Nov 10 2017 7:52P [id number] THRASHER M.D. FINAL REPORT The radiology attending physician has personally reviewed this study, and has reviewed and/or edited this written report and agrees with it. Attending: GARRETT TREVIZO Requesting: BRONSON GREENE Requesting Fax: Attending Fax: Attending ID: [id number] Requesting ID: [id number] Report To 1 ID: [id number] Report To 1 Name: , Report To 1 FAX: NextGen Order #: Procedure Note Miscellaneous, Not In File - 11/10/2017 Melissa THRASHER M.D. FINAL REPORT The radiology attending physician has personally reviewed this study, and has reviewed and/or edited this written report and agrees with it. ACC# Date Time Exam [id number] Nov 10, 2017 15:06:[id number] Abd & Pelvis wo cont EXAMINATION: [...] This document has been electronically signed by: JIGRA SANCHES M.D. on Nov 10 2017 7:52P [id number] CRAWFORD M.D. FINAL REPORT The radiology attending physician has personally reviewed this study, and has reviewed and/or edited this written report and agrees with it. Attending: GARRETT TREVIZO Requesting: BRONSON GREENE Requesting Fax: Attending Fax: Attending ID: [id number] Requesting ID: [id number] Report To 1 ID: [id number] Report To 1 Name: , Report To 1 FAX: NextGen Order #: Bronson Greene MD IMG CT PROCEDURES Final Result from Last 3 Months or Most Recently Relevant to Health Maintenance Insurance [id number] [place] [address] Advance Directives For more information, please contact: [phone] * Full Code (Latest Code Status on File) Date Activated Date Inactivated Comments 03/22/2024 3:36 PM 03/23/2024 2:59 PM Care Teams Director Vaccine Relationship Specialty Start Date End Date [facility], Victor Manuel Proctor MD [address] [place] [address] PCP - General 12/29/23
--- OUTSIDE RECORDS SUMMARY | 2025-02-17 16:36 | XMS_ITS | Continuity of Care Document ---
Author Name [facility] Organization [facility] Care Team Providers Care Medical Consultant Name Role Phone [facility] Unavailable Unavailable Problems Combined list of problems from Department of Defense and [facility] Affairs facilities. It does not include entries that were removed or entered in error. 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 [facility] Erectile Dysfunction (SCT 225335652) Active Condition [facility] Essential hypertension (SNOMED CT 54054552) Active Condition [facility] Exposure to potentially hazardous substance Active Condition [facility] H/O: alcoholism Active Condition [facility] Hearing loss Active Condition [facility] History of drug abuse Active Condition [facility] Hyperlipidemia Active Condition [facility] Kidney stone Active [facility] 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 [facility] Obesity (SNOMED CT 061041121) Active Condition [facility] Osteoarthritis of knee (SNOMED CT 369946558) Active Condition [facility] Peripheral Neuropathy with Type 2 Diabetes (SCT 0868033344492) Active Condition [facility] Polyp Colon (SCT 02842076) Active Condition [facility] Recurrent ventral incisional hernia Active Condition [facility] Rosacea Active Condition [facility] Sclerosis Active Condition [facility] Squamous cell carcinoma of scalp Active Condition [facility] Squamous cell carcinoma of skin (SNOMED CT 707494887) Active Condition [facility] Vitamin B12 deficiency (non anemic) Active Condition [facility] Arthritis of knee Inactive Condition 11/10/2017 [facility] Health Examination of Defined Subpopulations Inactive Condition 11/10/2017 Jul 16, 2014 Entered By: JOSE RODRIGUEZ Comment: COMPLETED AGENT ORANGE REGISTRY EXAM [facility] Hearing Loss Inactive Condition 11/10/2017 [facility] Personal History of other Malignant Neoplasm of Skin (ICD-9-CM V10.83) Inactive [facility] Strain of knee Inactive Condition 11/10/2017 [facility] Upper Respiratory Infections (ICD-9-CM 465.9) Inactive Condition 11/10/2017 [facility] Stanley [facility] Diagnosis: ICD-10-CM Z98.41 Cataract extraction status, right eye Active Diagnosis [facility] Diagnosis: ICD-10-CM Z01.818 Encounter for other preprocedural examination Active Diagnosis [facility] Diagnosis: ICD-10-CM H25.12 Age-related nuclear cataract, left eye Active Diagnosis [facility] Diagnosis: ICD-10-CM Z98.42 Cataract extraction status, left eye Active Diagnosis [facility] Diagnosis: ICD-10-CM H25.13 Age-related nuclear cataract, bilateral Active Diagnosis [facility] Diagnosis: ICD-10-CM M54.50 Low back pain, unspecified Active Diagnosis [facility] Diagnosis: ICD-10-CM E11.8 Type 2 diabetes mellitus with unspecified complications Active Diagnosis [facility] Diagnosis: ICD-10-CM D18.01 Hemangioma of skin and subcutaneous tissue Active Diagnosis [facility] Diagnosis: ICD-10-CM B07.9 Viral wart, unspecified Active Diagnosis [facility] Diagnosis: ICD-10-CM Z55.9 Problems related to education and literacy, unspecified Active Diagnosis [facility] Diagnosis: ICD-10-CM N20.0 Calculus of kidney Active Diagnosis [facility] Diagnosis: ICD-10-CM I10 Essential (primary) hypertension Active Diagnosis [facility] Diagnosis: ICD-10-CM Z00.00 Encntr for general adult medical exam w/o abnormal findings Active Diagnosis [facility] Diagnosis: ICD-10-CM E66.09 Other obesity due to excess calories Active Diagnosis [facility] Diagnosis: ICD-10-CM E11.9 Type 2 diabetes mellitus without complications Active Diagnosis [facility] Diagnosis: ICD-10-CM L60.0 Ingrowing nail Active Diagnosis [facility] Diagnosis: ICD-10-CM E11.42 Type 2 diabetes mellitus with diabetic polyneuropathy Active Diagnosis [facility] Diagnosis: ICD-10-CM D22.9 Melanocytic nevi, unspecified Active Diagnosis [facility] Diagnosis: ICD-10-CM N39.0 Urinary tract infection, site not specified Active Diagnosis [facility] Medications Combined list of outpatient medications from Department of Defense and [facility] Affairs facilities.Medications provided include 1) outpatient medications from the last 15 months, and 2) patient-reported medications. Medication Details Route Status Patient Instructions Prescription Expires Prescription Number Last Dispense Date Ordering Provider Order Date Order Qty Source AMLODIPINE BESYLATE 10MG TAB TAKE ONE TABLET BY MOUTH ONCE A DAY FOR HEART/BL OOD PRESSURE ORAL DISCONT INUED BY PROVIDE R 08/26/2024 [id number] [facility] 2023 90 [facility] AMLODIPINE BESYLATE 5MG TAB TAKE ONE TABLET BY MOUTH ONCE A DAY ORAL ACTIVE 12/20/2025 [id number] 5 SYL OTTOI SSA S 2024 90 [facility] AMLODIPINE BESYLATE 5MG TAB TAKE ONE TABLET BY MOUTH ONCE A DAY ORAL DISCONT INUED 07/04/2025 [id number] 5 SYL OTTOI SSA S 2024 90 [facility] AMLODIPINE BESYLATE 5MG TAB TAKE ONE TABLET BY MOUTH ONCE A DAY ORAL DISCONT INUED 06/02/2025 [id number] 4 COOPER OTTO S 2023 30 [facility] AMLODIPINE BESYLATE 5MG TAB TAKE ONE TABLET BY MOUTH ONCE A DAY ORAL DISCONT INUED 05/12/2025 [id number] ELIDA BLAS 2023 30 [facility] ATORVASTATI N CA 20MG TAB TAKE ONE-HALF TABLET BY MOUTH EVERY EVENING TO LOWER CHOLESTE ROL ORAL ACTIVE 12/22/2025 [id number] 5 ELIDA BLAS 2024 45 [facility] ATORVASTATI N CA 20MG TAB TAKE ONE-HALF TABLET BY MOUTH EVERY EVENING TO LOWER CHOLESTE ROL ORAL DISCONT INUED 11/30/2024 [id number] 5 NATALEE LENZ,[facility] ISTA M 2023 45 [facility] CHOLECALCIF AH 10MCG (400UNIT) TAB TAKE TWO TABLETS BY MOUTH ONCE A DAY FOR VITAMIN D DEFICIEN CY ORAL ACTIVE 06/02/2025 [id number] 5 COOPER OTTO [facility] S 2023 200 [facility] CHOLECALCIF HA 10MCG (400UNIT) TAB TAKE TWO TABLETS BY MOUTH ONCE A DAY FOR VITAMIN D DEFICIEN CY ORAL DISCONT INUED 06/09/2024 [id number] 4 [facility] 20[facility] 200 [facility] CYANOCOBALA MIN 500MCG TAB TAKE ONE TABLET BY MOUTH ONCE A DAY FOR VITAMIN B12 SUPPLEME NTATION ORAL ACTIVE 06/02/2025 [id number] 5 COOPER OTTO S 2023 100 [facility] CYANOCOBALA MIN 500MCG TAB TAKE ONE TABLET BY MOUTH ONCE A DAY FOR VITAMIN B12 SUPPLEME NTATION ORAL DISCONT INUED 06/09/2024 [id number] 4 NATALEE LENZ,ELOISA VERDIN M 2022 100 [facility] CYCLOBENZAP RINE HCL 5MG TAB TAKE ONE TABLET BY MOUTH THREE TIMES A DAY NEEDED FOR MUSCLE SPASM MAY CAUSE DROWSINE SS. DO NOT DRINK ALCOHOL WHILE TAKING THIS MEDICATI ON. ORAL ACTIVE 11/21/2025 [id number] 5 Kasey ALLEN 2024 90 [facility] CYCLOBENZAP RINE HCL 5MG TAB TAKE ONE TABLET BY MOUTH THREE TIMES A DAY NEEDED FOR MUSCLE SPASM MAY CAUSE DROWSINE SS. DO NOT DRINK ALCOHOL WHILE TAKING THIS MEDICATI ON. ORAL DISCONT INUED BY SATNO Donnelly 07/01/2024 [id number] COOPER OTTO 2023 48 [facility] CYCLOSPORIN E 0.05% (PF) EMULSION,OP H,0.4ML INSTILL 1 DROP IN BOTH EYES TWICE A DAY FOR DRY EYES (USE EVERY 12 HRS) OPHTHA LMIC ACTIVE 03/10/2025 [id number] TAPAN BUTLER [address] [facility] DICLOFENAC NA 1% GEL,TOP APPLY 4 GM TO AFFECTED AREA(S) FOUR TIMES A DAY NEEDED FOR PAIN DO NOT EXCEED MORE THAN 16 GRAMS DAILY TO ANY LOWER EXTREMIT Y JOINT. NOT MORE THAN 8 GRAMS DAILY TO ANY UPPER EXTREMIT Y JOINT. MAX 32GM/DAY OVER ALL JOINTS. (MEASURE DOSE WITH RULER ATTACHED INSIDE BOX) TOPICA L 11/30/2024 [id number] 4 ELOISA CALLAWAY M 2023 300 [facility] DULAGLUTIDE 0.75MG/0.5M L INJ,SOLN,PE N INJECT 0.75MG UNDER THE SKIN EVERY WEEK FOR DIABETES (ADMINIS TER DOSE AT ANY TIME OF DAY, WITH OR WITHOUT MEALS) SUBCUT ANEOUS DISCONT INUED BY SANTO Donnelly 06/01/2025 [id number] 5 ELIDA BLAS 2023 4 [facility] DULAGLUTIDE 0.75MG/0.5M L INJ,SOLN,PE N INJECT 0.75MG UNDER THE SKIN EVERY WEEK FOR DIABETES (ADMINIS TER DOSE AT ANY TIME OF DAY, WITH OR WITHOUT MEALS) SUBCUT ANEOUS DISCONT INUED 01/27/2025 [id number] 4 ELIDA BLAS 2023 4 [facility] DULAGLUTIDE 0.75MG/0.5M L INJ,SOLN,PE N INJECT 0.75MG UNDER THE SKIN EVERY WEEK FOR DIABETES (ADMINIS TER DOSE AT ANY TIME OF DAY, WITH OR WITHOUT MEALS) SUBCUT ANEOUS DISCONT INUED 10/26/2024 [id number] 4 ELIDA BLAS 2023 4 [facility] DULAGLUTIDE 1.5MG/0.5ML INJ,SOLN,PE N INJECT 1.5MG UNDER THE SKIN EVERY WEEK FOR DIABETES (ADMINIS TER DOSE AT ANY TIME OF DAY, WITH OR WITHOUT MEALS) SUBCUT ANEOUS DISCONT INUED 04/14/2025 [id number] 4 ELIDA BLAS 2023 4 [facility] FLUTICASONE PROPIONATE 50MCG/SPRAY SOLN,NASAL, 16GM INSTILL 2 SPRAYS IN NOSTRIL( S) ONCE A DAY FOR CHRONIC RHINOSIN USITIS (MUST BE USED DIRECTED FOR MINIMUM OF 21 DAYS TO PROVIDE ADEQUATE BENEFITS ) NASAL ACTIVE 09/28/2025 [id number] 5 Kasey ALLEN 2024 4 [facility] HYDROCHLORO THIAZIDE 12.5MG/LOSA RTAN POTASSIUM 100MG TAB TAKE 1 TABLET BY MOUTH EVERY MORNING FOR HIGH BLOOD PRESSURE ORAL DISCONT INUED (EDIT) 06/02/2025 [id number] 5 COOPER OTTO 2023 90 [facility] HYDROCHLORO THIAZIDE 12.5MG/LOSA RTAN POTASSIUM 100MG TAB TAKE 1 TABLET BY MOUTH EVERY MORNING FOR HIGH BLOOD PRESSURE ORAL DISCONT INUED 04/18/2025 [id number] 4 WANELIDA Y LORENA 2023 90 [facility] HYDROCHLORO THIAZIDE 12.5MG/LOSA RTAN POTASSIUM 100MG TAB TAKE 1 TABLET BY MOUTH EVERY MORNING FOR HIGH BLOOD PRESSURE ORAL DISCONT INUED 01/25/2025 [id number] 4 WANELIDA Y LORENA 2023 30 [facility] HYDROCHLORO THIAZIDE 12.5MG/LOSA RTAN POTASSIUM 50MG TAB TAKE 1 TABLET BY MOUTH EVERY MORNING FOR HIGH BLOOD PRESSURE ORAL DISCONT INUED BY PROVIDE R 12/29/2024 [id number] 4 WANELIDA Y LORENA 2023 30 [facility] HYDROCHLORO THIAZIDE 25MG TAB TAKE ONE-HALF TABLET BY MOUTH ONCE A DAY FOR HIGH BLOOD PRESSURE ORAL DISCONT INUED BY PROVIDE R 11/24/2024 [id number] WANELIDA Y LORENA 2023 15 [facility] HYDROCHLORO THIAZIDE 25MG/LOSART AN POTASSIUM 100MG TAB TAKE 1 TABLET BY MOUTH EVERY MORNING FOR HIGH BLOOD PRESSURE ORAL ACTIVE 11/24/2025 [id number] 5 WANELIDA Y LORENA 2024 90 [facility] LIDOCAINE 5% PATCH APPLY 1 PATCH TO SKIN SITE ONCE A DAY FOR LOCAL ANESTHES IA APPLY PATCH AND PRESS FIRMLY FOR 10-15 SECONDS. KEEP ON FOR 12 HOURS THEN REMOVE PATCH FOR 12 HOURS. TRANSD ERMAL ACTIVE 12/16/2025 [id number] 5 IZA RAY 2024 30 [facility] LIDOCAINE 5% PATCH APPLY 1 PATCH TO SKIN SITE ONCE A DAY FOR LOCAL ANESTHES IA APPLY PATCH AND PRESS FIRMLY FOR 10-15 SECONDS. KEEP ON FOR 12 HOURS THEN REMOVE PATCH FOR 12 HOURS. TRANSD ERMAL DISCONT INUED 06/02/2025 [id number] SYL OTTOI KOBY S 2023 30 [facility] LIRAGLUTIDE (EQV-VICTOZ A) 6MG/ML INJ,SOLN,PE N,3ML INJECT 1.2MG UNDER THE SKIN ONCE A DAY FOR DIABETES SUBCUT ANEOUS ACTIVE 12/28/2025 [id number] 5 ELIDA BLAS 2024 6 [facility] LIRAGLUTIDE (EQV-VICTOZ A) 6MG/ML INJ,SOLN,PE N,3ML INJECT 1.2MG UNDER THE SKIN ONCE A DAY FOR DIABETES SUBCUT ANEOUS DISCONT INUED 09/02/2025 [id number] 5 ELIDA BLAS 2024 3 [facility] LIRAGLUTIDE (EQV-VICTOZ A) 6MG/ML INJ,SOLN,PE N,3ML INJECT 0.6MG UNDER THE SKIN ONCE A DAY FOR 1 WEEK, THEN INJECT 1.2MG ONCE A DAY FOR DIABETES SUBCUT ANEOUS DISCONT INUED 09/02/2025 [id number] 5 ELIDA BLAS 2024 3 [facility] LOSARTAN 50MG TAB TAKE ONE AND ONE-HALF TABLETS BY MOUTH ONCE A DAY FOR HIGH BLOOD PRESSURE ORAL DISCONT INUED BY SANTO R 11/30/2024 [id number] 4 [facility] 2023 135 [facility] LOSARTAN 50MG TAB TAKE ONE AND ONE-HALF TABLETS BY MOUTH ONCE A DAY FOR HIGH BLOOD PRESSURE NOTE DOSE INCREASE D ORAL DISCONT INUED 08/26/2024 [id number] [facility] 2023 45 [facility] METFORMIN HCL 1000MG TAB TAKE ONE TABLET BY MOUTH TWICE A DAY WITH MEALS TO LOWER BLOOD SUGAR ORAL ACTIVE 12/22/2025 [id number] 5 ELIDA BLAS 2024 180 [facility] METFORMIN HCL 1000MG TAB TAKE ONE TABLET BY MOUTH TWICE A DAY WITH MEALS TO LOWER BLOOD SUGAR ORAL DISCONT INUED 11/30/2024 [id number] 5 [facility] 2023 180 [facility] METOPROLOL TARTRATE 25MG TAB TAKE ONE-HALF TABLET BY MOUTH TWICE A DAY FOR HEART/BL OOD PRESSURE . TAKE WITH OR IMMEDIAT RADHA FOLLOWIN G FOOD. ORAL ACTIVE 12/22/2025 [id number] 5 ELIDA BLAS 2024 90 [facility] METOPROLOL TARTRATE 25MG TAB TAKE ONE-HALF TABLET BY MOUTH TWICE A DAY FOR HEART/BL OOD PRESSURE . TAKE WITH OR IMMEDIAT RADHA FOLLOWIN G FOOD. ORAL DISCONT INUED 11/30/2024 [id number] 5 [facility] 2023 90 [facility] MOXIFLOXACI N HCL (EQV-VIGAMO X) 0.5% SOLN,OPH INSTILL 1 DROP IN RIGHT EYE FOUR TIMES A DAY FOR BACTERIA L EYE INFECTIO N OPHTHA LMIC ACTIVE 02/07/2026 [id number] YENNAM,SO WMYA [address] [facility] MOXIFLOXACI N HCL (EQV-VIGAMO X) 0.5% SOLN,OPH INSTILL 1 DROP IN LEFT EYE FOUR TIMES A DAY OPHTHA LMIC DISCONT INUED 02/09/2025 [id number] 5 WILKINSON,N ATALIA G [address] [facility] PREDNISOLON E ACETATE 1% SUSP,OPH INSTILL 1 DROP IN RIGHT EYE FOUR TIMES A DAY FOR EYE INFLAMMA TION OPHTHA LMIC ACTIVE 02/07/2026 [id number] 5 YENNAM,SO WMYA [address] [facility] PREDNISOLON E ACETATE 1% SUSP,OPH INSTILL 1 DROP IN LEFT EYE FOUR TIMES A DAY FOR EYE INFLAMMA TION OPHTHA LMIC DISCONT INUED 01/11/2026 [id number] 5 Nicole WILKINSON ATALIA G [address] [facility] TAMSULOSIN HCL 0.4MG CAP TAKE ONE CAPSULE BY MOUTH ONCE A DAY APPROXIM ATELY 30 MINUTES AFTER THE SAME MEAL EACH DAY (FOR PROSTATE ) ORAL DISCONT INUED 08/30/2024 [id number] 5 COOPER OTTO S 2024 90 [facility] TAMSULOSIN HCL 0.4MG CAP TAKE ONE CAPSULE BY MOUTH ONCE A DAY APPROXIM ATELY 30 MINUTES AFTER THE SAME MEAL EACH DAY (FOR PROSTATE ) ORAL DISCONT INUED 08/27/2024 [id number] 4 COOPER OTTO SSA S [address] [facility] TAMSULOSIN HCL 0.4MG CAP TAKE ONE CAPSULE BY MOUTH ONCE A DAY APPROXIM ATELY 30 MINUTES AFTER THE SAME MEAL EACH DAY (FOR PROSTATE ) ORAL DISCONT INUED 05/28/2024 [id number] 4 MIN DUENAS 2023 90 [facility] TAMSULOSIN HCL 0.4MG CAP TAKE ONE CAPSULE BY MOUTH ONCE A DAY APPROXIM ATELY 30 MINUTES AFTER THE SAME MEAL EACH DAY (FOR PROSTATE ) ORAL DISCONT INUED 03/02/2024 [id number] 4 ELOISA CALLAWAY M 2022 90 [facility] TAMSULOSIN HCL 0.4MG CAP TAKE ONE CAPSULE BY MOUTH ONCE A DAY APPROXIM ATELY 30 MINUTES AFTER THE SAME MEAL EACH DAY (FOR PROSTATE ) ORAL 11/29/2024 [id number] 5 Kasey ALLEN 2024 90 [facility] Allergies, Adverse Reactions, Alerts Combined list of allergies from Department of Defense and Veterans Affairs facilities. It does not include entries that were removed or entered in error. Substance Category Reaction Severity Reaction type Status Date Reported Comments Source DULAGLUTIDE Propensity to adverse reactions to drug (finding) Diarrhea, Nausea MILD active 5 [facility] IODINATED CONTRAST MEDIA Propensity to adverse reactions to drug (finding) Swelling active 6 [facility] LISINOPRIL Propensity to adverse reactions to drug (finding) Angioedema SEVERE active 2 [facility] SEMAGLUTIDE Propensity to adverse reactions to drug (finding) Diarrhea MILD active 4 [facility] Immunizations Combined list of available immunizations from the Department of Defense and Veterans Affairs facilities. Immunization Series Date Given Administered By Site Reaction Lot Number CVX Code Drug Telemarketing Agent Status Comments Source COVID-19 ([employer] MRNA, LNP-S, PF, MAC-SUCROSE, 30 MCG/0.3 ML (AGES 12+ YEARS) 8 2023 MIGUEL SALAZAR LEFT DELTO ID [id number] 309 complet ed [facility] INFLUENZA, HIGH-DOSE, TRIVALENT, PF 2023 MIGUEL SALAZAR RIGHT DELTO ID [id number] A 135 complet ed Completed Series, [facility] COVID-19 ([facility]), MRNA, LNP-S, PF, MAC-SUCROSE, 30 MCG/0.3 ML (AGES 12+ YEARS) 1 2022 309 complet ed HISTORICA L INFORMATI ON - FROM PATIENT'S WRITTEN RECORD, [facility] INFLUENZA, UNSPECIFIED FORMULATION 2022 88 complet ed HISTORICA L INFORMATI ON - FROM PATIENT'S WRITTEN RECORD, [facility] COVID-19 ([employer] MRNA, LNP-S, BIVALENT BOOSTER, PF, 30 MCG/0.3 ML DOSE 6 2022 YODIT LOPEZ RIGHT DELTO ID [id number] 300 complet ed [facility] INFLUENZA, HIGH-DOSE, QUADRIVALENT 2021 197 complet ed HISTORICA L INFORMATI ON - FROM OTHER PROVIDER, Partner:Philippe WHITTINGTON2.Admin istered by:[facility] [id number].([id number]) .NDC:[id number].A ddress:12 [address] [facility] .[id number] 5 Dosage: ML 0.7 [facility] COVID-19 (P[facility]ZER), MRNA, LNP-S, BIVALENT BOOSTER, PF, 30 MCG/0.3 ML DOSE 1 2021 300 complet ed HISTORICA L INFORMATI ON - FROM PATIENT'S WRITTEN RECORD, [facility] COVID-19 (P[facility]ZER), MRNA, LNP-S, PF, 30 MCG/0.3 ML DOSE 4 2021 208 complet ed [facility] ZOSTER RECOMBINANT 2 2021 187 complet ed [facility] COVID-19 (PFIZER), MRNA, LNP-S, PF, 30 MCG/0.3 ML DOSE 2020 208 complet ed HISTORICA L INFORMATI ON - FROM OTHER PROVIDER, Partner:Philippe ALCALA.Admin istered by:[facility] [id number].([id number]) .NDC:5926 [id number].A ddress:12 [address] [facility] .[id number] 5 Dosage: ML 0.3 [facility] INFLUENZA, HIGH-DOSE, QUADRIVALENT 2020 197 complet ed HISTORICA L INFORMATI ON - FROM OTHER PROVIDER, Partner:Philippe ALCALA.Admin istered by:[facility] [id number].([id number]) .NDC:4928 [id number].A ddress:12 [address] [facility] .[id number] 5 Dosage: ML 0.7 [facility] ZOSTER RECOMBINANT 1 2020 187 complet ed [facility] COVID-19 (PFIZER), MRNA, LNP-S, PF, 30 MCG/0.3 ML DOSE 2 2020 208 complet ed PFR; [id number]; 1 [facility] COVID-19 (PFIZER), MRNA, LNP-S, PF, 30 MCG/0.3 ML DOSE 1 2020 208 complet ed PFR; [id number]; 1 [facility] INFLUENZA, HIGH-DOSE, QUADRIVALENT 2019 197 complet ed [facility] INFLUENZA, INJECTABLE, QUADRIVALENT 2018 158 complet ed 02, Partner: [facility]. Administe red by: [facility] Clinician (NPI=Not Provided) . Partner 0 Lot#: [id number] 5 Mfr: [facility] INFLUENZA, INJECTABLE, QUADRIVALENT, PRESERVATIVE FREE 2017 150 complet ed [facility] INFLUENZA, INJECTABLE, QUADRIVALENT, PRESERVATIVE FREE 2016 150 complet ed [facility] PNEUMOCOCCAL POLYSACCHARID E [id number] 2015 33 complet ed [facility] N TDAP 2015 115 complet ed Left Deltoid [facility] N INFLUENZA, SEASONAL, INJECTABLE, PRESERVATIVE FREE 2014 140 complet ed [facility] PNEUMOCO[facility] CONJUGATE PCV 13 2014 133 complet [address] [facility] INFLUENZA, UNSPECIFIED FORMULATION 2013 88 complet ed [facility] N INFLUENZA, UNSPECIFIED FORMULATION 2013 88 [address] [facility] INFLUENZA, UNSPECIFIED FORMULATION 2011 88 complet ed [facility] ZOSTER LIVE 2010 121 complet [address] [facility] INFLUENZA, UNSPECIFIED FORMULATION 2009 88 complet ed [facility] N NOVEL INFLUENZA-H1N 1-09, ALL FORMULATIONS 2008 128 complet ed [employer] [facility] INFLUENZA, UNSPECIFIED FORMULATION 2008 88 complet [address] [facility] TD(ADULT) UNSPECIFIED FORMULATION 2005 139 complet ed [facility] TDAP 2005 115 complet ed Left Deltoid [facility] OUTSIDE PNEUMOVAX (HISTORICAL) 2003 109 [address] [facility] Results Combined list of recent [...] Specimen Type: BLOOD Comment: Test Performed by: [id number] Meter #: [id number] Ordering Provider: ABHISHEK EMERSON Report Released Date/Time: Feb 14, 2025 08:34 AM Reporting Lab: [place] [id number] Performing Lab: [address] GLUCOSE,B LOOD-poct (STL) GLUCOSE [MASS/VOLUM E] IN BLOOD BY AUTOMATED TEST STRIP 150 mg/dL 72 - 99 01/12 H Specimen Type: BLOOD Comment: Test Performed by: [id number] Meter #: [id number] Ordering Provider: MARLY ALLEN Report Released Date/Time: Jan 12, 2025 01:12 PM Reporting Lab: [place] [phone] Performing Lab: [place] [id number] GLUCOSE,B LOOD-poct (STL) GLUCOSE [MASS/VOLUM E] IN BLOOD BY AUTOMATED TEST STRIP 147 mg/dL 72 - 99 01/12 H Specimen Type: BLOOD Comment: Test Performed by: [id number] Meter #: [id number] Ordering Provider: MARLY ALLEN Report Released Date/Time: Jan 12, 2025 11:48 AM Reporting Lab: [facility] [address] [place] [id number] Performing Lab: [place] [address] [place] [id number] BASIC METABOLIC PANEL CREATININE [MASS/VOLUM E] IN SERUM OR PLASMA 0.96 mg/dL 0.70 - 1.30 11/23 Specimen Type: PLASMA Comment: No hemolysis noted. Ordering Provider: TAPAN BLAS Report Released Date/Time: November 23, 2024 09:18 AM Reporting Lab: [facility] [place] [id number] Performing Lab: [facility]1 10 [address] BASIC METABOLIC PANEL UREA NITROGEN [MASS/VOLUM E] IN SERUM OR PLASMA 24.0 mg/dL 9.0 - 25.0 11/23 Specimen Type: PLASMA Comment: No hemolysis noted. Ordering Provider: TAPAN BLAS Report Released Date/Time: November 23, 2024 09:18 AM Reporting Lab: [facility] [place] [address] Performing Lab: [facility] BASIC METABOLIC PANEL GLUCOSE [MASS/VOLUM E] IN SERUM OR PLASMA 153 mg/dL 72 - 99 11/23 H Specimen Type: PLASMA Comment: No hemolysis noted. Ordering Provider: TAPAN BLAS Report Released Date/Time: November 23, 2024 09:18 AM Reporting Lab: [facility] [place] [address] Performing Lab: [facility] BASIC METABOLIC PANEL SODIUM [MOLES/VOLU ME] IN SERUM OR PLASMA 141 meq/L 136 - 145 11/23 Specimen Type: PLASMA Comment: No hemolysis noted. Ordering Provider: TAPAN BLAS Report Released Date/Time: November 23, 2024 09:18 AM Reporting Lab: [facility] [place] [address] Performing Lab: [facility] DIVISION BASIC METABOLIC PANEL POTASSIUM [MOLES/VOLU ME] IN SERUM OR PLASMA 4.4 meq/L 3.5 - 5.0 11/23 Specimen Type: PLASMA Comment: No hemolysis noted. Ordering Provider: TAPAN BLAS Report Released Date/Time: November 23, 2024 09:18 AM Reporting Lab: [facility] [place] [address] Performing Lab: [facility] BASIC METABOLIC PANEL CHLORIDE [MOLES/VOLU ME] IN SERUM OR PLASMA 106 meq/L 98 - 107 11/23 Specimen Type: PLASMA Comment: No hemolysis noted. Ordering Provider: TAPAN BLAS Report Released Date/Time: November 23, 2024 09:18 AM Reporting Lab: [facility] [place] [address] Performing Lab: [facility] BASIC METABOLIC PANEL CARBON DIOXIDE, TOTAL [MOLES/VOLU ME] IN SERUM OR PLASMA 28 meq/L 22 - 31 11/23 Specimen Type: PLASMA Comment: No hemolysis noted. Ordering Provider: TAPAN BLAS Report Released Date/Time: November 23, 2024 09:18 AM Reporting Lab: [facility] [place] [address] Performing Lab: [facility] DIVISION BASIC METABOLIC PANEL CALCIUM [MASS/VOLUM E] IN SERUM OR PLASMA 9.4 mg/dL 8.4 - 10.4 11/23 Specimen Type: PLASMA Comment: No hemolysis noted. Ordering Provider: TAPAN BLAS Report Released Date/Time: November 23, 2024 09:18 AM Reporting Lab: [facility] [place] [address] Performing Lab: [facility] BASIC METABOLIC PANEL GLOMERULAR FILTRATION RATE/1.73 SQ M.PREDICTED [VOLUME RATE/AREA] IN SERUM, PLASMA OR BLOOD BY CREATININE- BASED FORMULA (CKD-EPI 2020) 82.43 60 11/23 Specimen Type: PLASMA Comment: No hemolysis noted. Ordering Provider: TAPAN BLAS Report Released Date/Time: November 23, 2024 09:18 AM Reporting Lab: [facility] [place] [address] Performing Lab: [facility] HGA1C HEMOGLOBIN A1C/HEMOGLO BIN.TOTAL IN BLOOD 6.8 4.0 - 6.0 11/23 H Specimen Type: BLOOD No comment entered. Ordering Provider: TAPAN BLAS Report Released Date/Time: November 23, 2024 09:18 AM Reporting Lab: [facility] [place] [address] Performing Lab: [facility] BASIC METABOLIC PANEL CREATININE [MASS/VOLUM E] IN SERUM OR PLASMA 0.97 mg/dL 0.70 - 1.30 08/31 Specimen Type: PLASMA Comment: No hemolysis noted. Ordering Provider: TAPAN BLAS Report Released Date/Time: Jul 20, 2024 09:26 AM Reporting Lab: [facility] [place] [address] Performing Lab: [facility]1 [place] [id number] BASIC METABOLIC PANEL UREA NITROGEN [MASS/VOLUM E] IN SERUM OR PLASMA 15.8 mg/dL 9.0 - 25.0 08/31 Specimen Type: PLASMA Comment: No hemolysis noted. Ordering Provider: TAPAN BLAS Report Released Date/Time: Jul 20, 2024 09:26 AM Reporting Lab: [facility] [place] [address] Performing Lab: [facility]1 [facility] [id number] BASIC METABOLIC PANEL GLUCOSE [MASS/VOLUM E] IN SERUM OR PLASMA 168 mg/dL 72 - 99 08/31 H Specimen Type: PLASMA Comment: No hemolysis noted. Ordering Provider: TAPAN BLAS Report Released Date/Time: Jul 20, 2024 09:26 AM Reporting Lab: [facility] [place] [address] Performing Lab: [facility]1 [facility] [id number] [place] [address] DIVISION BASIC METABOLIC PANEL SODIUM [MOLES/VOLU ME] IN SERUM OR PLASMA 140 meq/L 136 - 145 08/31 Specimen Type: PLASMA Comment: No hemolysis noted. Ordering Provider: TAPAN BLAS Report Released Date/Time: Jul 20, 2024 09:26 AM Reporting Lab: [facility] [place] [address] Performing Lab: [facility] BASIC METABOLIC PANEL POTASSIUM [MOLES/VOLU ME] IN SERUM OR PLASMA 4.4 meq/L 3.5 - 5.0 08/31 Specimen Type: PLASMA Comment: No hemolysis noted. Ordering Provider: TAPAN BLAS Report Released Date/Time: Jul 20, 2024 09:26 AM Reporting Lab: [facility] [place] [address] Performing Lab: [facility]1 [facility] [id number] BASIC METABOLIC PANEL CHLORIDE [MOLES/VOLU ME] IN SERUM OR PLASMA 104 meq/L 98 - 107 08/31 Specimen Type: PLASMA Comment: No hemolysis noted. Ordering Provider: TAPAN BLAS Report Released Date/Time: Jul 20, 2024 09:26 AM Reporting Lab: [facility] [place] [address] Performing Lab: [facility] BASIC METABOLIC PANEL CARBON DIOXIDE, TOTAL [MOLES/VOLU ME] IN SERUM OR PLASMA 27 meq/L 22 - 31 08/31 Specimen Type: PLASMA Comment: No hemolysis noted. Ordering Provider: TAPAN BLAS Report Released Date/Time: Jul 20, 2024 09:26 AM Reporting Lab: [facility] [place] [address] Performing Lab: [facility] BASIC METABOLIC PANEL CALCIUM [MASS/VOLUM E] IN SERUM OR PLASMA 9.4 mg/dL 8.4 - 10.4 08/31 Specimen Type: PLASMA Comment: No hemolysis noted. Ordering Provider: TAPAN BLAS Report Released Date/Time: Jul 20, 2024 09:26 AM Reporting Lab: [facility] [place] [address] Performing Lab: [facility] BASIC METABOLIC PANEL GLOMERULAR FILTRATION RATE/1.73 SQ M.PREDICTED [VOLUME RATE/AREA] IN SERUM, PLASMA OR BLOOD BY CREATININE- BASED FORMULA (CKD-EPI 2020) 81.41 60 08/31 Specimen Type: PLASMA Comment: No hemolysis noted. Ordering Provider: TAPAN BLAS Report Released Date/Time: Jul 20, 2024 09:26 AM Reporting Lab: [facility]1 [place] [address] Performing Lab: [facility] DIVISION HGA1C HEMOGLOBIN A1C/HEMOGLO BIN.TOTAL IN BLOOD 6.9 4.0 - 6.0 08/31 H Specimen Type: BLOOD No comment entered. Ordering Provider: TAPAN BLAS Report Released Date/Time: Jul 20, 2024 09:26 AM Reporting Lab: [facility] [place] [address] Performing Lab: [facility] DIVISION COMPREHEN SIVE METABOLIC PANEL CREATININE [MASS/VOLUM E] IN SERUM OR PLASMA 0.87 mg/dL 0.70 - 1.30 06/01 Specimen Type: PLASMA Comment: No hemolysis noted. Ordering Provider: KANDI OTTO Report Released Date/Time: Jun 01, 2024 10:24 AM Reporting Lab: [facility] [place] [address] Performing Lab: [facility] DIVISION COMPREHEN SIVE METABOLIC PANEL UREA NITROGEN [MASS/VOLUM E] IN SERUM OR PLASMA 17.4 mg/dL 9.0 - 25.0 06/01 Specimen Type: PLASMA Comment: No hemolysis noted. Ordering Provider: KANDI OTTO Report Released Date/Time: Jun 01, 2024 10:24 AM Reporting Lab: [facility] [place] [address] Performing Lab: [facility] DIVISION COMPREHEN SIVE METABOLIC PANEL GLUCOSE [MASS/VOLUM E] IN SERUM OR PLASMA 142 mg/dL 72 - 99 06/01 H Specimen Type: PLASMA Comment: No hemolysis noted. Ordering Provider: KANDI OTTO Report Released Date/Time: Jun 01, 2024 10:24 AM Reporting Lab: [facility]1 [place] [phone] Performing Lab: [facility]1 [facility] [phone] DIVISION COMPREHEN SIVE METABOLIC PANEL SODIUM [MOLES/VOLU ME] IN SERUM OR PLASMA 138 meq/L 136 - 145 06/01 Specimen Type: PLASMA Comment: No hemolysis noted. Ordering Provider: KANDI OTTO Report Released Date/Time: Jun 01, 2024 10:24 AM Reporting Lab: [facility] [place] [address] Performing Lab: [facility] DIVISION COMPREHEN SIVE METABOLIC PANEL POTASSIUM [MOLES/VOLU ME] IN SERUM OR PLASMA 3.7 meq/L 3.5 - 5.0 06/01 Specimen Type: PLASMA Comment: No hemolysis noted. Ordering Provider: KANDI OTTO Report Released Date/Time: Jun 01, 2024 10:24 AM Reporting Lab: [facility]1 [place] [phone] Performing Lab: [facility] DIVISION COMPREHEN SIVE METABOLIC PANEL CHLORIDE [MOLES/VOLU ME] IN SERUM OR PLASMA 104 meq/L 98 - 107 06/01 Specimen Type: PLASMA Comment: No hemolysis noted. Ordering Provider: KANDI OTTO Report Released Date/Time: Jun 01, 2024 10:24 AM Reporting Lab: [facility] [place] [address] Performing Lab: [facility]1 [place] [phone] [place] [address] [facility] COMPREHEN SIVE METABOLIC PANEL CARBON DIOXIDE, TOTAL [MOLES/VOLU ME] IN SERUM OR PLASMA 25 meq/L 22 - 31 06/01 Specimen Type: PLASMA Comment: No hemolysis noted. Ordering Provider: KANDI OTTO Report Released Date/Time: Jun 01, 2024 10:24 AM Reporting Lab: [facility]1 [place] [address] Performing Lab: [facility] DIVISION COMPREHEN SIVE METABOLIC PANEL CALCIUM [MASS/VOLUM E] IN SERUM OR PLASMA 9.6 mg/dL 8.4 - 10.4 06/01 Specimen Type: PLASMA Comment: No hemolysis noted. Ordering Provider: KANDI OTTO Report Released Date/Time: Jun 01, 2024 10:24 AM Reporting Lab: [facility] [place] [address] Performing Lab: [facility] DIVISION COMPREHEN SIVE METABOLIC PANEL PROTEIN [MASS/VOLUM E] IN SERUM OR PLASMA 6.7 g/dL 6.0 - 8.6 06/01 Specimen Type: PLASMA Comment: No hemolysis noted. Ordering Provider: KANDI OTTO Report Released Date/Time: Jun 01, 2024 10:24 AM Reporting Lab: [facility] [place] [address] Performing Lab: [facility] DIVISION COMPREHEN SIVE METABOLIC PANEL ALBUMIN [MASS/VOLUM E] IN SERUM OR PLASMA 3.8 g/dL 3.4 - 5.0 06/01 Specimen Type: PLASMA Comment: No hemolysis noted. Ordering Provider: KANDI OTTO Report Released Date/Time: Jun 01, 2024 10:24 AM Reporting Lab: [facility] [place] [address] Performing Lab: [facility] DIVISION COMPREHEN SIVE METABOLIC PANEL BILIRUBIN.T OTAL [MASS/VOLUM E] IN SERUM OR PLASMA 0.3 mg/dL 0.2 - 1.2 06/01 Specimen Type: PLASMA Comment: No hemolysis noted. Ordering Provider: KANDI OTTO Report Released Date/Time: Jun 01, 2024 10:24 AM Reporting Lab: [facility] [place] [address] Performing Lab: [facility] DIVISION COMPREHEN SIVE METABOLIC PANEL ALKALINE PHOSPHATASE [ENZYMATIC ACTIVITY/VO LUME] IN SERUM OR PLASMA 110 U/L 40 - 150 06/01 Specimen Type: PLASMA Comment: No hemolysis noted. Ordering Provider: KANDI OTTO Report Released Date/Time: Jun 01, 2024 10:24 AM Reporting Lab: [facility] [place] [address] Performing Lab: [facility] DIVISION COMPREHEN SIVE METABOLIC PANEL ASPARTATE AMINOTRANSF ERASE [ENZYMATIC ACTIVITY/VO LUME] IN SERUM OR PLASMA 13 U/L 5 - 34 06/01 Specimen Type: PLASMA Comment: No hemolysis noted. Ordering Provider: KANDI OTTO Report Released Date/Time: Jun 01, 2024 10:24 AM Reporting Lab: [facility] [place] [address] Performing Lab: [facility] DIVISION COMPREHEN SIVE METABOLIC PANEL ALANINE AMINOTRANSF ERASE [ENZYMATIC ACTIVITY/VO LUME] IN SERUM OR PLASMA 15 U/L 8 - 40 06/01 Specimen Type: PLASMA Comment: No hemolysis noted. Ordering Provider: KANDI OTTO Report Released Date/Time: Jun 01, 2024 10:24 AM Reporting Lab: [facility] [place] [address] Performing Lab: [facility] DIVISION COMPREHEN SIVE METABOLIC PANEL GLOMERULAR FILTRATION RATE/1.73 SQ M.PREDICTED [VOLUME RATE/AREA] IN SERUM, PLASMA OR BLOOD BY CREATININE- BASED FORMULA (CKD-EPI 2020) 89.98 60 06/01 Specimen Type: PLASMA Comment: No hemolysis noted. Ordering Provider: KANDI OTTO Report Released Date/Time: Jun 01, 2024 10:24 AM Reporting Lab: [facility] [place] [address] Performing Lab: [facility] LIPID PANEL (STL) CHOLESTEROL [MASS/VOLUM E] IN SERUM OR PLASMA 113 mg/dL 0 - 200 06/01 Specimen Type: PLASMA Comment: No hemolysis noted. Ordering Provider: KANDI OTTO Report Released Date/Time: Jun 01, 2024 10:24 AM Reporting Lab: [facility] [place] [address] Performing Lab: [facility] LIPID PANEL (STL) TRIGLYCERID E [MASS/VOLUM E] IN SERUM OR PLASMA 187 mg/dL 0 - 150 06/01 H Specimen Type: PLASMA Comment: No hemolysis noted. Ordering Provider: KANDI OTTO Report Released Date/Time: Jun 01, 2024 10:24 AM Reporting Lab: [facility] [place] [address] Performing Lab: [facility] LIPID PANEL (STL) CHOLESTEROL IN LDL [MASS/VOLUM E] IN SERUM OR PLASMA BY CALCULATION 40 mg/dL 06/01 Specimen Type: PLASMA Comment: No hemolysis noted. Ordering Provider: KANDI OTTO Report Released Date/Time: Jun 01, 2024 10:24 AM Reporting Lab: [facility] [place] [address] Performing Lab: [facility] LIPID PANEL (STL) CHOLESTEROL IN HDL [MASS/VOLUM E] IN SERUM OR PLASMA 36 mg/dL 40 06/01 L Specimen Type: PLASMA Comment: No hemolysis noted. Ordering Provider: KANDI OTTO Report Released Date/Time: Jun 01, 2024 10:24 AM Reporting Lab: [facility] [place] [address] Performing Lab: [facility] PROST. SPECIFIC AG.(PB-ST L) PROSTATE SPECIFIC AG [...] Jun 01, 2024 10:24 AM Reporting Lab: [facility] [place] [address] Performing Lab: [facility] Vital Signs Combined list of inpatient and outpatient Vital Signs from Department of Defense and Veterans Affairs, ranging from 12 months to all on record, depending upon the facility. Vital Sign Value Date Comments Source SYSTOLIC BLOOD PRESSURE 152 02/14/2025 06:50:[address] [facility] DIASTOLIC BLOOD PRESSURE 86 02/14/2025 06:50:[address] [facility] PULSE OXIMETRY 94 % 02/14/2025 06:50:00 Leni [facility] WEIGHT 280 02/14/2025 06:50:00 [facility] BMI 39 kg/m2 02/14/2025 06:50:00 [facility] PAIN 1 02/14/2025 06:50:00 [facility] HEIGHT 71 02/14/2025 06:50:00 [facility] TEMPERATURE 97.2 02/14/2025 06:50:[address] [facility] PULSE 80 02/14/2025 06:50:00 [facility] RESPIRATION 18 02/14/2025 06:50:[address] [facility] SYSTOLIC BLOOD PRESSURE 151 01/12/2025 11:31:[address] [facility] DIASTOLIC BLOOD PRESSURE 80 01/12/2025 11:31:[address] [facility] PULSE OXIMETRY 93 % 01/12/2025 11:31:[facility] 280 01/12/2025 11:31:15 [facility] BMI 39 kg/m2 01/12/2025 11:31:15 [facility] PAIN 1 01/12/2025 11:31:15 [facility] HEIGHT 71.5 01/12/2025 11:31:15 [facility] TEMPERATURE 98.4 01/12/2025 11:31:[address] [facility] PULSE 77 01/12/2025 11:31:15 [facility] RESPIRATION 20 01/12/2025 11:31:[address] [facility] SYSTOLIC BLOOD PRESSURE 144 11/23/2024 09:10:[facility] [place] [facility] DIASTOLIC BLOOD PRESSURE 75 11/23/2024 09:10:42 [facility] PULSE 87 11/23/2024 09:10:42 [facility] SYSTOLIC BLOOD PRESSURE 150 10/11/2024 10:56:57 [facility] DIASTOLIC BLOOD PRESSURE 78 10/11/2024 10:56:57 [facility] PULSE 95 10/11/2024 10:56:57 [facility] SYSTOLIC BLOOD PRESSURE 136 08/31/2024 09:18:04 [facility] DIASTOLIC BLOOD PRESSURE 80 08/31/2024 09:18:04 [facility] PULSE 64 08/31/2024 09:18:04 [facility] Encounters Combined list of: 1) Encounters from Department of [facility] Affairs facilities going backup to the last 18 months, not all [place] inpatient encounters are included; 2) Encounters from the Department of [facility] facilities going backup to 280 months. Location Location Details Encounter Type Encounter Number Reason For Visit Attending Provider ADM Date DC Date Status Disposition Source [facility] Outpatient Encounter [id number] JOSS ELLINGTON Y E 08/23 [facility] Outpatient Encounter [id number] JOSS [place] Y E 09/02 [facility] POSTOP FOLLOW-UP VISIT [id number] Diagnos is: ICD-10- CM N20.0 Calculu s of kidney ANTOINETTE,R ALPH J 09/13 [facility] MTMS BY PHARM EST 15 MIN [id number] Diagnos is: ICD-10- CM E11.9 Type 2 diabete s mellitu s without complic ations TAPAN BLAS 09/21 [facility] MTMS BY PHARM ADDL 15 MIN [id number] Diagnos is: ICD-10- CM E11.9 Type 2 diabete s mellitu s without complic ations WANTAPANELLE 10/19 [facility] Outpatient Encounter [id number] 10/20 [facility] QNHP OL DIG ASSMT&MGMT 5- [id number] Diagnos is: ICD-10- CM E11.9 Type 2 diabete s mellitu s without complic ations LB MIRANDA 10/25 [facility] OFFICE O/P EST MOD 30 MIN [id number] Diagnos is: ICD-10- CM N39.0 Urinary tract infecti on, site not specifi ed Cony CURRY 10/26 [facility] OFFICE O/P EST LOW 20 MIN [id number] Diagnos is: ICD-10- CM D22.9 Melanoc ytic nevi, unspeci fiTHERESE Hahn R 11/07 [facility] Outpatient Encounter [id number] 11/14 [facility] MTMS BY PHARM ADDL 15 MIN [id number] Diagnos is: ICD-10- CM E11.9 Type 2 diabete s mellitu s without complic ations WANTAPAN BELLEELLE 11/23 [facility] OFFICE O/P EST MOD 30 MIN [id number] Diagnos is: ICD-10- CM E11.42 Type 2 diabete s mellitu s with diabeti c polyneu ropathy SHIRA RACHELTERESA LETY Parks 11/29 [facility] Outpatient Encounter [id number] 12/13 [facility] Outpatient Encounter [id number] THIAGO LOPEZ 12/14 [facility] Outpatient Encounter [id number] THIAGO LOPEZ 12/16 [facility] OFFICE O/P EST LOW 20 MIN [id number] Diagnos is: ICD-10- CM L60.0 Ingrowi ng nail [place],ST UART L 12/19 [facility] MTMS BY PHARM EST 15 MIN [id number] Diagnos is: ICD-10- CM E11.8 Type 2 diabete s mellitu s with unspeci fied complic ations TAPAN BLAS 12/27 [facility] Outpatient Encounter [id number] IZA YOUNG 01/12 [facility] MTMS BY PHARM ADDL 15 MIN [id number] Diagnos is: ICD-10- CM E11.8 Type 2 diabete s mellitu s with unspeci fied complic ations TAPAN BLAS 01/[address] [facility] QNHP OL DIG ASSMT&MGMT 5-10 [id number] Diagnos is: ICD-10- CM E11.8 Type 2 diabete s mellitu s with unspeci fied complic ations RUBENLB Rita Proctor 01/26 [facility] Outpatient Encounter [id number] GEMMELL,AM Y E 02/06 [facility] Outpatient Encounter [id number] GEMMELL,AM Y E 02/27 [facility] MTMS BY PHARM EST 15 MIN [id number] Diagnos is: ICD-10- CM E11.8 Type 2 diabete s mellitu s with unspeci fied complic ations TAPAN BLAS 03/01 [facility] COMPRE OPH EXAM EST PT 1/ [id number] Diagnos is: ICD-10- CM E11.9 Type 2 diabete s mellitu s without complic ations STEPHANIAMARCOSYA 03/09 [facility] OFFICE O/P EST LOW 20 MIN [id number] [id number] Diagnos is: ICD-10- CM N20.0 Calculu s of kidney ANTOINETTE,R ALPH J 03/15 [facility] Outpatient Encounter [id number] Vikki SALAZAR 03/17 [facility] Outpatient Encounter [id number] [id number] 04/12 [facility] [place]UNIZATI [place] ADMIN 44166-6.65 [id number] Diagnos is: ICD-10- CM I10 Essenti al (primar y) hyperte nsTAPAN Hinojosa 04/13 [facility] Outpatient Encounter 12908-8.65 [id number] NOA KOEHLER RLA F 04/13 [facility] QNHP OL DIG ASSMT&MGMT 5-10 62549-9.65 [id number] Diagnos is: ICD-10- CM E66.09 Other obesity due to excess calorie s DONTRELL COY CORDELL 04/17 [facility] Outpatient Encounter 16821-0.65 [id number] 2 04/27 [facility] Outpatient Encounter 69312-2.65 [id number] 9 04/28 [facility] Outpatient Encounter 50362-8.65 [id number] 3 05/09 [facility] MTMS BY PHARM ADDL 15 MIN 29631-5.65 [id number] Diagnos is: ICD-10- CM E11.8 Type 2 diabete s mellitu s with unspeci fied complic atTAPAN Vasquez 05/11 [facility] Outpatient Encounter 81533-5.65 [id number] GEMVIOLETA,AM Y E 05/17 [facility] Outpatient Encounter 69918-7.65 [id number] 9 05/19 [facility] Outpatient Encounter 16423-7 [id number] 5 TIEN LOPEZ RRY 05/24 [facility] Outpatient Encounter 64980-4.65 [id number] 2 GEMMELL,AM Y E 05/24 [facility] Outpatient Encounter 53695-2 [id number] 9 GEMMELL,AM Y E 05/31 [facility] Outpatient Encounter 79969-8 [id number] 2 05/31 [facility] OFFICE O/P EST MOD 30 MIN 95180-7 [id number] Diagnos is: ICD-10- CM Z00.00 Encntr for general adult medical exam w/o abnorma l finding s CLARITA,KARY SA S 06/01 [facility] Outpatient Encounter [id number] 06/05 [facility] QNHP OL DIG ASSMT&MGMT 5-10 29681-3 [id number] Diagnos is: ICD-10- CM E11.8 Type 2 diabete s mellitu s with unspeci fied complic ations SCHJONAS,NA NCY CORDELL 06/05 [facility] Outpatient Encounter [id number] 06/06 [facility] MTMS BY PHARM ADDL 15 MIN 16125-8 [id number] Diagnos is: ICD-10- CM I10 Essenti al (primar y) hyperte nsion TAPAN BLAS 06/08 [facility] Outpatient Encounter [id number] ENID PIERSON FRANCISCO JJOHANA Kasey 06/28 [facility] OFFICE O/P EST LOW 20 MIN 53692-6.65 [id number] Diagnos is: ICD-10- CM N20.0 Calculu s of kidney SHYLA LOCKE 07/03 [facility] MTMS BY PHARM EST 15 MIN 85042-2.65 [id number] Diagnos is: ICD-10- CM E11.8 Type 2 diabete s mellitu s with unspeci fied complic TAPAN BlueELLE 07/20 [facility] Outpatient Encounter [id number] [id number] Diagnos is: ICD-10- CM Z55.9 Problem s related to educati on and literac y, unspeci fied VERONIKA CABALLERODY 07/20 [facility] Outpatient Encounter [id number] [id number] 07/21 [facility] MTMS BY PHARM EST 15 MIN 35432-7.65 [id number] Diagnos is: ICD-10- CM E11.8 Type 2 diabete s mellitu s with unspeci fied complic atTAPAN Vasquez 08/31 [facility] NQHP OL DIG ASSMT&MGMT 5-10 [id number] [id number] Diagnos is: ICD-10- CM E11.8 Type 2 diabete s mellitu s with unspeci fied complic ations JOSE CARLOS SANTIAGO RI 09/01 [facility] Outpatient Encounter [id number] [id number] 09/11 [facility] DESTRUCT B9 LESION 1-14 85566-8.65 [id number] Diagnos is: ICD-10- CM B07.9 Viral wart, unspeci fied GIANNARita JOHANA K 09/12 [facility] Outpatient Encounter [id number] [id number] 09/27 [facility] MTMS BY PHARM ADDL 15 MIN 63908-4.65 [id number] Diagnos is: ICD-10- CM E11.8 Type 2 diabete s mellitu s with unspeci fied complic ations TAPAN BLAS 10/11 [facility] Outpatient Encounter [id number] [id number] Kezia JACOBSON 10/19 [facility] OFFICE O/P EST LOW 20 MIN [id number] [id number] Diagnos is: ICD-10- CM D18.01 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 TAPAN CHAUDHRY 11/07 [facility] Outpatient Encounter [id number] [id number] 11/20 [facility] MTMS BY PHARM EST 15 MIN 48914-4.65 [id number] Diagnos is: ICD-10- CM E11.8 Type 2 diabete s mellitu s with unspeci fied complic ations TAPAN BLAS 11/23 [facility] INTRM OPH EXAM EST PATIENT [id number] [id number] Diagnos is: ICD-10- CM H25.13 Age-rel ated nuclear catarac t, bilemma ArriazaJOHN PAUL GRETTA Florez 11/23 [facility] Outpatient Encounter [id number] [id number] TAPAN BLAS 11/23 [facility] Outpatient Encounter [id number] [id number] 12/14 [facility] OFF/OP EST MAY X REQ PHY/QHP [id number] [id number] Diagnos is: ICD-10- CM M54.50 Low back pain, unspeci fied GEMMELL,AM Y E 12/15 [facility] Outpatient Encounter [id number] [id number] 12/18 [facility] INTRM OPH EXAM EST PATIENT [id number] [id number] Diagnos is: ICD-10- CM H25.13 Age-rel ated nuclear catarac t, bilJAQUELIN Villasenor 12/18 [facility] Outpatient Encounter [id number] [id number] 12/18 [facility] Outpatient Encounter [id number] [id number] 12/18 [facility] Outpatient Encounter [id number] [id number] 12/19 [facility] OFF/OP EST MAY X REQ PHY/QHP 34285-3.65 [id number] Diagnos is: ICD-10- CM M54.50 Low back pain, unspeci fied RAKELAM Y E 12/20 [facility] MTMS BY PHARM EST 15 MIN 29595-3.65 [id number] Diagnos is: ICD-10- CM E11.8 Type 2 diabete s mellitu s with unspeci fied complic ations TAPAN BLASELLE 12/21 [facility] Outpatient Encounter [id number] [id number] MEGAN BLASILY LORENA 12/26 [facility] NQHP OL DIG ASSMT&MGMT 5-10 [id number] [id number] Diagnos is: ICD-10- CM E11.8 Type 2 diabete s mellitu s with unspeci fied complic ations JOSE CARLOS SANTIAGO RI 12/27 [facility] THERAPEUTI C EXERCISES 31038-5.65 [id number] Diagnos is: ICD-10- CM M54.50 Low back pain, unspeci fied FLORIN MONAE A 12/29 [facility] THERAPEUTI C EXERCISES 49168-9.65 [id number] Diagnos is: ICD-10- CM M54.50 Low back pain, unspeci fied FLORIN MONAE A 01/08 [facility] MEASURE BLOOD OXYGEN LEVEL 47173-4.65 [id number] Diagnos is: ICD-10- CM H25.13 Age-rel ated nuclear catarac t, bilater SYL Benavides M 01/12 [facility] OFFICE O/P EST MOD 30 MIN [id number] [id number] Diagnos is: ICD-10- CM Z01.818 Encount er for other preproc edural examina tion MEGAN-AD ONBEATRIZ TAYO B 01/12 [facility] Outpatient Encounter [id number] [id number] IZA DOBBS A 01/12 [facility] Outpatient Encounter [id number] [id number] JAQUELIN DEE 01/12 [facility] XCAPSL CTRC RMVL W/O ECP [id number] [id number] WILKINSON,NA NIKOLAY G 01/12 [facility] Outpatient Encounter [id number] [id number] KAMRYN GOOD K 01/12 [facility] Outpatient Encounter [id number] [id number] KAMRYN GOOD K 01/12 [facility] POSTOP FOLLOW-UP VISIT 01255-3.65 [id number] Diagnos is: ICD-10- CM Z98.42 Catarac t extract ion status, left eye JAQUELIN DEE ALEJANDRA 01/12 [facility] Outpatient Encounter [id number] [id number] 01/15 [facility] POSTOP FOLLOW-UP VISIT 83884-1.65 [id number] Diagnos is: ICD-10- CM Z98.42 Catarac t extract ion status, left eye NEDA DAVIS ICA Y 01/18 [facility] Outpatient Encounter [id number] [id number] 01/24 [facility] POSTOP FOLLOW-UP VISIT [id number] [id number] Diagnos is: ICD-10- CM Z98.42 Catarac t extract ion status, left eye JAQUELIN DEE 02/07 [facility] REAGENT STRIP/BLOO D GLUCOSE [id number] [id number] Diagnos is: ICD-10- CM H25.12 Age-rel ated nuclear catarac t, left eye WILFREDO JUSTIN 02/14 [facility] OFFICE O/P EST LOW 20 MIN [id number] [id number] Diagnos is: ICD-10- CM Z01.818 Encount er for other preproc edural examina tion IDANIA,ER IN A 02/14 [facility] Outpatient Encounter [id number] [id number] IZA DOBBS NNIFER A 02/14 [facility] XCAPSL CTRC RMVL W/O ECP 47122-0.65 [id number] IZA DOBBS NNIFER A 02/14 [facility] Outpatient Encounter [id number] [id number] NOREEN HILLIARD E 02/[address] [facility] POSTOP FOLLOW-UP VISIT [id number] [id number] Diagnos is: ICD-10- CM Z98.41 Catarac t extract ion status, right eye NEDA DAVIS ICA Y 02/15 [facility] N [facility] Outpatient Encounter [id number] [id number] 02/[address] [facility] Outpatient Encounter [id number] [id number] 02/15 [facility] N [facility] Outpatient Encounter [id number] [id number] 02/17 [facility] N Procedures Combined list of: 1) Procedures from Department of Veterans Affairs facilities going back up to thelast 18 months, not all [place] non-surgical procedures are included; 2) All procedures from the Department of Defense facilities. Procedure Procedure Type Code Date Perfomer Comments Sourc e RIGHT EYE PHACO CATARACT EXTRACTION WITH LENS [facility]PLANT [facility] [id number] 02/14/2025 DIANN MEEKS [facility] LEFT EYE PHACO CATARACT EXTRACTION WITH LENS IMPLANT XCAPSL [facility] RMVL W/O ECP [id number] 01/12/2025 DELORIS WILKINSON [facility] Social History Combined list of available smoking, tobacco, and other social history from Department of Defense and Veterans Affairs facilities. Social History Type Response Date Comment Sourc e Tobacco smoking status NHIS VA-TOBACCO FORMER USER 11/30/2023 [facility] History of tobacco use [place]-TOBACCO QUIT 15 YRS OR MORE 11/30/2023 [facility] History of tobacco use ORYX ADMIT TOBACCO SCREEN NO 06/19/2023 [facility] History of tobacco use VA-TOBACCO FORMER USER 06/02/2023 [facility] History of tobacco use VA-TOBACCO NEVER USED 01/12/2022 [facility] History of tobacco use VA-TOBACCO FORMER USER 12/17/2020 [facility] History of tobacco use VA-TOBACCO FORMER USER 08/04/2018 [facility] History of tobacco use QUIT TOBACCO >7 YEARS AGO 11/10/2017 [facility] History of tobacco use QUIT TOBACCO >7 YEARS AGO 05/12/2017 [facility] History of tobacco use QUIT TOBACCO >7 YEARS AGO 04/02/2016 [facility] History of tobacco use LIFETIME NON-USER OF TOBACCO 05/21/2015 [facility] History of tobacco use LIFETIME NON-USER OF TOBACCO 01/03/2014 [facility] History of tobacco use QUIT TOBACCO >12 MO and <7 YRS AGO 02/21/2013 [facility] History of tobacco use LIFETIME NON-USER OF TOBACCO 08/19/2009 [facility] History of tobacco use QUIT TOBACCO >12 MO and <7 YRS AGO 10/05/2008 [facility] History of tobacco use QUIT TOBACCO IN THE LAST 12 MONTHS 11/18/2007 [facility] History of tobacco use CURRENT TOBACCO USER 08/05/2006 [facility] History of tobacco use CURRENT TOBACCO USER 01/13/2006 [facility] Plan of Care List of future care activities from [facility] facilities. Additional future care activities may be listed in the Assessment and Plan section. Date/Time Care Activity Care Activity Detail Facili ty 02/22/2025 AMBULATORY - SURGERY AMBULATORY - SURGERY [facility] Advance Directives List of completed, amended, or rescinded Advance Directives on record at [facility] facilities. An actual copy of the Directive is not included. Date Advance Directive Provider Source 01/22/2016 ADVANCE DIRECTIVE DISCUSSION AMBERLY HOFFMAN [facility] 03/31/2007 ADVANCE DIRECTIVE JOSE C ALLEN [facility]
--- OUTSIDE RECORDS SUMMARY | 2025-02-17 16:36 | XMS_ITS | Referral Summary ---
Author Organization [facility] Address [address] [place] [id number] Care Team Providers Care Immunology Teacher Name Role Phone 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 Gender Identity Not on file Sexual Orientation [...] on file Medical Devices Implanted Type Area Weld Technician Device Identifier Shelf Expiration Date Model / Serial / Lot [employer] Simplex P Full Dose Radiopaque Preblend Cement Bone Tobramycin 6197-9-010 - [id number] Implanted:Qty: 1 on 03/22/2024 at [facility] Left: Knee [employer] 06/17/2025 6197-9-010 / / [id number] [employer] Simplex P Full Dose Radiopaque Preblend Cement Bone Tobramycin 6197-9-010 - [id number] Implanted:Qty: 1 on 03/22/2024 at [facility] Left: Knee [employer] 06/17/2025 6197-9-010 / / [id number] [employer] Simplex P Full Dose Radiopaque Preblend Cement Bone Tobramycin 6197-9-010 - [id number] Implanted:Qty: 1 on 03/22/2024 at [facility] Left: Knee [employer] 06/17/2025 6197-9-010 / / [id number] [employer] Insert Attune Left Medial Stabilized Size 8 5mm [id number] - [id number] Implanted:Qty: 1 on 03/22/2024 at [facility] Left: Knee [employer] 01/16/2032 [id number] / / [id number] [employer] Attune S+ Cement Fix Bearing Knee 8 Baseplate Tibial [id number] - [id number] Implanted:Qty: 1 on 03/22/2024 at [facility] Left: Knee [employer] 01/15/2034 [id number] / / [id number] [employer] Attune Cemented Cruciate Retaining Knee Left 8 Component Femoral [id number] - [id number] Implanted:Qty: 1 on 03/22/2024 at [facility] Left: Knee [employer] 08/18/2033 [id number] / / [id number] Procedures Procedure Name Priority Date/Time Associated Diagnosis [...] LAB BLOOD ORDERABLES Ivanna zelaya [facility] [address] [facility] [place] [employer] [place] [address] * (ABNORMAL) Hemoglobin A1c (03/02/2024 3:30 PM CDT) Hgb A1C 6.7(H) 4.0 - 5.6 % Estimated Average Glucose 146 mg/dL ANA [facility] Comment: The ADA recommends reporting an estimated Average Glucose (eAG) with all Hemoglobin A1c results using the equation derived from a study of 507 normal and diabetic adults. Minority populations were underrepresented and children were not included. (Diabetes Care 31:8099-6115, 2008). The eAG is not equivalent to a fasting glucose. Blood 03/02/2024 3:30 PM CDT 03/02/2024 4:04 PM CDT us Nadeem Saldana MD LAB BLOOD ORDERABLES Final Resul t [facility] [address] [facility] [place] [employer] [place] [address] * CT Abdomen Pelvis WO Contrast (11/10/2017 8:06 PM CDT) Anatomical Region Laterality Modality Body N/A Computed Tomogra phy 11/10/2017 8:06 PM CDT Narrative 11/11/2017 12:54 AM CDT JIGAR SANCHES M.D. ILIANA SAMS M.D. FINAL REPORT The radiology attending physician has personally reviewed this study, and has reviewed and/or edited this written report and agrees with it. ACC# Date Time Exam [id number] Nov 10, 2017 15:06:[id number] Abd & Pelvis wo cont EXAMINATION: [...] SANCHES M.D. on Nov 10 2017 7:52P [id number] CRAWFORD M.D. FINAL REPORT The radiology attending physician has personally reviewed this study, and has reviewed and/or edited this written report and agrees with it. Attending: GARRETT TREVIZO Requesting: BRONSON GREENE Requesting Fax: Attending Fax: Attending ID: [id number] Requesting ID: [id number] Report To 1 ID: [id number] Report To 1 Name: , Report To 1 FAX: NextGen Order #: Procedure Note Miscellaneous, Not In File - 11/10/2017 Melissa THRASHER M.D. FINAL REPORT The radiology attending physician has personally reviewed this study, and has reviewed and/or edited this written report and agrees with it. [facility]# Date Time Exam [id number] Nov 10, 2017 15:06:[id number] Abd & Pelvis wo cont EXAMINATION: [...] SANCHES M.D. on Nov 10 2017 7:52P [id number] CRAWFORD M.D. FINAL REPORT The radiology attending physician has personally reviewed this study, and has reviewed and/or edited this written report and agrees with it. Attending: GARRETT TREVIZO Requesting: BRONSON GREENE Requesting Fax: Attending Fax: Attending ID: [id number] Requesting ID: [id number] Report To 1 ID: [id number] Report To 1 Name: , Report To 1 FAX: NextGen Order #: Bronson Greene MD IMG CT PROCEDURES Final Result from Last 3 Months or Most Recently Relevant to Health Maintenance Insurance Member Subscriber Plan / Payer (Ef fective 2005-Present) Name:Newton Gustafson Relation to Subscriber:Self Name:Newton Gustafson Payer ID:[id number] Group ID:Not on file Type:OTHER GOVERNMENT Address: [place] [id number] Advance Directives For more information, please contact: [phone] * Full Code (Latest Code Status on File) Date Activated Date Inactivated Comments 03/22/2024 3:36 PM 03/23/2024 2:59 PM Care Teams Immunology Teacher Relationship Specialty Start Date End Date [facility], Victor Manuel Proctor MD [address] [place] [address] PCP - General 12/29/23
== END 2025-02-17 17:32 | disposition home or self-care (01) ==
PROVIDERS: Emergency Provider Student in an Organized Health Care Education/Training Program
DX: U07.1 COVID-19 (principal); J06.9 Acute upper respiratory infection, unspecified; E11.22 Type 2 diabetes mellitus with diabetic chronic kidney disease; I12.9 Hypertensive chronic kidney disease with stage 1 through stage 4 chronic kidney disease, or unspecified chronic kidney disease; N18.9 Chronic kidney disease, unspecified; E78.5 Hyperlipidemia, unspecified
CPT/HCPCS: 71046; 99283